=== PATIENT | male | born 1935 | race Caucasian/White ===

== ENCOUNTER 2024-08-16 07:19 | Outpatient (RCR) | payer MEDICARE, OTHER, SELFPAY ==
[2024-08-16 10:40] VITALS: BP 157/87; PULSE 79; TEMP 36; O2SAT 98
[2024-08-16] MEDS: MITOMYCIN 40 MG in WATER FOR INJECTION,STERILE 20 ML 20 MG INTRAVESIC (11:15)
--- NOTE | 2024-08-16 11:57 | PC.NURSE ---
1040: Pt. to [facility] amb. accompanied by . Consent form reviewed and obtained. Denies questions. Given privacy to change. 1050: Using sterile technique, 16 fr. garcia cath. inserted with delayed return of 150Ml clear, yellow urine. Pt. tolerated with minimal c/o. 1120: Mitomycin 40mg instilled into bladder at this time. Instructed pt. to turn side to side and front to back every 15min. x's 1hr. Pt. relays apprehension due to easily dislocating hip joint. This RN to assist pt. with gentle turning. Pt. relays understanding. 1135: Pt. turned to left side with assist. Pillow placed for comfort. 1150: Assisted pt. with turning to right side. Pt. denies c/o. at bedside.
--- NOTE | 2024-08-16 13:08 | PC.NURSE ---
1220: Mitomycin bladder instillation completed. Simon re-connected to drainage bag. 500cc clear yellow urine drained from bladder. Simon cath d/c'd. Given privacy to dress. 1230: Reminded pt. of precautions to take at home, pt. voices understanding. Pt. d/c'd amb. to home with .
== END 2024-08-16 12:51 | disposition home or self-care (01) ==
LOC: INF 07:19
PROVIDERS: Visit Provider Urology
DX: Z85.51 Personal history of malignant neoplasm of bladder (principal)
CPT/HCPCS: 51700; J9281

== ENCOUNTER 2024-09-13 07:40 | Outpatient (RCR) | payer MEDICARE, OTHER, SELFPAY ==
[2024-09-13] MEDS: MITOMYCIN 40 MG in WATER FOR INJECTION,STERILE 20 ML 20 MG INTRAVESIC (11:14)
--- NOTE | 2024-09-14 09:38 | PC.NURSE ---
Late entry: 09/13/24 Pt arrived for Mitomycin bladder instillation. Denies any complaints. Tx consent signed. #16 F garcia inserted into bladder per sterile technique. 200ml urine drained into garcia bag. Mitomycin instilled w/o incident. 1 hr dwell time complete. 500ml urine drained into garcia bag post procedure. Pt d/c'd stable.
== END 2024-09-13 14:20 | disposition home or self-care (01) ==
LOC: INF 07:40
PROVIDERS: Visit Provider Urology
DX: Z85.51 Personal history of malignant neoplasm of bladder (principal)
CPT/HCPCS: 51700; J9281

== ENCOUNTER 2024-12-20 07:31 | Outpatient (RCR) | payer MEDICARE, OTHER, SELFPAY ==
[2024-12-20 11:06] VITALS: BP 183/89; PULSE 59; TEMP 36.8; O2SAT 98
[2024-12-20] MEDS: MITOMYCIN 40 MG in WATER FOR INJECTION,STERILE 20 ML 20 MG INTRAVESIC (11:38)
--- NOTE | 2024-12-20 11:46 | PC.NURSE ---
1138: Mitomycin 40mg instilled into bladder. Simon cath plugged. Instructed pt. to turn side to side and front to back every 15min x's 1 hr. Pt. relays hip displaces easily, so pt. unable to completely roll on right side or prone position. Will assist pt. when needed.
--- NOTE | 2024-12-20 12:10 | PC.NURSE ---
Tolerating treatment without c/o burning or irritation in xavier area. Assisted pt. to gently turn on to right side. Denies needs. at bedside.
[2024-12-20 12:50] VITALS: BP 155/79; PULSE 60; TEMP 36.6; O2SAT 99
== END 2024-12-20 14:15 | disposition home or self-care (01) ==
LOC: INF 07:31
PROVIDERS: Visit Provider Urology
DX: C67.9 Malignant neoplasm of bladder, unspecified (principal)
CPT/HCPCS: 51700; J9281

== ENCOUNTER 2025-01-17 07:42 | Outpatient (RCR) | payer MEDICARE, OTHER, SELFPAY ==
[2025-01-17 10:42] VITALS: BP 167/69; PULSE 63; TEMP 36.6; O2SAT 99
[2025-01-17] MEDS: MITOMYCIN 40 MG in WATER FOR INJECTION,STERILE 20 ML 20 MG INTRAVESIC (11:07)
--- NOTE | 2025-01-17 11:22 | PC.NURSE ---
1107: Mitomycin instilled into bladder at this time via garcia catheter. End of garcia plugged. Instructed pt. to turn side to side and front to back every 15min. x's 1hr. Pt. relays understanding. at bedside.
--- NOTE | 2025-01-17 11:30 | PC.NURSE ---
Pt. tolerating treatment without c/o. Turning as instructed. Denies c/o or needs.
== END 2025-01-18 09:12 | disposition home or self-care (01) ==
LOC: INF 07:42
PROVIDERS: Visit Provider Urology
DX: Z85.51 Personal history of malignant neoplasm of bladder (principal)
CPT/HCPCS: 51700; J9281

== ENCOUNTER 2025-08-20 08:03 | Outpatient (OUT) | payer MEDICARE, OTHER, SELFPAY ==
--- OUTSIDE RECORDS SUMMARY | 2025-08-17 15:30 | XMS_ITS | Continuity of Care Document ---
Author Organization [facility] Address Unknown Care Team Providers Care Raschel Knitting Machine Operator Name Role Phone Rik Lund Primary Care Physician Encounter [facility] [id number] Date(s): 08/17/25 - 08/17/[address] [address] Encounter Diagnosis Redness and swelling of lower leg(Discharge Diagnosis) - 08/17/25 Other skin changes(Discharge Diagnosis) - 08/17/25 Discharge Disposition: Home Attending Physician: Valeria Jerome Admitting Physician: Valeria Jerome Encounter Type: OP Allergies, Adverse Reactions, Alerts SubstanceCriticalitySeverityReactionReaction SeverityStatusciprofloxacinActive sulfamethoxazole-trimethoprimActive Treatment Plan Extracted from:Title:Urgent Care NoteAuthor:Valeria Jeromeate:08/17/25 1. Redness and swelling of lower leg (M79.89) Future Appointments Immunizations Given and Recorded VaccineDateStatusRefusal XppvyuLQCA-NiL-2 (COVID-19) Moderna (cvx 312)07/26/23 SqdhvwnlTIMI-LyI-2 (COVID-19) mRNA-1273 vaccine6/08ThgzyjzgLWFK-JdH-7 (COVID- 19) mRNA-1273 sqpuspu86//04VhnqgbvkDYOL-BoA-8 (COVID-19) mRNA-1273 vaccine 11/17/2030AnhcdBSCD-KnD-2 (COVID-19) mRNA-1273 vaccine/Giveninfluenza, bnvoikaiqhh69/Given Medications atorvastatin 40 mg oral tablet 1 tab(s), Oral, Daily, # 90 tab(s), 3 Refill(s), Pharmacy: [facility], TAKE 1 TABLET DAILY, 180, cm, 09/28/24 8:31:00 EST, Height, 78.3, kg, 09/28/24 8:36:00 EST, Weight Dosing Start Date: 10/08/24 Status: Ordered Medication Dispense Status: Completed Quantity: 90.0 Unit: tab(s) Total Allowed Fills: 1 Fills Dispensed: 0 clopidogrel 75 mg oral tablet 1 tab(s), Oral, Daily, # 90 tab(s), 3 Refill(s), Pharmacy: [facility], TAKE 1 TABLET DAILY, 180, cm, 09/28/24 8:31:00 EST, Height, 78.3, kg, 09/28/24 8:36:00 EST, Weight Dosing Start Date: 10/17/24 Status: Ordered Medication Dispense Status: Completed Quantity: 90.0 Unit: tab(s) Total Allowed Fills: 1 Fills Dispensed: 0 Flomax 0.4 mg oral capsule 1 cap(s) ( 0.4 mg ), PO, Daily, # 30 cap(s), 0 Refill(s) Start Date: 03/06/16 Status: Ordered Medication Dispense Status: Completed Quantity: 30.0 Unit: cap(s) Total Allowed Fills: 1 Fills Dispensed: 0 fluticasone 50 mcg/inh nasal spray 1 spray(s), Nasal, Daily, 0 Refill(s) Start Date: 10/10/17 Status: Ordered Medication Dispense Status: Completed Total Allowed Fills: 1 Fills Dispensed: 0 folic acid 0.4 mg oral tablet 1 tab(s) ( 0.4 mg ), PO, Daily, # 100 tab(s), 0 Refill(s) Start Date: 03/06/16 Status: Ordered Medication Dispense Status: Completed Quantity: 100.0 Unit: tab(s) Total Allowed Fills: 1 Fills Dispensed: 0 lisinopril 20 mg oral tablet 1 tab(s) ( 20 mg ), Oral, Daily, # 90 tab(s), 3 Refill(s), Pharmacy: [facility],1 tab(s) Oral Daily, 180, cm, 03/20/25 9:58:00 EDT, Height, 78.2, kg, 03/20/25 10:05:00 EDT, WeightDosing Start Date: 03/20/25 Status: Ordered Medication Dispense Status: Completed Quantity: 90.0 Unit: tab(s) Total Allowed Fills: 4 Fills Dispensed: 0 Ocuvite PO, Daily, 0 Refill(s) Start Date: 05/18/18 Status: Ordered Medication Dispense Status: Completed Total Allowed Fills: 1 Fills Dispensed: 0 Percocet 5 mg-325 mg oral tablet 1 tab(s), Oral, q4hr, PRN: as needed for pain, # 12 tab(s), 0 Refill(s), Pharmacy: [facility], 1 tab(s) Oral q4hr,PRN:as needed for pain, 180, cm, 08/14/25 17:24:00 EST, Height, 77.7, kg, 08/14/25 13:03:00 EST, Weight Dosing Start Date: 08/15/25 Status: Ordered Medication Dispense Status: Completed Quantity: 12.0 Unit: tab(s) Total Allowed Fills: 1 Fills Dispensed: 0 Tums 500 mg oral tablet, chewable 1 tab(s) ( 500 mg ), Chewed, BID, PRN: as needed for dyspepsia Start Date: 05/03/23 Status: Ordered Medication Dispense Status: Completed Total Allowed Fills: 1 Fills Dispensed: 0 Tylenol (acetaminophen) ( 500 mg ), PO, PRN: pain, 0 Refill(s) Start Date: 06/01/17 Status: Ordered Medication Dispense Status: Completed Total Allowed Fills: 1 Fills Dispensed: 0 Problem List ConditionConfirmationCourseEffective DatesStatusHealth StatusInformant Malfunction of anal sphincterConfirmedActiveBladder pfetmvSghibejkk1204Lssovf Breast mass in maleConfirmedActiveCervical radiculopathyConfirmedActiveChest painConfirmedActiveCOPD (chronic obstructive pulmonary disease)ConfirmedActive CAD (coronary artery disease)ConfirmedActiveDepressionConfirmedActiveDizziness ConfirmedActiveDyspneaConfirmedActiveShortness of breathConfirmedActive Exertional dyspneaConfirmedActiveFatigueConfirmedActiveFoot painConfirmedActive Foot drop, rightConfirmedActiveGERD (gastroesophageal reflux disease)Confirmed ActiveHeart diseaseConfirmedActiveHip painConfirmedActiveHyperlipidemiaConfirmed ActiveHTN (hypertension)ConfirmedActiveIdiopathic osteoporosisConfirmedActive Erectile dysfunctionConfirmedActiveLumbar radiculopathyConfirmedActivePulmonary noduleConfirmedActivePreauricular massConfirmedActiveThyroid massConfirmedActive Near syncopeConfirmedActiveNeck painConfirmedActiveNight sweatsConfirmedActive Orthostatic hypotensionConfirmedActiveOsteoarthritisConfirmedActiveOM (otitis media)ConfirmedActivePVD (peripheral vascular disease) with claudication ConfirmedActiveRUQ abdominal painConfirmedActiveSciaticaConfirmedActiveSerous otitis mediaConfirmedActiveSpinal stenosis, lumbarConfirmedActiveThyroid nodule ConfirmedActiveTIA (transient ischemic attack)ConfirmedActiveUnintentional weight lossConfirmedActiveWeight lossConfirmedActive Procedures ProcedureDateRelated DiagnosisBody SiteStatusEpidural block1Completed Bxkarctwjyn2657YnqwhbabyOssqbne xgwhmoieuijzwfd9962AdnwnkswuMqk replacement CompletedShoulder dqbwzjwvpio5LzosoerztLpaaipkjfw repair of inguinal hernia2 Completed 1Rt 2Rt Social History Social History TypeResponseTobaccoFormer tobacco user Tobacco Use:. SexMale Sex RepresentationMale (finding) Implantable Device List ProcedureProviderProcedure DateDevice TypeSiteCystoscopy Stent InsertionAlexandre Ovalle MD08/15/25[facility] BiologicalUreter RDevice IdentifierSerial NumberLot or Batch NumberManufacturing DateExpiration DateDistinct Identification CodeMRI SafetyImplantable StatusAssigning [id number] UnknownUnknownActiveUnknown Urgent care center Note * Valeria Jerome BREAKER OPERATOR: PERFORM Event Display: Urgent Care Note Authored Date: [id number] ROSCOE ROQUE :1935 Age:89 years Sex:MALE Registration Date:08/17/2025 Primary Care Physician: Rik Lund DO History of Present Illness Roscoe is an 89-year-old male that presents to the urgent care department for redness to the lateralaspect of his right lower leg.?? states that??2 days ago he had ureteral stent??placed. ??He noticed today that he has redness along the lateral edge of his right lower leg. ??He does arrive??wearing??compression stockings and brace to right lower leg.?? He is currently on Plavix, he does state that he has had blood clots in the past. ??Discussed that he may benefit from??evaluation at higher level of care, he is agreeable to this. ??Escorted to??emergency department??via wheelchair.?? Report given to RN. Assessment/Plan 1.??Redness and swelling of lower leg (M79.89) Problem List/Past Medical History Ongoing Bladder cancer Breast mass in male CAD (coronary artery disease) Cervical radiculopathy Chest pain COPD (chronic obstructive pulmonary disease) Depression Dizziness Dyspnea Erectile dysfunction Exertional dyspnea Fatigue Foot drop, right Foot pain GERD (gastroesophageal reflux disease) Heart disease Hip pain HTN (hypertension) Hyperlipidemia Idiopathic osteoporosis Lumbar radiculopathy Malfunction of anal sphincter Near syncope Neck pain Night sweats OM (otitis media) Orthostatic hypotension Osteoarthritis Preauricular mass Pulmonary nodule PVD (peripheral vascular disease) with claudication RUQ abdominal pain Sciatica Serous otitis media Shortness of breath Spinal stenosis, lumbar Thyroid mass Thyroid nodule TIA (transient ischemic attack) Unintentional weight loss Weight loss Historical Acute pain of right knee Acute pancreatitis bladder CA Bronchitis Chronic cough Chronic serous otitis media Cough COVID-19 Dysplasia of anal sphincter PE - Pulmonary embolism Polymyalgia rheumatica Tear of retina tia Procedure/Surgical History ???Epidural block Service Date: 03/2021???Colonoscopy Service Date: 2008???Cardiac catheterisation Service Date: 2007???Shoulder replacement???Unilateral repair of inguinal hernia???Hip replacement Medications Home acetaminophen(Tylenol (acetaminophen)), 500 mg, Oral, PRN acetaminophen-oxycodone(Percocet 5 mg-325 mg oral tablet), 1 tab(s), Oral, q4hr, PRN atorvastatin(atorvastatin 40 mg oral tablet), 1 tab(s), Oral, Daily calcium carbonate(Tums 500 mg oral tablet, chewable), 500 mg= 1 tab(s), Chewed, BID, PRN clopidogrel(clopidogrel 75 mg oral tablet), 1 tab(s), Oral, Daily fluticasone nasal(fluticasone 50 mcg/inh nasal spray), 1 spray(s), !-Nasal, Daily folic acid(folic acid 0.4 mg oral tablet), 0.4 mg= 1 tab(s), Oral, Daily lisinopril(lisinopril 20 mg oral tablet), 20 mg= 1 tab(s), Oral, Daily, 3 refills multivitamin with minerals(Ocuvite), Oral, Daily tamsulosin(Flomax 0.4 mg oral capsule), 0.4 mg= 1 cap(s), Oral, Daily Allergies ciprofloxacin sulfamethoxazole-trimethoprim Social History Alcohol Alcohol Use:Never Electronic Cigarette/Vaping Electronic Cigarette Use:Never Employment/School Status:Retired Exercise Duration (average number of minutes):0 Home/Environment Lives with:Spouse Nutrition/Health Caffeine intake amount:2 cups daily Substance Use Substance use:Never Tobacco Smoking tobacco use:Former tobacco user [Electronically Signed on: 08/17/2025 15:28 EST] Valeria Jerome [Verified on: 08/17/2025 15:28 EST] Valeria Jerome BREAKER OPERATOR Patient Care team information Care Team Personnel Name: Rik Lund DO Position: [facility] Physician Acute/ED/Clinic/Care Member Role: Primary Care Physician Address: [address] [place] [address] Telecom: Care Team Related Persons Name: GEENA NEVILLE Name: CHRISTY ROQUE Insurance Providers Guarantor name: ROSCOE ROQUE Health Plan Information #: 1 Payer: MEDICARE Payer Identifier: LATRELL Member Number: [id number] Group Number: NA Subscriber Identifier: [id number] Relationship to Subscriber: self Coverage Type: MEDICARE Coverage Verification Date: 25 Telecom: [phone] Address: [facility] [address] Health Plan Information #: 2 Payer: FOR LIFE MEDICARE SECONDARY Payer Identifier: NA Member Number: [id number] Group Number: [id number] Subscriber Identifier: [id number] Relationship to Subscriber: self Coverage Type: OTHER GOVERNMENT (Federal/State/Local) (excluding Department of Corrections) Coverage Verification Date: 25 Telecom: [phone] Address: [address] [address] Health Plan Information #: 3 Payer: MEDICARE Payer Identifier: NA Member Number: [id number] Group Number: LATRELL Subscriber Identifier: [id number] Relationship to Subscriber: self Coverage Type: MEDICARE Coverage Verification Date: 25 Telecom: [phone] Address: [address] [place] [address] Health Plan Information #: 4 Payer: FOR LIFE MEDICARE SECONDARY Payer Identifier: NA Member Number: [id number] Group Number: [id number] Subscriber Identifier: [id number] Relationship to Subscriber: self Coverage Type: OTHER GOVERNMENT (Federal/State/Local) (excluding Department of Corrections) Coverage Verification Date: 25 Telecom: [phone] Address: [address] [place] [id number]
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
--- NOTE | 2025-08-20 08:11 | XR_ITS ---
The [address] [address] Patient Name: ROSCOE ROQUE MRN: [id number] date: 1935 Sex: M Assigned Patient Location: [facility] Current Patient Location: [facility] Accession/Order Number: [id number] Exam Date: 08/20/2025 09:00 Report Date: 08/20/2025 09:13 At the request of: JUVENCIO GILL MD Procedure: XR chest 2V PA AND LATERAL CHEST: CLINICAL HISTORY: Preoperative clearance. History of tobacco use. COMPARISON: None There is minimal basilar atelectasis or scarring. There is no focal parenchymal consolidation, effusion or pneumothorax. The cardiac, hilar and mediastinal silhouettes are within normal limits. There is no vascular congestion. The visualized bony thorax is intact. There is subtle dextroscoliotic curvature and endplate spurring. Patient has a shoulder prosthesis. XR/XR chest 2V IMPRESSION: NO ACUTE CARDIOPULMONARY ABNORMALITY. Impression dictated by: Hortensia Aly M.D. 08/20/2025 9:13 AM Dictation Location: [place] [address] Electronically authenticated by: [id number] Y Date: 08/20/2025 09:13
--- OUTSIDE RECORDS SUMMARY | 2025-08-20 08:11 | XMS_ITS | Clinical Summary ---
Author Organization [facility] Address [address], [address] [place] [address] Care Team Providers Care Internet Technology Manager Name Role Phone Rik Lund DO Primary Care Provider + [phone] Allergies Active AllergyReactionsCriticalityNoted DateComments Sulfamethoxazole-Uadyustowkgq73/21/2018Sulfa Ikzmetbygow00/21/2018 Medications MedicationSigDispense QuantityRefillsLast FilledStart DateEnd DateStatus folic acid (FOLVITE) 400 MCG tablet Take 400 mcg by mouth dailyActive clopidogrel (PLAVIX) 75 MG tablet Take 75 mg by mouth dailyActive tamsulosin (FLOMAX) 0.4 MG capsule Take 0.4 mg by mouth dailyActive atorvastatin (LIPITOR) 40 MG tablet Take 40 mg by mouth dailyActive aspirin 81 MG tablet Take 81 mg by mouth dailyActive lisinopril (PRINIVIL;ZESTRIL) 10 MG tablet Take 10 mg by mouth dailyActive Active Problems No known active problems Family History Medical HistoryRelationNameCommentsCancerFatherHeart DiseaseMotherRelationName StatusCommentsFatherMother Social History Tobacco UseTypesPacks/DayYears UsedDateSmoking Tobacco: NeverSmokeless Tobacco: NeverAlcohol UseStandard Drinks/WeekCommentsNot Currently0 (1 standard drink = 0.6 oz pure alcohol)Sex and Gender InformationValueDate RecordedSex Assigned at BirthNot on fileLegal PtpCizn69/20/2018 10:26 AM ESTGender IdentityNot on file Sexual OrientationNot on file Last Filed Vital Signs Vital SignReadingTime TakenCommentsBlood Pressure--Pulse--Gaahtrjpuzf64.6 ??C (97.8 ??F)10/10/2020 11:39 AM ESTRespiratory Rate--Oxygen Saturation--Inhaled Oxygen Concentration--Diakbn55.5 kg (195 lb)10/10/2020 11:39 AM SXXQfppad582.3 cm (5' 11 )10/10/2020 11:39 AM ESTBody Mass Index27. 11:39 AM EST Plan of Treatment Not on file Insurance Care Teams Team MemberRelationshipSpecialtyStart DateEnd Date Rik Lund DO PCP - GeneralOrthopedic Ujvakqw15/21/18
--- OUTSIDE RECORDS SUMMARY | 2025-08-20 08:12 | XMS_ITS | Clinical Summary ---
Author Organization [facility] Address [address] [place] [address] Phone Care Team Providers Care Fire Alarm Inspector Name Role Phone KevonRik Jace HANDLEY Primary Care Provider + Allergies Active AllergyReactionsCriticalityNoted DateCommentsCiprofloxacinGI intolerance, Other06/20/2007 Other Reaction(s): rapid heartbeat Sulfa (Sulfonamide Antibiotics)Hives,WsrqBhg8209/13/2011 Sulfamethoxazole-YjnvuykdkwopDjotFcc03/21/2018 Medications MedicationSigDispense QuantityRefillsLast FilledStart DateEnd DateStatus tamsulosin (Flomax) 0.4 mg 24 hr capsule Take 1 capsule (0.4 mg) by mouth once daily.02/22/2023ctive folic acid (Folvite) 400 mcg tablet 1 (one) time each day at the same time.Active atorvastatin (Lipitor) 40 mg tablet Take 1 tablet (40 mg) by mouth once daily.01/16/2023ctive clopidogrel (Plavix) 75 mg tablet Take 1 tablet (75 mg) by mouth.12/13/2006ctive acetaminophen (Tylenol) 325 mg tablet Take 1 tablet (325 mg) by mouth every 4 hours.Active di-rr-lv1-hxe-hca-fyev-lut-melissa (Ocuvite Adult 50 Plus) 250 mg (90 mg-160 mg) capsule Take by mouth.Active lisinopril 20 mg tablet Take 1 tablet (20 mg) by mouth once daily.Active Active Problems ProblemNoted DateDiagnosed DateNonrheumatic aortic (valve) nejljitj30/28/2025 Former usxqxe8507/23/2025hest pain, foykgtymbba48/26/2025Edema of right lower aaiqxlgrm89/26/2025Easy elcfkrghxkir07/26/2025Personal history of TIA (transient ischemic attack)12/09/2023ladder tumor12/09/20234100Mfyjrjlrqeamco68/15/2024 Abnormal EKG012/09/20238511CLWJ97/15/2024MI 24.0-24.9, adult12/09/2023OPD (chronic obstructive pulmonary disease)02/28/2023HTN (hypertension)02/28/2023 Resolved Problems ProblemNoted DateDiagnosed DateResolved DatePre-operative cardiovascular foxsptafxeo24/15/202406/7401Zkhmyrerd95Heart disease Near Encounters DateTypeDepartmentCare ZzesBgzuwfqllpx35/21/2025Telephone [address] [place] [phone] Eva Coburn LPN 07/23/2025 12:50 PM EDTOffice Visit [address] [place] [phone] Bolivar Christensen MD Chest pain, unspecified type (Primary Dx); Primary hypertension; RBBB; Mixed hyperlipidemia; Abnormal EKG; Easy bruisability; BMI 23.0-23.9, adult; Edema of right lower extremity; Nonrheumatic aortic (valve) stenosis; Former aoxlis8107/23/2025Travelfrom Last 3 Months Immunizations ImmunizationAdministration DatesNext LpbWPR30/20/2024COVID-19 mRNA, bivalent, original/Omicron BA.1, Non-US Vaccine (Spikevax Bivalent), Lpztkmo55/07/2022Flu vaccine (IIV4), preservative free *Check age/dose*06/27/2018,06/20/2017Flu vaccine, quadrivalent, high-dose, preservative free, age 65y+ (FLUZONE) 07/18/2023,07/07/2022,06/25/2021,06/12/2020Flu vaccine, trivalent, preservative free, HIGH-DOSE, age 65y+ (Fluzone)07/12/2025,06/08/2024,06/12/2019Influenza, live, intranasal, jekytrbkwekm11/26/2018Pneumococcal polysaccharide vaccine, 23- valent, age 2 years and older (PNEUMOVAX 23)03/01/2016,09/12/2015RESPIRATORY SYNCYTIAL VIRUS (RSV), ELIGIBLE PTS, 0.5 ML (ABRYSVO)09/02/2023 Family History Medical HistoryRelationNameCommentsCancerFatherHeart attackMotherRelationName StatusCommentsFatherDeceasedMotherDeceased Social History Tobacco UseTypesPacks/DayYears UsedDateSmoking Tobacco: FormerPipeSmokeless Tobacco: Never Tobacco Cessation:Counseling Given: Not Answered Alcohol UseStandard Drinks/WeekCommentsNever0 (1 standard drink = 0.6 oz pure alcohol)Sex and Gender InformationValueDate RecordedSex Assigned at BirthNot on fileLegal ZyaSide30/26/2022 4:39 PM ESTGender IdentityNot on fileSexual OrientationNot on file Last Filed Vital Signs Vital SignReadingTime TakenCommentsBlood Rgvxogok241/7607/23/2025 12:50 PM EDT Mkkdk277807/23/2025 12:50 PM EDTTemperature--Respiratory Rate--Oxygen Saturation-- Inhaled Oxygen Concentration--Jjawms28 kg (172 lb)07/23/2025 12:50 PM EDTHeight 180.3 cm (5' 11 )07/23/2025 12:50 PM EDTBody Mass Index23.9907/23/2025 12:50 PM EDT Plan of Treatment DateTypeDepartmentCare Team (Latest Contact Info)Hxytsdusirm03/30/2026 3:30 PM EDTOffice Visit [facility] [address] [address] Bolivar Christensen MD 703 [facility] [address] [place] [address] Health MaintenanceDue DateLast DoneCommentsLipid Panel1936Medicare Annual Wellness Visit (AWV)1936Diabetes Xuvgyadlt49/27/1954OVID-19 Vaccine ( season)61, 06/08/2024, 07/26/2023, Additional history existsDTaP/Tdap/Td Vaccines (2 - Td or Tdap)Zoster Vaccines Ohevebtxb56/01/2019, 12/08/2018RSV High Risk: (Elderly (60+) or Population)Iymzpshcn38/08/2023Influenza UjhpjleTyhlmuaqo38/17/2025, 06/08/2024, 07/18/2023, Additional history existsPneumococcal ChznrovCjvjnwpdp70/17/2025, 01/20/2022, 11/27/2020, Additional history existsHIB VaccinesAged OutNo longer eligible based on patient's age to complete this topicHPV VaccinesAged OutNo longer eligible based on patient's age to complete this topicHepatitis A VaccinesAged OutNo longer eligible based on patient's age to complete this topic Hepatitis B VaccinesAged OutNo longer eligible based on patient's age to complete this topicIPV VaccinesAged OutNo longer eligible based on patient's age to complete this topicMeningococcal VaccineAged OutNo longer eligible based on patient's age to complete this topicRotavirus VaccinesAged OutNo longer eligible based on patient's age to complete this topic Insurance * Guarantor: Hector HernandezAccount TypeRelation to PatientDate of BirthPhone Billing AddressPersonal/LgdwgiZypx1935 [address] [place] [address] Care Teams Team MemberRelationshipSpecialtyStart DateEnd Date Rik Lund DO [address] [place] [address] PCP - GeneralFamily Medicine12/09/23
--- OUTSIDE RECORDS SUMMARY | 2025-08-20 08:12 | XMS_ITS | Clinical Summary ---
Author Organization [facility] Address [address] [place] [address] Care Team Providers Care Director Of Officiating Name Role Phone Unavailable Primary Care Provider Unavailabl e Allergies Active AllergyReactionsCriticalityNoted DateCommentsSulfamethoxazoleHives 09/13/20111330EkpqwubrxpwaxRivvxcjudfz62/25/2007 Medications MedicationSigDispense QuantityRefillsLast FilledStart DateEnd DateStatus PLAVIX 75 MG TAB Take one(1) tablet daily.ctive ASPIRIN 81 MG TAB Take one(1) tablet daily.ctive FOLIC ACID 1 MG TAB Take one(1) tablet daily.ctive atorvastatin (LIPITOR) 40 mg tablet Take 40 mg by mouth once daily.Active ACETAMINOPHEN (TYLENOL 8 HOUR ORAL) Take by mouth.Active ANTIOX #11/OM3/DHA/EPA/LUT/JULIA (OCUVITE ADULT 50+ ORAL) Take by mouth two times a day.Active lisinopril (ZESTRIL, PRINIVIL) 10 mg tablet Take 10 mg by mouth once daily.Active tamsulosin ER (FLOMAX) 0.4 mg cp24 Take 0.4 mg by mouth.Active Active Problems ProblemNoted DateDiagnosed DateLeg length dmpjibxvqmu20/24/2014Foot drop, right 03/19/2014Injury, other and unspecified, hip and thigh12/25/2013Unspecified disorder of joint of pelvic region and thigh04/01/2014RT HIP, COMPLIC FURNACE LINER JOINT DEVICE [996.77]08/01/2008S/P RIGHT HIP JOINT ORMNUPCWGKP76/06/2008ctinic ojxtmsxxj87/20/2007Contact dermatitis and other eczema, due to unspecified cause 12/13/2006 Encounters DateTypeDepartmentCare SvdtNjmdcnoorki53/25/2025 10:40 AM EDTOffice Visit Orthopaedics [address] [place] [address] Lakesha Negrete PA-C 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) 06/20/2025 10:05 AM EDT - 06/20/2025 11:59 PM EDTHospital Encounter Radiology [address] [place] [address] History of revision of total replacement of right hip joint [Z96.641] Discharge Disposition: Home06/11/2025Orders Only Orthopaedics [address] [address] Laeksha Negrete PA-C 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 Last address used for bfaaaqdayrh[address]06/21/2024Sex and Gender InformationValueDate RecordedSex Assigned at EclriJxen25/23/2024 7:38 PM EDT Legal AtiLejh06/02/2012 8:42 AM ESTGender VrahgbfmFuwh71/23/2024 7:38 PM EDT Sexual GmdowhjevxuTuerfqki82/23/2024 7:38 PM EDT Last Filed Vital Signs Vital SignReadingTime TakenCommentsBlood Goeqhkss147/7202 10:04 AM EST Osqma3886/28/2017 10:04 AM WHGCeuahwsfawu68.6 ??C (97.8 ??F)11/23/2016 10:04 AM ESTRespiratory Fgos701611/23/2016 10:04 AM ESTOxygen Trsyrhtmjc79%11/23/2016 10:04 AM ESTInhaled Oxygen Concentration--Dltrxt82 kg (194 lb)11/23/2016 10:04 AM EST Lqyxsc890.3 cm (5' 11 )11/23/2016 10:04 AM ESTBody Mass Index27.0611/23/2016 10:04 AM EST Plan of Treatment DateTypeDepartmentCare Team (Latest Contact Info)Izujpioazho70/25/2026 10:40 AM EDTOffice Visit Orthopaedics [address] [facility] [place], [place] [address] Lakesha Negrete PA-C [address] [place] [address] right hipHealth MaintenanceDue DateLast DoneCommentsAnxiety Lpbwibvkz43/27/1954 Depression Ojyaopjij05/27/1954iabetes Getzcyrpd44/27/1981Medicare Annual Wellness Visit05/27/2001Advance Directive Dralulcsif90/01/2025Covid-19 Vaccine ( season), 07/26/2023, 09/01/2022, Additional history existsInfluenza Vaccine (#1)/, 07/18/2023, 07/07/2022, Additional history existsDTaP,Tdap,Td Vaccine (2 - Td or Tdap) 9012/08/2018Shingrix YfmniicZrcajbaop61/01/2019, 12/08/2018Pneumococcal Vaccine: 50+Whzfhvjfo17/27/2022, 11/27/2020, 03/01/2016, Additional history existsRSV EmgkwqzDqdukijef83/08/2023 Procedures Procedure NamePriorityDate/TimeAssociated DiagnosisCommentsXR HIP GENERAL 3V PELV/AP/LAT QSPKTPcfphhf44/25/2025 10:21 AM EDT History of revision of total replacement of right hip joint from Last 3 Months Results * XR HIP GENERAL 3V PELV/AP/LAT RIGHT (06/20/2025 10:21 AM EDT)Anatomical Region LateralityModalityHipOtherSpecimen (Source)Anatomical Location / Laterality Collection Method / VolumeCollection TimeReceived Time06/20/2025 10:21 AM EDT Impressions 06/20/2025 8:47 PM EDT IMPRESSION: Postoperative changes similar to prior examination. Director Oncology: PSCB ?? Transcribe Date/Time: Jun 20 2025 ??8:43P Dictated by : VALENTIN LINDA MD This examination was interpreted and the report reviewed and electronically signed by: VALENTIN LINDA MD on Jun 20 2025 ??8:45PM ??EST Narrative 06/20/2025 8:47 PM EDT * * *Final Report* * * DATE OF EXAM: Jun 20 2025 10:21AM ?? AFR ?? [id number] ??- ??XR HIP 3V PELV+ AP/LAT RT ??/ PROCEDURE REASON: History of revision of total replacement of right hip joint ? * * * * Physician Interpretation * * * * HISTORY: ??History of revision of total replacement of right hip joint ?? . ??1 YEAR F/U RT HIP TECHNIQUE: XR HIP 3V PELV+ AP/LAT RT COMPARISON: 06/21/2024 RESULT: No significant interval change. ??Again seen are postoperative changes of right total hip arthroplasty with acetabular augmentation and long stem femoral component secured by 2 metallic cables. ??Hardware in unchanged position with vertically oriented acetabular component. ??A broken screw is again noted. ??No evidence of loosening. No acute fracture. ??Diffuse osteopenia. No other significant abnormality. Procedure Note Provider, [facility] - 06/20/2025 * * *Final Report* * * DATE OF EXAM: Jun 20 2025 10:21AM AFR [id number] - XR HIP 3V PELV+ AP/LAT RT / PROCEDURE REASON: History of revision of total replacement of right hip joint * * * * Physician Interpretation * * * * HISTORY: History of revision of total replacement of right hip joint . 1 YEAR F/U RT HIP TECHNIQUE: XR HIP 3V PELV+ AP/LAT RT COMPARISON: 06/21/2024 RESULT: No significant interval change. Again seen are postoperative changes of right total hip arthroplasty with acetabular augmentation and long stem femoral component secured by 2 metallic cables. Hardware in unchanged position with vertically oriented acetabular component. A broken screw is again noted. No evidence of loosening. No acute fracture. Diffuse osteopenia. No other significant abnormality. IMPRESSION IMPRESSION: Postoperative changes similar to prior examination. Director Oncology: JENY Transcribe Date/Time: Jun 20 2025 8:43P Dictated by : VALENTIN LINDA MD This examination was interpreted and the report reviewed and electronically signed by: VALENTIN LINDA MD on Jun 20 2025 8:45PM EST Authorizing ProviderResult TypeResult StatusLakesha VALENZUELA-CRAD-PAMAFinal Result from Last [address] [facility] [place] [address] * Guarantor: ROSCOE HERNANDEZ TypeRelation to PatientDate of BirthPhone Billing AddressPersonal/AgpccnAqfuskhmp[address] [facility] [place] [address] * Guarantor: [id number] ROSCOE HERNANDEZ TypeRelation to PatientDate of BirthPhoneBilling AddressWorkers XfkbBwff1936 [facility] [place] [address]
--- OUTSIDE RECORDS SUMMARY | 2025-08-20 08:12 | XMS_ITS | Encounter Summary ---
Author Organization [facility] Address [address] [place] [address] Phone Care Team Providers Care Raw Hide Trimmer Name Role Phone Kevon Rik Mccormick DO Primary Care Provider + Encounter Details DateTypeDepartmentCare Team (Latest Contact Info)Eqtkdtqpefl34/21/2025Telephone [facility] [address] [address] Eva Coburn LPN Social History Tobacco UseTypesPacks/DayYears UsedDateSmoking Tobacco: FormerPipeSmokeless Tobacco: NeverAlcohol UseStandard Drinks/WeekCommentsNever0 (1 standard drink = 0.6 oz pure alcohol)Sex and Gender InformationValueDate RecordedSex Assigned at BirthNot on fileLegal TcmFgki06/26/2022 4:39 PM ESTGender IdentityNot on file Sexual OrientationNot on filedocumented as of this encounter Miscellaneous Notes * Telephone Encounter - Osiris Hoffman LPN - 08/16/2025 4:16 PM EST Surgeon's office notified. Will fax note * Telephone Encounter - Eva Coburn LPN - 08/16/2025 11:56 AM EST Call from [place] with Dr. Rowe' office requesting POC and 1 week med hold prior to right holmium laser stone surgery scheduled for 08.29.25. Patient is on Plavix and ASA. Patient will be undergoing general anesthesia. (D) [phone] (P) [phone] documented in this encounter Plan of Treatment DateTypeDepartmentCare Team (Latest Contact Info)Shkslviviyw68/30/2026 3:30 PM EDTOffice Visit [facility] [address] [place] [address] [address] [place] [phone] Bolivar Christensen MD [address] [place] [address] [address] [place] [address] documented as of this encounter Visit Diagnoses Not on filedocumented in this encounter Additional Health Concerns AssessmentNoted TimeA fall risk assessment has been completed for the patient 07/23/2025 12:49 PM EDTdocumented as of this encounter Care Teams Team MemberRelationshipSpecialtyStart DateEnd Date Rik Lund DO [address] [place] [address] PCP - GeneralFamily Medicine12/09/23documented as of this encounter
--- OUTSIDE RECORDS SUMMARY | 2025-08-20 08:12 | XMS_ITS | Clinical Summary ---
Author Organization [facility] Address [address] [place] [address] Care Team Providers Care Mult Au Matic Operator Name Role Phone Rik Lund MD Primary Care Provider [phone] Allergies Active AllergyReactionsCriticalityNoted DateCommentsCiprofloxacinGI intolerance 06/20/2007 Other Reaction(s): rapid heartbeat Sulfa AntibioticsRash,AfcqzNwr73/19/2011Sulfamethoxazole-TrimethoprimRashLow 08/16/2018 Medications MedicationSigDispense QuantityRefillsLast FilledStart DateEnd DateStatus acetaminophen (Tylenol) 325 MG tablet every 4 (four) hoursActive ASPIRIN 81 MG chewable tablet 1 (one) time each day at the same timeActive atorvastatin (Lipitor) 40 MG tablet 01/16/2023ctive clopidogrel (Plavix) 75 MG tablet 01/26/2023ctive folic acid (Folvite) 400 MCG tablet 1 (one) time each day at the same timeActive lisinopril 10 MG tablet 02/20/2023ctive Multiple Vitamins-Minerals (Ocuvite Adult 50+) capsule Active tamsulosin (Flomax) 0.4 MG 24 hr capsule Take 0.4 mg by mouth Daily02/22/2023ctive doxycycline (Vibramycin) 100 MG capsule 06/23/2023ctive Active Problems ProblemNoted DateDiagnosed BcixRkggovs78/22/2023hronic ulcer of right foot with fat layer hikhkyi5302/28/2023Onychomycosis due to cinqvcpnmatg84/05/2023rthritis of right knee02/28/2023Internal derangement of right knee02/28/2023 Osteoarthritis of right knee02/28/2023Unilateral primary osteoarthritis, left knee02/28/2023ain in limb02/28/2023ain in right knee02/28/2023eripheral iwithejmcg20/05/2023rimary xzhftapbxkpwxn76/05/2023Right knee pain, unspecified uiuplxkski29/05/0690Fsjpzdyx53/05/2023Shortness of gprjbr6402/28/2023ervical rmlrjjyenlpmj14/05/2023Lumbar budatynjfdamf15/05/2023Spinal stenosis, lumbar 02/28/2023Thyroid mass02/28/2023TIA (transient ischemic attack)02/28/2023Weight loss02/28/2023Neck pain02/28/2023Idiopathic eeknplqbglvi72/05/2023Osteoarthritis 02/28/2023RUQ abdominal pain02/28/2023eripheral arterial occlusive disease 02/28/2023Orthostatic qflaanhkglu00/05/2023Night mmauyv0002/28/2023Near syncope 02/28/2023HTN (hypertension)02/28/2023Heart mxlaoml9902/28/2023Malfunction of anal gkatmbogl20/05/2023Lung mass02/28/2023reast mass in male02/28/2023 Recqwifvxzldlg76/05/2023Hip pain02/28/2023ERD (gastroesophageal reflux disease) 02/28/20238867Fxnouddxn61/05/6342Qjvxfxfrgr52/05/2023OVID-19002/28/2023OPD (chronic obstructive pulmonary disease)02/28/2023hronic serous otitis media02/28/2023 Chronic cough02/28/2023AD (coronary artery disease)02/28/2023ladder cancer 02/28/2023cute pancreatitis ([facility])02/28/2023Unilateral inguinal hernia without obstruction or vqyfczng50/05/2023Foot drop, right03/19/2014Leg length tcdaisqukhc93/24/2014Disorder of joint of pelvic region and thigh12/25/2013 [facility] lkxonymby43/20/2007 Encounters DateTypeDepartmentCare BnmdCveplbzafru45/08/2025 11:30 AM EDTOffice Visit [facility] [address] [place] [address] Dago Staton DPVickie Other polyneuropathy (Primary Dx); Pain due to onychomycosis of toenails of both feet; Right foot drop5Bamboo flowsheet [facility] [address] [place] [phone] Dago Staton DPVickie from Last 3 Months Immunizations ImmunizationAdministration DatesNext DueInfluenza, High Dose Seasonal, Preservative Free06/12/2019Influenza, High-dose Seasonal, Quadrivalent, Preservative Free07/07/2022,06/25/2021,06/12/2020Influenza, injectable, quadrivalent, preservative free06/27/2018,06/20/2017Influenza, live, intranasal, ozpwbbzenurx07/26/2018Moderna Bivalent Booster Azypawmsezo74/07/2022Moderna SARS-CoV-2 Booster Ryxmetkpfpj60/07/2022neumococcal Polysaccharide PPSV23 03/01/2016,09/12/2015 Family History Medical HistoryRelationNameCommentsCancerFatherHeart diseaseMotherRelationName StatusCommentsFatherDeceasedMotherDeceased Social History Tobacco UseTypesPacks/DayYears UsedDateSmoking Tobacco: FormerCigarettes Smokeless Tobacco: Never Tobacco Cessation:Counseling Given: Yes Alcohol UseStandard Drinks/WeekCommentsNever0 (1 standard drink = 0.6 oz pure alcohol)caffeine intake: 1-2 cups per daySex and Gender InformationValueDate RecordedSex Assigned at BirthNot on fileLegal LeqOdqr5612/08/2022 8:13 PM EDT Gender IdentityNot on fileSexual OrientationNot on file Last Filed Vital Signs Vital SignReadingTime TakenCommentsBlood Uurpnxpz695/7802 11:59 AM EST Ueoqm5839/10/2025 11:59 AM ESTTemperature--Respiratory Gudx288206/03/2025 11:47 AM EDTOxygen Saturation--Inhaled Oxygen Concentration--Yubdcs88.3 kg (177 lb) 06/03/2025 11:47 AM ENZJujdtb652.3 cm (5' 11 )06/03/2025 11:47 AM EDTBody Mass Index24.69006/03/2025 11:47 AM EDT Plan of Treatment DateTypeDepartmentCare Team (Latest Contact Info)Adodegbeuvp29/01/2025 11:40 AM ESTOffice Visit [facility] [address] [place] [phone] Dago Staton DPM [address] [address] Health MaintenanceDue DateLast DoneCommentsCOVID-19 Vaccine ( season) , 09/01/2022, 03/08/2022, Additional history exists Pneumococcal Vaccine: 65+ MzhlaOqdchnqto21/27/2022, 11/27/2020, 03/01/2016, Additional history existsInfluenza TzqnamiUxrytsbun52/17/2025, 06/08/2024, 07/18/2023, Additional history exists Insurance Care Teams Team MemberRelationshipSpecialtyStart DateEnd Date Rik Lund MD [address] [place] [address] PCP - GeneralFamily Medicine02/28/23
--- OUTSIDE RECORDS SUMMARY | 2025-08-20 08:14 | XMS_ITS | CCD ---
Author Organization [facility] Care Team Providers Care Internetworking Technician Name Role Phone ROCIO, RICARDO H Unavailable Unavailable ROCIO, RICARDO H Unavailable Unavailable ROSCOE BARONE V Unavailable Unavailable ROCIO, RICARDO H Unavailable Unavailable Jordin Carson Unavailable DO Eh Lund Primary Care Provider MD Simon English Emergency Provider MD Juan Gill Attending Provider DO Eh Lund Primary Care Provider MD Juan Gill Attending Provider MD Dominik Fenton Attending Provider [phone] DO Eh Lund Primary Care Provider DO John Haq Emergency Provider [phone] Kevon Eh HANDLEY [place] Primary Care Provider DO Eh Lund Primary Care Provider [phone] DO John Haq Emergency Provider MD Jordin Carson Attending Provider DO Eh Lund Attending Provider MD Juan Gill Attending Provider [phone] DO Eh Lund Primary Care Provider [phone] DO Eh Lund Primary Care Provider EVA RASCON Attending Unavailable EVA RASCON Attending Unavailable EVA RASCON Admitting Unavailable Juan GILL Attending Unavailable Juan GILL Admitting Unavailable Juan GILL Attending Unavailable Unavailable Primary Care Provider Unavailabl e Juan GILL Attending Unavailable GILL, Juan R Admitting Unavailable GILL, Juan R Attending Unavailable KevonDO [facility] Provider MD Jordin Carson Attending Provider [phone] DO Kevon [facility] Provider MD Jordin Carson Attending Provider Kevon HANDLEY [facility] Provider Jordin Carson MD Attending Provider Eh Lund MD Primary Care Provider GILL, Juan R Attending Unavailable GILL, Juan R Attending Unavailable GILL, Juan R Admitting Unavailable GILL, Juan R Attending Unavailable GILL, Juan R Attending Unavailable GILL, Juan R Attending Unavailable GILL, Juan R Attending Unavailable GILL, Juan R Admitting Unavailable Kevon , [facility] Provider Jordin Carson MD Attending Provider GILL, Juan R Attending Unavailable GILL, Juan R Attending Unavailable GILL, Juan R Attending Unavailable GILL, Juan R Admitting Unavailable Yamileth, Jordin Attending Unavailable [facility] Unavailable Yamileth, Jordin Admitting Unavailable Yamileth, Jordin Attending Unavailable [facility] Unavailable Jordin Carson Admitting Unavailable Olexa, Jordin Admitting Unavailable Olexa, Jordin Attending Unavailable [facility] Unavailable Yamileth, Jordin Attending Unavailable [facility] Unavailable Yamileth, Jordin Admitting Unavailable Tolleson DO [facility] Provider Jordin Carson MD Other Provider JD MOREIRA Referring Unavailable [facility] Unavailabl e JD MOREIRA Referring Unavailable [facility] Unavailabl e DAGO BRITO Attending Unavailable DAGO BRITO Referring Unavailable DAGO BRITO Attending Unavailable DAGO BRITO Attending Unavailable DUYEN TROTTER Attending Unavailable DAGO BRITO A Attending Unavailable DAGO BRITO Attending Unavailable DAGO BRITO Attending Unavailable GILL, Juan R Attending Unavailable GILL, Juan R Attending Unavailable GILL, Juan R Admitting Unavailable LAKESHA NEGRETE Referring Unavailable GAURANG SHANE Referring Unavailable LAKESHA NEGRETE Attending Unavailable JD MOREIRA Attending Unavailable JD MOREIRA Referring Unavailable EH LUND Primary Care Unavailabl e JD MOREIRA Attending Unavailable EH LUND Primary Care Unavailabl e Kevon, Eh Fernandez Attending Unavailable Kevon, Eh Fernandez Primary Care Unavailable Kevon, Eh P Primary Care Unavailable Kevon, Eh P Primary Care Unavailable Kevon, Eh Fernandez Attending Unavailable Marija Russell Attending Unavailable Kevon, Eh Fernandez Primary Care Unavailable Marija Russell Admitting Unavailable Gonnajma, Marija Attending Unavailable Kevon, Eh P Primary Care Unavailable Kevon, Eh P Primary Care Unavailable Kevon, Eh P Admitting Unavailable Kevon, Eh Fernandez Attending Unavailable Kevon, Eh Fernandez Primary Care Unavailable Kevon, Eh P Admitting Unavailable Kevon, Eh Fernandez Attending Unavailable Kevon, Eh P Primary Care Unavailable StaElias lindquist Admitting Unavailable Elias Douglas Attending Unavailable Juan Reed I Attending Unavailable KevonEh Primary Care Unavailable Kevon, Eh Fernandez Attending Unavailable Kevon, Eh P Primary Care Unavailable Allergies Allergy ClassificationReported Allergen(s)Allergy TypeDate of OnsetReaction(s) FacilityQuinolones (antibiotic) (1 source)Ciprofloxacin; Translations: [ciprofloxacin][facility]rug [facility] RepositorySulfamethoxazole / Trimethoprim (1 source)Sulfamethoxazole / Trimethoprim; Translations: [Bactrim]Drug Allergy [facility] RepositorySulfonamides (antibiotic) (1 source)Sulfamethoxazole; Translations: [sulfamethoxazole]Drug [facility] (20 sources)Ciprofloxacin; Translations: [ciprofloxacin]Drug Fwhbnws52-26-8137IW intolerance, Other, IntoleranceMer[facility] Health [facility]field [facility] (20 sources)Sulfamethoxazole / TrimethoprimDrug Inmynjp36-24-0493avveQrgqlTheOfficialBoard Other (10 sources)Sulfonamides (Antibiotic)Propensity to adverse reactionspresbyterian santa fe medical centerTIMPIK Other (20 sources)Sulfamethoxazole; Translations: [sulfamethoxazole]Drug Allergy 91-30-1632DisnfQjzbdkbgsOhio State Health System (20 sources)Sulfonamides (Antibiotic); Translations: [Sulfa (Sulfonamide Antibiotics)]Allergy to ajowmifzi03-97-5890Wpgja, [facility] (20 sources)Trimethoprim; Translations: [trimethoprim]Drug Omwiflg70-34-6721IgeqWvumedicine [facility] (6 sources)Sulfamethoxazole / Trimethoprim; Translations: [Bactrim]Drug Allergy [facility] (20 sources)Sulfonamides (Antibiotic)Drug Mlbkhpcvdhq70-83-9561LiohBarn[facility]-Jewish Hospital (1 source)CiprofloxacinDrug Rnreojy24-03-6892KsykfmccnMercy Health Fairfield Hospital Repository (3 sources)Sulfamethoxazole / Trimethoprim; Translations: [SULFAMETHOXAZOLE-TRIMETHOPRIM]Drug Gutjbqk27-96-7167[facility] Medications Current Medications MedicationDrug Class(es)DatesSig (Normalized)Sig (Original)acetaminophen 500 mg oral tablet (20 sources)Start: 89-57-1509mfwr 1 tablet by mouth every six hours as needed for painStart: 07-13-2018 End: 66-54-0127qsta 1 tablet by mouth every four to six hours as needed for pain Acetaminophen (Tylenol Extra Strength) 500 mg Tablet Discontinued 500 MG PO EVERY 4-6 HOURS as needed for Pain July 13, 2018 12:00am September 05, 2022 3:08pmtake 1 tablet by mouth every four hoursacetaminophen (Tylenol) 325 mg tablet Take 1 tablet (325 mg) by mouth every 4 hours. ActiveACETAMINOPHEN (TYLENOL 8 HOUR ORAL) Take by mouth. ActiveACETAMINOPHEN (TYLENOL 8 HOUR ORAL) Take by mouth. 0 Activeacetaminophen 325 mg / oxyCODONE hydrochloride 5 mg oral tablet (9 sources)Opioid AgonistStart: 12-65-7832xvnz 1 tablet by mouth twice daily as neededoxyCODONE-Acetaminophen 5-325 MG 1 tablet as needed Orally UP TO TWICE DAILY NEEDED for 7 days Jul, ActiveANTIOX #11/OM3/DHA/EPA/LUT/JULIA (OCUVITE ADULT 50+ ORAL) (5 sources)ANTIOX #11/OM3/DHA/EPA/LUT/JULIA (OCUVITE ADULT 50+ ORAL) Take by mouth two times a day. ActiveANTIOX #11/OM3/DHA/EPA/LUT/JULIA (OCUVITE ADULT 50+ ORAL) Take by mouth. 0 ActiveAscorbic Acid / Beta Carotene / cuprous oxide / Lutein / sodium selenate / Vitamin E / Zinc Oxide (10 sources)Vitamin COcuvite Adult 50+ - Orally Activeascorbic acid 60 mg / cuprous oxide 2 mg / dl-alpha tocopheryl acetate 30 mg / lutein 6 mg / zinc ox sherrill 15 mg oral capsule (12 sources)Vitamin CMultiple Vitamins-Minerals (Ocuvite Adult 50+) capsule Activeaspirin 81 mg delayed release oral tablet (20 sources)Platelet Aggregation Inhibitor, Nonsteroidal Anti-inflammatory Drug Start: 22-37-1619Znrmn: 48-58-2744KSCBSAG 81 MG TAB Take one(1) tablet daily. 0 12/13/2006 Active End: 70-50-3296HGTHAKT 81 MG chewable tablet 1 (one) time each day at the same time Activeatorvastatin 40 mg oral tablet (20 sources)HMG-CoA Reductase InhibitorStart: 73-63-9648paaz 1 tablet by mouth once dailyatorvastatin (Lipitor) 40 mg tablet Take 1 tablet (40 mg) by mouth once daily. 01/16/2023 Activecefuroxime 250 mg oral tablet (12 sources)Cephalosporin AntibacterialStart: 29-36-2567xaan 1 tablet by mouth in the morningcefuroxime (Ceftin) 250 MG tablet Take 250 mg by mouth in the morning and 250 mg before bedtime. 06/15/2023 Activecephalexin 500 mg oral capsule (20 sources)Cephalosporin AntibacterialStart: 01-28-2025 End: 14-73-5357sbst 1 capsule by mouth in the morningcephalexin (Keflex) 500 MG capsule Indications: Skin and Skin Structure Infection Take 1 capsule (500 mg) by mouth in the morning and 1 capsule (500 mg) before bedtime. Do all this for 10 days. 20 capsule 01/28/2025 02/07/2025 ActiveStart: 12-14-2022 End: 35-83-4892kfcp 1 capsule by mouth twice dailyCephalexin 500 mg capsule Discontinued 500 MG PO Twice daily 14 December 14, 2022 12:00am January 13, 2023 2:48pmclopidogrel 75 mg oral tablet (20 sources)P2Y12 Platelet InhibitorStart: 86-16-5236uxtjhhlyzue (Plavix) 75 mg tablet Take 1 tablet (75 mg) by mouth. 12/13/2006 Activecyclobenzaprine hydrochloride 10 mg oral tablet (3 sources)Muscle RelaxantStart: 60-04-9970gjrm 1 tablet by mouth twice daily as neededCyclobenzaprine HCl 10 MG 1 tablet as needed Orally up to twice daily as needed for 7 days Jul, Activedoxycycline hyclate 100 mg oral capsule (20 sources)Tetracycline-class DrugStart: 70-69-9638mettrltfgqz (Vibramycin) 100 MG capsule 06/23/2023 Activefolic acid 0.4 mg oral tablet (20 sources)Start: 21-57-0467fgay 1 tablet by mouth once daily in the morning Start: 85-49-2946OUERM ACID 1 MG TAB Take one(1) tablet daily. 0 10/16/2009 Active End: 75-00-1839AWCEZ ACID ORAL Take by mouth. 06/21/2024 Discontinued (Duplicate Entry)FOLIC ACID ORAL Take by mouth. 0 Activetake 1 tablet by mouth every twenty-four hoursFolic Acid 400 MCG 1 tablet Orally Once a day Activetake 1 tablet by mouth once dailyFolic Acid 400 MCG 1 tablet Orally Once a day Active Lisinopril (20 sources)Angiotensin Converting Enzyme InhibitorStart: 01-74-2225phhs 1 tablet by mouth once dailylisinopril Active 1 TAB PO Daily July 16, 2024 11:00pmStart: 08-09-9477vhul 1 tablet by mouth once dailylisinopril Active 1 TAB PO Daily July 17, 2024 12:00amStart: 07-13-2018 End: 96-93-0019htrohtmfzz 10 MG tablet 02/20/2023 Activetake 1 tablet by mouth once dailylisinopril 20 mg tablet Take 1 tablet (20 mg) by mouth once daily. Activemeclizine hydrochloride 12.5 mg oral tablet (10 sources)Antiemetictake 2 tablets by mouth once daily as neededAntivert 12.5 MG 2 tablets as needed Orally Once a day *please review for potential _update for e-prescription and drug interaction check* prn ActivemethylPREDNISolone 4 mg oral tablet (3 sources)CorticosteroidStart: 81-70-4683Nbxssz 4 MG as directed Orally Jul, ActiveMultiple Vitamins-Minerals (Ocuvite Adult 50+) capsule (9 sources)Multiple Vitamins-Minerals (Ocuvite Adult 50+) capsule Orally Active wx-sm-jt8-ujm-mot-vnwc-lut-julia (Ocuvite Adult 50 Plus) 250 mg (90 mg-160 mg) capsule (8 sources)zi-ws-bu5-pyh-bmk-vjix-lut-julia (Ocuvite Adult 50 Plus) 250 mg (90 mg- 160 mg) capsule Take by mouth.Esyjemse-dj-et2-urc-oln-hvly-lut-julia (Ocuvite Adult 50 Plus) 250 mg (90 mg-160 mg) capsule Take by mouth.0 Activetamsulosin hydrochloride 0.4 mg oral capsule (20 sources)alpha-Adrenergic BlockerStart: 68-78-1950rmhi 1 capsule by mouth every twenty-four hours in the morningtamsulosin (Flomax) 0.4 MG 24 hr capsule Take 0.4 mg by mouth in the morning. 02/22/2023 ActiveStart: 07-13-2018 End: 13-99-3611kbby 1 capsule by mouth once dailytamsulosin (Flomax) 0.4 mg 24 hr capsule Take 1 capsule (0.4 mg) by mouth once daily. 02/22/2023 ActiveVit C- Vit R-Mxxfsr-Nks-Om-3 (Ocuvite) 680-20-9-150 dv-pmbo-su-mg Capsule (20 sources)Start: 03-71-7982wnej 1 capsule by mouth twice dailyStart: 09-22-0783mbcv 1 capsule by mouth twice dailyVit C-Vit N-Zsaxpx-Nth-Om-3 (Ocuvite) 113-36-0-150 lv-gbep-vn-mg Capsule Active 1 CAP PO Twice daily July 12, 2018 11:00pmStart: 95-27-4036lyts 1 capsule by mouth twice dailyVit C-Vit U-Nmkpqa-Kcy-Om-3 (Ocuvite) 982-36-6-150 kv-jecy-tv-mg Capsule Active 1 CAP PO Twice daily July 13, 2018 12:00amStart: 81-54-7441wlks 1 capsule by mouth once dailyVit C-Vit V-Vlhcnw-Civ-Om-3 (Ocuvite) 732-21-4-150 lz-pgsr-oo-mg Capsule Active 1 CAP PO Daily July 13, 2018 12:00amStart: 01-17-2619hwug 1 capsule by mouth once dailyVit C-Vit L-Qdonzd-Foe-Om-3 (Ocuvite) 912-75-1-150 wj-btcc-md-mg Capsule Active 1 CAP PO Daily July 12, 2018 11:00pm Completed/Discontinued Medications MedicationDrug Class(es)DatesSig (Normalized)Sig (Original)acetaminophen 325 mg / HYDROcodone bitartrate 5 mg oral tablet (20 sources)Opioid AgonistStart: 01-27-2023 End: 69-53-9033dtxe 1 tablet by mouth every six hours as needed for pain Hydrocodone-Acetaminophen 5-325 mg tablet Discontinued 1 TAB PO Q6H as needed for pain 28 January 27, 2023 December 06, 2023 3:54pmStart: 35-66-8021ndyx 1 tablet by mouth twice daily as neededHYDROcodone-Acetaminophen 5-325 MG 1 tablet as needed Orally up to two times daily as needed for 7 days Sep, Active Start: 11-21-2020 End: 44-41-0185inus 1 tablet by mouth every six hours as needed for pain Hydrocodone-Acetaminophen 5-325 mg tablet Discontinued 1 TAB PO Q6H as needed for pain 20 5 November 21, 2020 September 05, 2022 3:35yjaly954806 200 actuat albuterol 0.09 mg/actuat metered dose inhaler (17 sources)beta2-Adrenergic AgonistStart: 09-18-2023 End: 72-33-7014Aivehovyj Sulfate (Ventolin Hfa) 90 mcg/actuation HFA aerosol inhaler Discontinued 1 INH INHALATIONEVERY 4-6 HOURS as needed for shortness of breath or wheezing 6.7 September 18, 2023 1:00am July 17, 2024 9:05am clindamycin 300 mg oral capsule (17 sources)Lincosamide AntibacterialStart: 09-18-2023 End: 45-04-7360zowe 1 capsule by mouth once dailyClindamycin Hcl 300 mg capsule Discontinued 300 MG PO Daily September 18, 2023 1:00am December 06, 2023 3:54pm fluticasone propionate 0.05 mg/actuat metered dose nasal spray (20 sources)CorticosteroidStart: 07-13-2018 End: 64-92-5390Bycftqatcwn Propionate 50 mcg/actuation [place],Suspension Discontinued 50 MCG INTRANASAL Every morning as needed for Allergic Symptoms July 13, 2018 12:00am September 05, 2022 3:08pmpredniSONE 50 mg oral tablet (20 sources)Start: 09-18-2023 End: 38-52-5640nhji 1 tablet by mouth once dailyPrednisone 50 mg tablet Discontinued 50 MG PO Daily 5 5 September 18, 2023 1:00am December 06, 2023 3:54pmStart: 07-13-2018 End: 39-54-3272Rvbdxkrafj 1 mg Tablet Discontinued 2 TAB PO As Directed July 13, 2018 12:00am July 25, 2018 8:21amStart: 07-13-2018 End: 31-73-4134Mjpinazljt Discontinued 2 TAB PO As Directed July 12, 2018 11:00pm July 25, 2018 7:21amregadenoson (Lexiscan) injection 0.4 mg (1 source)Start: 04-11-2025 End: .4 mg, intravenous, Once, On Shelli 04/11/25 at 1300, For 1 doseTc- 99m tetrofosmin (Myoview) injection 10 millicurie (1 source)Start: 04-11-2025 End: 40-18-224993 millicurie, intravenous, Once in imaging, Starting on Shelli 04/11/25 at 1237, For 1 dose, Administer 45 to 90 minutes prior to imaging unless otherwise indicated.Tc-99m tetrofosmin (Myoview) injection 30 millicurie (1 source)Start: 04-11-2025 End: millicurie, intravenous, Once in imaging, Starting on Shelli 04/11/25 at 1357, For 1 dose, Administer 45 to 90 minutes prior to imaging unless otherwise indicated.tiZANidine 2 mg oral capsule (16 sources)Central alpha-2 Adrenergic AgonistStart: 12-12-2023 End: 22-05-5265tfea 1 capsule by mouth twice daily as neededTizanidine 2 mg capsule Discontinued 2 MG PO Twice daily as needed for muscle spasticity December 12, 2023 12:00am July 17, 2024 9:05am Problems Active Problems Problem ClassificationProblemDateDocumented DateEpisodic/ChronicCancer of bladder (20 sources)Malignant tumor of urinary bladder; Translations: [Malignant neoplasm of bladder, unspecified]Onset: 731050-67-6429RjvbzgoTbqanjq obstructive pulmonary disease and bronchiectasis (20 sources)Chronic obstructive lung disease; Translations: [Chronic obstructive pulmonary disease, unspecified]Onset: 161201-18-9987ZjveyrzKydnaak ulcer of skin (20 sources)Non-pressure chronic ulcer of other part of right foot with fat layer exposed; Translations: [Ulcerof other part of foot]Onset: 02-28-2023 38-88-9920QabdfqgNgxuotbmboh and hemorrhagic disorders (11 sources)Easy bruising; Translations: [Spontaneous ecchymoses]Onset: 056661-11-8989TjaycedtUdolxlzdxp disorders (13 sources)Right bundle branch block; Translations: [Unspecified right bundle- branch block]Onset: 179684-61-4879AgppinfYnuobkny atherosclerosis and other heart disease (20 sources)Coronary arteriosclerosis; Translations: [Atherosclerotic heart disease of [place] coronary artery without angina pectoris]Onset: 02-28-2023 81-53-3057XjmfxyvIkbcmejjz of lipid metabolism (20 sources)Mixed hyperlipidemia; Translations: [Mixed hyperlipidemia]Onset: 139540-47-2110MosoqzpNxcseoibnc disorders (20 sources)Gastroesophageal reflux disease; Translations: [Gastro-esophageal reflux disease without esophagitis]Onset: 551267-75-3394NcydetzWdpnhbpvo hypertension (20 sources)Essential hypertension; Translations: [Essential (primary) hypertension]Onset: 142329-78-5148PmygxajOjnve valve disorders (5 sources)Aortic stenosis, non-rheumatic ; Translations: [Nonrheumatic aortic (valve) stenosis]Onset: 009465-69-0162HvllhrwEsqup disorders and dislocations; trauma-related (20 sources)Derangement of right knee; Translations: [Unspecified internal derangement of right knee]Onset: 526946-42-9255LqrdtmdHhga disorders (20 sources)Depressive disorder; Translations: [Depression]Onset: 02-28-2023 99-57-1479BvjerbhZuzwtko (20 sources)Onychomycosis due to dermatophyte ; Translations: [Tinea unguium] Onset: 647869-40-4406RsxptakeBsistyqfjwf chest pain (16 sources)Chest pain; Translations: [Chest pain, unspecified]Onset: 03-21-2025 86-58-9410WltzxflqUlvyowoykfrdql (20 sources)Osteoarthritis of knee; Translations: [Unilateral primary osteoarthritis, left knee]Onset: 687481-17-5633ZhaayafKthqnefcuydo (20 sources)Idiopathic osteoporosis; Translations: [Other osteoporosis without current pathological fracture]Onset: 135290-16-4148ZwfzjypLskfq circulatory disease (20 sources)Peripheral arterial occlusive disease; Translations: [Disorder of arteries and arterioles, unspecified]Onset: 701151-20-2424TsrdppkEhlfs connective tissue disease (5 sources)History of repair of hip joint; Translations: [Presence of unspecified artificial hip joint]Onset: 780276-08-2123NpkfpprMyqiy connective tissue disease (2 sources)History of revision of right total hip arthroplasty; Translations: [Presence of right artificial hip joint]65-85-3454MxztsioGiqul connective tissue disease (8 sources)History of reverse prosthetic total arthroplasty of right shoulder; Translations: [Presence of right artificial shoulder joint]04-57-0470Onlpkgg Other connective tissue disease (1 source)Presence of right artificial shoulder joint; Translations: [Presence of right artificial shoulder joint]Onset: 26-90-1580UmyhtoxRfnwi connective tissue disease (1 source)Presence of right artificial hip joint; Translations: [History of revision of total replacement of right hip joint]Onset: 66-81-7368OgiwijnHklok connective tissue disease (2 sources)Pain of toe of right foot; Translations: [Pain in right toe(s)] 83-99-5541ButbdnqaZogfd connective tissue disease (2 sources)Pain of toe of left foot; Translations: [Pain in left toe(s)] 30-55-2741LsroorsaVtgtp connective tissue disease (2 sources)Pain of toes of bilateral feet; Translations: [Pain in right toe(s)] 54-61-2908UmxmobcrXbnvi injuries and conditions due to external causes (10 sources)At risk for falls ; Translations: [History of falling]EpisodicOther lower respiratory disease (17 sources)Cough; Translations: [Cough]89-82-6813RiuezbawOhchi lower respiratory disease (15 sources)Rib pain; Translations: [Pleurodynia]03-01-7128SiizrlvrXuiwn lower respiratory disease (20 sources)Pleurodynia; Translations: [Chest pain, unspecified]08-01-2024 EpisodicOther nervous system disorders (20 sources)Chronic pain; Translations: [Other chronic pain]16-54-0624Thqlfbk Other nervous system disorders (20 sources)Peripheral nerve disease ; Translations: [Polyneuropathy, unspecified]Onset: 679816-21-7025SjkvifdAjpvk nervous system disorders (20 sources)Other chronic pain; Translations: [Other chronic pain]Onset: 07-23-2021 Resolved: 55-81-8702GxwckfdXokeg nervous system disorders (14 sources)Polyneuropathy; Translations: [Other specified polyneuropathies] 86-23-6581JmwhthoHzijc nervous system disorders (20 sources)Acute postoperative pain; Translations: [Other acute postprocedural pain]00-63-7074HpgnrrvvGcebv non-traumatic joint disorders (10 sources)Knee pain; Translations: [Pain in right knee]EpisodicOther nutritional; endocrine; and metabolic disorders (10 sources)Body mass index 25-29 - overweight; Translations: [Body mass index (BMI) 28.0-28.9, adult]EpisodicOther nutritional; endocrine; and metabolic disorders (1 source)Overweight in adulthood with body mass index of 25 or more but less than 30; Translations: [Body mass index (BMI) 25.0-25.9, adult]Onset: 12-09-2023 81-49-5648BkgostdyXcyww screening for suspected conditions (not mental disorders or infectious disease) (13 sources)Electrocardiogram abnormal; Translations: [Abnormal electrocardiogram [ECG] [EKG]]Onset: 231327-01-1389OhacipfoCxjrqx media and related conditions (20 sources)Chronic serous otitis media; Translations: [Chronic serous otitis media, unspecified ear]Onset: 080254-85-4454SdisurdVqadvqcn codes; unclassified (2 sources)Pain; Translations: [Pain, unspecified]36-16-3444IsnrlcqvDqhhjqxi codes; unclassified (9 sources)Body mass index 20-24 - normal; Translations: [Body mass index (BMI) 24.0-24.9, adult]Onset: 083491-65-6022BxbdagcrWwjtlift codes; unclassified (9 sources)Edema of right lower limb; Translations: [Localized edema]Onset: 560487-47-5217DjovnbztOdlcgwrd codes; unclassified (2 sources)Body mass index (BMI) 23.0-23.9, adult; Translations: [Body mass index (BMI) 23.0-23.9, adult]Onset: 87-72-9254YyyajigfUhkqqhyw codes; unclassified (2 sources)Localized edema; Translations: [Localized edema]Onset: 03-21-2025 EpisodicScreening and history of mental health and substance abuse codes (4 sources)Ex-smoker; Translations: [Personal history of nicotine dependence] Onset: 682501-65-4161UukvfownWqdh and subcutaneous tissue infections (2 sources)Cellulitis of left toe; Translations: [Cellulitis and abscess of toe, unspecified]63-58-8345TbfseyrvCdjrkzxprur; intervertebral disc disorders; other back problems (20 sources)Other spondylosis with radiculopathy, cervical region; Translations: [Other spondylosis with myelopathy, cervical region]Onset: 08-31-2018 Resolved: 25-82-8496KnuwvcrXpmbapz and strains (8 sources)Shoulder strain; Translations: [Strain of unspecified muscle, fascia and tendon at shoulder and upper arm level, right arm, initial encounter] 36-39-3290MhcjlqdjLifsycbmt cerebral ischemia (20 sources)Transient cerebral ischemia; Translations: [Transient cerebral ischemic attack, unspecified]Onset: 269910-50-4684QwdmqwqTtrivlwahufx (1 source)Call Dr. Villalobos office to schedule a follow up appointment if you do not already have one scheduledUnclassified (1 source)History of revision of right total hip eltorzjncnlq65-86-1790 Past or Other Problems Problem ClassificationProblemDateDocumented DateEpisodic/ChronicAbdominal hernia (20 sources)Inguinal hernia; Translations: [Unilateral inguinal hernia, without obstruction or gangrene, not specified as recurrent]Onset: EpisodicAbdominal pain (20 sources)Right upper quadrant pain; Translations: [Right upper quadrant pain] Onset: 508471-82-2530TtusvvwgWzbtdbuz foot deformities (20 sources)Right foot drop; Translations: [Foot drop, right foot]Onset: 166792-16-2132EbvyubvuKonbuebx reactions (5 sources)Contact dermatitis; Translations: [Unspecified contact dermatitis, unspecified cause]Onset: 823339-51-7016KnqopkijAqwkrtl obstructive pulmonary disease and bronchiectasis (1 source)Bronchitis, not specified as acute or chronic; Translations: [Bronchitis, not specified as acute orchronic]Onset: 84-22-5824Gixegogu Complication of device; implant or graft (5 sources)Disorder of prosthetic joint; Translations: [Other specified complication of internal orthopedic prosthetic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 normal. There was no evidence of attenuation artifact. MMODALChris Villa MD - 04/11/2025 Interpreted By: Chris Villa and Giannuzzi Michael STUDY: MYOCARDIAL PERFUSION STRESS TEST WITH LEXISCAN Performing facility: [facility], [address], [address], [place] [address] [facility] Provider: Jd Moreira MD PCP: Dr. Ismael Lund Supervising provider: Jd Moreira MD INDICATION: Signs/Symptoms: ,R07.9 Chest pain, unspecified HISTORY: Gender: M; Age: 89 y/o ; Height: HT 180.3 cm cm; Weight: WT 78.472 kg kg. Abnormal EKG; High Cholesterol; HTN; Arrhythmias; Chest Pain; COPD; Denies smoking. COMPARISON: No comparison. ACCESSION NUMBER(S): [id number] ORDERING CLINICIAN: JD MOREIRA TECHNIQUE: ONE DAY protocol. Stress injection: Date:04-11-25, 33.8 mCi of Myoview IV 20 seconds after rapid injection of Lexiscan. Rest injection: Date: 04-11-25, 10.5 mCi of Myoview IV at rest. The patient had a rapid injection of 0.4 mg of Lexiscan IV over 10 seconds. Imaging was performed by gated tomographic technique. Reason for Lexiscan: uses walker/cane STRESS TEST DATA: Resting heart rate was 62 BPM. Resting blood pressure was 128/78 mmHg. Peak blood pressure was 122/76 mmHg. Peak heart rate was 82 BPM. TEST TERMINATED DUE TO: Protocol completed FINDINGS: STRESS TEST RESULTS: Resting electrocardiogram revealed normal sinus rhythm with isolated PVCs, right bundle branch block. There were no significant ischemic ECG changes, frequent PVCs were noted during the stress test. The patient did not have chest pains/symptoms during procedure. There was a normal recovery phase. IMAGING RESULTS: Image quality was good. Rest and stress tomographic images were reviewed and revealed normal perfusion without evidence of ischemia, myocardial infarction, or left ventricular dilatation with stress. Overall left ventricular systolic function appeared to be normal without regional wall motion abnormalities. Ejection fraction was 58%. TID is 1.11 and is normal. There was no evidence of attenuation artifact. IMPRESSION: Normal Lexiscan Myoview cardiac perfusion stress test. No evidence of ischemia or myocardial infarction by perfusion imaging. Normal left ventricular systolic function, ejection fraction 58%. No previous studies are available for comparison. Signed by: Chris Villa 04/11/2025 4:08 PM Dictation workstation: [id number] [facility] Work Phone: Radiology Study observation (narrative)[facility] Work Phone: NM Heart Perfusion W stress and W radionuclide IV Ordered By: Chris Villa on [id number] Health [facility] Work Phone: NUCLEAR STRESS TESTon [id number] STRESS TEST Interpreted By: Chris Villa and Giannuzzi Michael STUDY: MYOCARDIAL PERFUSION STRESS TEST WITH LEXISCAN Performing facility: [facility], [address] [place] [address], [address], [address] Provider: Jd Moreira MD PCP: Dr. Ismael Lund Supervising provider: Jd Moreira MD INDICATION: Signs/Symptoms: ,R07.9 Chest pain, unspecified HISTORY: Gender: M; Age: 89 y/o ; Height: HT 180.3 cm cm; Weight: WT 78.472 kg kg. Abnormal EKG; High Cholesterol; HTN; Arrhythmias; Chest Pain; COPD; Denies smoking. COMPARISON: No comparison. ACCESSION NUMBER(S): [id number] ORDERING CLINICIAN: JD MOREIRA TECHNIQUE: ONE DAY protocol. Stress injection: Date:04-11-25, 33.8 mCi of Myoview IV 20 seconds after rapid injection of Lexiscan. Rest injection: Date: 04-11-25, 10.5 mCi of Myoview IV at rest. The patient had a rapid injection of 0.4 mg of Lexiscan IV over 10 seconds. Imaging was performed by gated tomographic technique. Reason for Lexiscan: uses walker/cane STRESS TEST DATA: Resting heart rate was 62 BPM. Resting blood pressure was 128/78 mmHg. Peak blood pressure was 122/76 mmHg. Peak heart rate was 82 BPM. TEST TERMINATED DUE TO: Protocol completed FINDINGS: STRESS TEST RESULTS: Resting electrocardiogram revealed normal sinus rhythm with isolated PVCs, right bundle branch block. There were no significant ischemic ECG changes, frequent PVCs were noted during the stress test. The patient did not have chest pains/symptoms during procedure. There was a normal recovery phase. IMAGING RESULTS: Image quality was good. Rest and stress tomographic images were reviewed and revealed normal perfusion without evidence of ischemia, myocardial infarction, or left ventricular dilatation with stress. Overall left ventricular systolic function appeared to be normal without regional wall motion abnormalities. Ejection fraction was 58%. TID is 1.11 and is normal. There was no evidence of attenuation artifact. IMPRESSION: Normal Lexiscan Myoview cardiac perfusion stress test. No evidence of ischemia or myocardial infarction by perfusion imaging. Normal left ventricular systolic function, ejection fraction 58%. No previous studies are available for comparison. Signed by: Chris Villa 04/11/2025 4:08 PM Dictation workstation: [id number] Reminderson [id number] From: Amrita Benjamin To: EU - Recalls Gill; Sent: 04/04/2025 12:43:49 EDT Show up: 08/26/2025 12:43:00 EST Subject: cysto/fish/cytol Due Date/Time: 09/23/2025 12:43:00 EST Reminder/Recall Patient is due in november 2025 for 6 month cysto/fish/cytol, bt ckNoSCCI Hospital LimaRemindersReminders From: Amrita Benjamin To: EU - Recalls Gill; Sent: 10/18/2024 12:49:49 EST Show up: 11/24/2024 12:49:00 EST Subject: cysto/fish/cytol Due Date/Time: 12/17/2024 12:49:00 EDT Reminder/Recall Patient needs 3 month cysto/fish/cytol (bt ck) in February 2025 Patient is due for 6 month cysto/fish/cytol in May 2025 Patient sched for 06/11/25 in [place] office.[facility] Outside Recordson [id number] Records [id number]#1.00[facility] Coding Summaryon 85-48-6209Phmjmg SummaryHTMLBase 64 OxsdgyipHVv7sCw+PGhlYWQ+QA8UJRWaR93fjTGyzW9eK5FUCAhLVxswQPZKWNmUYjXvibTbEC8taUBl ZXJu [file] ZXI (more content not included)...[facility] HospitalConsent Formson [id number] [id number]#1.00[facility] CenterOutside Recordson 62-71-7977Pgxsruj Records [id number]#1.00[facility] Coding Summaryon 31-89-8139Gcrjlx SummaryHTMLBase 64 TlobjrlyBFh1qXi+PGhlYWQ+WM8MVPBuC20lvAQbcT3vT8QXFUyMRlcsAIYPEZsOSaChjyGsZR2xdIDy ZXJu [file] c2U (more content not included)...[facility] Messageson 36-73-6497Uwjbzggm Messages From: Eh Lund DO To: [facility] ([facility]); Sent: 03/18/2025 06:04:45 EDT Show up: 03/18/2025 06:05:00 EDT Subject: Results Follow Up Due Date/Time: 03/19/2025 06:04:00 EDT no change in nodules, please tickle to repeat US in one year. Results: Date Result Type Result Name 03/18/2025 5:57 Radiology US Thyroid Patient's hayden notified and voiced understanding. reminder placed.Normal [facility] Thyroidon [id number] ThyroidEXAMINATION: US Thyroid HISTORY: Nontoxic single thyroid nodule COMPARISON: No relevant comparison available. FINDINGS: RIGHT LOBE: Heterogeneous echotexture. Stable 10 mm TR 4 nodule within inferior pole. Stable 5 mm and 6 mm TR 3 nodules within inferior pole. Lobe size: 4.5 x 1.9 x 1.8 cm LEFT LOBE: Heterogeneous echotexture. Stable 11 mm TR 3 nodule within mid body. Lobe size: 3.5 x 1.8 x 1.8 cm ISTHMUS: Heterogeneous, but normal thickness. Thickness: 3 mm IMPRESSION: 1. Stable heterogeneous thyroid gland containing a 10 mm TR 4 nodule on the right and several small TR 3 nodules bilaterally. Follow-up ultrasound evaluation could be performed in one year if clinically indicated. TR4 (moderately suspicious): If > 1.0 cm, follow-up ultrasound in 1, 2, 3, and 5 years. If > 1.5 cm, fine needle aspiration (FNA). TR3 (mildly suspicious): > 1.5 cm, follow-up ultrasound in 1, 3, and 5 years. > 2.5 cm, fine needle aspiration. Final Dictated by: Eh Medina MD Dictated DT/TM: 03/18/25 5:50 Signed (Electronic Signature): Eh Medina MD 03/18/25 5:54 am Technologist: [facility] CenterCoding Queryon [id number] Query Please complete ED Note for this encounter. thanks, Nicki Rn Child [Electronically Signed on: 03/23/2025 06:08 EDT] Juan Reed MD [Verified on: 03/23/2025 06:08 EDT] Juan Reed MD [Transcribed on: 03/13/2025 09:49 EDT] [facility] HospitalNutrition Noteon [id number] NoteChart reviewed. 89 yr old male admitted for chest pain, weakness, fatigue. PMH of GERD, HTN, HLD, CVA, COPD, unintentional wt loss. Pt weighs 79 kg w/ BMI of 24.4 (normal). Wt has been relatively stable the past year. Currently on a regular diet; pt ate 76-100% dinner yesterday indicating a good appetite. No chewing/swallowing problems identified on admit. Systolic BP was up in 200s, now down to 146. Trace edema present in lower extremities. ECG showed RBBB. Labs reviewed - Cr 0.69. Meds reviewed. Pt appears at a mild nutrition risk at this time. If plans for discharge change, will continue to monitor and assist PRN. Would also recommend a regular diet w/ GILBERT given high BP and trace edema if plans change. RD has read above note - patient also with history of cancer; agree with above plan of care. [facility] HospitalReminder Messageson [id number] Messages From: Gauri Rees MA ([facility] ([facility])) To: Eh Lund DO; Sent: 03/13/2025 10:40:59 EDT Show up: 03/13/2025 10:40:00 EDT Subject: RE: thyroid US patient notified, okay to send order to [facility]. From: Ghazala Carter RN ([facility] ([facility])) To: [facility] ([facility]); Sent: 03/13/2024 10:28:24 EDT Show up: 03/13/2025 10:28:00 EDT Subject: thyroid US Reminder: Please call patient to: Please schedule patient for: 1 year thyroid US Please ask patient to: Results Follow up Required for: From: Eh Lund DO To: [facility] ([facility]); Sent: 03/13/2025 10:43:58 EDT Show up: 03/13/2025 10:43:00 EDT Subject: RE: thyroid US doneGlenbeigh HospitalTelemetry Stripson 13-89-9738Scpqltkdm Strips [id number]#1.00OTGTIFFNormalUniversity Hospitals Beachwood Medical CenterBM Standardon 50-05-3413pXFU Non AA>60Invalid Interpretation [facility] Hospital Comment on above:Performed By: #### [id number], [id number] ####[facility] (DEFAULT)[address] [place] [address] 27368wLDZ AA>60Invalid Interpretation CodeAkron Children'S Hospital HospitalComment on above:Performed By: #### [id number], [id number] ####[facility] (DEFAULT)[address] [place] [address] 65155Cytna gap [Moles/Vol]12.5 mmol/LNormal5.0-19.0[facility] HospitalComment on above:Performed By: #### [id number], [id number] ####[facility] (DEFAULT)[address] [place] [address] 84715Yeewuoy [Mass/Vol]8.6 mg/dLLow8.9-10.3Mgreene memorial hospital HospitalComment on above:Performed By: #### [id number], [id number] ####[facility] (DEFAULT)[address] [place] [address] 48700Unvrnder [Moles/Vol]105 mmol/ZGafvhg762-196Vpetjufh HospitalComment on above:Performed By: #### [id number], [id number] ####[facility] (DEFAULT)[address] [place] [address] 99218NV6 [Moles/Vol]24 mmol/KLqvrnw71-39Ftaixvfm HospitalComment on above:Performed By: #### [id number], [id number] ####[facility] (DEFAULT)[address] [place] [address] 31826Ljrxmigxjt [Mass/Vol]0.69 mg/dL Low0.90-1.30[facility] HospitalComment on above:Performed By: #### [id number], [id number] ####[facility] (DEFAULT)[address] [place] [address] 78697Bsglalj [Mass/Vol]101.0 mg/qLLeqzkr02.0-118.0[facility] Medical CenterComment on above:Performed By: #### [id number], [id number] ####[facility] (DEFAULT)[address] [place] [address] 22968Xoljcwdyfo611 mOsm/LInvalid Interpretation [facility] HospitalComment on above:Performed By: #### [id number], [id number] ####[facility] (DEFAULT)[address] [place] [address] 42426Hvedmetfz [Moles/Vol]3.5 mmol/LLow3.6-5.1MMercy Health [facility] Comment on above:Performed By: #### [id number], [id number] ####[facility] (DEFAULT)[address] [place] [address] 56891Pdztxc [Moles/Vol]138.0 mmol/L Tbmitr065.0-144.0[facility] Medical CenterComment on above:Performed By: #### [id number], [id number] ####[facility] (DEFAULT)[address] [place] [address] 55446Evll nitrogen [Mass/Vol]16 mg/dLNormal8-26[facility] Comment on above:Performed By: #### [id number], [id number] ####[facility] (DEFAULT)[address] [place] [address] 02258Zbqb nitrogen/Creatinine [Mass ratio]23.1 mg/mgHigh4.6-16.2MMercy Health Urbana HospitalComment on above:Performed By: #### [id number], [id number] ####[facility] (DEFAULT)[address] [place] [address] 43937Vjmlj [place] 62-01-2549Hguk CollectedYesInvalid Interpretation [facility] HospitalComment on above:Performed By: #### [id number] #### [facility] (DEFAULT) [address] [place] [address] 22763Mbvmxppzd Patient Summaryon [id number] Patient SummaryMa[address] [address] Patient Discharge Instructions Name: ROSCOE HERNANDEZ : 1935 Patient Address[address] [address] [facility] [address] Primary Care Provider: Name: Eh Lund DO After you are discharged if you find you have any questions, please, call [phone] ext [phone] to speak to a nurse. The Pharmacy at [facility] is open Tuesday through Tuesday from 9A to 6P and Tuesday and Tuesday from 9A to 5P Discharge Diagnosis: 1:Chest pain; 2:Weakness; 3:Fatigue Prescription Information: If you have been given a prescription for narcotics, seek immediate medical attention if you have any difficulty breathing or any sudden status changes such as confusion andsleepiness. If you or anyone you know is experiencing suicidal thoughts, mental health, alcohol and/or drug addiction problems; contact the [facility] 18/04 Crisis Hotline -text 4hope to 741741. If you received any narcotics, sedation, or any other medication that causes drowsiness for the next 24 hours, unless otherwise directed: ? Do not drive a car. ? Do not operate machinery such as power tools, lawn mowers, drills, sewing machines, or stoves ? Avoid alcoholic beverages and drugs for allergies, nerves, or sleep ? Do not make important personal or business decisions or sign any legal documents [facility] would like to thank you for allowing us to assist you with your healthcare needs.The following includes patient education materials and information regarding your injury/illness. JUDE ROSCOE MARY has been given the following list of follow-up instructions, prescriptions, and patient education materials: Follow-up Instructions With: Address: When: [place] [address] [place] [address] 03/20/2025 10:00 AM Medications During the course of your visit, your medication list was updated with the most current information. The details of those changes are reflected below: New Medications [facility] at [address] [place], [place] [id number], [phone] NIFEdipine (NIFEdipine 60 mg oral tablet, extended release) 1 tab(s) Oral (given by mouth) every day. Refills: 0. Medications to Continue That Have Not Changed Other Medications acetaminophen (Tylenol (acetaminophen)) 500 Milligram Oral (given by mouth) as needed pain. aspirin (aspirin 81 mg oral tablet) 1 tab(s) Oral (given by mouth) every day. atorvastatin (atorvastatin 40 mg oral tablet) 1 tab(s) Oral (given by mouth) every day. Refills: 3. calcium carbonate (Tums 500 mg oral tablet, chewable) 1 tab(s) Chewed 2 times per day as needed as needed for dyspepsia. clopidogrel (clopidogrel 75 mg oral tablet) 1 tab(s) Oral (given by mouth) every day. Refills: 3. fluticasone nasal (fluticasone 50 mcg/inh nasal spray) 1 spray(s) Nasal every day. folic acid (folic acid 0.4 mg oral tablet) 1 tab(s) Oral (given by mouth) every day. lisinopril (lisinopril 10 mg oral tablet) 1 tab(s) Oral (given by mouth) every day. Refills: 3. multivitamin with minerals (Ocuvite) Oral (given by mouth) every day. tamsulosin (Flomax 0.4 mg oral capsule) 1 cap(s) Oral (given by mouth) every day. It is important to always keep an active list of medications available so that you can share with other providers and manage your medications appropriately. As an additional courtesy, we are also providing you with your final active medications list that you can keep with you. acetaminophen (Tylenol (acetaminophen)) 500 Milligram Oral (given by mouth) as needed pain. aspirin (aspirin 81 mg oral tablet) 1 tab(s) Oral (given by mouth) every day. atorvastatin (atorvastatin 40 mg oral tablet) 1 tab(s) Oral (given by mouth) every day. Refills: 3. calcium carbonate (Tums 500 mg oral tablet, chewable) 1 tab(s) Chewed 2 times per day as needed as needed for dyspepsia. clopidogrel (clopidogrel 75 mg oral tablet) 1 tab(s) Oral (given by mouth) every day. Refills: 3. fluticasone nasal (fluticasone 50 mcg/inh nasal spray) 1 spray(s) Nasal every day. folic acid (folic acid 0.4 mg oral tablet) 1 tab(s) Oral (given by mouth) every day. lisinopril (lisinopril 10 mg oral tablet) 1 tab(s) Oral (given by mouth) every day. Refills: 3. multivitamin with minerals (Ocuvite) Oral (given by mouth) every day. NIFEdipine (NIFEdipine 60 mg oral tablet, extended release) 1 tab(s) Oral (given by mouth) every day. Refills: 0. tamsulosin (Flomax 0.4 mg oral capsule) 1 cap(s) Oral (given by mouth) every day. Take only the medications listed above. Contact your doctor prior to taking any medications not on this list. Medication leaflets, if any, will display below Diet & Activity Patient Activity Level: As Tolerated Patient Diet: Regular Patient Activity Restrictions: P (more content not included)...[facility] HospitalPharmacy Noteon [id number] NoteI have personally reviewed the patient's medication list upon discharge including, prescription medications, OTC products, vitamins and supplements. Below are the following medications the patient isdischarged on. New Medications [facility] at [address] [id number], [phone] NIFEdipine (NIFEdipine 60 mg oral tablet, extended release) 1 tab(s) Oral (given by mouth) every day. Refills: 0. Medications to Continue That Have Not Changed Other Medications acetaminophen (Tylenol (acetaminophen)) 500 Milligram Oral (given by mouth) as needed pain. aspirin (aspirin 81 mg oral tablet) 1 tab(s) Oral (given by mouth) every day. atorvastatin (atorvastatin 40 mg oral tablet) 1 tab(s) Oral (given by mouth) every day. Refills: 3. calcium carbonate (Tums 500 mg oral tablet, chewable) 1 tab(s) Chewed 2 times per day as needed as needed for dyspepsia. clopidogrel (clopidogrel 75 mg oral tablet) 1 tab(s) Oral (given by mouth) every day. Refills: 3. fluticasone nasal (fluticasone 50 mcg/inh nasal spray) 1 spray(s) Nasal every day. folic acid (folic acid 0.4 mg oral tablet) 1 tab(s) Oral (given by mouth) every day. lisinopril (lisinopril 10 mg oral tablet) 1 tab(s) Oral (given by mouth) every day. Refills: 3. multivitamin with minerals (Ocuvite) Oral (given by mouth) every day. tamsulosin (Flomax 0.4 mg oral capsule) 1 cap(s) Oral (given by mouth) every day. Discharge Med Rec Notes: Counseled patient on new medications of Procardia XL. 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 Reviewed regimen upon discharge which is appropriate and correct. [Electronically Signed on: 03/12/2025 11:47 EDT] Keyon Ramesh PharmD [Verified on: 03/12/2025 11:47 EDT] Keyon Ramesh PharmDNBlanchard Valley Health System [facility] HospitalTelemetry Stripson 85-02-7551Rtupqcwkm [id number]#1.00OTGTIFF Glenbeigh HospitalTnI HSon 20-90-9011Abqvauqf I High Dbectcnvchn12.0 pg/mL Normal<=20.0[facility] Medical CenterComment on above:Performed By: #### [id number], [id number] ####[facility] (DEFAULT)[address] [place], [place] [address]UB Echocardiogram Completeon [id number] Echocardiogram Complete APPROVED REPORT EXAM: Comprehensive 2D, Doppler, and color-flow Echocardiogram BSA: 1.99 m2BP: 146/68 mmHg Indications: chest pain, murmur Past Med. Hx: HTN, HLD, CVA, COPD, CAD, Bladder CA, PVD, PE, Thyroid mass, Former Smoker, Pulmonary nodule Other Information Study Quality: Technically Difficult. Technically limited study due to lung interference (COPD). Conclusion Mild concentric left ventricular hypertrophy. LVEF is 60-65%. Mild diastolic dysfunction is present (impaired relaxation pattern). The left ventricle is normal size. The right ventricular systolic function is normal. Calculated aortic valve area is 1.4 cm2 with maximum pressure gradient of 27.6 mmHg and mean pressure gradient of 17.4 mmHg. Mild to moderate aortic stenosis. Trace mitral regurgitation. Trace tricuspid regurgitation. Right ventricular systolic pressure is normal. Aortic root is borderline dilated, measuring 3.8 cm. There is no pericardial effusion. Left Ventricle The left ventricle is normal size. Mild concentric left ventricular hypertrophy. Left ventricular systolic function is normal. LVEF is 60-65%. There is normal LV segmental wall motion. Mild diastolic dysfunction is present (impaired relaxation pattern). Right Ventricle The right ventricle is normal size. The right ventricular systolic function is normal. Atria The left atrium size is normal. Right atrium is mildly dilated. Aortic Valve The aortic valve is not well visualized due to heavy calcification. Decreased excursion of aortic valve leaflets. Calculated aortic valve area is 1.4 cm2 with maximum pressure gradient of 27.6 mmHg and mean pressure gradient of 17.4 mmHg. Mild to moderate aortic stenosis. Trace aortic regurgitation. Mitral Valve Mitral valve leaflets are mildly thickened. Trace mitral regurgitation. Tricuspid Valve The tricuspid valve is normal in structure. Trace tricuspid regurgitation. Right ventricular systolic pressure is normal. Pulmonic Valve Pulmonic valve is not well visualized. Great Vessels Aortic root is borderline dilated, measuring 3.8 cm. Ascending aorta is not well visualized. IVC is normal in size. Due to poor image quality, the IVC collapse could not be assessed. Estimated RAP 8 mmHg. Pericardium There is no pericardial effusion. 2D Dimensions RV Minor (Base)3.36 cmLV EDV (Teich) 65.70 mL IVSd 1.07 cm M: 0.6 - 1.0LV ESV (Teich) 26.12 mL LVDd 3.89 cm M: 4.2 - 5.9Left Atrium 3.22 cm M: 3.0 - 4.0 PWd 1.03 cm M: 0.6 - 1.2Aortic Root 3.80 cm M: < 4.0 LVDs 2.66 (2.1 - 4.0 cm) LV Iquy526.63 g LVOT Diameter 2.05 cm IVC1.87 (<= 2.1cm) M-Mode Dimensions TAPSE 2.7 (>1.7) LV Volume - Method of Disks (Damon's) Single Plane 2D LV VolumesBiplane 2D LV Volumes LV EDV P0I031.8 mLLV EDV BP136.12 mL M: 62 - 150 LV ESV A4C51.9 mLLV ESV BP50.6 mL LVEF(%) A4C62.6 %LVEF(%) BP62.83 % M: 52 - 72 LV EDV A6R742.6 mLLV EDV BP Index68.40 mL/m2 M: 34 - 74 LV ESV A2C45.4 mLSV (BP)85.52 mL LVEF(%) A2C64.7 %SV (BP) Index43.07 mL/m2 CO BP4.9 L/min Left Atrium Volume Systole (Method of Disks) Single Plane 4 CH 41.02 mLBiplane LA Grstkg71.73 mL Single Plane 2 CH68.89 mLLA ESV Index28.01 mL/m2 Right Atrium Area Systole RA Systolic Area A4C20.27 cm2RA Systolic Vol A4C58.10 mL Aortic Valve AoV Peak Velocity2.62 m/sLVOT Peak Velocity0.95 m/s AO Mean Velocity2.00 m/sLVOT Mean Velocity0.57 m/s AO Peak PG27.56 mmHgLVOT Peak PG3.60 mmHg AO Mean PG17.38 mmHgLVOT Mean PG1.62 mmHg AO V2 VTI57.44 cmLVOT V1 VTI23.74 cm CHAYA (Vmax)1.19 ey9RNAE Area 3.30 cm2 CHAYA (VTI)1.36 cm2SV (LVOT) 78.25 mL Indexed CHAYA (VTI)0.69 cm2/m2 Mitral Valve MV E Max Velocity0.40 m/sMV DJW730.52 ms MV A Max Velocity0.89 m/sMVA (PHT)2.07 cm2 E/A Ratio0.4 MV Decel. Chhs718.30 ms TDI Med e' Velocity7.99 cm/sMV E / Medial e' 5.05 Lat e' Velocity6.84 cm/sMV E / Lateral e' 5.89 TV S'12.52 cm/s Tricuspid Valve TR Peak Velocity2.27 m/sRAP Estimate8.00 mmHg TR Peak PG20.67 aqUlMSDG40.67 mmHg Final Signed (Electronic Signature): Higinio Abernathy DO 03/12/25 11:55 a Technologist: [place].Auto Diff 105-54-0999Jsin Jay %11 % Normal1-12[facility] HospitalComment on above:Performed By: #### [id number], [id number], 221584052, 42012310, 0250568892, 0150952, 9889869674 ####[facility] (DEFAULT)[address] [place] [address] 10849Eaty Abs#0.0 t71Aadlbk 0.0-0.2[facility] HospitalComment on above:Performed By: #### 7706738, 3704491389, 297712784, 60056434, 2646174169, 4563841, 7048193970 ####[facility] (DEFAULT)[address] [place] [address] 05264Fpoizaqpr/100 WBC (Bld)0.5 % Normal0.2-2.0[facility] HospitalComment on above:Performed By: #### 6397412, 8245215659, 947980117, 15159035, 0774676549, 1871096, 8684389321 ####[facility] (DEFAULT)[address] [place] [address] 41844Ixr Abs#0.1 s73Ogaknf 0.0-0.4[facility] HospitalComment on above:Performed By: #### 2381741, 8420449924, 065089336, 40626387, 7974255119, 1039023, 8757106041 ####[facility] (DEFAULT)[address] [place] [address] 60109Tjnqzusvrly/100 WBC (Bld)1.9 % Normal0.9-4.0[facility] HospitalComment on above:Performed By: #### 0999000, 0618974575, 737500292, 81450838, 0568052772, 6648798, 3230041121 ####[facility] (DEFAULT)[address] [place] [address] 54716Dobgn Abs#0.9 x10Low 1.3-2.9[facility] HospitalComment on above:Performed By: #### 9174036, 8322765737, 350709529, 34641700, 7768440507, 9872589, 4351562493 ####[facility] (DEFAULT)[address] [place] [address] 22387Ylhleritpwq/100 WBC (Bld)16 % Dudcxj94-63Eqfqglqv HospitalComment on above:Performed By: #### 9495417, 8732121950, 090912738, 89893548, 1705542604, 9174638, 3837019562 ####[facility] (DEFAULT)[address] [place] [address] 89913Uzyq Abs#0.6 y36Tppxtq 0.0-0.8[facility] HospitalComment on above:Performed By: #### 8682127, 5538137175, 960689122, 85124342, 7978859915, 0365851, 8163752577 ####[facility] (DEFAULT)[address] [place] [address] 51192Drxq Abs#4.0 f25Xrnxxq4.5-9.2 [facility] HospitalComment on above:Performed By: #### 1259347, 6042943866, 968460134, 08174688, 3796708409, 2655240, 3030789178 ####[facility] (DEFAULT)[address] [place] [address] 20645Slsdakvuqin/100 WBC (Bld)70 % Ndrjdu14-25Cqxvhxid HospitalComment on above:Performed By: #### 9580232, 7843883768, 526669141, 50784031, 9608586942, 6054198, 0100800130 ####[facility] (DEFAULT)[address] [place] [address] 39956BUI w/ Auto Diffon 39-12-4234Dnzwyzxvapy distribution width (RBC) [Ratio]14.4 %Etwkme62.5-15.0 [facility] CenterComment on above:Performed By: #### 9001310, 3277795826, 791130449, 00794405, 4469940799, 9654216, 6685027761 #### [facility] (DEFAULT) [address] [place], [place] [address]Hematocrit (Bld) [Volume fraction]43.5 %Utglew63.8-51.9 [facility] CenterComment on above:Performed By: #### 0277571, 2348717811, 277269038, 51848012, 6231298491, 4204276, 4152170491 #### [facility] (DEFAULT) [address] [place], [place] [address]Hemoglobin (Bld) [Mass/Vol]14.7 g/hMKyilco65.8-17.7 [facility] CenterComment on above:Performed By: #### 7899882, 3927047520, 691017098, 66508164, 8606222202, 3270813, 6617466123 #### [facility] (DEFAULT) [address] [place], [place] [address]Man Diff?AutoInvalid Interpretation CodeUniversity Hospitals [facility] Center Comment on above:Performed By: #### 9709511, 6608947958, 130970539, 81610804, 7403913078, 4794607, 1747535479 #### [facility] (DEFAULT) [address] [place] [address] 51436EUA (RBC) [Entitic mass]32 xfGmxhac67-84Zpzoxfnk Hospital Comment on above:Performed By: #### 8480776, 7048033161, 316553459, 27688769, 0780660607, 5670623, 6987763961 #### [facility] (DEFAULT) [address] [place] [address] 09511OEWZ (RBC) [Mass/Vol]34 g/sYWoavib74-68[facility] Comment on above:Performed By: #### 7893729, 4902807555, 133683504, 64854138, 1264828489, 2178904, 6894199210 #### [facility] (DEFAULT) [address] [place] [address] 24504YCF (RBC) [Entitic vol]94 mUYouere23-506[facility]nnryes [facility] Comment on above:Performed By: #### 5952704, 8349638495, 990074953, 60036567, 6458426146, 2127501, 8539227552 #### [facility] (DEFAULT) [address] [place] [address] 84425Mhuuvlzi259 c69Pbjuhi180-303Xlslsfzk HospitalComment on above:Performed By: #### 7287858, 6629869249, 164011716, 52842665, 0208310774, 9375042, 1968823527 #### [facility] (DEFAULT) [address] [place] [address] 72507Cuqtyvqe mean volume (Bld) [Entitic vol]9.3 fLNormal 6.3-10.2[facility] HospitalComment on above:Performed By: #### 6340160, 5970441181, 037356547, 80302183, 4073925131, 7166894, 2783379104 #### [facility] (DEFAULT) [address] [place] [address] 42075RMH0.64 t90Dwivgy1.70-5.30[facility] HospitalComment on above:Performed By: #### 2207608, 2713251808, 548326693, 98295123, 7710214671, 7303902, 4828421663 #### [facility] (DEFAULT) [address] [place] [address] 64944NZJ4.7 y35Oeqcbc6.5-10.5[facility] HospitalComment on above: Performed By: #### 4203419, 2094991804, 447881913, 74860899, 8438786722, 6240969, 0513389437 #### [facility] (DEFAULT) [address] [place] [address] 59870ADN Standardon 81-59-4254vZUQ Non AA>60Invalid Interpretation CodeAkron Children'S Hospital HospitalComment on above:Performed By: #### 4474173, 6022209038, 108571253, 17992754, 5999494932, 5887128, 9466481296 ####[facility] (DEFAULT)[address] [place] [address] 86858pPLL AA>60Invalid Interpretation CodeAkron Children'S Hospital HospitalComment on above:Performed By: #### 3915457, 4867857954, 424404831, 88528204, 9673513461, 2161099, 6700320659 ####[facility] (DEFAULT)[address] [place] [address] 84177Rhzmmtm [Mass/Vol]3.9 g/dLNormal3.5-5.0[facility] HospitalComment on above:Performed By: #### 5912657, 2947550216, 245424834, 87780313, 3501985342, 3672435, 4331798382 ####[facility] (DEFAULT)[address] [place] [address] 79462Fpbtkiz/Globulin [Mass ratio]1.2 {ratio}Low1.4-2.6[facility] HospitalComment on above:Performed By: #### 3908773, 4467497234, 450047370, 70848693, 1951776262, 6120577, 8596742364 ####[facility] (DEFAULT)[address] [place] [address] 62935Qtu Phos95 IU/NAjee44-03Zytoocch HospitalComment on above:Performed By: #### 3294024, 9887962416, 533829743, 18099834, 7747595569, 6950574, 7622332078 ####[facility] (DEFAULT)[address] [place] [address] 22715IUB [Catalytic activity/Vol]21.0 U/AMfmyuc44.0-63.0[facility] HospitalComment on above:Performed By: #### 4159833, 3926190404, 509628570, 83879601, 8746943669, 3496777, 3220820217 ####[facility] (DEFAULT)[address] [place] [address] 89991Rhzzt gap [Moles/Vol]11.8 mmol/LNormal5.0-19.0[facility] CenterComment on above:Performed By: #### 1755461, 9739357482, 023722843, 34192402, 9797616060, 8884872, 5212822857 ####[facility] (DEFAULT)[address] [place] [address] 92622IGV [Catalytic activity/Vol]21 U/LOdehga65-00Tpmarzwl Hospital Comment on above:Performed By: #### 8467263, 8288073525, 825049173, 07819736, 0889859716, 7697568, 7705762442 ####[facility] (DEFAULT)[address] [place] [address] 72536Hmar Total1.0 mg/dLNormal0.3-1.2[facility] Comment on above:Performed By: #### 4332442, 9286791452, 469812704, 49200982, 3751263544, 3700797, 3469186060 ####[facility] (DEFAULT)[address] [place] [address] 39275Zbwkpfo [Mass/Vol]9.0 mg/dLNormal8.9-10.3MMercy Health [facility]rbana HospitalComment on above:Performed By: #### 4838614, 4728710163, 849614043, 33831224, 8824300161, 9196582, 1272988925 ####[facility] (DEFAULT)[address] [place] [address] 71183Hkuedxko [Moles/Vol]102 mmol/YGbfctb087-346 [facility] CenterComment on above:Performed By: #### 9116972, 0795744767, 222834234, 40483533, 5266202786, 4266036, 9551667539 ####[facility] (DEFAULT)[address] [place] [address] 13363RT7 [Moles/Vol]25 mmol/LNormal 21-32[facility] HospitalComment on above:Performed By: #### 4658435, 1321027240, 691832431, 29095007, 5173462205, 0233177, 7051628626 ####[facility] (DEFAULT)[address] [place] [address] 62487Tannggssjn [Mass/Vol]0.77 mg/dL Low0.90-1.30[facility] HospitalComment on above:Performed By: #### 5701574, 3122194636, 419093718, 20984120, 7757773763, 0570003, 6982231372 ####[facility] (DEFAULT)[address] [place] [address] 66918Crizzlxn (S) [Mass/Vol] 3.1 g/dLNormal1.5-4.3[facility] HospitalComment on above:Performed By: #### 5815737, 4621371420, 523100592, 76217342, 3840794086, 0736465, 6180677771 ####[facility] (DEFAULT)[address] [place] [address] 02032Xegqhsv [Mass/Vol]108.0 mg/jGTaxjpm56.0-118.0[facility] HospitalComment on above:Performed By: #### 7891496, 0317588917, 503020686, 99739621, 1290848385, 7779680, 3566803888 ####[facility] (DEFAULT)[address] [place] [address] 40084Mlctksequb872 mOsm/LInvalid Interpretation CodeAkron Children'S Hospital HospitalComment on above:Performed By: #### 1689783, 9322877525, 998325998, 48746690, 5889899392, 8476340, 6382528255 ####[facility] (DEFAULT)[address] [place] [address] 51458Ptdfdfoiw [Moles/Vol]3.8 mmol/LNormal3.6-5.1[facility] Hospital Comment on above:Performed By: #### 7544773, 8532068796, 136481457, 47829572, 6602285513, 6595889, 8398587813 ####[facility] (DEFAULT)[address] [place] [address] 17935Uexubha [Mass/Vol]7.0 g/dLNormal6.5-8.1[facility] HospitalComment on above:Performed By: #### 9374084, 7471627423, 061549566, 55097589, 2662088861, 7770542, 9655507951 ####[facility] (DEFAULT)[address] [place] [address] 62485Cudslo [Moles/Vol]135.0 mmol/HNab749.0-144.0 [facility] HospitalComment on above:Performed By: #### 9176080, 3249265922, 562350899, 32213865, 4439665810, 3514509, 5312506074 ####[facility] (DEFAULT)[address] [place] [address] 83578Ulic nitrogen [Mass/Vol]20 mg/dL Normal8-26[facility] CenterComment on above:Performed By: #### 2882669, 9066656025, 270456021, 22399138, 6144346587, 0903506, 6171983618 ####[facility] (DEFAULT)[address] [place] [address] 58683Pgrv nitrogen/Creatinine [Mass ratio]25.9 mg/mgHigh4.6-16.2[facility] HospitalComment on above:Performed By: #### 9176748, 3982456632, 195629605, 24090037, 1802408308, 7982763, 0319127306 ####[facility] (DEFAULT)[address] [place] [address] 44233JO Note-Nursingon 44-70-8760ET Note-NursingPt. C/o driving to his mail box and experiencing chest pain approx. 45 mins ago. Pt. states that hefelt weak and had some dizziness. Pt. rates pain 1/10 and in the epigastric location. Pt. states that he has not been feeling well for the last week. pt. denies any SOB, nausea or vomiting. Pt. is A&O x4. Pt. has a slow gait. [facility] HospitalExtra Blueon 27-72-8714Tvum CollectedYesInvalid Interpretation Code [facility] CenterComment on above:Performed By: #### 1771527, 6325726417, 479307304, 10152600, 0705750252, 5144860, 7221733015 #### [facility] (DEFAULT) [address] [place] [address] 70235Borseint 91-21-2331Yvqlkw Level28.0 IU/NNqcqag55.0-51.0 [facility] CenterComment on above:Performed By: #### 2678008, 3963701521, 489861751, 16186698, 3136878712, 3264083, 7348111204 ####[facility] (DEFAULT)[address] [place] [address] 94950QQTO Formon 83-11-5358NVNX Form [id number]#1.00[facility]eg[facility] Progress Note - Nurseon 32-95-3566Zilwiymh Note - NursePt reports yesterday they had a clam bake for Father's day and he was drinking the clam broth whichhe says was very high in sodium, also reports that he has been urinating alot more than usual. [Electronically Signed on: 03/12/2025 01:38 EDT] Lali De Los Santos RN [Verified on: 03/12/2025 01:38 EDT] Lali De Los Santos RNGlenbeigh HospitalProgress Note - NurseBP 197/85, pt reports his BP always runs around 180's systolic. I asked him if his PCP is aware of this and he states yes, I take a pill . Explained that sometimes you need a combination of HTN medsto get BP down to a good level. 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 PRN hydralazine held at this time and will recheck at 2100. [Electronically Signed on: 03/11/2025 20:40 EDT] Lali De Los Santos RN [Verified on: 03/11/2025 20:40 EDT] Lali De Los Santos [facility] w/ Reflex to FT4on 84-74-2154RFG Qn 1.11 m[IU]/LNormal0.45-5.33[facility] CenterComment on above:Performed By: #### 8991149, 7993532882, 620848285, 25508081, 4599972276, 3305319, 5599012550 ####[facility] (DEFAULT)[address] [place] [address] 49880XpF HSon 23-48-7034Jtvzfyhz I High Sensitivity8.5 pg/mLNormal<=20.0[facility] Comment on above:Performed By: #### 6526348, 0660573177, 428373103, 97400550, 0644032791, 6114040, 8199770633 ####[facility] (DEFAULT)[address] [place] [address] 51934IK Standardon 70-54-9089Rfeazpeqyz UANormal [facility] CenterComment on above:Performed By: #### [id number] #### [facility] (DEFAULT) [address] [place] [address] 99977Eyiuw (U)StrawNormalMagruder HospitalComment on above: Performed By: #### [id number] #### [facility] (DEFAULT) [address] [place] [address] 61779Jahmbsx (U) [Mass/Vol]NegativeNormalMagruder Hospital Comment on above:Performed By: #### [id number] #### [facility] (DEFAULT) [address] [place] [address] 89076Ewjbwbd Ql (U)NegativeNormalMagruder HospitalComment on above:Performed By: #### [id number] #### [facility] (DEFAULT) [address] [place] [address] 62474ZC BilirubinNegativeNormalMagruder HospitalComment on above:Performed By: #### [id number] #### [facility] (DEFAULT) [address] [place] [address] 58180IL BloodNegativeNormalNEGATIVEMagruder HospitalComment on above:Performed By: #### [id number] #### [facility] (DEFAULT) [address] [place] [address] 93453QJ ClarityCLEARNormalCLEARMagruder HospitalComment on above:Performed By: #### [id number] #### [facility] (DEFAULT) [address] [place] [address] 39991IQ Leuk EstTRACEAbnormalNEGATIVEMagruder HospitalComment on above:Performed By: #### [id number] #### [facility] (DEFAULT) [address] [place] [address] 54465PT NitriteNegativeNormalNEGATIVEMagruder HospitalComment on above:Performed By: #### [id number] #### [facility] (DEFAULT) [address] [place] [address] 05681YI pH6.9Ddkqoo1-2Oigqccbf HospitalComment on above: Performed By: #### [id number] #### [facility] (DEFAULT) [address] [place] [address] 05642VM ProteinNegativeNormalNEGATIVEMagruder HospitalComment on above:Performed By: #### [id number] #### [facility] (DEFAULT) [address] [place], [place] [address]IJ Spec Grav<=1.736Nxpgjm3.001-1.035[facility] Comment on above:Performed By: #### [id number] #### [facility] (DEFAULT) [address] [place] [address] 00280SU Urobilinogen0.2 mg/dLNormal0.2-1.0[facility] Comment on above:Performed By: #### [id number] #### [facility] (DEFAULT) [address] [place] [address] 40720Xfrrn SourceClean [facility] CenterComment on above:Performed By: #### [id number] #### [facility] (DEFAULT) [address] [place] [address] 68841FH Chest 1 View Frontalon 21-12-2382JI Chest 1 View FrontalEXAM: XR Chest 1 View Frontal HISTORY: Chest pain COMPARISON: Two-view chest from 09/24/2024. TECHNIQUE: Portable chest done at 4:09 PM. FINDINGS: Trachea, mediastinum and heart size are unremarkable. No infiltrate or nodule or effusion or pneumothorax is noted. Diaphragm and bony elements are intact. Postsurgical changes noted of the right shoulder and proximal right humerus. IMPRESSION: Nonacute portable chest. Final Dictated by: Brett Caldwell DO Dictated DT/TM: 03/11/25 5:08 Signed (Electronic Signature): Brett Caldwell DO 03/11/25 5:09 pm Technologist: [facility] Hospitaljuan joséUniversity Hospitals Beachwood Medical CenterOutside Recordson 18-97-0900Xzxeguy [id number]#1.00OTGTRegency Hospital [facility] EastOutside Recordson 78-85-0308Dwibzlu Records [id number]#1.00[facility]GT[facility] Outside Recordson 61-48-8183Idpxvfg Records [id number]#1.00[facility] Outside Recordson 43-65-1883Waamdnz Records [id number]#1.00[facility] HospitalC Urineon 99-12-8647Owswzhvq identified Cx Nom (U)Microbiology PROCEDURE: Urine Culture [R1] SOURCE: U Random BODY SITE: COLLECTED DATE/TIME: 12/13/2024 12:47 EDT RECEIVED DATE/TIME: 12/13/2024 17:42 EDT START DATE/TIME: 12/13/2024 17:42 EDT FREE TEXT SOURCE: JAIRO CALVO, Juan GILL MD, Juan Rodriguez FINAL REPORTS Final Report [] Verified Date/Time: 12/15/2024 07:15 EDT No growth at 2 days. Performing Locations R1: This test was performed at: [facility], [address] [place] [address], [facility] , , PekcniTntkrdMercy Health Springfield Regional Medical CenterComment on above:Performed By: #### [id number] #### [facility] [address] [place] [address] 12636Lrkqtyp Recordson 56-03-9570Cjpmxmw Records [id number]#1.00[facility] HospitalLab - Other Lab Resultson 77-73-4710Bva - Other Lab Results [id number]#1.00[facility] UroVysion Fish and Urine Cyto ([facility] Labs)on 99-99-5683YCKJCF & UCDiagnosis Info Invalid Interpretation [facility] CenterComment on above:Result Comment: A:Urine,Bladder Wash:Bladder Wash Diagnosis Summary - A few clusters of urothelial cells with mild atypia; low grade papillary urothelial neoplasm can not be excluded. Clinical correlation is indicated. Adequate cellularity for evaluation. Diagnosis Summary - The UroVysion FISH study detected normal copy numbers for chromosomes 3, 7, 17,and 9p21. 177 cells were analyzed in this evaluation. No evidence of aneuploidy for chromosomes 3, 7, or 17 or deletion of the 9p21 locus was found in cells present in this specimen. This test does not rule out the possibility of a low grade non-invasive papillary urothelial carcinoma. These findings should be correlated with cytology and cystoscopy results. * CPT: 94495, 82983. Microscopic Notes - Microscopic Notes - Abnormal cells 9p21 deletions: Abnormal cells aneploid events: Total cells analyzed: 177 Hematuria: Gross Description Site ID:A color Yellow fixative Alcohol Received 100 mls of clear yellow fluid with the patient's name and, Bladder Wash on the vial. Electronically signed by : on: 12/06/2024 14:37:28Performed By: #### [id number] #### [facility] [address] [place], [place] [address]Dltcfzpuoa Visit Summaryon 58-50-8749Muqfsgjuib Visit Summary Ambulatory Visit Summary ROSCOE HERNANDEZ :1935 Visit Date:11/27/2024 Ambulatory Visit Instructions Your Diagnosis Personal history of bladder cancer Lesion of bladder BPH without urinary obstruction Your Care Team Attending Physician - Juan GILL MD Primary Care Physician - EH LUND DO This Is Your Medications List cephalexin (Keflex 500 mg Cap) finasteride (finasteride 5 mg Tab) tamsulosin (tamsulosin 0.4 mg Cap) Contact prescribing physician if questions or concerns acetaminophen (Tylenol 500 mg Tab) aspirin (Aspirin 81 mg Tab-EC) atorvastatin (atorvastatin 40 mg Tab) clopidogrel (Plavix 75 mg Tab) folic acid (folic acid 0.4 mg Tab) multivitamin with minerals (Ocuvite) Procedures Performed Cystoscopy (11/27/2024), Flexible cystoscopy (08/07/2024), Flexible cystoscopy (05/01/2024), TURBT - Transurethral resection of bladder tumor (12/20/2023), Cystoscopy (05/24/2023), TURBT - Transurethral resection of bladder tumor (12/22/2022), Cystoscopy (11/02/2022), Cystoscope (05/04/2022), Cystoscopy (11/18/2020), Cystoscope (05/20/2020), Cystoscopy (02/12/2020), Cystoscope (11/20/2019), Cystoscopy (08/07/2019), Cystoscopy (05/15/2019), Cystoscopy (01/30/2019), Instillation of BCG into the bladder (09/20/2018), Cystoscopy and transurethral resection of bladder tumour (07/25/2018), application of epidermal skin graft from left thigh. (12/29/2016), right sub first metatarsal of foot wound graft preparation for epidermal skin graft with [id number] (12/29/2016), Cystoscopy to remove object (11/29/2012), Laser bladder lesion therapy (06/10/2009), TURP - Transurethral resection of prostate (02/20/2009), Laser ablation of prostate (08/22/2007), Urodynamics (06/01/2007), richelle. cataract extraction with iol, excision of back cyst, Hydrocelectomy, reverse total shoulder arthroplast, right, right hip surgery- 1 total 6 revisions, right inguinal hernia repair x2, turbt for bladder cancer x4. Discharge Vitals Heart Rate (Peripheral) 72 Respiratory Rate 18 Blood Pressure 156/90 Height 180 cm Height 71 in Weight 80.6 kg Weight 177.692 lb BMI 24.88 What to do next You Need to Schedule the Following Appointments Follow Up with JAIRO CALVO, LINDA Rodas When: Where: [facility] [address] , [place] [address]- Medications What How Much When Instructions Unchanged cephalexin (Keflex 500 mg Cap) 1 Capsules By Mouth Every day Take 1 capsule the day before the procedure and 1 capsule after the procedure, every 3 months Unchanged finasteride (finasteride 5 mg Tab) 1 Tablets By Mouth Every day Unchanged tamsulosin (tamsulosin 0.4 mg Cap) 1 Capsules By Mouth Every day Duration: 90 Days Unchanged acetaminophen (Tylenol 500 mg Tab) 1 Tablets By Mouth Every 6 hours as needed for as needed for pain Contact prescribing physician if questions or concerns Unchanged aspirin (Aspirin 81 mg Tab-EC) 1 Tablets By Mouth Every day Contact prescribing physicianif questions or concerns Unchanged atorvastatin (atorvastatin 40 mg Tab) 1 Tablets By Mouth Every day Contact prescribing physician if questions or concerns Unchanged clopidogrel (Plavix 75 mg Tab) 1 Tablets By Mouth Every day Contact prescribing physicianif questions or concerns Unchanged folic acid (folic acid 0.4 mg Tab) 1 Tablets By Mouth Every day Contact prescribing physician if questions or concerns Unchanged multivitamin with minerals (Ocuvite) 1 Tablets By Mouth Every day Contact prescribing physician if questions or concerns Medications and Immunizations Administered Given lidocaine Top 2% Gel w/Appl 6 mL, 6 mL, Topical. For: Personal history of bladder cancer, Lesion ofbladder, BPH without urinary obstruction Allergies Bactrim (Racing heart beat) sulfamethoxazole (Rash) ciprofloxacin (Rapid heart rate) Problems Ongoing - Any problem that you are currently receiving treatment for. 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 Please share your experience with us by completing your survey. We appreciate your feedback and thank you for choosing us for your care. Education Materials Cancer Screening for Males A cancer screening is a test or exam that checks for cancer. Work with your health care provider tocreate a cancer screening schedule that protects your health. Who should have screening? All people who are male should be considered for screening of certain cancers, including colorectalcancer, prostate cancer, lung cancer, and skin cancer. Your health care provider may recommend (more content not included)...NormalMarietta Osteopathic ClinicUroVysion Fish and Urine Cyto ([facility])on [id number] Method of ExtractionBladder WashCleveland Clinic Hillcrest HospitalComment on above:Performed By: #### [id number] #### [facility] [address], [place] [address]CMHK Number of Kokr6Hjguznv Interpretation [facility] CenterComment on above:Performed By: #### [id number] #### [facility] [address], [place] [address]IVDQ SpecimenBladder [facility] Comment on above:Performed By: #### [id number] #### [facility] [address], [place] [address]HAGG Type [facility] HospitalComment on above:Performed By: #### [id number] #### [facility] [address] [place], [place] [address]Aupfocg Office/Clinic Noteon 04-05-8201Mlnduox Office/Clinic NoteUrology Office/Clinic Note Chief Complaint 3 month follow up HPI Staff 3 mos cysto/FISH/cytol. Abx taken prior. Received 2 Mitomycin tx 07/2024. History of Present Illness Tests reviewed: I have reviewed the previous health record information and history for this patient from Dr. Gill. I have reviewed and verified the staff HPI to be accurate for this encounter. Review of Systems PHQ Score Initial Depression Screen Score: 0 SCORE ROS - Provider Constitutional: denies weight loss, denies hot flashes. Eyes: denies eye problems. Gastrointestinal: denies nausea, denies vomiting. Cardiovascular: denies chest pain or angina. Integumentary: no dryness Musculoskeletal: denies musculoskeletal symptoms. ENMT: denies otolaryngeal symptoms. Respiratory: no shortness of breath. Heme/Lymph: denies easy bleeding tendency, denies easy bruising tendency. Psychiatric: no confusion, no anxiety. Genitourinary: See HPI. Physical Exam Vitals & Measurements HR: 72(Peripheral) RR: 18 BP: 156/90 HT: 71 in HT: 180 cm WT: 80.6 kg WT: 177.692 lb BMI: 24.88 General Appearance: alert, no distress, well nourished, well developed male. Procedure Operative Information Anesthesia Type: Local Procedure: Local Cystoscopy Complications: None Surgical risks, benefits, details of the procedure have been explained to the patient. Full informed consent has been obtained. Intraoperative Information Prepped: Patient is brought back to the endoscopy suite. Patient is placed in supine position. Patient prepped in the usual fashion with Betadine solution. 2% Xylocaine Jelly is placed per Urethra. After waiting several minutes, the Cystoscope is introduced. The Urethra is: Normal The Prostatic Urethra is: Unobstructed The Bladder: _No tumors or stones. Prior lesions resolved. Trabeculated: Severe (3), open tics. The Ureteral orifices: Show efflux of clear urine Specimens Removed: Bladder wash sent for FISH and Cytology test Removal: Cystoscope is removed. The patient tolerated it well. Postoperative Information Patient is discharged home with antibiotic coverage. Follow up arranged. Assessment/Plan 1. Personal history of bladder cancer (Z85.51: Personal history of malignant neoplasm of bladder) Original dx, cysto, bladder bx x 2, tumor fulguration 06/10/09 - Noninvasive low grade papillary urothelial carcinoma, grade 2/3. No evidence of angiolymphatic or stromal invasion. Detrusor muscle not present. BCG #3/3 08/2018. TURBT 12/14/22 - Polyploid/papillary cystitis. TURBT 12/20/23 - Noninvasive low grade papillary urothelial carcinoma. BCG #1/3. BCG tx was discontinued after one round due to pt getting recurrent UTIs requiring IV gent (see #2). Last scope 08/07/24. Mitomycin #1 & 2 08/16/24 and 09/10/24. Pt had 4 mo IO cysto to check for bladder tumor recurrence without complications today. Pt took prophylactic abx prior to procedure. Will send bladder wash specimen for FISH/cytol and call pt if positive. Follow up 6 mos surveillance cysto/bt ck/FISH/cytol or sooner if needed. Pt understands and agrees with plan. -Mitomycin x 2 then 6 mo scope. 2. Lesion of bladder (N32.9: Bladder disorder, unspecified) Cysto 08/07/24 - There are the same but fewer tiny, fleshy, minimally raised areas, on the L wall near the floor distally. Similar to prior scope, these are not worrisome. Resolved. 3. BPH without urinary obstruction (N40.0: Benign prostatic hyperplasia without lower urinary tractsymptoms) Taking Finasteride 5 mg qd and Flomax 0.4 mg qd. Follow-up With When Contact Information JAIRO CALVO, Juan Rodriguez, [facility] [address], [place] [address]- Additional Instructions: Mitomycin x 2 then 6 mo scope Patient Education Cancer Screening for Males I, Francia Dos Santos, personally scribed for Dr. Gill on 11/27/2024 13:17:57. . Documentation recorded by the scribe, Francia Dos Santos, accurately reflects the services(s) I performed and decisions made by me. Authenticated by Dr. Gill on 11/27/2024 13:22:23. 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 Dislocated hip Hesitancy Hx of prostatitis Hypertension Incomplete emptying of bladder Lesion of bladder Personal history of bladder cancer Recurrent UTI Urethral stricture UTI (urinary tract infection) Historical No qualifying data Procedure/Surgical History Cystoscopy (11/27/2024), Flexible cystoscopy (08/07/2024), Flexible cystoscopy (05/01/2024), TURBT - Transurethral resection of bladder tumor (12/20/2023), Cystoscopy (05/24/2023), TURBT - Transurethral resection of bladder tumor (12/22/2022), Cystoscopy (11/02/2022), Cystoscope (05/04/2022), Cystoscopy (11/18/2020), Cystoscope (05/20/2020), Cystoscopy (02/12/2020), Cystoscope (11/20/2019), Cys (more content not included)...[facility] HospitalComment on above:Result Comment: Electronically Signed By: Juan GILL MD\.br\Date and Time Signed: 11/27/24 13:22 EST\.br\Electronically Co- Signed By: Francia Dos Santos\.br\Date and Time Co-Signed: 11/27/24 13:18 EST Coding Summaryon 89-80-0521Luyyej SummaryHTMLBase 64 VhcpzgegHEg5zCp+PGhlYWQ+BS1ZJLQuM30lrEZevX0xK2VBXIrWXaakNNZWHAcYPoEkosNgJW0zdOUw ZXJu [file] LWN (more content not included)...[facility].Auto Diff 181-31-2427Nkce Jay %12 %13 Hudson StreetComment on above:Performed By: #### 8143106, [id number], 5777953623, 6277945, 1757783, 4708765143, 54321191, 5422357219 ####[facility] (DEFAULT)[address] [place] [address] 66015Umgo Abs#0.0 q13Nbbioc5.0-0.2[facility] HospitalComment on above: Performed By: #### 3055794, 3336837590, 6208307682, 4350825, 9004971, 3515218146, 41536705, 7342365820 ####[facility] (DEFAULT)[address] [place] [address] 86183Qvqrxfyru/100 WBC (Bld)0.5 %Normal0.2-2.0[facility] HospitalComment on above:Performed By: #### 2761830, 7070864989, 1953042792, 0277325, 8106190, 1029552408, 31846253, 4487499590 ####[facility] (DEFAULT)[address] [place] [address] 24507Spk Abs#0.1 y78Fzcuiu9.0-0.4 [facility] HospitalComment on above:Performed By: #### 6948474, 0405589299, 9569674398, 7667118, 3048257, 6099607968, 50000485, 1627709355 ####[facility] (DEFAULT)[address] [place] [address] 08864Vrvzwacjylk/100 WBC (Bld)2.5 %Normal0.9-4.0[facility] HospitalComment on above:Performed By: #### 6356372, 2344258739, 1886663156, 2142482, 7665745, 6992828413, 27180056, 4359854877 ####[facility] (DEFAULT)[address] [place] [address] 83020Xyyry Abs#0.6 x97Gtd6.3-2.9[facility] HospitalComment on above:Performed By: #### 4787894, 2634847023, 4852304083, 3489522, 2111084, 6501345537, 72677409, 3219749740 ####[facility] (DEFAULT)[address] [place] [address] 90665Idvbkjxsyvu/100 WBC (Bld)11 %Ggw44-91Wmkkkqtx HospitalComment on above: Performed By: #### 0798894, 0770456074, 7451292611, 2241307, 3983045, 4254255508, 84470704, 0488439460 ####[facility] (DEFAULT)[address] [place] [address] 80253Zjda Abs#0.7 i07Ocoeoa0.0-0.8[facility] Comment on above:Performed By: #### 5371118, 6047661931, 0390796493, 2562946, 0022770, 8541101429, 69648007, 7338238960 ####[facility] (DEFAULT)[address] [place] [address] 35775Jiwb Abs#4.3 d92Olaoji4.5-9.2[facility] HospitalComment on above:Performed By: #### 9070268, 8674629253, 6754292993, 9879442, 5055184, 0980092579, 97216887, 2820793286 ####[facility] (DEFAULT)[address] [place] [address] 72984Mbwrrkegsmv/100 WBC (Bld)74 % Dxydvh64-41Xxutzkfa HospitalComment on above:Performed By: #### 3983602, 8717742510, 8580471977, 5926456, 3032678, 4320687800, 52494025, 2353930049 ####[facility] (DEFAULT)[address] [place] [address] 27047.QC SARS-CoV-2 (COVID-19)/Flu/RSV (GeneXpert)on 47-31-2066Nggfzlnn ControlPassNormal [facility] CenterComment on above:Order Comment: Ordered by Discern.[GL_[id number]_QC]Performed By: #### [id number], [id number] ####[facility] (DEFAULT)[address] [place] [address] 549[address]MVZ.on 03-01-3617Xtbcdjjhkmx peptide B (Bld) [Mass/Vol]49.0 pg/mLNormal0.0-100.0 [facility] CenterComment on above:Result Comment: BNP results greater than 100 pg/mL are considered abnormal and suggestive of patients with CHF. Higher BNP concentrations measured in the first 72 hours after an acute coronary syndorme are associated with an increased risk of , myocardial infarction, and CHF. Performed By: #### 8572085, 5521335815, 3555440628, 8510087, 8063159, 1323569261, 32512121, 4261443304 ####[facility] (DEFAULT)[address] [place] [address] 528[address]HON w/ Auto Diffon 97-40-3128Yavqfppmumt distribution width (RBC) [Ratio]14.5 %Jleqet20.5-15.0[facility] CenterComment on above:Performed By: #### 1591280, 9703140523, 1054614531, 4040981, 6254251, 3685890523, 12826365, 5260878132 ####[facility] (DEFAULT)[address] [place] [address] 75923Ocbwijegjr (Bld) [Volume fraction]41.1 %Normal 34.8-51.9[facility] CenterComment on above:Performed By: #### 1731193, 9986228825, 5807607302, 1689727, 9663927, 5906981502, 96913030, 3475357857 ####[facility] (DEFAULT)[address] [place] [address] 19314Ktqgsierrw (Bld) [Mass/Vol]13.8 g/rBGuxgkp86.8-17.7[facility] HospitalComment on above: Performed By: #### 3811751, 9187275892, 2022904079, 2762776, 2800236, 7009892164, 56641542, 4446018829 ####[facility] (DEFAULT)[address] [place] [address] 43115Dan Diff?AutoInvalid Interpretation CodeAkron Children'S Hospital HospitalComment on above:Performed By: #### 7819159, 1998283983, 7201406261, 8227781, 9626071, 6970214087, 83908593, 2967613474 ####[facility] (DEFAULT)[address] [place], [place] [address]H (RBC) [Entitic mass]32 pg Htimdz89-91Pnyydwbg HospitalComment on above:Performed By: #### 6847790, 5294977094, 7766588124, 2890787, 9095474, 9625496735, 46868512, 5240865857 ####[facility] (DEFAULT)[address] [place], [place] [address]HC (RBC) [Mass/Vol]34 g/rUBawcye35-23Nuozrbod HospitalComment on above:Performed By: #### 8322759, 3086260611, 9947438650, 4535037, 0458430, 0174478654, 27347264, 7084164185 ####[facility] (DEFAULT)[address] [place] [address] 78940EII (RBC) [Entitic vol]96 rEEbyyue33-731Lmlgykmq HospitalComment on above: Performed By: #### 0812998, 7386182856, 7013276758, 3146727, 1779391, 5067614989, 56234952, 6126642870 ####[facility] (DEFAULT)[address] [place] [address] 56228Pkzwtbzu931 l04Crkrpg006-325Wuuwgbpc HospitalComment on above:Performed By: #### 5019827, 3910448737, 8253599064, 5901233, 5175554, 0975209685, 58175952, 9293327565 ####[facility] (DEFAULT)[address] [place] [address] 77753Jnoqikrc mean volume (Bld) [Entitic vol]8.5 fLNormal 6.3-10.2[facility] HospitalComment on above:Performed By: #### 7910039, 0538818981, 1938459509, 0879576, 5069869, 9279366085, 17773984, 2421054057 ####[facility] (DEFAULT)[address] [place] [address] 12113ABY6.29 c92Rhczzp1.70-5.30[facility] CenterComment on above:Performed By: #### 2069788, 7762629979, 7245721298, 8779348, 7585757, 3013590662, 36113501, 1299842716 ####[facility] (DEFAULT)[address] [place] [address] 68035IJR2.7 x10 Normal3.5-10.5[facility] HospitalComment on above:Performed By: #### 9369737, 4950965967, 9794025092, 6680408, 3211453, 2015721406, 25042555, 9037269972 ####[facility] (DEFAULT)[address] [place] [address] 10429ZGJ Standardon 45-53-6821sBSU Non AA>60Invalid Interpretation [facility] Comment on above:Performed By: #### 1894663, 7261663799, 8150197453, 8079974, 4711307, 9125623309, 61109828, 3208455894 ####[facility] (DEFAULT)[address] [place] [address] 56921wSIU AA>60Invalid Interpretation [facility] HospitalComment on above:Performed By: #### 1895598, 2275678802, 0475806899, 7086019, 2267571, 0349830391, 82664059, 1318056137 ####[facility] (DEFAULT)[address] [place] [address] 92321Zizjsyu [Mass/Vol]3.4 g/dLLow 3.5-5.0[facility] CenterComment on above:Performed By: #### 2278800, 5653767997, 5067161323, 7716883, 1418337, 7127906417, 01638773, 8019569080 ####[facility] (DEFAULT)[address] [place] [address] 02387Kdz Phos81 IU/LNormal 32-91[facility] HospitalComment on above:Performed By: #### 4598544, 6277952161, 1925908678, 6022580, 5491992, 0454599688, 74118460, 7216313256 ####[facility] (DEFAULT)[address] [place] [address] 23319HEY [Catalytic activity/Vol]25.0 U/USbwnea81.0-63.0[facility] HospitalComment on above:Performed By: #### 6730508, 3560514234, 2298131416, 6711822, 9324289, 3107443636, 33225708, 4929230329 ####[facility] (DEFAULT)[address] [place] [address] 67258MVE [Catalytic activity/Vol]25 U/ONisipu78-21Kjuecekb Hospital Comment on above:Performed By: #### 1468917, 8983792128, 8173603507, 5772866, 7826608, 4333705419, 01108313, 6431769325 ####[facility] (DEFAULT)[address] [place] [address] 62641Fnym Total1.1 mg/dLNormal0.3-1.2[facility] HospitalComment on above:Performed By: #### 4874708, 2876634224, 3195653586, 7423300, 7813370, 7293240373, 76917814, 3883673837 ####[facility] (DEFAULT)[address] [place] [address] 87780Gamubqz [Mass/Vol]8.4 mg/dLLow 8.9-10.3[facility] HospitalComment on above:Performed By: #### 9305231, 5382537479, 5248722579, 8023497, 7670962, 2172522396, 37127069, 1507141132 ####[facility] (DEFAULT)[address] [place] [address] 24804Mnoauwqf [Moles/Vol]101 mmol/IVzaskg640-630Upoxgefa HospitalComment on above:Performed By: #### 6728870, 0047242132, 7065800467, 4896912, 6597409, 0116931544, 59658961, 6802625415 ####[facility] (DEFAULT)[address] [place] [address] 83810PP9 [Moles/Vol]28 mmol/KXecgnu37-68Aayitbcq HospitalComment on above:Performed By: #### 6398204, 3265332385, 9964043302, 2101212, 2627049, 4017686603, 44430878, 9209803866 ####[facility] (DEFAULT)[address] [place] [address] 84771Muvvvcvooi [Mass/Vol]1.03 mg/dLNormal0.90-1.30 [facility] HospitalComment on above:Performed By: #### 7269348, 3015768927, 3882627702, 6097528, 2235865, 6759093433, 65034078, 1754022824 ####[facility] (DEFAULT)[address] [place] [address] 78172Ddjlaky [Mass/Vol]116.0 mg/jFPugdzd05.0-118.0[facility] HospitalComment on above:Performed By: #### 4908429, 9656508318, 4424264590, 2820275, 9087724, 9969658295, 34674176, 3402571401 ####[facility] (DEFAULT)[address] [place] [address] 42568Sdbvumyzf [Moles/Vol]3.7 mmol/LNormal3.6-5.1[facility] HospitalComment on above:Performed By: #### 8701658, 0042152358, 9831951860, 5393678, 1159974, 1738551557, 13987412, 5366903899 ####[facility] (DEFAULT)[address] [place] [address] 03175Sftmxyp [Mass/Vol]6.5 g/dLNormal6.5-8.1[facility] HospitalComment on above:Performed By: #### 1027725, 2913656748, 6828837259, 9767050, 3789719, 0570717317, 89695940, 0316278248 ####[facility] (DEFAULT)[address] [place] [address] 92859Axgmpa [Moles/Vol]137.0 mmol/L Ogmuxy192.0-144.0[facility] HospitalComment on above:Performed By: #### 2986868, 8921112394, 4991079120, 1076305, 8512747, 0158958383, 02697675, 4788473450 ####[facility] (DEFAULT)[address] [place] [address] 74675Nxbt nitrogen [Mass/Vol]24 mg/dLNormal8-26[facility] HospitalComment on above:Performed By: #### 0413046, 5831529720, 1572320258, 4403411, 9269782, 3307817803, 44871193, 8947446642 ####[facility] (DEFAULT)[address] [place] [address] 40470Xhnraed/Globulin [Mass ratio]1.0 {ratio}Low1.4-2.6[facility] HospitalComment on above:Performed By: #### 8507075, 5325124458, 4502058699, 6641051, 6103867, 0425907246, 46709102, 2903571998 ####[facility] (DEFAULT)[address] [place] [address] 31332Rsjxw gap [Moles/Vol]11.7 mmol/L Normal5.0-19.0[facility] HospitalComment on above:Performed By: #### 5250765, 0438057801, 0543786934, 5886039, 6764516, 1177482947, 20995368, 3200158999 ####[facility] (DEFAULT)[address] [place] [address] 59559Sxehmbpp (S) [Mass/Vol]3.1 g/dLNormal1.5-4.3[facility] HospitalComment on above:Performed By: #### 4753884, 9883462142, 5356861811, 6300699, 0747486, 0573982200, 57373894, 1733518527 ####[facility] (DEFAULT)[address] [place] [address] 54092Jnxnyqfpqy070 mOsm/LInvalid Interpretation CodeAkron Children'S Hospital HospitalComment on above:Performed By: #### 5504782, 0086784622, 8838685420, 6886943, 3242424, 1034177157, 03944663, 7615270275 ####[facility] (DEFAULT)[address] [place] [address] 16869Intg nitrogen/Creatinine [Mass ratio]23.3 mg/mgHigh4.6-16.2Magrgrand [facility] HospitalComment on above:Performed By: #### 4288144, 5252460376, 6682361958, 7945297, 2494603, 2471179358, 61033104, 1346773273 ####[facility] (DEFAULT)[address] [place] [address] 69399Sfzsqhysiz ChemMetroHealth [facility] Center HospitalComment on above:Performed By: #### 9575050, 9034483949, 8840080468, 4944111, 2257985, 5683482935, 29065202, 5301661805 ####[facility] (DEFAULT)[address] [place] [address] 00936DCPOG/Flu/RSV (GeneXpert)on 67-77-7580Xja A (GXpert COVFLURSV)Negative NormalNegTrinity Health System HospitalComment on above:Performed By: #### 7749543666, 7476267062 ####[facility] (DEFAULT)[address] [place] [address] 31435Sav B (GXpert COVFLURSV)NegativeNormalNegativeAkron Children'S Hospital HospitalComment on above:Performed By: #### 8156073861, 5668963502 ####[facility] (DEFAULT)[address] [place] [address] 26157WZY (GXpert COVFLURSV)Negative NormalNegTrinity Health System HospitalComment on above:Performed By: #### 1219167663, 1167020786 ####[facility] (DEFAULT)[address], [place] [address]AFKX-TiC-8 (COVID-19) RNA BATOOL+probe Ql (Unsp spec)NegativeNormalNegative [facility] CenterComment on above:Result Comment: Performed by PCR methodology. Performed By: #### [id number], [id number] ####[facility] (DEFAULT)[address], [place] [address]UT Clinical Summaryon 93-89-0616KX Clinical SummaryUniversity [facility]als [facility] - Emergency Department [address] [place] [address] ED Clinical Summary PERSON INFORMATION Name: ROSCOE HERNANDEZ Age: 89 Years Sex: MALE : 1935 MRN: Acct#: Visit Reason: Cough; COUGH Arrival: 09/24/2024 06:32:39 Discharge: 09/24/2024 09:26:00 LOS: 000 02:54 Check In: 09/24/2024 06:32:39 Checkout:09/24/2024 09:26:00 Address: [address] [place] [address] PCP: Eh Lund DO PROVIDER INFORMATION Provider Role Assigned Unassigned Elias Douglas MD ED Provider 09/24/2024 06:33:17 Brooke Woo RN ED Nurse 09/24/2024 06:39:47 Dai Rueda RN ED Nurse 09/24/2024 07:10:09 Wade Feldman MD ED Provider 09/24/2024 08:15:19 VITALS INFORMATION Vital Sign Triage Latest Temperature Tympanic Temperature Temporal Artery Pulse Rate 80 bpm 88 bpm O2 Sat 100 % 99 % Respiratory Rate 18 br/min 18 br/min Blood Pressure /85 mmHg /85 mmHg MEDICAL INFORMATION Medications Given: Medication Dose Route levalbuterol (levalbuterol 1.25 mg/3 mL inhalation solution) 1.25 mg Nebulized Inhalation Allergy Information: sulfamethoxazole-trimethoprim; ciprofloxacin PHYSICIAN DOCUMENTATION DISCHARGE INFORMATION: Discharge Disposition: Home Discharge Location: Home PATIENT EDUCATION INFORMATION Instructions: Cough, Adult, Nimy-mz-Unkz Follow-Up: With: Address: When: Eh Lund [facility] [place] [address] [facility] (1) Within 7 to 10 days Comments: You were seen in the emergency department for evaluation of cough symptoms. Your diagnostic workup and examination did not reveal an obvious problem. This may be due to a viral respiratory infection or throat irritation causing natural cough reflex. Use throat lozenges or cough drops to help with throat irritation and cough. Check your temperature and heart rate twice daily. Follow-up with your doctor sooner if you have heart rate greater than 100 temperature greater than 100 Continue with the current treatment as outlined by the ER physician, Dr Feldman. Called the emergency department if you have any questions concern. Return to the emergency department if you have significant symptoms that concerns you. DIAGNOSIS: 1:Cough; 2:Shortness of breath; Throat irritation Patient Understands: Yes - Patient/family/caregiver verbalizes understanding of instructions given Comment:[facility] HospitalED Note - Physicianon [id number] Note - PhysicianPatient: ROSCOE HERNANDEZ Age: 89 years Sex: MALE : 1935 Associated Diagnoses: Shortness of breath; Throat irritation; Cough Author: Wade Feldman MD Basic Information Time seen: Date & time 09/24/2024 08:15:00. Additional information: Chief Complaint from Nursing Triage Note : Chief Complaint 09/24/2024 6:39 EST Chief Complaint Pt arrives with c/o cough and chest congestion for 5 days . History of Present Illness I have assumed care of the patient from Dr. Douglas, who has discussed the clinical presentation, work-up, and ED course thus far. I have reviewed the patient?s medical record and ED course and agreewith all aspects of care thus far. 89-year-old male presented to ER for evaluation of cough and chest congestion. 5 to 7-day duration.Patient initially seen by Dr. Douglas. Workup has been performed. Disposition to me, pending results. Chest x-ray 2 views negative for acute process per my interpretation. COVID- negative. Influenza negative. Influenza negative. CBC normal. Chemistry profile normal. Troponin normal. BNP normal. Mycoplasma normal. On reexamination, patient tells me that he had onset of symptoms about 5 to 7 days ago. There was an episode he recall, door around that event, that he had aspirated some water or food. Since then hehad some discomfort in the back of the right throat area. There is persistent cough, dry but nonproductive. There is no fever. He reported no significant dyspnea on exertion as per my interpretation. Patient appears well otherwise. Heart sounds normal and lungs sounds clear The patient does have comorbid condition, including his age. I have discussed this with the patient and his at bedside. There is some possibility of aspiration pneumonia although there is no evidence at this time. Patient is certainly at high risk for that. Given that is close to the holiday. I do recommend that he continue to check his temperature twice daily. Watch for temperature greater than 100. Also check his pulse. Watch for temperature consistently elevated, above 100. If temperature or pulse is above 100, may consider starting antibiotic therapy, Augmentin prescribed for possible aspiration. Prescription cough medication prescribed as well he reported having previous hydrocodone but it hadexpiration date. I gave him a new 1. Patient to follow-up with PCP for recheck if not improved as expected. Return to ER criteria discussed. Health Status Allergies: Allergic Reactions (Selected) Severity Not Documented Ciprofloxacin- No reactions were documented. Sulfamethoxazole-trimethoprim- No reactions were documented.. Medications: (Selected) Prescriptions Prescribed albuterol 90 mcg/inh inhalation aerosol: 2 puff(s), INH, q4hr, PRN: for wheezing, 6.7 gm, 0 Refill(s) atorvastatin 40 mg oral tablet: 1 tab(s), Oral, Daily, 90 tab(s), 0 Refill(s) clopidogrel 75 mg oral tablet: 1 tab(s), PO, Daily, 90 tab(s), 3 Refill(s) lisinopril 10 mg oral tablet: 1 tab(s), Oral, Daily, 90 tab(s), 3 Refill(s) Documented Medications Documented Flomax 0.4 mg oral capsule: 0.4 mg, 1 cap(s), PO, Daily, 30 cap(s), 0 Refill(s) Ocuvite: PO, Daily, 0 Refill(s) Tums 500 mg oral tablet, chewable: 500 mg = 1 tab(s), Chewed, BID, PRN: as needed for dyspepsia Tylenol (acetaminophen): 500 mg, PO, PRN: pain, 0 Refill(s) aspirin 81 mg oral tablet: 81 mg, 1 tab(s), PO, Daily, 30 tab(s), 0 Refill(s) finasteride 5 mg oral tablet: 5 mg = 1 tab(s), PO, Daily, 0 Refill(s) fluticasone 50 mcg/inh nasal spray: 1 spray(s), Nasal, Daily, 0 Refill(s) folic acid 0.4 mg oral tablet: 0.4 mg, 1 tab(s), PO, Daily, 100 tab(s), 0 Refill(s). 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 Resolved. Comments: - states he had it for 1 1/2 years 6 months ago resolved bladder CA (7560905104): Resolved. tia (775006315): Resolved. Tear of retina (897280030): Resolved. Comments: - per patient bleeding in the left eye retina, from a recent fall. Due to see a specailist 10/18/14 PE - Pulmonary embolism (1763546190): Resolved. 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 COVID-19 (1229153394): Resolved.. Surgical history: Epidural block (2372145752) in the month of 03/2021 at 85 Years. Colonoscopy (726968413) in 2008 at 74 Years. Cardiac catheterisation (350475340) in 2007 at 73 Years. Unilateral repair of inguinal hernia (4184315651). Comments: 01/14/2017 11:15 Riddhi Bain Rt Shoulder replacement (129385422). Comments: 01/14/2017 11:21 Riddhi Bain Rt Hip replacement (4932273210).. Family history: Detached retina Brother Bone tumor Father Heart attack Mother . Social history: Social & Psychosocial Habits Alcohol 09/24/2024 Alcohol Use: Never Employment/School 09/24/2024 Status: Retired Exercise 09/24/2024 Duration (average number of minutes (more content not included)... [facility] Patient Summaryon [id number] Patient [facility] - Emergency Department [address] [place] [address] PATIENT DISCHARGE INSTRUCTIONS Patient Information Name: ROSCOE HERNANDEZ Age: 89 Years Date of : 1935 Reason For Visit: Cough; COUGH Arrival Time: 09/24/2024 06:32:39 Primary Care Physician: Eh Lund DO Attending Physician: Elias Douglas MD Comment: Visit Diagnosis: Diagnoses This Visit Cough ([id number]) Cough (R05.9) Shortness of breath (R06.02) Throat irritation (J39.2) The Pharmacy at [facility] is open Tuesday through Tuesday from 9A to 6P and Tuesday and Tuesday from 9A to 5P Prescription Information: If you have been given a prescription for narcotics, seek immediate medical attention if you have any difficulty breathing or any sudden status changes such as confusion andsleepiness. If you or anyone you know is experiencing suicidal thoughts, mental health, alcohol and/or drug addiction problems; contact the [facility] 18/04 Crisis Hotline -Text 0PRDR oo 601022. If you received any narcotics, sedation, or any other medication that causes drowsiness for the next 24 hours, unless otherwise directed: ? Do not drive a car. ? Do not operate machinery such as power tools, lawn mowers, drills, sewing machines, or stoves ? Avoid alcoholic beverages and drugs for allergies, nerves, or sleep ? Do not make important personal or business decisions or sign any legal documents With: Address: When: Eh Lund [address] [place] [address] Business (1) Within 7 to 10 days Comments: You were seen in the emergency department for evaluation of cough symptoms. Your diagnostic workup and examination did not reveal an obvious problem. This may be due to a viral respiratory infection or throat irritation causing natural cough reflex. Use throat lozenges or cough drops to help with throat irritation and cough. Check your temperature and heart rate twice daily. Follow-up with your doctor sooner if you have heart rate greater than 100 temperature greater than 100 Continue with the current treatment as outlined by the ER physician, Dr Feldman. Called the emergency department if you have any questions concern. Return to the emergency department if you have significant symptoms that concerns you. Medication Information: The exam and treatment you received today in the [facility] Emergency Department were for an urgent problem and are not intended as complete care. It is important for you to follow up with a doctor, nurse practitioner, or physician?s school bus driver/teacher assistant for ongoing care. If your symptoms become worse or you donot improve as expected and you are unable to reach your usual health care provider, you should return to the Emergency Department, we are available 24 hours a day. For those patients who have received Radiology results, the interpretation of your X-ray as given to you by our Emergency Department physician is only a preliminary report. The Radiologist will review your films and if there is a change in the diagnosis you will be notified by phone. Please make sure you have provided a working phone number so we can reach you if necessary. In the event that you had a lab culture while you were a patient in the Emergency Department, you will be notified by phone if there is a need to change your antibiotic. Please make sure you have provided a working phone number so we can reach you if necessary. [facility] Emergency Department has provided you with a complete list of medications post discharge. Please inform your glass selector/provider of your visit and for further instruction on these medications. Any specific questions regarding your chronic medications and dosages should be discussed with your primary care physician(s) and/or pharmacist. New Medications The Pharmacy at [address] [phone], [phone] amoxicillin-clavulanate (amoxicillin-clavulanate 875 mg-125 mg oral tablet) 1 tab(s) Oral (given bymouth) Every 12 hours scheduled time for 7 Days. Refills: 0. homatropine-HYDROcodone (homatropine-hydrocodone 1.5 mg-5 mg/5 mL oral syrup) 5 Milliliter Oral (given by mouth) 3 times per day as needed for cough for 5 Days. Refills: 0. Additional medications on your home medication list not specifically addressed. Please contact the ordering physician if you have questions about these medications. acetaminophen (Tylenol (acetaminophen)) 500 Milligram Oral (given by mouth) as needed pain. albuterol (albuterol 90 mcg/inh inhalation aerosol) 2 puff(s) Inhale (breathe in) every 4 hours. asneeded for wheezing. Refills: 0. aspirin (aspirin 81 mg oral tablet) 1 tab(s) Oral (given by mouth) every day. atorvastatin (atorvastatin 40 mg oral tablet) 1 tab(s) Oral (given by mouth) every day. (more content not included)...NormalUniversity Hospitals Beachwood Medical CenterMagnesiumon 32-53-4272Wajwtazqy [Mass/Vol]1.90 mg/dLNormal1.80-2.50[facility] Medical CenterComment on above:Performed By: #### [id number], [id number], [id number], 5827460, 5539597, [id number], 77122935, [id number] ####[facility] (DEFAULT)[address] [place], [place] [id number] pneumoniae IgMon 79-55-7113Umduauqv ControlPassNormBrecksville VA / Crille HospitalComment on above:Performed By: #### [id number], [id number], [id number], 9673572, 4217847, [id number], [id number], [id number] ####[facility] (DEFAULT)[address] [place], [place] [address]Mycoplasma IgMNegativeNormalNegativeUniversity Hospitals Beachwood Medical CenterComment on above:Performed By: #### [id number], [id number], [id number], 4002380, 7169204, [id number], 79684017, [id number] ####[facility] (DEFAULT)[address] [place] [address]YEno 42-80-7629OUY Coag (PPP) [Relative time]1.01 {INR}Normal0.91-1.11 [facility] Beachwood Medical CenterComment on above:Performed By: #### [id number], [id number], [id number], 9244793, 4969469, [id number], 38468883, [id number] ####[facility] (DEFAULT)[address] [place], [place] [address]KT87.5 second(s)Normal 9.7-11.8[facility] Beachwood Medical CenterComment on above:Performed By: #### [id number], [id number], [id number], 2892438, 1951883, 2175197650, 62743979, [id number] ####[facility] (DEFAULT)[address] [place] [address]VgR HSon 56-76-5185Kxksfznz I High Sensitivity6.8 pg/mLNormal<=20.0[facility] Comment on above:Performed By: #### [id number], [id number], [id number], 8259216, 1842909, 5330537153, 66757687, [id number] ####[facility] (DEFAULT)[address] [place] [address]16[address]BF Chest 2 Viewson [id number] Chest 2 Views EXAM: XR Chest 2 Views HISTORY: Chest Pain COMPARISON: Chest radiograph dated 02/06/2022. TECHNIQUE: PA and lateral views of the chest performed. FINDINGS: The trachea is midline. The heart size is normal. Stable mild atheromatous calcification at the aortic arch. Stable hilar shadows which are unremarkable. Stable slight elevation of the right hemidiaphragm. There is no consolidation, pleural effusion or pulmonary vascular congestion. There is no pneumothorax. There is no acute osseous abnormality. The bony structures are osteopenic. There are endplate spurs/paravertebral ossifications at a few levels along the spine. There is a partially imaged right shoulder replacement. IMPRESSION: There is no acute cardiopulmonary process. Final Dictated by: Jace Eldridge MD Dictated DT/TM: 09/24/24 10:03 Signed (Electronic Signature): Jace Eldridge MD 09/24/24 10:04 a Technologist: LIA CLARKEBlanchard Valley Health System Blanchard Valley HospitalCoding Summaryon [id number] SummaryHTMLBase 64 PqvkirviLZf0vNl+PGhlYWQ+WT1NCLRkR22zjIWzoB9mM9TNFPgEJwbcTXSUBBbCKpYvzgGcNO8zeFCc ZXJu [file] c2U (more content not included)...[facility] HospitalReminder Messageson [phone] Messages From: Eh Lund DO To: [facility] ([facility]); Sent: 09/12/2024 15:09:45 EST Show up: 09/12/2024 15:10:00 EST Subject: Results Follow Up Due Date/Time: 09/13/2024 15:09:00 EST no new lung nodules new right rib fractures. trauma?? Results: Date Result Type Result Name 09/12/2024 14:[address] Chest W/O Contrast From: Ghazala Carter RN ([facility] ([facility])) To: Eh Lund DO; Sent: 09/13/2024 11:24:23 EST Show up: 09/13/2024 11:24:00 EST Subject: RE: Results Follow Up Fell 07/28 - rib xrays were done 08/22 and read as negative From: Eh Lund DO To: [facility] ([facility]); Sent: 09/13/2024 11:58:53 EST Show up: 09/13/2024 11:58:00 EST Subject: RE: Results Follow Up xrays were wrong patient notified and voiced understanding.[facility] Chest W/O Contraston [id number] Chest W/O ContrastEXAMINATION: CT Chest W/O Contrast, 09/11/2024 11:15 AM EST HISTORY: Solitary pulmonary nodule. COMPARISON: CT chest without contrast, 02/01/2024. TECHNIQUE: CT scan of the chest was performed without IV contrast. CT dose reduction technique was used, including Automated Exposure Control. FINDINGS: Trachea unremarkable. Esophagus normal. Heart size is normal. No pericardial effusion. Mild coronary artery calcifications. There is calcification of the aortic valve. Ascending thoracic aorta measures 4.4 cm in diameter. This is stable. No mediastinal lymphadenopathy. No axillary lymphadenopathy. No pleural effusion. No pneumothorax. A nodule along the right major fissure measuring 7 mm is unchanged. Subpleural nodule laterally in the right lower lobe measuring 5 mm also stable. No new suspicious pulmonary nodules or masses. No evidence of acute pneumonia. Cholecystectomy. No acute findings in the upper abdomen. No upper abdominal lymphadenopathy. No ascites. No free air. No paraspinal soft tissue swelling. No paraspinal mass. Since the prior exam, there are multiple new subacute rib fractures along the posterior aspects of the right eighth through eleventh ribs. No acute thoracic spine compression fracture. CORONARY ARTERIES: Coronary calcifications are present. IMPRESSION: 1. There are a few lung nodules in the right lower lobe that are unchanged and most likely benign postinflammatory nodules. No new lung nodules or masses. 2. 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 Coronary artery calcifications again noted and appear stable. 3. No mediastinal or hilar lymphadenopathy. 4. There are multiple subacute rib fractures that are new on the right side located posteriorly along the right eighth through eleventh ribs. Final Dictated by: Jaime Rangel MD Dictated DT/TM: 09/12/24 2:12 Signed (Electronic Signature): Jaime Rangel MD 09/12/24 2:56 pm Technologist: DARLENEOhioHealth Grove City Methodist HospitalPatient Letter FTon 09-11-2024 Patient [facility] [place] [facility] [place] September 11, 2024 ROSCOE HERNANDEZ [address] [place] [address] : 1935 [place] [facility] [employer] [facility], Roscoe Hernandez : 1935, [place] file [place] [id number], is a current urological patient of mine being followed for bladder cancer. Please consider continuing this patients disability claim concerning bladder cancer and direct correlation with agent orange exposure from service. Bladder cancer has a 60%- 70% recurrence rate and can recur at anytime. This patient is not in remission. He will need continued surveillance cystoscopies and management for the rest of his life. 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 He was unable to tolerateBCG treatments, and is currently doing Mitomycin bladder instillation treatments for the bladder can cer. His next Mitomycin treatment is scheduled for 09/13/24. He will then get a surveillance Cystoscopy to recheck his bladder on November 27, 2024. Please review the current results, and records which were [facility] to the [facility]. Thank you for your consideration in this matter. Sincerely, Juan Gill M.D., F.A.C.S. [facility] [address] [place], [place] [address] , Option #3NoSCCI Hospital LimaPatient Letter [facility] [place] Patient [place] [facility] [place] September 11, 2024 ROSCOE HERNANDEZ [address] [place] [address] : 1935 Dear [employer], Roscoe Hernandez : 1935, [place] file number [id number], is a current urological patient of mine being followed for bladder cancer. Please consider continuing this patients disability claim concerning bladder cancer and direct correlation with agent orange exposure from service. Bladder cancer has a 60%- 70% recurrence rate and can recur at anytime. This patient is not in remission. He will need continued surveillance cystoscopies and management for the rest of his life. 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 He was unable to tolerateBCG treatments, and is currently doing Mitomycin bladder instillation treatments for the bladder can cer. His next Mitomycin treatment is scheduled for 09/13/24. He will then get a surveillance Cystoscopy to recheck his bladder on November 27, 2024. Please review the current results, and records which were [facility] to the [facility]. Thank you for your consideration in this matter. Sincerely, Juan Gill M.D., F.A.C.S. [facility] [address] [place], [place] [address] , Option #3NormalMarietta Osteopathic ClinicOutside Recordson 14-07-8383Dpvayob [id number]#1.00OTGTIFF [facility]igh HospitalReminder Messageson [phone] MessagesEntered by Ghazala Carter RN on September 03, 2024 09:16:30 EST ordered - tv From: Ghazala Carter RN ([facility] ([facility])) To: [facility] ([facility]); Sent: 02/06/2024 15:13:57 EDT Show up: 08/08/2024 14:13:00 EST Subject: CT chest Reminder: Please call patient to: Please schedule patient for: [address] chest Please ask patient to: Results Follow up Required for:G[facility]igh HospitalXR shoulder RT min 2V*on [id number] shoulder RT min 2V*[facility] [address] [place] [address] XRay Report Signed Patient: Roscoe Hernandez MR#: [id number] 74 : 1935 Acct:[id number] Age/Sex: 89 / M ADM Date: 08/30/24 Loc: [facility] [place] Room: Type: [facility] Attending Dr: Jordin Saez MD Copies to: Jordin Saez MD Ordering Provider: Jordin Saez MD Date of Service: 08/30/24 XR/XR shoulder RT min 2V*: 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 Right shoulder arthroplasty COMPARISON: 04/02/2015 ACUTE FINDINGS: None DEGENERATIVE CHANGE: Unremarkable SOFT TISSUE FINDINGS: Unremarkable JOINT EFFUSION: None POSTOP CHANGES: Stable hardware. BONY MINERALIZATION: Adequate XR/XR shoulder RT min 2V* IMPRESSION: Stable uncomplicated right reverse shoulder arthroplasty Impression dictated by: Srikanth Vogt M.D.08/30/2024 12:35 PM Dictation Location: [place] [address] Transcribed By: [facility] 08/30/24 1235 Dictated By: Srikanth Vogt DO 08/30/24 1235 Signed By: 08/30/[address] [place] [address] Physician GroupOutside Recordson 08-29-2024 Outside [id number]#1.00OTGTWashington County Tuberculosis Hospital HospitalCoding Summaryon 66-29-1069Feuhwl SummaryMLBase 64 CliotxuyJAq1fHv+PGhlYWQ+[id number]qGbDR6htUXg ZXJu [file] c2U (more content not included)...[facility]igh HospitalPatient Handouton [id number] HandoutOrthopedics Chest Wall Pain Chest wall pain is pain in or around the bones and muscles of your chest. Chest wall pain may be caused by: ? An injury. ? Coughing a lot. ? Using your chest and arm muscles too much. Sometimes, the cause may not be known. This pain may take a few weeks or longer to get better. Follow these instructions at home: Managing pain, stiffness, and swelling If told, put ice on the painful area: ? Put ice in a plastic bag. ? Place a towel between your skin and the bag. ? Leave the ice on for 20 minutes, 2?3 times a day. Activity ? Rest as told by your doctor. ? Avoid doing things that cause pain. This includes lifting heavy items. ? Ask your doctor what activities are safe for you. General instructions ? Take rbcl-let-sbjurnb and prescription medicines only as told by your doctor. ? Do not use any products that contain nicotine or tobacco, such as cigarettes, e-cigarettes, and chewing tobacco. If you need help quitting, ask your doctor. ? Keep all follow-up visits as told by your doctor. This is important. Contact a doctor if: ? You have a fever. ? Your chest pain gets worse. ? You have new symptoms. Get help right away if: ? You feel sick to your stomach (nauseous) or you throw up (vomit). ? You feel sweaty or light-headed. ? You have a cough with mucus from your lungs (sputum) or you cough up blood. ? You are short of breath. These symptoms may be an emergency. Do not wait to see if the symptoms will go away. Get medical help right away. Call your local emergency services (911 in the [place] Do not drive yourself to the hospital. Summary ? Chest wall pain is pain in or around the bones and muscles of your chest. ? It may be treated with ice, rest, and medicines. Your condition may also get better if you avoid doing things that cause pain. ? Contact a doctor if you have a fever, chest pain that gets worse, or new symptoms. ? Get help right away if you feel light-headed or you get short of breath. These symptoms may be anemergency. This information is not intended to replace advice given to you by your health care provider. Make sure you discuss any questions you have with your health care provider. Document Revised: 09/05/2023 Document Reviewed: 09/05/2023 [employer] Patient Education ? 2023 [facility] Messageson [phone] Messages From: Marija Russell APRN, CNP To: [facility]itout ([facility]); Sent: 08/22/2024 13:02:04 EST ! Show up: 08/22/2024 13:02:04 EST Subject: Results Follow Up Actions: Call the patient with result(s) Due Date/Time: 08/23/2024 13:01:00 EST Reminder Comments: no hardware issues on Xray Results: Date Result Type Result Name 08/22/2024 12:06 Radiology XR Shoulder Complete Right patient notified, voiced understanding.[facility] Messages From: Marija Russell APRN, CNP To: Drew Shoutitout ([facility]); Sent: 08/22/2024 13:02:54 EST ! Show up: 08/22/2024 13:02:54 EST Subject: Results Follow Up Actions: Call the patient with result(s) Due Date/Time: 08/23/2024 13:02:00 EST Reminder Comments: no hardware changes in hip Results: Date Result Type Result Name 08/22/2024 12:05 Radiology XR Hip Complete Right patient notified, voiced understanding.[facility] Messages From: Marija Russell APRN, CNP To: [facility] [place] ([place]); Sent: 08/22/2024 13:03:15 EST ! 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 Show up: 08/22/2024 13:03:40 EST Subject: Results Follow Up Actions: Call the patient with result(s) Due Date/Time: 08/23/2024 13:03:00 EST Reminder Comments: no rib fracture, normal xray Results: Date Result Type Result Name 08/22/2024 12:00 Radiology XR Ribs 2 Views Right patient notified, voiced understanding.[facility] 2 Views Righton [id number] Ribs 2 Views RightEXAMINATION: XR Ribs 2 Views Right HISTORY: Pleurodynia ; pain after falling in shower COMPARISON: No relevant comparison available. FINDINGS: LUNGS: No significant pulmonary parenchymal abnormalities. PLEURA: No pneumothorax, effusion, or pleural thickening. MEDIASTINUM: No visible mass or adenopathy. CARDIAC: No cardiomegaly or cardiac silhouette abnormality. RIBS: Normal. No significant arthropathy or acute abnormality. OTHER: Right shoulder replacement. IMPRESSION: 1. No appreciable rib fracture. 2. No appreciable acute cardiopulmonary process. Final Dictated by: Eh Medina MD Dictated DT/TM: 08/22/24 11:54 Signed (Electronic Signature): Eh Medina MD 08/22/24 11:58 a Technologist: [facility] - Other Lab Resultson [id number] - Other Lab [id number]#1.00OTGTIFFNoAvita Health System Ontario HospitalUroVysion Fish and Urine Cyto (P4 Labs)on [id number] & UC Diagnosis InfoInvalid Interpretation CodeAtrium Health Kings Mountainer [facility] Orthopaedic InstituteComment on above:Result Comment: A:Urine,Bladder Wash:Bladder Wash Diagnosis Summary - A few clusters of urothelial cells with mild atypia; low grade papillary urothelial neoplasm can not be excluded. Clinical correlation is indicated. Adequate cellularity for evaluation. Diagnosis Summary - The UroVysion FISH study detected normal copy numbers for chromosomes 3, 7, 17,and 9p21. 200 cells were analyzed in this evaluation. No evidence of aneuploidy for chromosomes 3, 7, or 17 or deletion of the 9p21 locus was found in cells present in this specimen. This test does not rule out the possibility of a low grade non-invasive papillary urothelial carcinoma. These findings should be correlated with cytology and cystoscopy results. * CPT: 28864, 29547. Microscopic Notes - Microscopic Notes - Abnormal cells 9p21 deletions: Abnormal cells aneploid events: Total cells analyzed: 200 Hematuria: Gross Description Site ID:A color dark Yellow fixative Alcohol Received 110 mls of clear dark yellow fluid with the patient's name and, Bladder Wash on the vial. Electronically signed by : on: 08/13/2024 16:52:56Performed By: #### [id number] #### [facility] [address], [place] [address]Owrwdtxfjyz [id number] From: Amrita Benjamin To: EU - Recalls Gill; Sent: 2024 14:45:58 EDT Show up: 09/26/2024 14:45:00 EST Subject: cysto/fish/cytol Due Date/Time: 10/22/2024 14:45:00 EST Reminder/Recall Patient is due in Oct 2024 for 3 month cysto/fish/cytol (bt ck) Patient sched for 11/27/24 Cysto per Lela [facility] Ambulatory Visit Summaryon [id number] Visit SummaryAmbulatory Visit Summary ROSCOE HERNANDEZ :1935 Visit Date:08/07/2024 Ambulatory Visit Instructions Your Diagnosis Personal history of bladder cancer Lesion of bladder Recurrent UTI Incomplete emptying of bladder 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 Your Care Team Attending Physician - Juan GILL MD Primary Care Physician - EH LUDN DO This Is Your Medications List cephalexin (Keflex 500 mg Cap) finasteride (finasteride 5 mg Tab) tamsulosin (tamsulosin 0.4 mg Cap) Contact prescribing physician if questions or concerns acetaminophen (Tylenol 500 mg Tab) aspirin (Aspirin 81 mg Tab-EC) atorvastatin (atorvastatin 40 mg Tab) clopidogrel (Plavix 75 mg Tab) folic acid (folic acid 0.4 mg Tab) multivitamin with minerals (Ocuvite) Procedures Performed Flexible cystoscopy (08/07/2024), Flexible cystoscopy (05/01/2024), TURBT - Transurethral resectionof bladder tumor (12/20/2023), Cystoscopy (05/24/2023), TURBT - Transurethral resection of bladder tumor (12/22/2022), Cystoscopy (11/02/2022), Cystoscope (05/04/2022), Cystoscopy (11/18/2020), Cystoscope (05/20/2020), Cystoscopy (02/12/2020), Cystoscope (11/20/2019), Cystoscopy (08/07/2019), Cystoscopy (05/15/2019), Cystoscopy (01/30/2019), Instillation of BCG into the bladder (09/20/2018), Cystoscopy and transurethral resection of bladder tumour (07/25/2018), application of epidermal skin graft from left thigh. (12/29/2016), right sub first metatarsal of foot wound graft preparation for epidermal skin graft with 6zjo5olv8.0cm (12/29/2016), Cystoscopy to remove object (11/29/2012), Laser bladder lesion therapy (06/10/2009), TURP - Transurethral resection of prostate (02/20/2009), Laser ablation of prostate (08/22/2007), Urodynamics (06/01/2007), richelle. cataract extraction with iol, excision of back cyst, Hydrocelectomy, reverse total shoulder arthroplast, right, right hip surgery- 1 total 6 revisions, right inguinal hernia repair x2, turbt for bladder cancer x4. Discharge Vitals Heart Rate (Peripheral) 80 Respiratory Rate 16 Blood Pressure 120/84 Height 180 cm Height 71 in Weight 80.6 kg Weight 177.692 lb BMI 24.88 What to do next You Need to Schedule the Following Appointments Follow Up with JAIRO CALVO, LINDA Rodas When: Where: [facility] [address] , [place] [address]- Medications What How Much When Instructions Unchanged cephalexin (Keflex 500 mg Cap) 1 Capsules By Mouth Every day Take 1 capsule the day before the procedure and 1 capsule after the procedure, every 3 months Unchanged finasteride (finasteride 5 mg Tab) 1 Tablets By Mouth Every day Unchanged tamsulosin (tamsulosin 0.4 mg Cap) 1 Capsules By Mouth Every day Duration: 90 Days Unchanged acetaminophen (Tylenol 500 mg Tab) 1 Tablets By Mouth Every 6 hours as needed for as needed for pain Contact prescribing physician if questions or concerns Unchanged aspirin (Aspirin 81 mg Tab-EC) 1 Tablets By Mouth Every day Contact prescribing physicianif questions or concerns Unchanged atorvastatin (atorvastatin 40 mg Tab) 1 Tablets By Mouth Every day Contact prescribing physician if questions or concerns Unchanged clopidogrel (Plavix 75 mg Tab) 1 Tablets By Mouth Every day Contact prescribing physicianif questions or concerns Unchanged folic acid (folic acid 0.4 mg Tab) 1 Tablets By Mouth Every day Contact prescribing physician if questions or concerns Unchanged multivitamin with minerals (Ocuvite) 1 Tablets By Mouth Every day Contact prescribing physician if questions or concerns Medications and Immunizations Administered Given lidocaine Top 2% Gel w/Appl 11 mL, 11 mL, Topical. For: Personal history of bladder cancer, Lesion of bladder, Recurrent UTI, Incomplete emptying of bladder, BPH without urinary obstruction Allergies Bactrim (Racing heart beat) sulfamethoxazole (Rash) ciprofloxacin (Rapid heart rate) Problems Ongoing - Any problem that you are currently receiving treatment for. 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 Please share your experience with us by completing your survey. We appreciate your feedback and thank you for choosing us for your care. Education Materials Cancer Screening for Males A cancer screening is a test or exam that checks for cancer. Work with your health care provider tocreate a cancer screening schedule that protects your health. Who should have screening? All people who are male should be considered for screening of certain cancers, including colorectalc (more content not included)...[facility] HospitalUroVysion Fish and Urine Cyto (P4 Labs)on [id number] Method of ExtractionBladder WashCleveland Clinic Hillcrest HospitalComment on above: Performed By: #### [id number] #### [facility] [address], [place] [address]BBHS Number of Lvnv4Lpxdcoq Interpretation [facility] CenterComment on above:Performed By: #### [id number] #### [facility] [address], [place] [address]ZTGS SpecimenBladder [facility] Comment on above:Performed By: #### [id number] #### [facility] [address], [place] [address]COQA Type of ServiceTechnical OnlyCleveland Clinic Hillcrest HospitalComment on above:Performed By: #### [id number] #### [facility] [address], [place] [address]Wwhkqhq Office/Clinic Noteon [id number] Office/Clinic NoteUrology Office/Clinic Note Chief Complaint Cysto HPI Staff Cysto ABX TAKEN, need fish/cytol History of Present Illness Tests reviewed: I have reviewed the previous health record information and history for this patient from Dr. Gill. I have reviewed and verified the staff HPI to be accurate for this encounter. Review of Systems PHQ Score Initial Depression Screen Score: 2 SCORE ROS - Provider Constitutional: denies weight loss, denies hot flashes. Eyes: denies eye problems. Gastrointestinal: denies nausea, denies vomiting. Cardiovascular: denies chest pain or angina. Integumentary: no dryness Musculoskeletal: denies musculoskeletal symptoms. ENMT: denies otolaryngeal symptoms. Respiratory: no shortness of breath. Heme/Lymph: denies easy bleeding tendency, denies easy bruising tendency. Psychiatric: no confusion, no anxiety. Genitourinary: See HPI. Physical Exam Vitals & Measurements HR: 80(Peripheral) RR: 16 BP: 120/84 HT: 71 in HT: 180 cm WT: 80.6 kg WT: 177.692 lb BMI: 24.88 General Appearance: alert, no distress, well nourished, well developed male. Genitourinary: normal scrotum, normal testes, normal urethra, normal epididymis, normal vas deferens/spermatic cord. Flank Pain: none. Bladder: nonpalpable. Procedure Operative Information Anesthesia Type: Local Procedure: Local Cystoscopy Complications: None Surgical risks, benefits, details of the procedure have been explained to the patient. Full informed consent has been obtained. Intraoperative Information Prepped: Patient is brought back to the endoscopy suite. Patient is placed in supine position. Patient prepped in the usual fashion with Betadine solution. 2% Xylocaine Jelly is placed per Urethra. After waiting several minutes, the Cystoscope is introduced. The Urethra is: _Stricture near the bulb, able to accommodate scope. The Prostatic Urethra is: Unobstructed The Bladder: _There are the same but fewer tiny, fleshy, minimally raised areas, on the L wall nearthe floor distally. Similar to prior scope, these are not worrisome. Trabeculated: Severe (3), opentics. The Ureteral orifices: Show efflux of clear urine Specimens Removed: Bladder wash sent for FISH and Cytology test Removal: Cystoscope is removed. The patient tolerated it well. Postoperative Information Patient is discharged home with antibiotic coverage. Follow up arranged. Assessment/Plan 1. Personal history of bladder cancer (Z85.51: Personal history of malignant neoplasm of bladder) Original dx, cysto, bladder bx x 2, tumor fulguration 06/10/09 - Noninvasive low grade papillary urothelial carcinoma, grade 2/3. No evidence of angiolymphatic or stromal invasion. Detrusor muscle not present. BCG #3/3 08/2018. TURBT 12/14/22 - Polyploid/papillary cystitis. TURBT 12/20/23 - Noninvasive low grade papillary urothelial carcinoma. BCG #1/3. BCG tx was discontinued after one round due to pt getting recurrent UTIs requiring IV gent (see #2). Pt had IO cysto to check for bladder tumor recurrence without complications today. Pt took prophylactic abx prior to procedure. Will send bladder wash specimen for FISH/cytol and call pt if positive. Follow up 4 mos surveillance cysto/bt ck/FISH/cytol or sooner if needed. Pt understands and agrees with plan. -Schedule mitomycin x 2 then 4 mos scope. 2. Lesion of bladder (N32.9: Bladder disorder, unspecified) Cysto 05/01/24 - There are the same tiny, fleshy, minimally raised areas, on the L wall near the floor distally, recurrence? [1] See procedure section, similar today but not worrisome. 3. Recurrent UTI (N39.0: Urinary tract infection, site not specified) 01/04 - 100k Citrobacter and 100k Klebsiella - tx w Keflex x 7d 01/17 - 100k Pseudomonas - tx w Cefdinir x 10 d 01/29 - 30k Pseudomonas - IV Gent x 7d 02/09 - cx neg 02/26 - 100k P. aeruginosa 03/12 - neg 4. Incomplete emptying of bladder (R33.9: Retention of urine, unspecified) PVR (cc): 01/05/24 - 273 02/27/24 - 149 5. BPH without urinary obstruction (N40.0: Benign prostatic hyperplasia without lower urinary tractsymptoms) Taking Finasteride 5 mg qd and Flomax 0.4 mg qd. 6. Urethral stricture (N35.919: Unspecified urethral stricture, male, unspecified site) Cysto 05/01/24 - Stricture near the bulb, able to accommodate scope. [2] Follow-up With When Contact Information JAIRO CALVO, Juan Rodriguez, URL [facility] [address], [place] [address]- Additional Instructions: Schedule mitomycin x 2 then 4 mos scope. Patient Education Cancer Screening for Males I, Francia Dos Santos, personally scribed for Dr. Gill on 08/07/2024 11:16:39. . Documentation recorded by the scribe, Francia Dos Santos, accurately reflects the services(s) I performed and decisions made by me. Authenticated by Dr. Gill on 08/07/2024 11:18:11. Problem List/Past Medical History Ongoing Anticoagula (more content not included)...[facility] Comment on above:Result Comment: Electronically Signed By: JAIRO CALVO, Juan Rodriguez\.br\Date and Time Signed: 08/07/24 11:18 EST\.br\Electronically Co-Signed By: Francia Dos Santos\.br\Date and Time Co-Signed: 08/07/24 11:16 ESTOutside Records on [id number] Records [id number]#1.00[facility] HospitalXR femur RT 2V*on [id number] femur RT 2V*[facility] [address] [place] [address] XRay Report Signed Patient: Roscoe Hernandez MR#: [id number] 74 : 1935 Acct:[id number] Age/Sex: 89 / M ADM Date: 08/01/24 Loc: [facility] [place] Room: Type: [facility] Attending Dr: Jordin Carson MD Copies to: Jordin Carson MD Ordering Provider: Jordin Carson MD Date of Service: 08/01/24 XR/XR femur RT 2V*: G89.29 - Other chronic pain ([id number]) XR/XR pelvis 1-2V: M54.59 - Other low back pain ([id number]) XR/XR ribs RT min 3V w CXR1V*: G89.29 - Other chronic pain Single view of the pelvis plain film HISTORY: Fell on right side. Right anterior rib pain. Right leg pain COMPARISON: 11/04/2021 ACUTE FINDINGS: None BONY ALIGNMENT: Stable SOFT TISSUES: Unremarkable DEGENERATIVE CHANGE:Similar degeneration. Diffuse osteopenia INTRAPELVIC STRUCTURES: Unremarkable POSTSURGICAL CHANGES:Adequate hardware without complication. XR/XR pelvis 1-2V IMPRESSION:No hardware complication. Diffuse osteopenia. No acute bony findings. Degenerative change. 2 views right femur No stable hardware. No complication. Adequate alignment. No acute fracture. Diffuse osteopenia. Mild right knee degeneration. Unremarkable soft tissues. IMPRESSION: No hardware complication. Mild degeneration. No acute bony findings. Right rib series with single view chest No acute chest findings. Unremarkable right shoulder arthroplasty. No acute displaced rib fracture. No acute lung findings. No pleural effusion or pneumothorax. Thoracic spondylosis. IMPRESSION: No acute displaced rib fracture. No acute chest findings. Impression dictated by: Srikanth Vogt M.D.08/01/2024 2:39 PM Dictation Location: [place] [address] Transcribed By: [facility] 08/01/24 1439 Dictated By: Srikanth Vogt DO 08/01/24 1435 Signed By: 08/01/[address] [place] [address] Physician GroupCoding Summaryon 07-30-2024 Coding SummaryHTMLBase 64 [id number] ZXJu [file] eWx (more content not included)...[facility] HospitalXR Pelvis and Hip - right AP and Lateral frogon [id number]: Postoperative findings as described with no acute osseous abnormality. Blow Molding Machine Operator: JENY Transcribe Date/Time: Jun 21 2024 2:50P Dictated by : DEVI PATTON MD This examination was interpreted and the report reviewed and electronically signed by: DEVI PATTON MD on Jun 21 2024 2:55PM [facility] DIVISION OF RADIOLOGY* * *Final Report* * * DATE OF EXAM: Jun 21 2024 1:11PM AFR 5352 - XR HIP 3V PELV+ AP/LAT RT / PROCEDURE REASON: Pain * * * * Physician Interpretation * * * * HISTORY: Pain . HISTORY OF SURGERIES TECHNIQUE: XR HIP 3V PELV+ AP/LAT RT COMPARISON: 08/06/2013 RESULT: No significant interval change. Postoperative changes of right total hip arthroplasty with acetabular augmentation. Hardware in unchanged position with vertically oriented acetabular component. A broken screw is again noted. No evidence of loosening. No fractures. Diffuse osteopenia. No other significant abnormality. DIVISION OF RADIOLOGYProvider, [facility] [place] - 06/21/2024 * * *Final Report* * * DATE OF EXAM: Jun 21 2024 1:11PM AFR 5352 - XR HIP 3V PELV+ AP/LAT RT / PROCEDURE REASON: Pain * * * * Physician Interpretation * * * * HISTORY: Pain . HISTORY OF SURGERIES TECHNIQUE: XR HIP 3V PELV+ AP/LAT RT COMPARISON: 08/06/2013 RESULT: No significant interval change. Postoperative changes of right total hip arthroplasty with acetabular augmentation. Hardware in unchanged position with vertically oriented acetabular component. A broken screw is again noted. No evidence of loosening. No fractures. Diffuse osteopenia. No other significant abnormality. IMPRESSION IMPRESSION: Postoperative findings as described with no acute osseous abnormality. Blow Molding Machine Operator: [facility] Transcribe Date/Time: Jun 21 2024 2:50P Dictated by : DEVI PATTON MD This examination was interpreted and the report reviewed and electronically signed by: DEVI PATTON MD on Jun 21 2024 2:55PM EST [facility] InstituteRadiology Study observation (narrative)[facility] InstituteXR Pelvis and Hip - right AP and Lateral frogOrdered By: [facility] Provider on 06-21-2024 [facility] InstituteUroVysion Fish and Urine Cyto (P4 Labs)on [id number] & UC Diagnosis InfoInvalid Interpretation [facility] CenterComment on above:Result Comment: A:Urine,Bladder Wash:Bladder Wash Diagnosis Summary - Negative for dysplastic cells or malignancy. Reactive urothelial cells present.Adequate cellularity for evaluation. Diagnosis Summary - The UroVysion FISH study detected normal copy numbers for chromosomes 3, 7, 17,and 9p21. No evidence of aneuploidy for chromosomes 3, 7, or 17 or deletion of the 9p21 locus was found in cells present in this specimen. These findings should be correlated with cytology and cystoscopy results.* Microscopic Notes - Microscopic Notes - Abnormal cells 9p21 deletions: Abnormal cells aneploid events: Total cells analyzed: Hematuria: Gross Description Site ID:A color Yellow fixative Alcohol Received 110 mls of clear yellow fluid with the patient's name and, Bladder Wash on the vial. Electronically signed by : on: 05/08/2024 17:51:41Performed By: #### [id number] #### [facility] [address] [place] [address]ScbGrsazj Fish and Urine Cyto ( Labs)on [id number] Method of ExtractionBladder OhioHealthComment on above: Performed By: #### [id number] #### [facility] [address], [place] [address]CUYP Number of Mlmm3Dzhbulg Interpretation [facility] CenterComment on above:Performed By: #### [id number] #### [facility] [address] [place] [id number] SpecimenBladder [facility] Comment on above:Performed By: #### [id number] #### [facility] [address], [place] [address]KJVI Type of ServiceTechnical OnlyCleveland Clinic Hillcrest HospitalComment on above:Performed By: #### [id number] #### [facility] [address] [place] [address]Ndjpxso Office/Clinic Noteon [id number] Office/Clinic NoteUrology Office/Clinic Note Chief Complaint cysto HPI Staff Pt here for cysto, FISH, cytology. Abx taken. History of Present Illness Tests reviewed: reviewed I have reviewed the previous health record information and history for this patient from NICOLAS Arroyo. I have reviewed and verified the staff HPI to be accurate for this encounter. Review of Systems PHQ Score Initial Depression Screen Score: 2 SCORE ROS - Provider Constitutional: denies weight loss, denies hot flashes. Eyes: denies eye problems. Gastrointestinal: denies nausea, denies vomiting. Cardiovascular: denies chest pain or angina. Integumentary: no dryness Musculoskeletal: denies musculoskeletal symptoms. ENMT: denies otolaryngeal symptoms. Respiratory: no shortness of breath. Heme/Lymph: denies easy bleeding tendency, denies easy bruising tendency. Psychiatric: no confusion, no anxiety. Genitourinary: See HPI. Physical Exam Vitals & Measurements HR: 98(Peripheral) BP: 132/90 HT: 71 in HT: 180 cm WT: 80.6 kg WT: 177.32 lb BMI: 24.88 General Appearance: alert, no distress, well nourished, well developed male. Genitourinary: normal scrotum, normal testes, normal urethra, normal epididymis, normal vas deferens/spermatic cord. Flank Pain: none. Bladder: nonpalpable. Procedure Operative Information Anesthesia Type: Local Procedure: Local Cystoscopy Complications: None Surgical risks, benefits, details of the procedure have been explained to the patient. Full informed consent has been obtained. Intraoperative Information Prepped: Patient is brought back to the endoscopy suite. Patient is placed in supine position. Patient prepped in the usual fashion with Betadine solution. 2% Xylocaine Jelly is placed per Urethra. After waiting several minutes, the Cystoscope is introduced. The Urethra is: _ Stricture near the bulb, able to accommodate scope. The Prostatic Urethra is: Unobstructed The Bladder: _ There are the same tiny, fleshy, minimally raised areas, on the L wall near the floor distally, recurrence? Trabeculated: Severe (3), open tics. The Ureteral orifices: Show efflux of clear urine Specimens Removed: Bladder wash sent for FISH and Cytology test Removal: Cystoscope is removed. The patient tolerated it well. Postoperative Information Patient is discharged home with antibiotic coverage. Follow up arranged. Assessment/Plan 1. Personal history of bladder cancer (Z85.51: Personal history of malignant neoplasm of bladder) Original dx, cysto, bladder bx x 2, tumor fulguration 09/15/09 - Noninvasive low grade papillary urothelial carcinoma, grade 2/3. No evidence of angiolymphatic or stromal invasion. Detrusor muscle not present. BCG #3/3 08/2018. TURBT 12/14/22 - Polyploid/papillary cystitis. S/p TURBT 12/20/23 - Noninvasive low grade papillary urothelial carcinoma. BCG #1/3. BCG tx was discontinued after one round due to pt getting recurrent UTIs requiring IV gent (see #2). Pt had 5 mos IO cysto to check for bladder tumor recurrence without complications today. Pt took prophylactic abx prior to procedure. Will send bladder wash specimen for FISH/cytol and call pt if positive. Follow up 3 mos surveillance cysto/bt ck/FISH/cytol or sooner if needed. Pt understands and agrees with plan. 2. Lesion of bladder (N32.9: Bladder disorder, unspecified) See procedure section. 3. Recurrent UTI (N39.0: Urinary tract infection, site not specified) 01/04 - 100k Citrobacter and 100k Klebsiella - tx w Keflex x 7d 01/17 - 100k Pseudomonas - tx w Cefdinir x 10 d 01/29 - 30k Pseudomonas - IV Gent x 7d 02/09 - cx neg 02/26 - 100k P. aeruginosa 03/12 - neg 4. Incomplete emptying of bladder (R33.9: Retention of urine, unspecified) PVR (cc): 01/05/24 - 273 02/27/24 - 149 5. BPH without urinary obstruction (N40.0: Benign prostatic hyperplasia without lower urinary tractsymptoms) Taking Finasteride 5 mg qd and Flomax 0.4 mg qd. Follow-up With When Contact Information JAIRO CALVO, Juan Rodriguez, [facility] [address], [place] [address]- Additional Instructions: 3 mos surveillance cysto/bt ck/FISH/cytol Patient Education Cancer Screening for Men I, Francia Dos Santos, personally scribed for Dr. Gill on 05/01/2024 14:56:11. . Documentation recorded by the scribe, Francia Dos Santos, accurately reflects the services(s) I performed and decisions made by me. Authenticated by Dr. Gill on 05/01/2024 14:57:17. 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 Dislocated hip Hesitancy Hx of prostatitis Hypertension Incomplete emptying of bladder Lesion of bladder Personal history of bladder cancer Recurrent UTI UTI (urinary tract infection) Historical No qualifying data Procedure/Surgical History Flexible cystoscopy (0 (more content not included)...[facility] HospitalComment on above:Result Comment: Electronically Signed By: JAIRO CALVO, Juan Rodriguez\.br\Date and Time Signed: 05/01/24 14:57 EDT\.br\Electronically Co- Signed By: Francia Dos Santos\.br\Date and Time Co-Signed: 05/01/24 14:56 EDT Coding Summary.on 07-20-3700Btghvb Summary. [id number]+[id number]cYnGT7lpD NjZXJu [file] [id number] (more content not included)...[facility] HospitalC Urineon 08-79-7869Psazhshb identified Cx Nom (U)Microbiology PROCEDURE: Urine Culture [R1] SOURCE: U CleanCatch BODY SITE: COLLECTED DATE/TIME: 03/12/2024 11:48 EDT RECEIVED DATE/TIME: 03/12/2024 17:54 EDT START DATE/TIME: 03/12/2024 17:54 EDT FREE TEXT SOURCE: JAIRO CALVO, Juan GILL MD, Juan Rodriguez FINAL REPORTS Final Report [] Verified Date/Time: 03/14/2024 09:57 EDT No growth at 2 days. Performing Locations R1: This [facility] performed at: [facility], [address] [place] [address], [id number] , , KzbyinUaadurCleveland Clinic Hillcrest HospitalComment on above:Performed By: #### [id number] #### [facility] [address] [place] [address]P Urineon [id number] identified Cx Nom (U)Microbiology PROCEDURE: Urine Culture [R1] SOURCE: U CleanCatch BODY SITE: COLLECTED DATE/TIME: 02/27/2024 15:31 EDT RECEIVED DATE/TIME: 02/28/2024 12:23 EDT START DATE/TIME: 02/28/2024 12:23 EDT FREE TEXT SOURCE: TARAH DIAMOND, EVA RASCON PA-C, EVA Goldsmith FINAL REPORTS Final Report [] Verified Date/Time: 03/01/2024 11:18 EDT >100,000 cfu/ml Pseudomonas aeruginosa SUSCEPTIBILITY RESULTS LEGEND: S=Susceptible, N/R=Not Reported, Blank=Data not available, or drug not advisable or tested, I=Intermediate, ESBL=Extended spectrum beta-lactamase, R=Resistant, TFG=Thymidine-dependent strain, ROMAN=Beta-lactamase positive, ELAN=mcg/m;(mg/L), S*=Predicted susceptible interp, R*=Predicted resistant interp PA Antibiotic ELAN Dilutn ELAN Interp Amikacin <=16 S Aztreonam 8 S Cefepime <=2 S Ceftazidime 4 S Ceftazidime/ <=8 S Avibactam Ciprofloxacin <=1 S Gentamicin <=4 S Levofloxacin <=2 S Meropenem <=1 S Piperacillin/ <=16 S Tazobactam Tobramycin <=4 S Performing Locations R1: This test was performed at: [facility], [address] [place] [address], [id number] [place] [address], [address] [place], [place] [address]Comment on above:Performed By: #### [id number] #### [facility] [address] [place] [address] Urineon 24-42-2116Ivnqpbpk identified Cx Nom (U)Microbiology PROCEDURE: Urine Culture [R1] SOURCE: U Random BODY SITE: COLLECTED DATE/TIME: 02/10/2024 11:18 EDT RECEIVED DATE/TIME: 02/10/2024 17:19 EDT START DATE/TIME: 02/10/2024 17:19 EDT FREE TEXT SOURCE: JAIRO CALVO, Juan GILL MD, Juan Rodriguez FINAL REPORTS Final Report [] Verified Date/Time: 02/12/2024 09:25 EDT No growth at 2 days. Performing Locations R1: This test was performed at: [facility], [address] [place] [address], [id number] [place] [address], BduzziXyduml[address] Nicholson StreetComment on above:Performed By: #### [id number] #### [facility] [address] [place] [address]Zrijxvem identified Cx Nom (U)Microbiology PROCEDURE: Urine Culture [R1] SOURCE: U Random BODY SITE: COLLECTED DATE/TIME: 02/10/2024 11:18 EDT RECEIVED DATE/TIME: 02/10/2024 17:19 EDT START DATE/TIME: 02/10/2024 17:19 EDT FREE TEXT SOURCE: JAIRO CALVO, Juan GILL MD, Juan Rodriguez FINAL REPORTS Final Report [] Verified Date/Time: 02/12/2024 09:25 EDT No growth at 2 days. Performing Locations R1: This test was performed at: [facility], [address] [place] [address], [id number] , [place], XziaceDqcgbkSCCI Hospital LimaComment on above:Performed By: #### [id number] #### [facility] [address] [place] [address]Pfwkjeddj partial thromboplastin time (aPTT) in platelet poor plasma by coagulation aOrdered By: Juan Gill on 62-89-1610kIST Coag (PPP) [Time]34.2 s25.1-36.5FRegency Hospital Cleveland EastComment on above:A hematocrit value greater than 55% may lead to inaccurate results in coagulation testing. Patientshaving hematocrit values >55% require a special collection tube for coagulation studies. Please contact the laboratory at [phone] for redraw instructions.INR in Platelet poor plasma by Coagulation assayOrdered By: Juan Gill on 85-81-6557VTY Coag (PPP) [Relative time]1.0 {INR}[facility] HospitalComment on above:INR Therapeutic Range A) Pre- and Peroperative OAT started two weeks before surgery. NOT HIP SURGERY: 1.5 - 2.5 HIP SURGERY: 2 - 3B) Primary and secondary prevention of venous THROMBOSIS: 2 - 3C) Active venous thrombosis, pulmonary embolismand prevention of recurrent venous thrombosis: 2 - 3D) Prevention of arterial thromboembolismincluding patients with mechanical heart valves: 3 - 4.5Prothrombin time (PT)Ordered By: Juan Gill on 07-89-2937RN Coag (PPP) [Time]11.2 s9.0-12.9[facility] HospitalComment on above:A hematocrit value greater than 55% may lead to inaccurate results in coagulation testing. Patientshaving hematocrit values >55% require a special collection tube for coagulation studies. Please contact the laboratory at [phone] for redraw instructions.ECG 12 [place] 12-09-2023 Normal sinus rhythm with right bundle branch blockCPACSAdena Regional Medical Center Work Phone: basophils Auto (Bld) [#/Vol]Ordered By: Juan Gill on 38-05-1442Wqwmgkzie (Bld) [#/Vol]0.0 10*3/uL0.0-0.2FRegency Hospital Cleveland EastBasophils/100 WBC Auto (Bld)Ordered By: Juan Gill on 97-39-4497Bhpidyekl/100 WBC (Bld)0.7 %.[facility] HospitalCalcium [Mass/volume] in Serum or PlasmaOrdered By: Juan Gill on 09-88-0865Zdddenx [Mass/Vol]8.4 mg/dL8.6-10.3FRegency Hospital Cleveland EastCarbon dioxide, total [Moles/volume] in Serum or PlasmaOrdered By: Juan Gill on 12-06-2023 CO2 [Moles/Vol]30.5 mmol/L21.0-31.0[facility] HospitalChloride [Moles/volume] in Serum or PlasmaOrdered By: Juan Gill on 12-06-2023 Chloride [Moles/Vol]108 mmol/U91-669CjexehycmMercy Health Fairfield HospitalCreatinine [Mass/volume] in Serum or PlasmaOrdered By: Juan Gill on 12-06-2023 Creatinine [Mass/Vol]0.90 mg/dL0.70-1.30[facility] Eosinophils Auto (Bld) [#/Vol]Ordered By: Juan Gill on 12-06-2023 Eosinophils (Bld) [#/Vol]0.2 10*3/uL0.0-0.45[facility] Eosinophils/100 WBC Auto (Bld)Ordered By: Juan Gill on 12-06-2023 Eosinophils/100 WBC (Bld)4.6 %.[facility] HospitalErythrocyte distribution width Auto (RBC) [Ratio]Ordered By: Juan Gill on 12-06-2023 Erythrocyte distribution width (RBC) [Ratio]14.0 %12.0-14.8[facility] HospitalGlucose [Mass/volume] in Serum or PlasmaOrdered By: Juan Gill on 68-31-7387Jmpljva [Mass/Vol]102 mg/pC28-972SdaqorcgkMercy Health Fairfield Hospital Comment on above:ADA recommended reference rangeRandom Glucose Reference Range is dependent on time and content of last meal. Glucose of more than 200 mg/dL in a nonstressed, ambulatory subject supports the diagnosisof Diabetes Mellitus. Hematocrit Auto (Bld) [Volume fraction]Ordered By: Juan Gill on 12-06-2023 Hematocrit (Bld) [Volume fraction]41.0 %38.8-50.0[facility] HospitalHemoglobin [Mass/volume] in BloodOrdered By: Juan Gill on 12-06-2023 Hemoglobin (Bld) [Mass/Vol]13.8 g/dL13.0-17.0[facility] Leukocytes [#/volume] corrected for nucleated erythrocytes in Blood by Automated counOrdered By: Juan Gill on 63-31-0492OUZ corrected for nucl RBC Auto (Bld) [#/Vol]4.5 10*3/uL4.1-10.5FRegency Hospital Cleveland EastLymphocytes Auto (Bld) [#/Vol]Ordered By: Juan Gill on 19-54-4980Ctzhamhgbxt (Bld) [#/Vol]0.9 10*3/uL1.00-4.8[facility] HospitalLymphocytes/100 WBC Auto (Bld)Ordered By: Juan Gill on 82-74-3152Syjrgmvjfwx/100 WBC (Bld)20.9 %.[facility] CenterH Auto (RBC) [Entitic mass]Ordered By: Juan Gill on 98-78-7989AKG (RBC) [Entitic mass]31.4 pg27.5-35.2FRegency Hospital Cleveland EastMCHC Auto (RBC) [Mass/Vol]Ordered By: Juan Gill on 46-67-6854MDNQ (RBC) [Mass/Vol]33.6 g/dL32.5-35.6FRegency Hospital Cleveland EastMCV Auto (RBC) [Entitic vol]Ordered By: Juan Gill on 25-16-4515HZH (RBC) [Entitic vol]93.4 fL83.5-101[facility] HospitalMonocytes Auto (Bld) [#/Vol]Ordered By: Juan Gill on 88-57-8730Gctikhdje (Bld) [#/Vol]0.5 10*3/uL0.0-0.8[facility] HospitalMonocytes/100 WBC Auto (Bld)Ordered By: Juan Gill on 80-41-6342Oowmxdmkr/100 WBC (Bld)11.9 %. [facility] HospitalNeutrophils Auto (Bld) [#/Vol]Ordered By: Juan Gill on 62-45-5245Yzflzwepnkk (Bld) [#/Vol]2.8 10*3/uL1.8-7.7FRegency Hospital Cleveland EastNeutrophils/100 WBC Auto (Bld)Ordered By: Juan Gill on 83-20-2542Ajjlbsydaoi/100 WBC (Bld)61.9 %.[facility] No Panel InformationOrdered By: Juan Gill on 37-44-4697Irhlmbrcf GFR (CKD-EPI)> 60.0 mL/MinMercy Health Fairfield HospitalPharmacy Creatinine Clearance (ChemN/AFRegency Hospital Cleveland EastNucleated erythrocytes [Presence] in Blood by Automated countOrdered By: Juan Gill on 12-06-2023 Nucleated RBC Auto Ql (Bld)0.1 /100{WBC}0-0.5FRegency Hospital Cleveland East Platelet mean volume Auto (Bld) [Entitic vol]Ordered By: Juan Gill on 14-04-7411Sjzpolfh mean volume (Bld) [Entitic vol]8.8 fL6.6-10.1FRegency Hospital Cleveland EastPlatelets Auto (Bld) [#/Vol]Ordered By: Juan Gill on 67-21-3930Cwaoropgd (Bld) [#/Vol]156 10*3/tA886-084PqrblcstxMercy Health Fairfield HospitalPotassium [Moles/volume] in Serum or PlasmaOrdered By: Juan Gill on 19-34-9243Nfkldfsrc [Moles/Vol]4.5 mmol/L3.5-5.1FRegency Hospital Cleveland EastRBC Auto (Bld) [#/Vol]Ordered By: Juan Gill on 69-40-2366KOI (Bld) [#/Vol]4.38 10*6/uL3.90-5.60[facility] Hospitalerum or plasma anion gap determinationOrdered By: Juan Gill on 54-57-0644Ioayj gap [Moles/Vol]10.0 mmol/L6.0-15.0[facility] Hospitalodium [Moles/volume] in Serum or PlasmaOrdered By: Juan Jairo on 94-36-9849Csoptk [Moles/Vol]144 mmol/R915-615IagoriiyjMercy Health Fairfield HospitalUrea nitrogen [Mass/volume] in Serum or PlasmaOrdered By: Juan Jairo on 14-29-8077Ubbj nitrogen [Mass/Vol]20 mg/dL7-25[facility] HospitalWBC Auto (Bld) [#/Vol]Ordered By: Juan Gill on 30-21-7205NVK (Bld) [#/Vol]4.5 10*3/uL 4.1-10.5FRegency Hospital Cleveland EastActivated partial thromboplastin time (aPTT) in platelet poor plasma by coagulation aOrdered By: John Haq on 52-38-2143qOCD Coag (PPP) [Time]38.2 s25.1-36.5FRegency Hospital Cleveland East Comment on above:A hematocrit value greater than 55% may lead to inaccurate results in coagulation testing. Patientshaving hematocrit values >55% require a special collection tube for coagulation studies. Please contact the laboratory at [phone] for redraw instructions.Alanine aminotransferase [Enzymatic activity/volume] in Serum or PlasmaOrdered By: John Haq on 11-73-0553XVH [Catalytic activity/Vol]22 U/L7-52[facility] HospitalAlbumin [Mass/volume] in Serum or Plasma by Bromocresol green (BCG) dye binding metho Ordered By: John Haq on 87-00-0078Ggmnohx BCG dye [Mass/Vol]3.9 g/dL3.5-5.7 [facility] HospitalAlkaline phosphatase [Enzymatic activity/volume] in Serum or PlasmaOrdered By: John Haq on 09-53-3169HHM [Catalytic activity/Vol]93 U/O94-306FybpluxnqMercy Health Fairfield HospitalAspartate aminotransferase [Enzymatic activity/volume] in Serum or PlasmaOrdered By: John Haq on 60-37-9644OUH [Catalytic activity/Vol]23 U/F57-65OlcjzocoaMercy Health Fairfield HospitalBasophils Auto (Bld) [#/Vol]Ordered By: John Haq on 09-18-2023 Basophils (Bld) [#/Vol]0.0 10*3/uL0.0-0.2FRegency Hospital Cleveland East Basophils/100 WBC Auto (Bld)Ordered By: John Haq on 43-41-1182Logpglrtz/100 WBC (Bld)0.6 %.[facility] HospitalBilirubin.direct [Mass/volume] in Serum or PlasmaOrdered By: John Haq on 83-27-3043Nkvaiswwk.direct [Mass/Vol]0.10 mg/dL0.03-0.18FRegency Hospital Cleveland EastBilirubin.total [Mass/volume] in Serum or PlasmaOrdered By: John Haq on 02-92-9941Jizgpeokt [Mass/Vol]0.7 mg/dL0.3-1.0[facility] HospitalCOVID CepheidOrdered By: John Haq on 72-46-8765WAPV-CoV-2 (COVID-19) Ab IA QlNegativeNegative [facility] HospitalComment on above:This is a duplicate [employer] X[employer] Xpress CoV-2/Flu/RSV Plus RNA by RT-PCR result to be used for statistical tracking purpose only.SARS-CoV-2 (COVID-19) RNA BATOOL+probe Ql (Unsp spec) [facility] HospitalARS-CoV-2 (COVID-19) RNA BATOOL+probe Ql (Unsp spec)[facility] HospitalCalcium [Mass/volume] in Serum or Plasma Ordered By: John Haq on 77-27-5959Pefkepu [Mass/Vol]9.0 mg/dL8.6-10.3 [facility] HospitalCarbon dioxide, total [Moles/volume] in Serum or PlasmaOrdered By: John Haq on 49-65-0658XR5 [Moles/Vol]28.9 mmol/L 21.0-31.0[facility] HospitalChloride [Moles/volume] in Serum or PlasmaOrdered By: John Haq on 54-51-9300Soerokwh [Moles/Vol]105 mmol/L98-107 [facility] HospitalCreatine kinase [Enzymatic activity/volume] in Serum or PlasmaOrdered By: John Haq on 02-41-3157DH [Catalytic activity/Vol] 84 U/M35-257OplfjpylvMercy Health Fairfield HospitalCreatinine [Mass/volume] in Serum or PlasmaOrdered By: John Haq on 19-62-4140Devybgqaec [Mass/Vol]0.85 mg/dL 0.70-1.30[facility] HospitalEosinophils Auto (Bld) [#/Vol]Ordered By: John Haq on 02-57-3460Cepvzwxuijq (Bld) [#/Vol]0.2 10*3/uL0.0-0.45 [facility] HospitalEosinophils/100 WBC Auto (Bld)Ordered By: John Haq on 97-73-2886Yucqgrplykg/100 WBC (Bld)5.0 %.[facility] HospitalErythrocyte distribution width Auto (RBC) [Ratio]Ordered By: John Haq on 29-83-1980Mjvkaugdrqv distribution width (RBC) [Ratio]14.4 %12.0-14.8 [facility] HospitalGlobulin Calc (S) [Mass/Vol]Ordered By: John Haq on 50-84-1088Ohvagxrn (S) [Mass/Vol]2.7 g/dLMercy Health Fairfield HospitalGlucose [Mass/volume] in Serum or PlasmaOrdered By: John Haq on 75-36-2590Hkwsxvx [Mass/Vol]105 mg/rD94-083UvpvdvdpoMercy Health Fairfield Hospital Comment on above:ADA recommended reference rangeRandom Glucose Reference Range is dependent on time and content of last meal. Glucose of more than 200 mg/dL in a nonstressed, ambulatory subject supports the diagnosisof Diabetes Mellitus. Hematocrit Auto (Bld) [Volume fraction]Ordered By: John Haq on 09-18-2023 Hematocrit (Bld) [Volume fraction]42.2 %38.8-50.0[facility] HospitalHemoglobin [Mass/volume] in BloodOrdered By: John Haq on 09-18-2023 Hemoglobin (Bld) [Mass/Vol]14.2 g/dL13.0-17.0[facility] INR in Platelet poor plasma by Coagulation assayOrdered By: John Haq on 09-16-1188MLJ Coag (PPP) [Relative time]1.0 {INR}[facility] HospitalComment on above:INR Therapeutic Range A) Pre- and Peroperative OAT started two weeks before surgery. NOT HIP SURGERY: 1.5 - 2.5 HIP SURGERY: 2 - 3B) Primary and secondary prevention of venous THROMBOSIS: 2 - 3C) Active venous thrombosis, pulmonary embolismand prevention of recurrent venous thrombosis: 2 - 3D) Prevention of arterial thromboembolismincluding patients with mechanical heart valves: 3 - 4.5Leukocytes [#/volume] corrected for nucleated erythrocytes in Blood by Automated counOrdered By: John Haq on 26-89-0745QAI corrected for nucl RBC Auto (Bld) [#/Vol]4.5 10*3/uL4.1-10.5FRegency Hospital Cleveland East Lymphocytes Auto (Bld) [#/Vol]Ordered By: John Haq on 47-52-5936Texrkophned (Bld) [#/Vol]0.8 10*3/uL1.00-4.8[facility] HospitalLymphocytes/100 WBC Auto (Bld)Ordered By: John Haq on 43-44-8222Qgixpimzcsa/100 WBC (Bld) 16.7 %.[facility] CenterH Auto (RBC) [Entitic mass]Ordered By: John Haq on 14-02-9933UDV (RBC) [Entitic mass]31.3 pg27.5-35.2FRegency Hospital Cleveland EastMCHC Auto (RBC) [Mass/Vol]Ordered By: John Haq on 48-70-8745TTOF (RBC) [Mass/Vol]33.7 g/dL32.5-35.6FRegency Hospital Cleveland EastMCV Auto (RBC) [Entitic vol]Ordered By: John Haq on 02-09-2205FYB (RBC) [Entitic vol]93.1 fL83.5-101[facility] HospitalMonocyte distribution width [Entitic volume] in Blood by AutomatedOrdered By: John Haq on 34-50-1745Eujpuhno distribution width Auto (Bld) [Entitic vol]17.67 % 0.00-20.00[facility] HospitalMonocytes Auto (Bld) [#/Vol]Ordered By: John Haq on 63-35-3659Vnojwxoag (Bld) [#/Vol]0.5 10*3/uL0.0-0.8[facility] HospitalMonocytes/100 WBC Auto (Bld)Ordered By: John Haq on 76-92-1535Tkqcykdia/100 WBC (Bld)12.0 %.[facility] Natriuretic peptide B [Mass/Vol]Ordered By: John Haq on 63-07-1702Desumzytjun peptide B (Bld) [Mass/Vol]64.0 pg/mL5-100[facility] Neutrophils Auto (Bld) [#/Vol]Ordered By: John Haq on 76-35-5566Gikcqmvzyvg (Bld) [#/Vol]3.0 10*3/uL1.8-7.7FRegency Hospital Cleveland EastNeutrophils/100 WBC Auto (Bld)Ordered By: John Haq on 09-84-8809Lngvbcwsjlb/100 WBC (Bld)65.7 %.[facility] HospitalNo Panel InformationOrdered By: John Haq on 00-25-0228Kklrrikuv GFR (CKD-EPI)> 60.0 mL/MinMercy Health Fairfield HospitalPharmacy Creatinine Clearance (Chem65.21[facility] Nucleated erythrocytes [Presence] in Blood by Automated countOrdered By: John Haq on 85-67-0743Iernzlzhz RBC Auto Ql (Bld)0.0 /100{WBC}0-0.5FRegency Hospital Cleveland EastPlatelet mean volume Auto (Bld) [Entitic vol]Ordered By: John Haq on 00-86-7132Ididxhog mean volume (Bld) [Entitic vol]9.1 fL6.6-10.1 [facility] HospitalPlatelets Auto (Bld) [#/Vol]Ordered By: John Haq on 12-82-6594Wurjvuybd (Bld) [#/Vol]160 10*3/mU908-054PqimqzsxmMercy Health Fairfield HospitalPotassium [Moles/volume] in Serum or PlasmaOrdered By: John Haq on 00-85-2263Wbgtnzzpz [Moles/Vol]3.7 mmol/L3.5-5.1FRegency Hospital Cleveland EastProtein [Mass/volume] in Serum or PlasmaOrdered By: John Haq on 39-11-4515Onlbtbq [Mass/Vol]6.6 g/dL6.4-8.9[facility] Prothrombin time (PT)Ordered By: John Haq on 36-06-9491GS Coag (PPP) [Time] 11.2 s9.0-12.9[facility] HospitalComment on above:A hematocrit value greater than 55% may lead to inaccurate results in coagulation testing. Patientshaving hematocrit values >55% require a special collection tube for coagulation studies. Please contact the laboratory at [phone] for redraw instructions.RBC Auto (Bld) [#/Vol]Ordered By: John Haq on 82-17-2528VOR (Bld) [#/Vol]4.53 10*6/uL3.90-5.60[facility] Hospitalerum or plasma albumin/globulin mass ratioOrdered By: John Haq on 09-18-2023 Albumin/Globulin [Mass ratio]1.4 {ratio}[facility] Hospitalerum or plasma anion gap determinationOrdered By: John Haq on 24-87-6318Cimjc gap [Moles/Vol]8.8 mmol/L6.0-15.0[facility] Hospitalerum or plasma non-glucuronidated bilirubin measurement (mass/volume)Ordered By: John Haq on 86-76-4080Qenxwqxqg.indirect [Mass/Vol]0.6 mg/dLOhioHealth Shelby Hospitalodium [Moles/volume] in Serum or PlasmaOrdered By: John Haq on 19-74-8939Qnlrbw [Moles/Vol]139 mmol/D174-074TfaykkltlMercy Health Fairfield Hospital Troponin I.cardiac [Mass/volume] in Serum or Plasma by Detection limit <= 0.01 ng/Ordered By: John Haq on 15-74-1587Omcqpltk I.cardiac DL <= 0.01 ng/mL [Mass/Vol]8.0 pg/mL0.0-20.0[facility] HospitalUrea nitrogen [Mass/volume] in Serum or PlasmaOrdered By: John Haq on 02-77-6791Pjmg nitrogen [Mass/Vol]17 mg/dL7-25[facility] HospitalWBC Auto (Bld) [#/Vol]Ordered By: John Haq on 94-28-8544FKG (Bld) [#/Vol]4.5 10*3/uL4.1-10.5 [facility] HospitalActivated partial thromboplastin time (aPTT) in platelet poor plasma by coagulation aOrdered By: Juan Gill on 11-30-2022 aPTT Coag (PPP) [Time]34.9 s25.1-36.5FRegency Hospital Cleveland EastBasophils Auto (Bld) [#/Vol]Ordered By: Juan Gill on 62-21-8113Ymsueetaj (Bld) [#/Vol]0.0 10*3/uL0.0-0.2FRegency Hospital Cleveland EastBasophils/100 WBC Auto (Bld)Ordered By: Juan Gill on 65-98-6218Vmeroyfsx/100 WBC (Bld)0.5 %. [facility] HospitalCalcium [Mass/volume] in Serum or PlasmaOrdered By: Juan Gill on 63-40-7102Aggemup [Mass/Vol]9.0 mg/dL8.6-10.3FRegency Hospital Cleveland EastCarbon dioxide, total [Moles/volume] in Serum or Plasma Ordered By: Juan Gill on 02-20-0998WR5 [Moles/Vol]30.1 mmol/L21.0-31.0 [facility] HospitalChloride [Moles/volume] in Serum or Plasma Ordered By: Juan Gill on 34-98-0041Mqzxehed [Moles/Vol]106 mmol/L98-107 [facility] HospitalCreatinine [Mass/volume] in Serum or Plasma Ordered By: Juan Gill on 32-53-1851Znpgxusogo [Mass/Vol]0.93 mg/dL0.70-1.30 [facility] HospitalEosinophils Auto (Bld) [#/Vol]Ordered By: Juan Gill on 02-41-7385Pokgbldfurj (Bld) [#/Vol]0.2 10*3/uL0.0-0.45 [facility] HospitalEosinophils/100 WBC Auto (Bld)Ordered By: Juan Gill on 41-29-6770Wvtygyxzsxn/100 WBC (Bld)2.8 %.[facility] HospitalErythrocyte distribution width Auto (RBC) [Ratio]Ordered By: Juan Gill on 24-65-6840Bplmbtzscoq distribution width (RBC) [Ratio]14.1 % 12.0-14.8[facility] HospitalGlucose [Mass/volume] in Serum or PlasmaOrdered By: Juan Glil on 80-01-8932Zbpmfss [Mass/Vol]81 mg/pM91-944 [facility] HospitalComment on above:ADA recommended reference rangeRandom Glucose Reference Range is dependent on time and content of last meal. Glucose of more than 200 mg/dL in a nonstressed, ambulatory subject supports the diagnosisof Diabetes Mellitus.Hematocrit Auto (Bld) [Volume fraction]Ordered By: Juan Gill on 00-86-6090Ayhlzyklgj (Bld) [Volume fraction]42.4 %38.8-50.0[facility] HospitalHemoglobin [Mass/volume] in BloodOrdered By: Juan Gill on 60-85-4870Yhtcnanfvi (Bld) [Mass/Vol]14.0 g/dL13.0-17.0[facility] HospitalLaboratory - Chemistry and Chemistry - challengeOrdered By: Juan Gill on 11-30-2022 GFR/1.73 sq M.predicted MDRD (S/P/Bld) [Vol rate/Area]mL/min/{1.73_m2}[facility] HospitalLaboratory - CoagulationOrdered By: Juan Gill on 85-10-7499XJ Coag (PPP) [Time]12.2 s9.0-12.9[facility] Leukocytes [#/volume] corrected for nucleated erythrocytes in Blood by Automated counOrdered By: Juan Gill on 45-46-7653UNR corrected for nucl RBC Auto (Bld) [#/Vol]5.8 10*3/uL4.1-10.5FRegency Hospital Cleveland EastLymphocytes Auto (Bld) [#/Vol]Ordered By: Juan Gill on 11-37-6073Rgpzhiiqibj (Bld) [#/Vol]1.0 10*3/uL1.00-4.8[facility] HospitalLymphocytes/100 WBC Auto (Bld)Ordered By: Juan Gill on 02-71-9934Mdbkmjcdjfz/100 WBC (Bld)17.1 %.[facility] CenterH Auto (RBC) [Entitic mass]Ordered By: Juan Gill on 24-58-6846QLB (RBC) [Entitic mass]30.6 pg27.5-35.2FRegency Hospital Cleveland EastMCHC Auto (RBC) [Mass/Vol]Ordered By: Juan Gill on 88-74-7711TFFQ (RBC) [Mass/Vol]33.0 g/dL32.5-35.6FRegency Hospital Cleveland EastMCV Auto (RBC) [Entitic vol]Ordered By: Juan Gill on 48-64-3338PPP (RBC) [Entitic vol]92.8 fL83.5-101[facility] HospitalMonocytes Auto (Bld) [#/Vol]Ordered By: Juan Gill on 96-18-9511Slodwlvxn (Bld) [#/Vol]0.7 10*3/uL0.0-0.8[facility] HospitalMonocytes/100 WBC Auto (Bld)Ordered By: Juan Gill on 33-07-0788Qrzzfmolx/100 WBC (Bld)12.4 %. [facility] HospitalNeutrophils Auto (Bld) [#/Vol]Ordered By: Juan Gill on 32-35-5964Xdopautorpo (Bld) [#/Vol]3.9 10*3/uL1.8-7.7FRegency Hospital Cleveland EastNeutrophils/100 WBC Auto (Bld)Ordered By: Juan Gill on 23-73-0205Itakdpjgizt/100 WBC (Bld)67.2 %.[facility] No Panel InformationOrdered By: Juan Gill on 63-88-6725Xrpdqjym Creatinine Clearance (ChemN/[facility] HospitalNucleated erythrocytes [Presence] in Blood by Automated countOrdered By: Juan Gill on 11-30-2022 Nucleated RBC Auto Ql (Bld)0.0 /100{WBC}0-0.5FRegency Hospital Cleveland East Platelet mean volume Auto (Bld) [Entitic vol]Ordered By: Juan Gill on 47-19-8090Kutgtybc mean volume (Bld) [Entitic vol]8.8 fL6.6-10.1FRegency Hospital Cleveland EastPlatelet poor plasma international normalized ratio (INR) by coagulation assay (relatOrdered By: Juan Gill on 81-18-6939ZRW Coag (PPP) [Relative time]1.1 {INR}[facility] HospitalComment on above: INR Therapeutic Range A) Pre- and Peroperative OAT started two weeks before surgery. NOT HIP SURGERY: 1.5 - 2.5 HIP SURGERY: 2 - 3B) Primary and secondary prevention of venous THROMBOSIS: 2 - 3C) Active venous thrombosis, pulmonary embolismand prevention of recurrent venous thrombosis: 2 - 3D) Prevention of arterial thromboembolismincluding patients with mechanical heart valves: 3 - 4.5 Platelets Auto (Bld) [#/Vol]Ordered By: Juan Gill on 87-42-6843Ngjcdfgai (Bld) [#/Vol]162 10*3/aB883-747FwhqznoffMercy Health Fairfield HospitalPotassium [Moles/volume] in Serum or PlasmaOrdered By: Juan Gill on 11-30-2022 Potassium [Moles/Vol]4.1 mmol/L3.5-5.1FRegency Hospital Cleveland EastRBC Auto (Bld) [#/Vol]Ordered By: Juan Gill on 93-49-1386VYD (Bld) [#/Vol]4.57 10*6/uL3.90-5.60[facility] Hospitalerum or plasma anion gap determinationOrdered By: Juan Gill on 05-51-2738Xduxq gap [Moles/Vol]10.0 mmol/L6.0-15.0[facility] Hospitalodium [Moles/volume] in Serum or PlasmaOrdered By: Juan Gill on 49-05-9712Cgxfim [Moles/Vol]142 mmol/L 136-145[facility] HospitalUrea nitrogen [Mass/volume] in Serum or PlasmaOrdered By: Juan Gill on 51-90-8252Rotk nitrogen [Mass/Vol]21 mg/dL 7-25[facility] HospitalWBC Auto (Bld) [#/Vol]Ordered By: Juan Gill on 84-41-4576ZXL (Bld) [#/Vol]5.8 10*3/uL4.1-10.5FRegency Hospital Cleveland EastActivated partial thromboplastin time (aPTT) in platelet poor plasma by coagulation aOrdered By: Simon English on 12-76-3877dKNS Coag (PPP) [Time]37.5 s25.1-36.5FRegency Hospital Cleveland EastAlbumin [Mass/volume] in Body fluidOrdered By: Simon English on 98-15-1633Mqljuzr (Body fld) [Mass/Vol]3.8 g/dL3.2-5.5FRegency Hospital Cleveland EastAlkaline phosphatase [Enzymatic activity/volume] in Serum or PlasmaOrdered By: Simon English on 79-25-3107MYZ [Catalytic activity/Vol]73 U/N59-12EkmuioatrMercy Health Fairfield HospitalAspartate aminotransferase [Enzymatic activity/volume] in Serum or PlasmaOrdered By: Simon English on 84-92-0504CBA [Catalytic activity/Vol]26 U/A11-23HpdkldxumMercy Health Fairfield HospitalAutomated erythrocytes count in urine sediment (number/area) Ordered By: Simon English on 55-93-6595BOP Auto (Urine sed) [#/Area]0-1 [HPF]0-4 [facility] HospitalAutomated leukocytes count in urine sediment (number/area)Ordered By: Simon English on 76-23-1937ALX Auto (Urine sed) [#/Area]0- 1 [HPF]0-4FRegency Hospital Cleveland EastBasophils Auto (Bld) [#/Vol]Ordered By: Simon English on 10-16-1047Zgxsaetqx (Bld) [#/Vol]0.0 10*3/uL0.0-0.2FRegency Hospital Cleveland EastBasophils/100 WBC Auto (Bld)Ordered By: Simon English on 96-75-6551Idpjqqvku/100 WBC (Bld)0.7 %.[facility] Bilirubin Test strip Ql (U)Ordered By: Simon English on 98-64-2551Wvfqvkgmq Ql (U) NegativeNegativeMercy Health Fairfield HospitalBilirubin.total [Mass/volume] in Serum or PlasmaOrdered By: Simon English on 66-28-0318Zpovtmhwd [Mass/Vol]0.6 mg/dL0.3-1.2FRegency Hospital Cleveland EastCalcium [Mass/volume] in Serum or PlasmaOrdered By: Simon English on 39-92-6928Qhqpyog [Mass/Vol]8.8 mg/dL8.2-10.2 [facility] HospitalCarbon dioxide, total [Moles/volume] in Serum or PlasmaOrdered By: Simon English on 58-11-5427WB9 [Moles/Vol]26.8 mmol/L22.0-30.0 [facility] HospitalChloride [Moles/volume] in Serum or Plasma Ordered By: Simon English on 69-55-7780Nqgdwlim [Moles/Vol]103 mmol/L95-114 [facility] HospitalColor Auto (U)Ordered By: Simon English on 68-88-1431Bqbnb (U)YellowYellowMercy Health Fairfield HospitalCreatine kinase [Enzymatic activity/volume] in Serum or PlasmaOrdered By: Simon English on 05-19-1660JL [Catalytic activity/Vol]109 U/T88-199LieqiyrsrMercy Health Fairfield HospitalCreatine kinase.MB [Mass/volume] in Serum or PlasmaOrdered By: Simon English on 71-63-6488RY.MB [Mass/Vol]3.0 ng/mL0.6-6.3FRegency Hospital Cleveland East Creatinine and Glomerular filtration rate.predicted panel (S/P/Bld)Ordered By: Simon English on 62-89-2647Bgpnvxlwla [Mass/Vol]0.94 mg/dL0.64-1.27[facility] HospitalEosinophils Auto (Bld) [#/Vol]Ordered By: Simon English on 01-94-7862Dxtcsuxkcvz (Bld) [#/Vol]0.3 10*3/uL0.0-0.45[facility] HospitalEosinophils/100 WBC Auto (Bld)Ordered By: Simon English on 09-05-2022 Eosinophils/100 WBC (Bld)5.6 %.[facility] HospitalErythrocyte distribution width Auto (RBC) [Ratio]Ordered By: Simon English on 09-05-2022 Erythrocyte distribution width (RBC) [Ratio]14.5 %12.0-14.8[facility] HospitalEstimated glomerular filtration rate (GFR) non- Ordered By: Simon English on 80-72-9535DXA/1.73 sq M.predicted among non-blacks MDRD (S/P/Bld) [Vol rate/Area]> 60 mL/MinMercy Health Fairfield Hospital Globulin Calc (S) [Mass/Vol]Ordered By: Simon English on 36-92-5453Iawtfsbj (S) [Mass/Vol]2.7 g/dLMercy Health Fairfield HospitalGlucose [Mass/volume] in Serum or PlasmaOrdered By: Simon English on 16-00-8409Mskqxrv [Mass/Vol]120 mg/dL 70-100[facility] HospitalComment on above:ADA recommended reference rangeRandom Glucose Reference Range is dependent on time and content of last meal. Glucose of more than 200 mg/dL in a nonstressed, ambulatory subject supports the diagnosisof Diabetes Mellitus.Hematocrit Auto (Bld) [Volume fraction]Ordered By: Simon English on 61-20-7010Zbhfnfozxu (Bld) [Volume fraction] 43.2 %38.8-50.0[facility] HospitalHemoglobin [Mass/volume] in BloodOrdered By: Simon English on 60-43-1556Efcyzqyjtu (Bld) [Mass/Vol]14.3 g/dL 13.0-17.0[facility] HospitalKetones Auto test strip (U) [Mass/Vol] Ordered By: Simon English on 54-62-9001Vgimnpa (U) [Mass/Vol]NegativeNegative [facility] HospitalLaboratory - CoagulationOrdered By: Simon English on 12-15-9038LB Coag (PPP) [Time]11.3 s9.0-12.9[facility] Laboratory - UrinalysisOrdered By: Simon English on 92-69-6783Wypfbmi casts LM Ql (Urine sed)None seen [LPF]0-8[facility] HospitalLeukocytes [#/volume] corrected for nucleated erythrocytes in Blood by Automated coun Ordered By: Simon English on 10-47-5113RGG corrected for nucl RBC Auto (Bld) [#/Vol]4.9 10*3/uL4.1-10.5FRegency Hospital Cleveland EastLymphocytes Auto (Bld) [#/Vol]Ordered By: Simon English on 51-90-2975Fltdwncuonu (Bld) [#/Vol]0.8 10*3/uL1.00-4.8[facility] HospitalLymphocytes/100 WBC Auto (Bld) Ordered By: Simon English on 29-36-4349Oenurcmjeos/100 WBC (Bld)17.0 %.[facility] Auto (RBC) [Entitic mass]Ordered By: Simon English on 83-16-4126SBP (RBC) [Entitic mass]31.2 pg27.5-35.2FLakeHealth Beachwood Medical CenterHC Auto (RBC) [Mass/Vol]Ordered By: Simon English on 35-55-8086KTNM (RBC) [Mass/Vol]33.2 g/dL32.5-35.6FRegency Hospital Cleveland EastMCV Auto (RBC) [Entitic vol]Ordered By: Simon English on 57-55-4080ZDI (RBC) [Entitic vol]94.1 fL 83.5-101[facility] HospitalMonocyte distribution width [Entitic volume] in Blood by AutomatedOrdered By: Simon English on 68-77-6488Afdmoffv distribution width Auto (Bld) [Entitic vol]18.01 %0.00-20.00[facility] HospitalMonocytes Auto (Bld) [#/Vol]Ordered By: Simon English on 09-05-2022 Monocytes (Bld) [#/Vol]0.6 10*3/uL0.0-0.8[facility] Monocytes/100 WBC Auto (Bld)Ordered By: Simon English on 94-19-5920Pilmjwuau/100 WBC (Bld)12.4 %.[facility] HospitalNeutrophils Auto (Bld) [#/Vol] Ordered By: Simon English on 82-59-5928Vtzrjxrernb (Bld) [#/Vol]3.2 10*3/uL1.8-7.7 [facility] HospitalNeutrophils/100 WBC Auto (Bld)Ordered By: Simon English on 18-46-9036Enqrojlsfhp/100 WBC (Bld)64.3 %.[facility] HospitalNitrite Test strip Ql (U)Ordered By: Simon English on 16-55-4360Rzhceye Ql (U)NegativeNegativeMercy Health Fairfield HospitalNo Panel InformationOrdered By: Simon English on 14-52-5161Nhufucueg GFR ()> 60 mL/MinMercy Health Fairfield HospitalComment on above:GFR estimated reference range: According to KDOQI guidelines, <60 ml/min/1.73m2 is sufficient todiagnose a patient with chronic kidney disease.Pharmacy Creatinine Clearance (Chem60.08 [facility] HospitalNucleated erythrocytes [Presence] in Blood by Automated countOrdered By: Simon English on 34-82-0822Fveswgkgg RBC Auto Ql (Bld) 0.1 /100{WBC}0-0.5FRegency Hospital Cleveland EastPlatelet mean volume Auto (Bld) [Entitic vol]Ordered By: Simon English on 11-72-1837Dafgnymi mean volume (Bld) [Entitic vol]9.0 fL6.6-10.1FRegency Hospital Cleveland EastPlatelet poor plasma international normalized ratio (INR) by coagulation assay (relatOrdered By: Simon English on 01-66-9862YDG Coag (PPP) [Relative time]1.0 {INR}[facility] HospitalComment on above:INR Therapeutic Range A) Pre- and Peroperative OAT started two weeks before surgery. NOT HIP SURGERY: 1.5 - 2.5 HIP SURGERY: 2 - 3B) Primary and secondary prevention of venous THROMBOSIS: 2 - 3C) Active venous thrombosis, pulmonary embolismand prevention of recurrent venous thrombosis: 2 - 3D) Prevention of arterial thromboembolismincluding patients with mechanical heart valves: 3 - 4.5Platelets Auto (Bld) [#/Vol] Ordered By: Simon English on 29-64-9493Fkiaifarv (Bld) [#/Vol]173 10*3/aL722-815 [facility] HospitalPotassium [Moles/volume] in Serum or Plasma Ordered By: Simon English on 55-58-5886Blzybpxkx [Moles/Vol]4.0 mmol/L3.5-5.1 [facility] HospitalProtein Auto test strip (U) [Mass/Vol]Ordered By: Simon English on 11-05-1558Qfaugih (U) [Mass/Vol]NegativeNegativeMercy Health Fairfield HospitalProtein [Mass/volume] in Serum or PlasmaOrdered By: Simon English on 82-33-1588Hgmtunj [Mass/Vol]6.5 g/dL6.1-7.9[facility] HospitalRBC Auto (Bld) [#/Vol]Ordered By: Simon English on 14-09-0655CVD (Bld) [#/Vol]4.59 10*6/uL3.90-5.60[facility] Hospitalerum or plasma alanine aminotransferase measurement without P-5'-P (enzymatic activiOrdered By: Simon English on 87-79-2444ZRL No additional P-5'-P [Catalytic activity/Vol]23 U/L 10-60[facility] Hospitalerum or plasma albumin/globulin mass ratioOrdered By: Simon English on 73-55-7186Dxbllzp/Globulin [Mass ratio]1.4 {ratio}[facility] Hospitalerum or plasma anion gap determination Ordered By: Simon English on 86-94-7897Zpcov gap [Moles/Vol]15.2 mmol/L6.0-15.0 [facility] Hospitalerum or plasma creatine kinase MB (CKMB)/total creatine kinase (CK) ratio by calculaOrdered By: Simon English on 82-23-5797BL.MB Calc [Catalytic fraction]2.7 %0.00-2.50[facility] Hospitalodium [Moles/volume] in Serum or PlasmaOrdered By: Simon English on 18-14-4293Xrkpyi [Moles/Vol]141 mmol/E513-911RdxdbhioiOhioHealth Shelby Hospitalpecific gravity Auto test strip (U) [Rel density]Ordered By: Simon Engilsh on 64-91-4240Jmzwfoyj gravity (U) [Rel density]1.0091.001-1.030[facility] Squamous epithelial cells detection in urine sediment by light microscopyOrdered By: Simon English on 48-74-3822Ptpgmpbfwr cells.squamous LM Ql (Urine sed)None seen [HPF]0-2FRegency Hospital Cleveland EastTroponin I.cardiac [Mass/volume] in Serum or Plasma by High sensitivity methodOrdered By: Simon English on 09-05-2022 Troponin I.cardiac High sensitivity method [Mass/Vol]8 pg/mL0-20[facility] HospitalUrea nitrogen [Mass/volume] in Serum or PlasmaOrdered By: Simon English on 52-99-1264Puba nitrogen [Mass/Vol]17 mg/dL9-23[facility] HospitalUrine bacteria detection by automated methodOrdered By: Simon English on 55-74-3397Vgamxkqt Auto Ql (U)None seenNone SeenMercy Health Fairfield HospitalUrine clarity by refractometry automatedOrdered By: Simon English on 16-28-1014Csibtev Refractometry automated (U)ClearClearFRegency Hospital Cleveland EastUrine glucose measurement by automated test strip (mass/volume) Ordered By: Simon English on 86-81-9741Tjltqyo Auto test strip (U) [Mass/Vol]Normal mg/dLNoLancaster Municipal HospitalUrine hemoglobin detection by automated test stripOrdered By: Simon English on 98-62-5664Aowvrkptjy Auto test strip Ql (U)NegativeNegativeMercy Health Fairfield HospitalUrine leukocyte esterase detection by automated test stripOrdered By: Simon English on 09-05-2022 Leukocyte esterase Auto test strip Ql (U)1+NegativeMercy Health Fairfield HospitalUrobilinogen Auto test strip (U) [Mass/Vol]Ordered By: Simon English on 55-38-7536Pbkwpmhatwdg (U) [Mass/Vol]Normal mg/dLNoLancaster Municipal HospitalWBC Auto (Bld) [#/Vol]Ordered By: Simon English on 86-55-9198UZW (Bld) [#/Vol]4.9 10*3/uL4.1-10.5FRegency Hospital Cleveland EastpH Auto test strip (U)Ordered By: Simon English on 38-51-2276eR (U)7.0 [pH]5.0-9.0[facility] HospitalFLUORO <1HRon 55-80-5698DSKCJD <1HRSTUDY: FLUORO <1HR; 03/26/2021 1:20 pm INDICATION: RT HIP INJURY. COMPARISON: None. ACCESSION NUMBER(S): [id number] ORDERING CLINICIAN: Arsalan Sun FINDINGS: Intraoperative fluoroscopy for surgical guidance. IMPRESSION: As aboveNormalSt. John George Psychiatric PavilionOPERATIVE REPORTon 03-26-2021 OPERATIVE REPORTNAME: ROSCOE HERNANDEZ MR#: [id number] SURGEON: Arsalan Sun MD DATE OF SURGERY: 03/26/2021 OPERATIVE REPORT PREOPERATIVE DIAGNOSIS: Feelings of instability, status post multiple hip surgeries, right hip, for bone loss and instability. PROCEDURE PERFORMED: Evaluation under fluoroscopy, right hip. This was done by Dr. Sun. FINDINGS: The patient is an 85-year-old male and undergone multiple hip procedures over the past 30 years including an impaction grafting technique of the right hip done more than 25 years ago. He has more recently had instability in this hip and has undergone procedures that have included use of a constrained acetabular liner. He recently presented with an episode of what appeared to be a dislocated hip in this patient. He felt this hip was dislocated and that he manipulated to reduce it. When he was seen in the office, he was found to have a reduced hip with no interval change from his prior radiographs. He was advised to consider evaluation under fluoroscopy. There is no intent to consider surgical intervention, but the question of whether his instability was related to the bearing surface or whether the polyethylene used previously had been displaced from its shell, was considered. In addition, there was a possibility of femoral stem, an Galt style impaction grafting stem was loose. Evaluation under fluoroscopy was recommended. At the time of procedure, the patient was not experiencing any feelings of subluxation. He indicated this feeling occurred with adduction. Image confirmed that the hip was well located. The hip was brought through multiple positions including adduction over 20 degrees and adduction with flexion and internal rotation as well as external rotation with extension. This patient has a constrained liner from the [employer] family. This has complete constrained of the head and also tabs with at the 7 and 1 o'clock position around the shell, though cemented into the shell was not loose. The stem itself did not move. There was evidence of slight impingement of the femoral neck on the front of the acetabular rim, but there was no evidence of rose dislocation. Once this was confirmed, the patient was advised of his findings. Continued conservative treatment will proceed. ARSALAN SUN MD [facility] PT NAME: ROSCOE HERNANDEZ MR#: [id number] [address] [place], [place] [address] ACCT: [id number] : [birth year] OPERATIVE REPORT BNS/MODL/[id number] E/S: Arsalan Sun MD 04/03/21 0803 Electronically Signed [facility] PT NAME: ROSCOE HERNANDEZ MR#: [id number] [address] [place], [place] [address] ACCT: [id number] : [birth year] OPERATIVE REPORTNormalSt. John George Psychiatric PavilionHIP 2-3 VIEWS W PELVIS RTon [id number] 2-3 VIEWS W PELVIS RTSTUDY: HIP 2-3 VIEWS W PELVIS RT; 10/29/2020 12:55 pm INDICATION: PAIN. 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 No new pelvic fracture identified. Plate and screws engaging the right acetabular appear unchanged. 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 Cerclage wires engaging the proximal right femoral diaphysis unchanged. IMPRESSION: Unchanged postoperative appearance of the right hip.NormalSt. John George Psychiatric PavilionOutside Radiology Readon 95-34-9550Ugzweys Radiology ReadThis is a preliminary report only. This report will be final only after practitioner review and authentication has occurred. NAME: ROSCOE HERNANDEZ MR#: [id number] DATE OF STUDY: 05/06/2020 RADIOLOGY REASON FOR X-RAY: Followup status post revision right total hip replacement. X-RAYS OBTAINED: AP pelvis and AP lateral x-rays of the right femur. FINDINGS: The patient has AP pelvis and AP lateral x-rays of the right femur. This patient has undergone revision arthroplasty with a cemented femoral stem, lateral allograft support, and an oblong acetabular component with acetabular constraint. An impaction grafting approach to the femur has been used. Stable positioning is noted with no major change in cement bone interfaces of the femur or bone prosthesis interfaces of the acetabulum. No major interval change seen since x-rays of 07/05/2016. IMPRESSION: Stable radiographic appearance, status post complex revision arthroplasty, right hip. ARSALAN SUN MD Mary/[facility] – IDABELFox/[id number] --- [facility] PT NAME: ROSCOE HERNANDEZ MR#: [id number] [address] [place] [address] ACCT: [id number] : [birth year] DOWNTIME RADIOLGY REPORT ADM DATE:[facility]XR [facility] MIN 4 VIEWSon [id number] C-SPINE MIN 4 DRUDS[address] [place] [address] Patient: ROSCOE HERNANDEZ. Exam Date: 08/31/2018DOB: 1935 Gender:M : DR RICARDO CHAN M.D. Admission #: [id number] : DR EH LUND M.D. Order #: [id number] HERE TO VIEW EXAM RADIOLOGY REPORT PROCEDURE: RADIOGRAPH C-SPINE MIN 4 VIEWS COMPARISON: None. INDICATIONS: Cervical radiculopathy, acute cervical spine pain FINDINGS: BONES: Moderate widespread spondylosis and facet osteoarthritis. No visibleacute bony abnormality. Loss of normal cervical lordosisDISC SPACES: Mild widespread disc height narrowing. PARASPINOUS: Negative. No paraspinous abnormality is seen. OTHER: Negative. CONCLUSION: 1. Moderate degenerative spondylosis with loss of cervical lordosis Dictated by: Roscoe Barone M.D. on 02/2018 at 08:38 Approved by: Roscoe Barone M.D. on 08/31/2018 at 08:40[facility] Vital Signs Date TimeVital SignValuePerforming JdbrlyikjEzdavnou86-84-4216 12:50-0400Body aapzhf157.3 cmJd Moreira MD Work Phone: [phone] [place], [place] 138[address]10-28-2025 12:50-0400 Body mass index (BMI) [Ratio]23.99 kg/e0YbxbevnJd Moreira MD Work Phone: [phone]10-28-2025 12:50-0400 Body .02 kgJd Moreira MD Work Phone: 1([phone])306-[address] [place], [place] [address]10-28-2025 12:50-0400 Diastolic blood uzupnwkb81 mm[Hg]Jd Moreira MD Work Phone: [phone] [place], [place] [address]10-28-2025 12:50-0400 Heart rate68 /minJd Mroeira MD Work Phone: [phone])903-[address] [place], [place] [address]10-28-2025 12:50-0400 Systolic blood ntifjvcu179 mm[Hg]Jd Moreira MD Work Phone: [address] [place], [place] [address]309-08-2025 11:47-0400 Body nzpikp140.3 cmDago Brito DPM Work Phone: [facility] CenterXepfjlhxem67-51-3702 11:47-0400Body mass index (BMI) [Ratio]24.69 kg/i4SqbpqrwvDago Brito DPM Work Phone: [facility] CenterJwrbwfpwct00-44-2039 11:47-0400Body qmapar06.29 kgNikkivonda Brown DPM Work Phone: [facility] CenterKqnrqnsphe05-03-1617 11:47-0400Respiratory rate16 /minNicholvonda Brown DPM Work Phone: [facility] CenterKluqafdnox19-33-4776 11:21-0400Body biowvx491.3 cmNicholvonda Brown DPM Work Phone: [facility] CenterNievbcstwi90-54-8016 11:21-0400Body mass index (BMI) [Ratio]24.69 kg/v5Qfrtkson Brown DPM Work Phone: [facility] CenterCvtsxwyfib89-80-4420 11:21-0400Body .29 kgNicholvonda Brown DPM Work Phone: [facility] CenterNtlujdvxun08-65-5406 11:21-0400Respiratory rate16 /minNiclana Brown DPM Work Phone: [facility] CenterKdovwnddpe93-87-1538 09:20-0400Body wbaomh484.3 cmJd Moreira MD Work Phone: [phone]06-26-2025 09:20-0400 Body mass index (BMI) [Ratio]24.13 kg/a4AzpiswkJd Moreira MD Work Phone: [phone]06-26-2025 09:20-0400 Body qxgioy20.47 kgJd Moreira MD Work Phone: [phone]06-26-2025 09:20-0400 Diastolic blood jwckdoua57 mm[Hg]Jd Moreira MD Work Phone: [phone] [address]06-26-2025 09:20-0400 Heart rate60 /minJd Moreira MD Work Phone: [phone]06-26-2025 09:20-0400 Systolic blood wuoweadk147 mm[Hg]Jd Moreira MD Work Phone: [phone])277-[address] [place] [address]-05-2025 12:13-0400 Body .3 cmKareem Dolce DPM FACFAS Work Phone: [facility] CenterNzipsteidn89-05-7088 12:13-0400Body mass index (BMI) [Ratio]24.69 kg/t9Vfqcgv Dolce DPM FACFAS Work Phone: [facility] CenterSypoqhglgq83-10-0201 12:13-0400Body bdozna12.29 kgKareem Dolce DPM FACFAS Work Phone: [facility] CenterTofhhgirow37-71-3580 11:46-0400Body wotyqa846.3 cmNicholvonda Brito DPM Work Phone: [facility] CenterOkorrphrfb45-93-7650 11:46-0400Body mass index (BMI) [Ratio]24.69 kg/q8Pblhlasv Brown DPM Work Phone: [facility] CenterDopyzqpgim73-25-8506 11:46-0400Body mtvhve80.29 kgNicholas Brown DPM Work Phone: [facility] CenterNkisflputl71-38-9965 11:46-0400Respiratory rate18 /minDago Brito DPM Work Phone: [facility] CenterEdjvdjmodb69-34-5146 10:43-0400Diastolic blood zexvcsax56 mm[Hg]Eh Lund DO Work Phone: [facility]04-08-2025 10:43-0400 Heart rate76 /minSteven Kevon DO Work Phone: [facility]04-08-2025 10:43-0400 Respiratory rate16 /minSteven Kevon DO Work Phone: [facility]04-08-2025 10:43-0400 SaO2% (BldA) [Mass fraction]100 %Eh Lund DO Work Phone: [facility]04-08-2025 10:43-0400 Systolic blood hcpbmetd771 mm[Hg]Eh Lund DO Work Phone: [facility]04-08-2025 09:33-0400 Body pulfis484.34 cmSteven Kevon DO Work Phone: [facility]04-08-2025 09:33-0400 Body .01 kgSteven Kevon DO Work Phone: [facility] [facility]02-10-2025 11:59-0500 Body mkryhv441.3 cmDago Brito DPM Work Phone: [facility] CenterBexgznkrjx15-04-9128 11:59-0500Body mass index (BMI) [Ratio]24.69 kg/i7BkcfiquvDago Brito DPM Work Phone: [facility] CenterFkakvyubry25-06-6619 11:59-0500Body ghposx85.29 kgDago Brito DPM Work Phone: [facility] CenterLbzwywzjno56-14-0865 11:59-0500Diastolic blood diiwrvra52 mm[Hg]Dago Brito DPM Work Phone: [facility] CenterAzqnsbiaee11-11-2230 11:59-0500Heart rate80 /min Dago Brito DPM Work Phone: [facility] CenterWeydelpwfx60-40-8906 11:59-0500Systolic blood gbouuzvk033 mm[Hg]Dago Brito DPM Work Phone: [facility] CenterZjboayfvzm58-64-5583 11:54-0500Body ozgbud415.3 cmDago Brito DPM Work Phone: [facility] CenterThesccyraz23-19-2815 11:54-0500Body mass index (BMI) [Ratio]24.69 kg/r2GozlzukbDago Brito DPM Work Phone: [facility] CenterChhqplmyuc33-61-1004 11:54-0500Body ajfmsb48.29 kgDago Brito DPM Work Phone: [facility] CenterLwjaerjomv84-83-8375 11:54-0500Respiratory rate18 /minDago Brito DPM Work Phone: [facility] CenterNnxfgedzov36-48-4052 10:31-0400Diastolic blood mm[Hg]DO Eh Lund Work Phone: 1(974)825-[address] [place], [place] 9977610-22-2024 10:31-0400 Heart rate61 /Jules Lund Work Phone: 9(214)972-[address] [place], [place] 9977610-22-2024 10:31-0400 Respiratory rate16 /Jules Lund Work Phone: 1(259)000-[address] [place], [place] 9977610-22-2024 10:31-0400 SaO2% (BldA) [Mass fraction]100 %DO Eh Lund Work Phone: 1(080)[address]10-22-2024 10:31-0400 Systolic blood msradqpy910 mm[Hg]DO Eh Lund Work Phone: 1(649)[address]10-22-2024 09:00-0400 Body vvspoh014.34 cmDO Eh Lund Work Phone: 1(781)[address]10-22-2024 09:00-0400 Body hrehwi36.11 kgDO Eh Lund Work Phone: 7(753)[address]09-23-2024 11:15-0400 Body puiwxa621.3 cmDago Brito DPM Work Phone: [facility] CenterWurqhzogsy54-36-1780 11:15-0400Body mass index (BMI) [Ratio]24.69 kg/x1HyhsjujvDago Brito DPM Work Phone: [facility] CenterDucwtuhznx46-80-7539 11:15-0400Body qguqaf11.29 kgDago Brito DPM Work Phone: [facility] CenterFvsrsilsnn54-64-4520 11:15-0400Diastolic blood mm[Hg]Dago Brito DPM Work Phone: [facility] CenterPnntrcgwug54-68-0281 11:15-0400Heart rate74 /min Dago Brito DPM Work Phone: [facility] CenterQjqeipupmg98-33-4975 11:15-0400Respiratory rate18 /Oseimarysevonda Brito DPM Work Phone: [facility] CenterPtsmefcbib72-48-3232 11:15-0400Systolic blood vwlwounn207 mm[Hg]Dago Brito DPM Work Phone: [facility] CenterTnvwdwrbjb10-74-3748 12:15-0400Diastolic blood psuhqwhy07 mm[Hg]DO Eh Lund Work Phone: [facility]03-26-2024 12:15-0400 Heart rate74 /Jules Montgomeryen Kevon Work Phone: 4[facility]755)551-[facility]26-2024 12:15-0400 Respiratory rate16 /Jules Lund Work Phone: [facility]03-26-2024 12:15-0400 SaO2% (BldA) [Mass fraction]98 %DO Eh Lund Work Phone: 1(507)285-[facility]03-26-2024 12:15-0400 Systolic blood mm[Hg]DO Eh Lund Work Phone: [facility]03-26-2024 11:27-0400 Body lgjbkcfhcxi20 [degF]DO Eh Lund Work Phone: [facility]03-26-2024 11:02-0400 Inhaled oxygen flow rate8 L/SabrinaWhitney Eh Lund Work Phone: 2(112)007-[address] [place], [place] 9977603-26-2024 08:55-0400 Body rddubc215.34 cmDO Eh Lund Work Phone: [facility]03-26-2024 08:55-0400 Body mass index (BMI) [Ratio]25.4 kg/m2DO Eh Lund Work Phone: [facility]03-26-2024 08:55-0400 Body epuomw06 kgDO Eh Lund Work Phone: [facility]03-15-2024 11:10-0400 Diastolic blood wslvybqk45 mm[Hg]Jd Moreira MD Work Phone: 1(912)334-[address] [place], [place] 1384903-15-2024 11:10-0400 Systolic blood zetverfg053 mm[Hg]Jd Moreira MD Work Phone: 1(195)897-[address] [place], [place] 1384903-15-2024 11:09-0400 Body ymykju349.3 cmJd Moreira MD Work Phone: 1(370)[address] [place], [place] 1384903-15-2024 11:09-0400 Body mass index (BMI) [Ratio]25.38 kg/a6RxoswyrJd Moreira MD Work Phone: 1(100)[address]03-15-2024 11:09-0400 Body .56 kgJd Moreira MD Work Phone: 1(236)744-[address] [place], [place] 1384903-15-2024 11:09-0400 Heart rate78 /minJd Moreira MD Work Phone: 2(963)852-[address] [place], [place] 1384912-24-2023 09:15-0500 Heart rate69 /Jules Lund Work Phone: 1(701)069-[facility]12-24-2023 09:00-0500 Diastolic blood mm[Hg]DO Eh Lund Work Phone: 1(586)126-[facility]12-24-2023 09:00-0500 Respiratory rate16 /Jules Lund Work Phone: 1(245)731-[facility]12-24-2023 09:00-0500 SaO2% (BldA) [Mass fraction]99 %DO Eh Lund Work Phone: 1(919)681-[facility]12-24-2023 09:00-0500 Systolic blood zbheflqu520 mm[Hg]DO Eh Lund Work Phone: 1(668)098-[facility]12-24-2023 08:08-0500 Body hzbozt772.34 cmDO Eh Lund Work Phone: 1(922)807-[address] [place], [place] 9977612-24-2023 08:08-0500 Body ahzmxifllpn51.4 [degF]DO Eh Lund Work Phone: 1(556)[address]12-24-2023 08:08-0500 Body rqkpev67.9 kgDO Eh uLnd Work Phone: 1(881)[address]05-04-2023 14:55-0400 Diastolic blood trjuescn90 mm[Hg]DO Eh Lund Work Phone: 1(783)[address]05-04-2023 14:55-0400 Heart rate65 /Jules Lund Work Phone: 1(896)[address]05-04-2023 14:55-0400 Respiratory rate16 /Jules Lund Work Phone: 1(674)[address]05-04-2023 14:55-0400 SaO2% (BldA) [Mass fraction]97 %DO Eh Lund Work Phone: 1(759)144[address]05-04-2023 14:55-0400 Systolic blood kljsqcor159 mm[Hg]DO Eh Lund Work Phone: 1(959)12729 [address]05-04-2023 13:35-0400 Body pjviyaoccbw11.6 [degF]DO Eh Lund Work Phone: 1(255)901-[address] [place], [place] 9977605-04-2023 13:35-0400 Inhaled oxygen flow rate6 L/Jules Lund Work Phone: 1(443)02329 [address]05-04-2023 10:21-0400 Body mass index (BMI) [Ratio]24.5 kg/m2DO Eh Lund Work Phone: 1(845)[address]05-04-2023 10:07-0400 Body gjalrj104.34 cmDO Eh Lund Work Phone: 1(308)[address]05-04-2023 10:07-0400 Body vnkmyl90 kgDO Eh Lund Work Phone: 1(696)50929 [address]03-21-2023 13:47-0400 Diastolic blood zuifewic24 mm[Hg]DO Eh Lund Work Phone: 1(473)03529 [address]03-21-2023 13:47-0400 Heart rate52 /Jules Lund Work Phone: 1(749)[address]03-21-2023 13:47-0400 Respiratory rate16 /Jules Lund Work Phone: 1(942)[address]03-21-2023 13:47-0400 SaO2% (BldA) [Mass fraction]99 %DO Eh Lund Work Phone: 1(734)[address]03-21-2023 13:47-0400 Systolic blood fhleynnz284 mm[Hg]DO Eh Lund Work Phone: 1(188)[address]03-21-2023 13:09-0400 Body [degF]DO Eh Lund Work Phone: 1(614)[address]03-21-2023 12:44-0400 Inhaled oxygen flow rate8 L/Jules uLnd Work Phone: 1(507)[address]03-21-2023 12:16-0400 Body phjcae849.34 cmDO Eh Lund Work Phone: 1(967)[address]03-21-2023 12:16-0400 Body mass index (BMI) [Ratio]25.4 kg/m2DO Eh Lund Work Phone: 1(800)6-[address] [place], [place] 9977603-21-2023 12:16-0400 Body ivxevh49 kgDO Eh Lund Work Phone: 1(206)35529 [address]12-11-2022 14:51-0500 Diastolic blood mm[Hg]DO Eh Lund Work Phone: 1(838)46029 [address]12-11-2022 14:51-0500 Heart rate58 /Jules Lund Work Phone: [facility]12-11-2022 14:51-0500 Respiratory rate18 /Jules Lund Work Phone: 1(623)248-[facility]12-11-2022 14:51-0500 SaO2% (BldA) [Mass fraction]99 %DO Eh Lund Work Phone: [facility]12-11-2022 14:51-0500 Systolic blood nsiahqpy226 mm[Hg]DO Eh Lund Work Phone: 1(967)927-[address] [place], [place] 9977612-11-2022 12:33-0500 Body hzxjof508.34 cmDO Eh Lund Work Phone: 1(071)011-[address] [place], [place] 9977612-11-2022 12:33-0500 Body aupqvkymeyf63 [degF]DO Eh Lund Work Phone: 1(364)033-[facility]12-11-2022 12:33-0500 Body yrcfeg83 kgDO Eh Lund Work Phone: 1(567)722-[address] [place] [address] Encounters Encounter DateEncounter TypeCare ProviderFacilityStart: 07-23-2025 End: 07-22-8571Rcobuj outpatient visit 15 minutesJd Moreira MD Work Phone: [facility] Fireevergreenhealth monroeComment on above:Chest pain, unspecified type (Primary Dx); Primary hypertension; RBBB; Mixed hyperlipidemia; Abnormal EKG; Easy bruisability; BMI 23.0-23.9, adult; Edema of right lower extremity; Nonrheumatic aortic (valve) stenosis; Former smokerStart: 07-23-2025 End: 29-18-3205axfomnvocyTVZWBDN [facility] AmbulatoryStart: 06-20-2025 End: 83-37-5039zhgxsupzwaUCVUHP E KREBSFacility:UC Medical Centertart: 06-11-2025 End: 27-64-9622XpireaRoel Negrete PA-C Work Phone: OrthopaedicsComment on above: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)Start: 06-03-2025 End: 46-87-9747Gcmfle Susanne Brito DPM Work Phone: [facility] [place] PodiatryStart: 06-03-2025 End: 33-97-6738Napzpi Susanne Brito DPM Work Phone: [facility] [place] PodiatryStart: 06-03-2025 End: 46-03-1640bgxlrfwwgzNJVRKABV A BROWNNot AvailableStart: 06-03-2025 End: 15-11-5153Ffgqauj encounter procedureNiclana Brito DPM Work Phone: [facility] [place] PodiatryComment on above:Other polyneuropathy (Primary Dx); Pain due to onychomycosis of toenails of both feet; Right foot dropStart: 04-11-2025 End: 16-40-4858Rbsujmqtkb hospital visit by Karyn Alba [address] [place], [place] [address]Comment on above:Chest pain, unspecified typeStart: 04-11-2025 End: 57-33-6051wmuptsnzrzJXUAPXMDelaware County Hospitaltart: 19-78-2406aeqjqzemqwVhcpsl P JacksonFacility:[facility] CTRStart: 03-25-2025 End: 55-59-2841Kpdljxmarshall Brito DPM Work Phone: [facility] [place] PODStart: 03-25-2025 End: 44-95-6720Ivhmoe flowsMei Brito DPM Work Phone: [facility] [place] PODStart: 03-25-2025 End: 20-66-0483Xepfkgf encounter procedureDago Brito DPM Work Phone: [facility] [place] PODComment on above:Other polyneuropathy (Primary Dx); Pain due to onychomycosis of toenails of both feet; Right foot dropStart: 03-25-2025 End: 64-29-0841ltovfuxoolZLTDFKGH A BROWNNot AvailableStart: 03-25-2025 End: 36-24-7172yjpvpdhhxsGreygb Jackson DO Work Phone: [facility] Work Phone: Start: 03-25-2025 End: 01-03-2210Ymwcmkp encounter procedureJordin Fernandez MD-[facility] Work Phone: Start: 03-21-2025 End: 77-74-5678Dxeoyh outpatient visit 40 minutesMojp Moreira MD Work Phone: [facility] on above:Chest pain, unspecified type (Primary Dx); RBBB; Mixed hyperlipidemia; Primary hypertension; Abnormal EKG; Personal history of TIA (transient ischemic attack); Chronic obstructive pulmonary disease, unspecified COPD type (Multi); BMI 24.0-24.9, adult; Edema of right lower extremity; Easy bruisabilityStart: 03-21-2025 End: 08-30-2084ocymalbmizWIJDCGIE.[facility] AmbulatoryStart: 91-83-1953mhecuinbbmUtnyqk P JacksonFacility: [facility] MED CTRStart: 03-15-2025 End: 66-68-4357kzkaffyhvuBqvvqg Rebecca LundFacility:[facility] HospitalStart: 03-13-2025 End: 73-69-2541wbzlzveixiXfzvvx Rebecca LundFacility: [facility] CTRStart: 19-03-6505Tdnjaxvap department patient visitHussein I KaserikakFacility:[facility] HospitalStart: 75-16-4312Ycl-patient / Non-visitJordin Fernandez MD-[facility] Work Phone: Start: 03-04-2025 End: 78-67-2911yszkmelpqxKpqjdp Jackson DO Work Phone: [facility] Work Phone: Start: 03-04-2025 End: 05-97-7832Jaarjkd encounter procedureStekristian Lund DO Work Phone: [facility] Work Phone: Start: 02-21-2025 End: 35-96-1685dabeeooigiAckqsw Kevon DO Work Phone: [facility] Work Phone: Start: 02-21-2025 End: 05-30-9016Fijhhef encounter procedureStekristian Lund DO Work Phone: [facility] Work Phone: Start: 64-00-5331Fhx-patient / Non-visitStekristian Lund DO Work Phone: [facility] Work Phone: Start: 02-13-2025 End: 41-35-1201zfqdmlagkkBozdef Kevon DO Work Phone: [facility] Work Phone: Start: 02-13-2025 End: 83-07-5148Xbrxslh encounter procedureStekristian Lund DO Work Phone: [facility] Work Phone: Start: 01-31-2025 End: 46-88-1009bhqpctstguVqayml Kevon DO Work Phone: [facility] Work Phone: Start: 01-31-2025 End: 65-35-0955Rbklhow encounter procedureSteven Kevon DO Work Phone: [facility] Work Phone: Start: 01-28-2025 End: 55-94-7500Ejzmon flowsheetDieudonnem Michael Trotter DPM FACFAS Work Phone: [facility] PCF PODStart: 01-28-2025 End: 91-88-8258Zecvnv flowsheetKareem R Dolce DPM FACFAS Work Phone: [facility] PCF PODStart: 01-28-2025 End: 24-54-8905Gjjroa outpatient visit 25 minutesKareem R Dolce DPM FACFAS Work Phone: [facility] PCF PODComment on above:Cellulitis of second toe of left foot (Primary Dx); Other polyneuropathyStart: 01-28-2025 End: 53-47-3784jtwgumdwxvHCVOEH R DOLCENot AvailableStart: 54-26-1461Bdc-patient / Non-visitSteHealthPark Medical Center Work Phone: [facility] Work Phone: Start: 01-23-2025 End: 56-79-2854vrzbgsbqkwZvfahe Kevon HANDLEY Work Phone: [facility] Work Phone: Start: 01-23-2025 End: 07-34-5605Ooqvhmd encounter procedureSteElba General Hospital Work Phone: [facility] Work Phone: Start: 01-14-2025 End: 19-23-9860Yzeiar flowsheetNiclana Cha Brown DPM Work Phone: [facility] MS PODStart: 01-14-2025 End: 19-35-7281Vfpkbd flowsheetNicholas A Brown DPM Work Phone: noMS [place] PODStart: 01-14-2025 End: 71-23-9959crlhzzqwkqCPMFQSQL A BROWNNot AvailableStart: 01-14-2025 End: 68-07-7682Uqeqpjg encounter procedureNicholvonda A Brown DPM Work Phone: [facility] MS PODComment on above:Other polyneuropathy (Primary Dx); Pain due to onychomycosis of toenails of both feet; Right foot dropStart: 01-10-2025 End: 79-24-9217nojwwdfltnXugekag R WATERSFacility:EU [place]kyStart: 01-10-2025 End: 43-97-2132Liehigv encounter procedureSkristian Lund DO Work Phone: [facility] Work Phone: Start: 40-40-1046Nfo-patient / Non-visitStekristian Lund DO Work Phone: [facility] Work Phone: Start: 01-01-2025 End: 76-51-2626Kovvmufdd to same day surgery [facility] DO Work Phone: [facility] Work Phone: Start: 01-01-2025 End: 78-76-3360xrtjezqcerTtnach Kevon DO Work Phone: [facility] Work Phone: Start: 12-13-2024 End: 82-08-8744iwwlzewtloZiniixj R WATERSFacility:FTMCStart: 12-13-2024 End: 60-01-3495ngspwnlxhuFxbnoga R WATERSFacility:[facility] [place]kyStart: 12-12-2024 End: 65-51-6296mitbjtvxgdOskuincraSumma Health [facility] Work Phone: Start: 12-12-2024 End: 89-00-0220Pvmtkbq encounter procedureAdventist Medical Center Work Phone: Start: 11-27-2024 End: 88-42-4900qxsekocwqaFrxnykt R WATERSFacility:FTMCStart: 11-27-2024 End: 35-18-3971eeastmtdlpYyypcwt R WATERSFacility:[facility] [place]kyStart: 11-05-2024 End: 60-30-6712Lhobet flowsheetDago Brito DPM Work Phone: [facility] MS PODStart: 11-05-2024 End: 26-29-1412Ebwtgp flowsheetDago Brito DPM Work Phone: [facility] MS PODStart: 11-05-2024 End: 25-37-8156gwaqwipihcZIGZYCAL A BROWNNot AvailableStart: 11-05-2024 End: 76-77-3945Pnlgbfq encounter procedureDago Brito DPM Work Phone: [facility] MS PODComment on above:Other polyneuropathy (Primary Dx); Pain due to onychomycosis of toenails of both feet; Right foot dropStart: 09-28-2024 End: 17-28-1857ewsqqkwmvlAcfupl P JacksonFacility:[facility] CTRStart: 01-20-3459Ggahtmryr department patient visitSteven P JacksonFacility:[facility] HospitalStart: 09-11-2024 End: 05-34-6250ofhxkavbssWmxzvb P JacksonFacility:[facility] HospitalStart: 09-06-2024 End: 76-90-1828whinlcwkspCcrqtah R WATERSFacility:[facility] [place]kyStart: 08-30-2024 End: 37-49-0349iosvnrrwltXxitzy OlexaFacility:[facility] Start: 08-27-2024 End: 42-61-9782Cgcopf Susanne Brito DPM Work Phone: [facility] MS PODStart: 08-27-2024 End: 72-36-8839Jfjqpj Susanne Brito DPM Work Phone: [facility] MS PODStart: 08-27-2024 End: 19-45-2347hmxuovwfzfTRPSLHND A BROWNNot AvailableStart: 08-27-2024 End: 39-95-9231Gchrbvj encounter procedureDago Brito DPM Work Phone: noMS MS PODComment on above:Other polyneuropathy (Primary Dx); Onychomycosis; Toe pain, right; Toe pain, left; Right foot dropStart: 08-22-2024 End: 61-61-7402meudeegokzRrullqjue GonyaFacility:Uliss[facility] Hospitaltart: 08-15-2024 End: 68-52-4809emxgkcjivpGagkqv Kevon DO Work Phone: [facility] Work Phone: Start: 08-15-2024 End: 08-29-0245Tcssdkt encounter procedureStekristian Lund DO Work Phone: [facility] Work Phone: Start: 08-09-2024 End: 22-79-6429nmvxpmuvxuPndrebo R WATERSFacility:[facility] [place]kyStart: 08-07-2024 End: 82-79-9046nlmkokzhhuUxosttz R WATERSFacility:FTMCStart: 08-07-2024 End: 47-07-5686oihjgxcqfnInioymj R WATERSFacility:[facility] [place]kyStart: 08-01-2024 End: 04-82-2066vfvgqdlzbyWC Eh Lund Work Phone: [facility] Work Phone: Start: 08-01-2024 End: 88-00-8908Csamynj encounter procedureDO Eh Lund Work Phone: [facility] Work Phone: Start: 26-40-9983Rmw-patient / Non-visitDO Eh Lund Work Phone: [facility] Work Phone: Start: 07-17-2024 End: 13-07-6095Utnrlegup to same day surgery centerDO Eh Lund Work Phone: [facility] Work Phone: Start: 07-17-2024 End: 99-77-1699nmwyojijxhZP Eh Lund Work Phone: [facility] Work Phone: Start: 07-04-2024 End: 85-95-4664iksadlmbngGrafutnedDoctors Hospital Work Phone: Start: 07-04-2024 End: 73-32-3378Rcvirmy encounter procedureAt[facility] Health [facility] [place] Work Phone: Start: 06-21-2024 End: 77-50-0953Htbmwkr encounter procedureGaurang Shane MD Work Phone: OrthopaedicsComment on above: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); Right foot dropStart: 06-21-2024 End: 34-10-8288Jeziladkqx hospital visit by physicianYessenia Ortho [facility] Yesenia Work Phone: RadiologyComment on above:Pain [R52]Start: 06-18-2024 End: 91-17-6118Vrxita flowsheetNicholas A Brown DPM Work Phone: [facility] MS PODStart: 06-18-2024 End: 69-37-7596Rbnfgx flowsheetNicholas A Brown DPM Work Phone: [facility] MS PODStart: 06-18-2024 End: 64-86-1949Zuewbiu encounter procedureNicholas A Brown DPM Work Phone: [facility] [place] PODComment on above:Other polyneuropathy (Primary Dx); Onychomycosis; Toe pain, bilateral; Right foot dropStart: 06-18-2024 End: 96-24-6709lsgqfdbyfjETJFTIWA A BROWNNot AvailableStart: 05-01-2024 End: 73-16-1941ierxqrolhlBamnnjw R WATERSFacility:FTMCStart: 05-01-2024 End: 07-30-8833zyuiblipejEsexuds R WATERSFacility:[facility] [place]kyStart: 04-18-2024 Orders OnlyGaurang Shane MD Work Phone: OrthopaedicsComment on above:Pain (Primary Dx)Start: 86-88-1519Bbinuzalz encounterIvan Valencia MD Work Phone: [facility] InstituteComment on above:Referral Request ([facility])Start: 03-12-2024 End: 53-08-0670kmpunopaiaYzpvhxi R WATERSFacility:FTMCStart: 02-27-2024 End: 16-72-3288aoycillwftGGJSIUKJ E PERRYFacility:FTMCStart: 01-10-2024 End: 76-19-6922igtwirndzlVS Steven Jackson Work Phone: [facility] Work Phone: Start: 01-10-2024 End: 87-40-1932Cuhqpkr encounter procedureDO Eh Lund Work Phone: [facility] [place] Work Phone: Start: 12-20-2023 End: 03-49-2704Nqbeooftq to same day surgery centerDO Eh Lund Work Phone: [facility] HospitalStart: 12-20-2023 End: 71-52-9446hejtveknunKS Steven Jackson Work Phone: [facility] Work Phone: Start: 12-12-2023 End: 91-34-3531egqrxdpyiuDJMichael Lund Work Phone: [facility] Work Phone: Start: 12-12-2023 End: 88-36-8165Gfyhzdj encounter procedureDO Eh Lund Work Phone: [facility] Work Phone: Start: 12-09-2023 End: 99-90-9271Ylsnxi consultation new/estab patient 61 Aylin Moreira MD Work Phone: [facility] ClairComment on above:Abnormal EKG (Primary Dx); Pre-operative cardiovascular examination; RBBB; Primary hypertension; Mixed hyperlipidemia; Personal history of TIA (transient ischemic attack)Start: 12-09-2023 End: 28-20-8544Yetunej encounter statusJd Moreira MD Work Phone: [facility] CenterStart: 12-06-2023 End: 00-16-2894Hjndaxc encounter procedureDO Eh Lund Work Phone: [facility]-Pre-Surgical Testing Work Phone: Start: 11-29-2023 End: 44-50-2962Bhmvyav encounter procedureDO Eh Lund Work Phone: [facility]-MRI [address] [place] Work Phone: Start: 10-13-2023 End: 15-56-5066rbxutskldeIfswds Felter Other [employer] Other Start: 69-88-8739Isbtfl outpatient visit 25 minutes Jordin Cedillo [facility] [place]: 09-21-2023 End: 66-43-2228Pgpfapo encounter procedureDO Eh Lund Work Phone: [facility]-MRI [address] Work Phone: Start: 09-18-2023 End: 17-84-1041Cylpdtsge department patient visitDO Eh Lund Work Phone: [facility]-Emergency Room Work Phone: Start: 08-25-2023 End: 66-82-0854tqqxxmyhyyUyvbrn Felter Other [employer] Other Start: 00-79-9293Advfxu outpatient visit 25 minutes Jordin Cedillo [facility] [place]Start: 79-39-0491Strcxmvvp encounter Jordin BoerFPG Pain Management [place]Start: 01-27-2023 End: 31-52-2896Gdubwqpuc to same day surgery centerDO Eh Lund Work Phone: [facility] HospitalStart: 01-27-2023 End: 93-90-1606qheauqdfiwBQMichael Lund Work Phone: [facility] Work Phone: Start: 01-13-2023 End: 54-11-3188jrxvhwnwmoVC Steven Jackson Work Phone: [facility] Work Phone: Start: 01-13-2023 End: 58-06-7149Afylfvw encounter procedureDO Eh Lund Work Phone: [facility]-Pre-Surgical Testing Work Phone: Start: 12-14-2022 End: 13-91-8059Rteajfcth to same day surgery centerDO Eh Lund Work Phone: [facility] HospitalStart: 12-14-2022 End: 09-10-4755pqskndrzjrIL Steven Jackson Work Phone: [facility] Work Phone: Start: 12-13-2022(Procedure) ShortThomas FelterErie Leonard [facility] Hospital Surgery CenterStart: 12-13-2022 End: 42-84-1120lvhzydzyqsRbqsqd Felter Other [employer] Other Start: 12-07-2022 End: 96-14-6764bihqbbtkygJubqpr Felter Other [employer] Other Start: 05-01-7334Gfjark outpatient visit 25 minutes [facility] [place]: 03-62-9491Xmtvwznad encounter Jordin CarsonFPG [facility] CreekStart: 11-30-2022 End: 34-10-9748yfgmyrabizKH Steven Jackson Work Phone: [facility] Work Phone: Start: 11-30-2022 End: 45-98-8154Qgwaknf encounter procedureDO Eh Lund Work Phone: [facility] Work Phone: Start: 09-05-2022 End: 60-82-4759Bjegjcxrq department patient visitDO Eh Lund Work Phone: [facility] Work Phone: Start: 02-25-2022 End: 28-51-0432lqdrccjkytYvsjgm Felter Other [employer] Other Start: 41-40-3638Hvprma outpatient visit 15 minutes [facility] [place]: 11-18-2021(Procedure) Short [facility]ordin FelterErie [facility] CenterStart: 11-18-2021 End: 01-20-9273wwqwpdqfngAhksys Felter Other [employer] Other Start: 10-13-2021(Procedure) ShortThomas FelterErie Shores Surgery CenterStart: 10-13-2021 End: 24-20-0635swmstlqbrlGorizr Felter Other [employer] Other Start: 57-11-4669Lwnxzr outpatient visit 15 minutes [facility] CreekStart: 08-31-2018 End: 93-71-2515Vgkwlmq encounter procedureBO H YOOFacility:X6Jrtvu: 04-25-2018 Patient encounterFacility:9159 Procedures DateProcedureProcedure DetailPerforming ClinicianStart: 14-39-9965Hu strs tst xers&/or rx cont ecg trcg onlyJd Moreira MD Work Phone: Start: 67-56-5566Inaukhbv injection of lumbar spine using fluoroscopic guidanceEh Lund DO Work Phone: Start: 69-16-0414Uqflj X-ray of right femurDO Eh Lund Work Phone: Start: 57-77-2228Gqowp chest X-rayDO Eh Lund Work Phone: Start: 81-01-4329Eutqn radiography of pelvisDO Eh Lund Work Phone: Start: 00-70-1603Ieiyzysy injection of lumbar spine using fluoroscopic guidanceDO Eh Lund Work Phone: Start: 77-93-4191Smrpt hip unilateral with pelvis 2-3 viewsGaurang Shane MD Work Phone: Start: 94-91-3053Tpzgnlydva and transurethral resection of bladder tumorDO Eh Kevon Work Phone: Start: 29-61-7932Mxi routine ecg w/least 12 lds w/i&r Jd Moreira MD Work Phone: Start: 12-97-4868VHU of cervical spine without contrastDO Eh Kevon Work Phone: Start: 23-53-0010LR pre/post mri xrayDO Eh Lund Work Phone: Start: 77-54-1371HG scan of thyroidDO Eh Lund Work Phone: Start: 97-80-1656SM lumbar spine wo conDO Eh Kevon Work Phone: Start: 18-00-9690AG pre/post mri xrayDO Eh Lund Work Phone: Start: 41-78-6676SAZY-CoV-2, Influenza & RSV (PCR)DO Eh Lund Work Phone: Start: 20-09-9388Rzybs chest X-rayDO Eh Lund Work Phone: Start: 80-60-5940Oclxky of left inguinal hernia using surgical meshDO Eh Lund Work Phone: Start: 35-12-1657Sevppgrdyr and transurethral resection of bladder tumorDO Eh Lund Work Phone: Start: 01-00-3045Orghz chest X-rayDO Eh Lund Work Phone: Start: 55-56-7610TM of head without contrastDO Eh Lund Work Phone: Start: 06-25-0445Vjcqf chest X-rayDO Eh Lund Work Phone: Plan of Treatment DateCare ActivityDetailAuthorStart: 25-34-7388ADrF/Tdap/Td Vaccines (2 - Td or Tdap)DTaP/Tdap/Td Vaccines (2 - Td or Tdap)[facility] Start: 42-67-4185Jwciy microalbumin profileDTaP,Tdap,Td Vaccine (2 - Td or Tdap) [facility]: 03-25-2026 End: 19-79-9004Qllmtzx encounter yvmmystvu78/30/2026 3:30 PM EDT Office Visit [address] [phone] Jd Moreira MD 703 [facility] 2, [address] [facility]airStart: 22-04-2357OEJPD-19 Vaccine ( season)COVID-19 Vaccine ( season)[facility] Start: 07-23-2025 End: 33-66-9736Votbpzg encounter yzewiwcui22/28/2025 12:50 PM EDT Office Visit [address] [place] [address] Jd Moreira MD 703 [facility] 2, [place] [address] [place] [address] [facility]airStart: 06-20-2025 End: 00-07-2778Kstlefo encounter procedureOrthopaedicsComment on above:right hip hipStart: 10-72-3463Xanwfruju vaccinationInfluenza Vaccine (#1)[facility] CenterStart: 04-15-2025 End: 21-26-0749Ecsaaej encounter izrymmclq15/21/2025 2:15 PM EDT Appointment [place] [address] [facility] [address] [place] [address] [facility]Start: 04-15-2025 End: 13-57-5512Fopgqpd encounter procedureUH [facility]: 03-25-2025 End: 22-64-3254Fxczddm encounter procedureNOMS SC PODComment on above:Other polyneuropathy (Primary Dx); Pain due to onychomycosis of toenails of both feet; Right foot dropStart: 03-21-2025 End: 26-36-2896GQ Heart Perfusion W stress and W radionuclide IVNuclear Stress Test Cardiac Nuclear Medicine Routine Chest pain, unspecified type Expected: 03/21/2025 (Approximate), Expires: 03/21/2027[facility] Service Area Work Phone: Comment on above:Expected: 03/21/2025 (Approximate), Expires: 03/21/2027Start: 01-28-2025 End: 88-23-6220Gqpschp encounter myblkfbkz49/05/2025 12:00 PM EDT Office Visit [facility] [address] [facility] [place] [address] Duyen Trotter, DPM FACFAS [address] [place] [address] ArrivedNOMS PCF PODComment on above:ArrivedStart: 01-14-2025 End: 99-58-4380Eqmqnzj encounter fushzvwpg50/21/2025 11:40 AM EDT Office Visit [facility] [address] [place] [phone] Dago Brito, DPM [address] [facility] [address] [place] [address] [facility] PODStart: 23-43-4830YvkfuljsoMer[facility] Health [facility] Start: 56-71-4677EIALR-19 Vaccine ( season)COVID-19 Vaccine ( season)[facility] CenterStart: 11-05-2024 End: 37-24-4733Tzazcsz encounter udavgnjxa05/10/2025 11:50 AM EST Office Visit [facility] [address] [place] [address] Dago Brito DPM [address] [address] [facility] MS PODStart: 92-85-5085Feyrhgr Directive Discussion Advance Directive DiscussionMount Carmel Health Systemtart: 08-27-2024 End: 01-15-6458Wdbfazj encounter ixwnrmdrp28/02/2024 11:40 AM EST Office Visit [facility] [address] [place] [address] Dago Brito DPM [address] [address] [facility] MS PODStart: 36-99-5831Zpoex X-ray of right femurXR femur RT 2V*[facility]: 44-09-9471VW Femur - right 2 [facility]: 64-88-3416Xauyu chest X-rayXR ribs RT min 3V w CXR1V*[facility] Hospitaltart: 46-73-9352Gbmtn radiography of pelvisXR pelvis 1-2VOhioHealth Shelby Hospitaltart: 98-23-4773SI Pelvis 1 or 2 [facility]: 48-01-6758HX Ribs - right ViewsOhioHealth Shelby Hospitaltart: 03-59-5410JdlzozwfyOhioHealth Shelby Hospitaltart: 06-21-2024 End: 17-60-3184Tijoyrt encounter procedureRadiologyComment on above:right hip right hip pain- bwcStart: 06-18-2024 End: 11-16-1461Nvamkgd encounter yfyhutjqq54/23/2024 11:30 AM EDT Office Visit [facility] [address] [place] [phone] Dago Brito, DPM [address] [address] Other polyneuropathy (Primary Dx); Onychomycosis; Toe pain, bilateral; Right foot dropNOMS SC PODComment on above:Other polyneuropathy (Primary Dx); Onychomycosis; Toe pain, bilateral; Right foot dropStart: 85-18-8282Qjzizzryl vaccinationInfluenza Vaccine (#1) [facility]: 93-04-7284lkolxmpgugGepsdtcqafCviqyuim:EU [facility] HealthyStart: 12-20-2023 End: 00-95-5452OliyfgmgnOhioHealth Shelby Hospitaltart: 36-08-4243Powyk-19 Vaccine ( season)Covid-19 Vaccine ( season)[facility]: 40-57-3455Thzflqh Directive DiscussionAdvance Directive Discussion [facility]: 11-00-0526Oytfwnvcay Health ScreeningBehavioral Health ScreeningMount Carmel Health Systemtart: 01-27-2023 End: 83-21-7044HalmaorhxOhioHealth Shelby Hospitaltart: 12-14-2022 End: 76-02-1318WjxfyjruyOhioHealth Shelby Hospitaltart: 07-55-1636Udvwrpsubtiu Vaccine: 65+ (2 of 2 - PCV)Pneumococcal Vaccine: 65+ (2 of 2 - PCV)[facility]: 67-58-4335Uhxglfrovvpb Vaccine: 65+ Years (2 - PCV)Pneumococcal Vaccine: 65+ Years (2 - PCV)[facility] CenterStart: 05-27-2001 Medicare Annual Wellness VisitMedicare Annual Wellness VisitRiverview Health Institute Start: 36-99-6274Whdrvkfy Vaccine (1 of 2)Shingrix Vaccine (1 of 2)[facility]: 60-15-6573Pglafl Vaccines (1 of 2)Zoster Vaccines (1 of 2) [facility]: 01-81-8482Qycwyaah ScreeningDiabetes ScreeningMount Carmel Health Systemtart: 80-94-1173ZUpA/Tdap/Td Vaccines (1 - Tdap) DTaP/Tdap/Td Vaccines (1 - Tdap)[facility]: 30-94-7761Tippl microalbumin profileDTaP,Tdap,Td Vaccine (1 - Tdap)[facility]: 62-35-3340Sormcbw ScreeningAnxiety ScreeningMount Carmel Health Systemtart: 05-07-9582Ajcelnhzbf ScreeningDepression ScreeningMount Carmel Health Systemtart: 13-60-4901Mvedeaku mellitus screeningDiabetes ScreeningUnSumma Health: 48-58-4752Qtdpl panelLipid PanelGlenbeigh Hospital: 1936Medicare Annual Wellness VisitMedicare Annual Wellness Visit (AWV)[facility]: 33-12-5335Hdspswtrj for osteoporosisBone Density ScanGlenbeigh Hospital: 1936 Skin Cancer ScreeningSkin Cancer ScreeningAdena [facility] Medical Center [facility] Work Phone: [facility] referralCent[facility]tr Work Phone: End: 31-83-0018BR Pelvis and Hip - right AP and Lateral frogXR HIP GENERAL 3V PELV/AP/LAT RIGHT Radiology Routine Pain 1 Occur[facility] [address] 04/18/[address] [facility] Work Phone: comment on above:1 Occurrences starting 04/18/2024 until 05/18/2025 End: 84-52-4133ZL Pelvis and Hip - right AP and Lateral frogXR HIP GENERAL 3V PELV/AP/LAT RIGHT Radiology Routine History of revision of total replacement of right hip joint 1 Occurrences starting 06/11/[address] [facility] Work Phone: comment on above:1 Occurrences starting 06/11/2025 until 07/11/2026 Immunizations Immunization DateImmunizationNotesCare IytjocrnYocofrxr75-46-8683sebqatqqx, high dose seasonal, preservative-freeJd Moreira MD Work Phone: [facility] Work Phone: [phone], high dose seasonal, preservative-freeJd Moreira MD Work Phone: [facility]09-13-2024influenza virus vaccine, unspecified formulationDago Brito DPM Work Phone: [facility] CenterZkhnknheha35-36-5776hwvmhykd calmette-tj vaccineJd Moreira MD Work Phone: [facility] Work Phone: [phone] SYNCYTIAL VIRUS (RSV), ELIGIBLE PTS, 0.5 ML (ABRYSVO)Jd Moreira MD Work Phone: [facility] Work Phone: [phone] vaccine, quadrivalent, high-dose, preservative free, age 65y+ (FLUZONE)Jd Moreira MD Work Phone: [facility] Work Phone: [phone] virus vaccine, unspecified formulationGaurang Shane MD Work Phone: cPremier Health [facility] Valley Medical CenterTgtmej36-94-7974GBRCV-20 mRNA Bivalent Booster (Moderna)DO Eh Lund Work Phone: [facility]12-07-2022COVID-19 mRNA, bivalent, original/Omicron BA.1, Non-US Vaccine (Spikevax Bivalent), Joselito Moreira MD Work Phone: [facility] Work Phone: [phone] SARS-CoV-2 Booster Vaccination Dago Brito DPM Work Phone: [facility] CenterPzofiprsim64-76-7671Vtt vaccine, quadrivalent, high-dose, preservative free, age 65y+ (FLUZONE)Jd Moreira MD Work Phone: [facility] Work Phone: [phone]-81 mRNA-1273 (Moderna)DO Eh Lund Work Phone: [facility]11-03-2021COVID-19 mRNA-1273 (Moderna)DO Eh Lund Work Phone: [facility]09-30-2021Flu vaccine, quadrivalent, high-dose, preservative free, age 65y+ (FLUZONE)Jd Moreira MD Work Phone: [facility] Work Phone: [phone]-68 mRNA-1273 (Moderna)DO Eh Lund Work Phone: [facility]01-25-2021COVID-19 mRNA-1273 (Moderna)DO Eh Lund Work Phone: [facility]09-17-2020Flu vaccine, quadrivalent, high-dose, preservative free, age 65y+ (FLUZONE)Jd Moreira MD Work Phone: [facility] Work Phone: [phone] virus vaccine, unspecified formulationDO Eh Lund Work Phone: [facility]09-17-2019influenza, high dose seasonal, preservative-freeThomas Felter Other [place] [employer] Other 10181610-21-5367jjbroloob, live, intranasal, quadrivalent Jd Moreira MD Work Phone: [facility] Work Phone: [phone], injectable, quadrivalent, preservative Kailey Moreira MD Work Phone: [facility] Work Phone: [phone], injectable, quadrivalent, preservative Kailey Moreira MD Work Phone: [facility] Work Phone: [phone] polysaccharide vaccine, 23 valentThomas Felter Other [place] [employer] [place] Other 12-059297-60-1622bmnkwebldpvc polysaccharide vaccine, 23 valentMourprince Moreira MD Work Phone: [facility] Work Phone: Payers DatePayer CategoryPayerPolicy [id number] of Defense ( and others)[id number]-sjp [id number] For Life (TFL) FOR LIFE [id number] [id number] 87-83-8854Aieoyqdvvw of Defense ( and others) [id number] (not Medicare or Medicaid) FOR LIFE Member Subscriber Plan / Payer (Effective 2001- Present) Name: Roscoe Hernandez Relation to Subscriber: Self Name: Roscoe Hernandez Payer ID: Not on file Group ID: Not on file Type: Indemnity Address: [address] [place], [place] [id number] () [id number]8227.60595-94-8054EzuvwriBSXAPYAJ FOR LIFE [id number] 2001-Present [phone] [place] [address] Indemnity1.2.840.157793.1.13.159.2.7.3.664148.53775-92-4003Koqhprs [id number] 2001Medicare1.2.840.080718.1.13.647.2.7.3.239273. Department of Defense ( and others)[id number] [id number] [id number] 2.840.1.056119.3.579.2.96492-16-7327Tplzqyf32889099 2.16.840.1.260082.3.579.2.19098-68-1564Umekabp15628052 2.16.840.1.545363.3.579.2.04926-87-2609Vfonmzr59359380 2.16840.1.452288.3.579.2.60054-64-8849Lwqdxko54290224 2.16840.1.934838.3.579.2.33858-25-6810Hqdgsak13338867 2.16840.1.285926.3.579.2.81959-63-6570Eszilso33948081 2.16840.1.207360.3.579.2.83120-50-1522Fpobewy12415648 2.840.1.306194.3.579.2.14791-49-9127Npjtzvl64590502 2.16840.1.192840.3.579.2.14614-65-5385Uwemezl95230647 2.840.1.514561.3.579.2.69207-53-6583Rcbwcor00359961 2.840.1.633993.3.579.2.95747-90-8036Ilvitkh46157793 2.16840.1.746900.3.579.2.93930-39-0829Simyvxg72485737 2.16840.1.579097.3.579.2.58920-74-4525Cwcxfxg28981460 2.16840.1.505735.3.579.2.60913-00-5919Sablhqv01448775 2.16840.1.654854.3.579.2.24635-67-3083Tjyadwo00643704 2.16.840.1.665106.3.579.2.09187-15-1574Lkmptvs11018092 2.16840.1.906735.3.579.2.025524-32-5834Ehppbhw62079936 2.16840.1.922902.3.579.2.613676-85-0016Fbbyosj48025017 2.16840.1.886564.3.579.2.700266-20-9674Cpmeogl43562810 2.16840.1.203286.3.579.2.368379-95-5803Rlfokrk88631826 2.840.1.241711.3.579.2.890177-14-9318Mcyqbml14428763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 Discussed proper foot care with patient today. Debride nails in length and thickness digits 1 through 10 Dago Brito DPM documented in this encounterBoone Hospital [id number] History of Present illness Narrative* Jd Moreira MD - 03/21/2025 9:20 AM EDT Chief Complaint Patient presents with Follow-up Re-establishing after 1 year for Chest pain Subjective Roscoe Hernandez is a 89 y.o. male HPI Patient is here for evaluation for recent episode of chest pain requested by Dr. Lund. He is an 89-year-old white male that I have seen a few years back for a preoperative risk assessment. He was cleared for surgery. He recently was in the hospital for evaluation for episode of chest pain. This occurred at rest described as pressure associated with some mild shortness of breath and fatigue. Patient was taken to [facility]. His blood pressure was elevated. He was monitored over 1 night. Cardiac enzymes according to him were negative. He did have an echocardiogram because of cardiac murmur the result is not available to me. The patient was discharged after adjustment of his blood pressure medication. It appears initially he was given prescription for metoprolol but he did not tolerate that. He ended up increasing his lisinopril to 20 and his blood pressure has been well-controlled. Assessment 1. Recent hospitalization for brief episode of chest pain associated with elevated blood pressure. According to him his cardiac workup was benign. An echocardiogram was done result of which was pending. I have no record of that except bits and pieces reviewed in Care Everywhere 2. Hypertension controlled after his lisinopril was increased 3. Remote history of TIA on Plavix and aspirin but has significant superficial bruises 4. Multiple hip surgeries with chronic right lower extremity edema 5. Chronic right lower extremity edema due to multiple hip surgeries. 6. Borderline abnormal EKG showing right bundle branch block chronic of no clinical significance. Stress test and echocardiogram 7. Hyperlipidemia on atorvastatin 8. Easy bruisability Plan 1. I will try to retrieve the result of his recent hospitalization record and echocardiogram 2. I advised the patient to use the Plavix but discontinue aspirin because of easy bruisability 3. I advised the patient to proceed with Lexiscan myocardial fusion study in view of his complaint of chest pain, risk factors and inability to exercise Review of Systems Cardiovascular: Positive for chest pain. Right lower extremity edema All other systems reviewed and are negative. Vitals: 03/21/25 0920 BP: 128/68 BP Location: Right arm Patient Position: Sitting Pulse: 60 Weight: 78.5 kg (173 lb) Height: 1.803 m (5' 11 ) Objective Physical Exam Constitutional: Appearance: Normal appearance. HENT: Nose: Nose normal. Neck: Vascular: No carotid bruit. Cardiovascular: Rate and Rhythm: Normal rate. Pulses: Normal pulses. Heart sounds: Murmur heard. Systolic murmur is present with a grade of 1/6. Pulmonary: Effort: Pulmonary effort is normal. Abdominal: General: Bowel sounds are normal. Palpations: Abdomen is soft. Musculoskeletal: General: Normal range of motion. Cervical back: Normal range of motion. Right lower le+ Edema present. Left lower leg: No edema. Feet: Comments: Right leg brace in place Skin: General: Skin is warm and dry. Neurological: General: No focal deficit present. Mental Status: He is alert. Psychiatric: Mood and Affect: Mood normal. Behavior: Behavior normal. Thought Content: Thought content normal. Judgment: Judgment normal. Allergies Ciprofloxacin, Sulfa (sulfonamide antibiotics), and Sulfamethoxazole-trimethoprim Current Medications Current Outpatient Medications Medication Instructions acetaminophen (TYLENOL) 325 mg, Every 4 hours RT atorvastatin (LIPITOR) 40 mg, Daily clopidogrel (PLAVIX) 75 mg folic acid (Folvite) 400 mcg tablet 1 (one) time each day at the same time. lisinopril 20 mg, Daily [id number]-gqw-bygv-lut-julia (Ocuvite Adult 50 Plus) 250 mg (90 mg-160 mg) capsule Take by mouth. tamsulosin (FLOMAX) 0.4 mg, Daily RT Assessment/Plan 1. Chest pain, unspecified type Nuclear Stress Test 2. RBBB 3. Mixed hyperlipidemia 4. Primary hypertension Follow Up In Cardiology 5. Abnormal EKG 6. Personal history of TIA (transient ischemic attack) 7. Chronic obstructive pulmonary disease, unspecified COPD type (Multi) 8. BMI 24.0-24.9, adult 9. Edema of right lower extremity 10. Easy bruisability Scribe Attestation By signing my name below, Osiris Scruggs LPN, Scribe attest that this documentation has been prepared under the direction and in the presence of MD Jeff. Provider Attestation - Scribe documentation All medical record entries made by the Scribe were at my direction and personally dictated by me. Ihave reviewed the chart and agree that the record accurately reflects my personal performance of the history, physical exam, discussion and plan. documented in this [facility] Work Phone: [phone] Instructions* Patient Instructions* Osiris Hoffman LPN - 03/21/2025 9:20 AM EDT Please bring all medicines, vitamins, and herbal supplements with you when you come to the office. Prescriptions will not be filled unless you are compliant with your follow up appointments or have a follow up appointment scheduled as per instruction of your physician. Refills should be requested at the time of your visit. Fall Prevention Education Given Stop aspirin Retrieve echo from ulisses Graham Follow up documented in this [facility] Work Phone: [phone] NoteEducation Materials Gastroenterology Chest Pain (Angina): What to Know Angina is pain or discomfort in the chest. It can also be felt in the neck, arm, jaw, or back. Angina is caused by not having enough blood flow to the heart wall. Angina may be a warning that you're at risk for having a heart attack. What are the causes? Angina is most often caused by build-up of plaque in your arteries that makes it hard for blood to flow. Plaque narrows and blocks the arteries of the heart. Plaque is made of fats and cholesterol. Angina is also caused by: ? Sudden spasms of the muscles in the arteries of the heart. ? Small artery disease. ? Heart valve problems. ? A tear in an artery of your heart. ? Weakness of the heart muscle. What increases the risk? Main risks ? Having high cholesterol. ? High blood pressure. ? Having diabetes. ? Family history of heart disease. ? Not exercising or moving enough. ? Having had radiation treatment to the left side of your chest. Other risks ? Using tobacco products. ? Being very overweight. ? Eating foods that have a lot of unhealthy fats. ? Feeling stressed or having depression. ? Using drugs, such as cocaine. What are the signs or symptoms? Symptoms in all people ? Chest pain, which may: ? Feel like a crushing or squeezing in the chest. ? Feel like a tightness, pressure, or heaviness in the chest. ? Last for more than a few minutes at a time. ? Stop and come back. ? Pain in the neck, arm, jaw, or back. ? Heartburn or upset stomach for no reason. ? Being short of breath. ? Feeling like you may throw up. ? Sudden cold sweats. Other symptoms in females ? Tiredness or weakness. ? Worry and anxiety. ? Dizziness or fainting. How is this diagnosed? ? Your symptoms and medical history. ? Blood tests. ? Electrocardiogram (ECG) to measure the electrical activity of your heart. ? Stress test to look for signs of a blocked artery. ? CT angiogram to examine your heart and the blood flow to it. ? Coronary angiogram to check for a blocked artery. How is this treated? ? Medicines to: ? Prevent blood clots. ? Relax blood vessels and improve blood flow to the heart. ? Lower blood pressure. ? Reduce cholesterol. ? You may have a procedure called angioplasty to widen a narrowed or blocked artery. A small mesh tube called a stent may be put in the artery to keep it open. ? Surgery may be needed to allow blood to go around a blocked artery. Follow these instructions at home: Medicines ? Take your medicines only as told. ? Do not take these medicines unless your provider says that you can: ? NSAIDs, such as ibuprofen and naproxen. ? Supplements that contain vitamin A, vitamin E, or both. ? Hormone therapy that contains estrogen with or without progestin. Eating and drinking ? Eat a healthy diet that includes: ? Lots of fresh fruits and vegetables. ? Whole grains. ? Low-fat protein. ? Low-fat dairy products. ? Follow instructions about what you may eat and drink. Activity ? Exercise as told. ? Talk with your provider about doing a program called cardiac rehab to help make your heart strong. ? When you feel tired, take a break. Plan breaks if you know you're going to feel tired. Lifestyle ? Do not smoke, vape, or use nicotine or tobacco. ? If your provider says you can drink alcohol: ? Limit how much you have to: ? 0?1 drink a day if you're female and not . ? 0?2 drinks a day if you're male. ? Know how much alcohol is in your drink. In the [place] one drink is one 12 oz bottle of beer (355 mL), one 5 oz glass of wine (148 mL), or one 1? oz glass of hard liquor (44 mL). General instructions ? Stay at a healthy weight. If told to lose weight, work with your provider to lose weight safely. ? Keep your vaccines up to date. Get a flu shot every year. ? Learn to manage stress. If you need help, ask your provider. ? Talk with your provider if you feel depressed. ? Work with your provider to manage any other health problems that you have. These may include diabetes or high blood pressure. ? Keep all follow-up visits. Your provider will want to check on your condition. Get help right away if: ? You have pain in your chest, neck, arm, jaw, or back, and the pain: ? Happens more often. ? Lasts more than a few minutes. ? Goes away and comes back. ? Does not get better after you take medicine under your tongue. ? You're dizzy or light-headed all of a sudden. ? You faint. ? You have any combination of these problems: ? Cold sweats. ? Heartburn or upset stomach. ? Trouble breathing. ? Feeling like you may throw up, or you throw up. ? Feeling very tired or weak. ? Feeling worried or nervous. These symptoms may be an emergency. Call 911 right away. ? Do not wait to see if the symptoms will go away. ? Do not drive yourself to the hos (more content not included)...[facility] [id number] [facility] Clinical Discharge Summary PERSON INFORMATION Name ROSCOE HERNANDEZ Age 89 Years 1935 Sex MALE Language Lebanese PCP Eh Lund DO Marital Status Med Service Observation Acct# Arrival 03/11/2025 14:53:53 Visit Reason Weakness or fatigue; Chest pain; CHEST PAIN R07.9, WEAKNESS R53.1, FATIGUE R53.83 Acuity LOS 000 16:59 Address: [address] [place] [address] [place] [address] Comment: PROVIDER INFORMATION VITALS INFORMATION Vital Sign Triage Latest Temp Oral 37 DegC 36.4 DegC Temp Temporal Temp Intravascular Temp Axillary Temp Rectal 02 Sat 100 % 96 % Respiratory Rate 12 br/min 16 br/min Peripheral Pulse Rate 63 bpm 59 bpm Apical Heart Rate Blood Pressure 201 mmHg / 88 mmHg 146 mmHg / 68 mmHg Comment: MEDICAL INFORMATION Allergy Info: sulfamethoxazole-trimethoprim; ciprofloxacin Medication List: New Medications [facility], [facility], [place] [id number], [phone] NIFEdipine (NIFEdipine 60 mg oral tablet, extended release) 1 tab(s) Oral (given by mouth) every day. Refills: 0. Medications to Continue That Have Not Changed Other Medications acetaminophen (Tylenol (acetaminophen)) 500 Milligram Oral (given by mouth) as needed pain. aspirin (aspirin 81 mg oral tablet) 1 tab(s) Oral (given by mouth) every day. atorvastatin (atorvastatin 40 mg oral tablet) 1 tab(s) Oral (given by mouth) every day. Refills: 3. calcium carbonate (Tums 500 mg oral tablet, chewable) 1 tab(s) Chewed 2 times per day as needed as needed for dyspepsia. clopidogrel (clopidogrel 75 mg oral tablet) 1 tab(s) Oral (given by mouth) every day. Refills: 3. fluticasone nasal (fluticasone 50 mcg/inh nasal spray) 1 spray(s) Nasal every day. folic acid (folic acid 0.4 mg oral tablet) 1 tab(s) Oral (given by mouth) every day. lisinopril (lisinopril 10 mg oral tablet) 1 tab(s) Oral (given by mouth) every day. Refills: 3. multivitamin with minerals (Ocuvite) Oral (given by mouth) every day. tamsulosin (Flomax 0.4 mg oral capsule) 1 cap(s) Oral (given by mouth) every day. Comment: Lab and Radiology Results Laboratory or Other Results This Visit (last charted value for your 03/11/2025 visit) Hematology 03/11/2025 3:06 PM Hct: 43.5 % -- Normal range between ( 34.8 and 51.9 ) Hgb: 14.7 gm/dL -- Normal range between ( 11.8 and 17.7 ) MCH: 32 pg -- Normal range between ( 24 and 34 ) MCHC: 34 gm/dL -- Normal range between ( 26 and 37 ) MCV: 94 fL -- Normal range between ( 81 and 100 ) MPV: 9.3 fL -- Normal range between ( 6.3 and 10.2 ) Platelet: 170 x103/mcL -- Normal range between ( 138 and 427 ) RBC: 4.64 x106/mcL -- Normal range between ( 3.70 and 5.30 ) RDW: 14.4 % -- Normal range between ( 11.5 and 15.0 ) WBC: 5.7 x103/mcL -- Normal range between ( 3.5 and 10.5 ) Auto Eos %: 1.9 % -- Normal range between ( 0.9 and 4.0 ) Auto Lymph %: 16 % -- Normal range between ( 14 and 48 ) Auto Neut %: 70 % -- Normal range between ( 44 and 88 ) Eos Abs#: 0.1 x103/mcL -- Normal range between ( 0.0 and 0.4 ) Lymph Abs#: 0.9 x103/mcL -- Normal range between ( 1.3 and 2.9 ) Jay Abs#: 0.6 x103/mcL -- Normal range between ( 0.0 and 0.8 ) Auto Baso %: 0.5 % -- Normal range between ( 0.2 and 2.0 ) Auto Jay %: 11 % -- Normal range between ( 1 and 12 ) Baso Abs#: 0.0 x103/mcL -- Normal range between ( 0.0 and 0.2 ) Neut Abs#: 4.0 x103/mcL -- Normal range between ( 1.5 and 9.2 ) Urinalysis 03/11/2025 3:30 PM UA Blood: NEGATIVE UA Color: Straw UA Glucose: NEGATIVE UA Ketones: NEGATIVE UA Leuk Est: TRACE UA Nitrite: NEGATIVE UA Protein: NEGATIVE UA Urobilinogen: 0.2 mg/dL -- Normal range between ( 0.2 and 1.0 ) UA pH: 6.0 -- Normal range between ( 5 and 8 ) UA Spec Grav: <=1.005 -- Normal range between ( 1.001 and 1.035 ) UA Clarity: CLEAR UA Bilirubin: NEGATIVE Urine Source: Clean Catch Chemistry 03/12/2025 6:33 AM Creatinine Level: 0.69 mg/dL -- Normal range between ( 0.90 and 1.30 ) BUN: 16 mg/dL -- Normal range between ( 8 and 26 ) Chloride Level: 105 mmol/L -- Normal range between ( 101 and 111 ) CO2: 24 mmol/L -- Normal range between ( 21 and 32 ) Glucose Level: 101.0 mg/dL -- Normal range between ( 74.0 and 118.0 ) Osmolality: 277 mOsm/L Potassium Level: 3.5 mmol/L -- Normal range between ( 3.6 and 5.1 ) Sodium Level: 138.0 mmol/L -- Normal range between ( 136.0 and 144.0 ) Anion Gap: 12.5 mmol/L -- Normal range between ( 5.0 and 19.0 ) Calcium Level: 8.6 mg/dL -- Normal range between ( 8.9 and 10.3 ) BUN/Creat Ratio: 23.1 -- Normal range between ( 4.6 and 16.2 ) eGFR AA: >60 mL/min/1.73m2 eGFR Non AA: >60 mL/min/1.73m2 Troponin I High Sensitivity: 10.0 pg/mL 03/11/2025 7:07 PM est. Creat Cl: 70.34 mL/min 03/11/2025 3:06 PM TSH: 1.11 mcIU/mL -- Normal range between ( 0.45 and 5.33 ) Albumin Level: 3.9 gm/dL -- Normal range between ( 3 (more content not included)...[facility] [id number] History of Present illness Narrative* Duyen Trotter DPM FACFAS - 01/28/2025 12:00 PM EDT Patient: Roscoe Hernandez : 1935 PCP: Eh Lund MD SUBJECTIVE This is a 89 y.o. male that presents today concerned about cellulitis in his 2nd toe. Patient states he wore a bad pair of shoes that were ill fitted and now his feet are sore just with the tips of the 2nd and 3rd he is also concerned that he has a infection he has had a history of septicemia in the past and he is really concerned about an infection. He denies nausea vomiting fever chills. Allergies: Allergies Allergen Reactions Ciprofloxacin GI intolerance Other Reaction(s): rapid heartbeat Sulfa Antibiotics Rash and Hives Sulfamethoxazole-Trimethoprim Rash Past Medical History: Past Medical History: Diagnosis Date Abdominal pain Arthritis At risk for falls Bladder cancer ([facility]/HCC) Bleeding disorder (CMS/HCC) BMI 28.0-28.9,adult Cancer (CMS/HCC) Chicken pox CVA (cerebral vascular accident) (CMS/HCC) Drop foot gait, right Family history of cancer Family history of prostate problems Hyperlipidemia (CMS/HCC) Hypertension (CMS/HCC) Macular degeneration Measles Mumps OM (onychomycosis) Peripheral neuropathy Stroke ([facility]) TIA (transient ischemic attack) Toe pain, bilateral Tonsillitis Medications: Current Outpatient Medications: acetaminophen (Tylenol) 325 MG tablet, every 4 (four) hours, Disp: , Rfl: ASPIRIN 81 MG chewable tablet, 1 (one) time each day at the same time, Disp: , Rfl: atorvastatin (Lipitor) 40 MG tablet, , Disp: , Rfl: clopidogrel (Plavix) 75 MG tablet, , Disp: , Rfl: doxycycline (Vibramycin) 100 MG capsule, , Disp: , Rfl: folic acid (Folvite) 400 MCG tablet, 1 (one) time each day at the same time, Disp: , Rfl: lisinopril 10 MG tablet, , Disp: , Rfl: Multiple Vitamins-Minerals (Ocuvite Adult 50+) capsule, , Disp: , Rfl: tamsulosin (Flomax) 0.4 MG 24 hr capsule, Take 0.4 mg by mouth Daily, Disp: , Rfl: cephalexin (Keflex) 500 MG capsule, Take 1 capsule (500 mg) by mouth in the morning and 1 capsule (500 mg) before bedtime. Do all this for 10 days., Disp: 20 capsule, Rfl: 0 ROS: General: denies fever, chills, fatigue, malaise unremarkable OBJECTIVE LE EXAM: DERM: Very mild cellulitis noted webspace 2nd left foot pain with direct palpation of the distal peggy of the 2nd and 3rd toe no openings in the skin VASC: Palpable pedal pulsed b/l with warm to cool tibia to toes b/l NEURO: Gross sensation intact digits 1-10 and b/l feet ORTHO: +5/5 DF/PF/IN/EV right, +5/5 DF/PF/IN/EV left. 20 degrees inversion and 10 degrees eversion STJ b/l. Ankle ROM less than 10 degrees b/l. ASSESSMENT 1. Cellulitis of second toe of left foot PLAN Patient will take the oral antibiotic as prescribed he is to only wear the shoes that are properly fitted he is going to follow up in Dr. Brito's office in 1 week. ASH Keating documented in this encounterBoone Hospital [id number] History of Present illness Narrative* Dago Brito DPM - 01/14/2025 11:40 AM EDT Patient: Roscoe Hernandez : 1935 PCP: Eh Lund MD SUBJECTIVE Patient presents today with a CC of elongated, thick nails. Pt states nails have been elongated and thick for many years and cause pain with ambulation in shoegear. Pt has tried previous treatment with minimal relief. Pt presents today for nail care and treatment. 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 Allergies: Allergies Allergen Reactions Ciprofloxacin GI intolerance Other Reaction(s): rapid heartbeat Sulfa Antibiotics Rash and Hives Sulfamethoxazole-Trimethoprim Rash Past Medical History: Past Medical History: Diagnosis Date Abdominal pain Arthritis At risk for falls Bladder cancer (CMS/HCC) Bleeding disorder (CMS/HCC) BMI 28.0-28.9,adult Cancer (CMS/HCC) Chicken pox CVA (cerebral vascular accident) (CMS/HCC) Drop foot gait, right Family history of cancer Family history of prostate problems Hyperlipidemia (CMS/HCC) Hypertension (CMS/HCC) Macular degeneration Measles Mumps OM (onychomycosis) Peripheral neuropathy Stroke (CMS/HCC) TIA (transient ischemic attack) Toe pain, bilateral Tonsillitis Medications: Current Outpatient Medications: acetaminophen (Tylenol) 325 MG tablet, every 4 (four) hours., Disp: , Rfl: ASPIRIN 81 MG chewable tablet, 1 (one) time each day at the same time., Disp: , Rfl: atorvastatin (Lipitor) 40 MG tablet, , Disp: , Rfl: cefuroxime (Ceftin) 250 MG tablet, Take 250 mg by mouth in the morning and 250 mg before bedtime., Disp: , Rfl: clopidogrel (Plavix) 75 MG tablet, , Disp: , Rfl: doxycycline (Vibramycin) 100 MG capsule, , Disp: , Rfl: folic acid (Folvite) 400 MCG tablet, 1 (one) time each day at the same time., Disp: , Rfl: lisinopril 10 MG tablet, , Disp: , Rfl: Multiple Vitamins-Minerals (Ocuvite Adult 50+) capsule, Orally, Disp: , Rfl: tamsulosin (Flomax) 0.4 MG 24 hr capsule, Take 0.4 mg by mouth in the morning., Disp: , Rfl: Social History: Social History Socioeconomic History Marital status: Spouse name: Not on file Number of children: Not on file Years of education: Not on file Highest education level: Not on file Occupational History Not on file Tobacco Use Smoking status: Former Types: Cigarettes Smokeless tobacco: Never Vaping Use Vaping status: Unknown Substance and Sexual Activity Alcohol use: Never Comment: caffeine intake: 1-2 cups per day Drug use: Never Sexual activity: Defer Partners: Decline to Answer Other Topics Concern Not on file Social History Narrative Not on file Social Drivers of Health Financial Resource Strain: Not on file Food Insecurity: Not on file Transportation Needs: Not on file Physical Activity: Not on file Stress: Not on file Social Connections: Not on file Intimate Partner Violence: Not on file Housing Stability: Not on file ROS: General: denies fever, chills, fatigue, malaise GI: denies loose or watery stool on antibiotic OBJECTIVE LE EXAM: DERM: Elongated thick yellow crumbly nails digits 1 through 10. Diminished hair growth b/l feet. Plus one pitting edema to the right ankle region Right sub 1st metatarsal has a healed ulceration with negative erythema or drainage VASC: Positive palpable pedal pulses bilaterally NEURO: Gross sensation diminished to bilateral feet ORTHO: Positive pain on palpation to toenails of the left 1,2,3,4,5 toes and right 1,2,3,4,5 toes +0 5 dorsiflexion right foot ASSESSMENT 1. Other polyneuropathy 2. Pain due to onychomycosis of toenails of both feet 3. Right foot drop PLAN Discussed proper foot care with patient today. Debride nails in length and thickness digits 1 through 10 Dago Brito DPM documented in this encounterBoone Hospital [id number] Evaluation note* Diagnosis Onset Date Resolution Status Admit Date Other chronic pain acuteApril 2024 10:08amRib painacuteApril 2024 10:08amSpondylosis without myelopathy or radiculopathy, lumbosacral regionacuteApril 2024 10:08amOther chronic painacuteMay 2024 10:46amRib painacuteMay 2024 10:46amSpondylosis without myelopathy or radiculopathy, lumbosacral regionacute January 31, 2025 10:46amOther chronic painacuteMay 2024 9:31amRib painacute May 2024 9:31amSpondylosis without myelopathy or radiculopathy, lumbosacral regionacuteMay 2024 9:31amOther chronic painacuteJune 2024 9:47amRib painacuteJune 2024 9:47amSpondylosis without myelopathy or radiculopathy, lumbosacral regionacuteJune 2024 9:47am [facility] Work Phone: 1(155) 648-319804-08-2025 [place] [address] Pain Management Procedure Note Signed Patient: Roscoe Hernandez MR#: [id number] : 1935 Acct:[id number] Age/Sex: 89 / M Adm Date: 5 Loc: Room: Type: [facility] Attending Dr: Jordin Carson MD Copies to: DO Jordin Stevens MD~ Pain Procedure PROCEDURE PERFORMED BY: Jordin Carson PROCEDURE DATE: 01/01/2025 PREPROCEDURE DIAGNOSIS:? Spondylosis with radiculopathy, lumbar region Chronic pain. POSTPROCEDURE DIAGNOSIS:? Spondylosis with radiculopathy, lumbar region Chronic pain. PROCEDURE:? Interlaminar epidural steroid injection at the L4/5 level under fluoroscopic guidance. COMPLICATIONS:? None. ANESTHESIA:? Local. CLINICAL NOTE:? The patient has a history of low back pain.? The patient requests the epidural in an attempt to improve the pain.? The risks, benefits, and alternatives of theprocedure were explained to the patient.? The patient wishes to proceed. PROCEDURE NOTE:? The patient was brought to the procedure room and placed in the prone position. The skin was prepped and draped with ChloraPrep and sterile drape.? 5 mL of 1% lidocaine were injected through a 27-gauge needle for local anesthesia.? An 18- gauge Tuohy needle was guided to L4/5 interlaminar space under fluoroscopic guidance by the loss of resistance technique.? Contrast was injected under live fluoroscopy to ensure proper needle placement.? After negative aspiration, 60 mgof methylprednisolone and2 mL of 0.25% marcaine was injected through the needle.? The needle was removed and band-aid was applied. The patient tolerated the procedure well and was transferred to recovery in stable condition. PLAN:? The patient was instructed to call the clinic in 1 week to inform us of any progress.? The patient was encouraged to call at any time with any questions or concerns. Documented By: Jordin Carson MD 01/01/25 1017 Signed By: 01/01/25 1018 [facility]03-19-2025 Evaluation note* Diagnosis Onset Date Resolution Status Admit Date Other chronic pain acuteMarch 2024 10:28amOther low back painacuteMarch 2024 10:28am Other spondylosis with radiculopathy, lumbar regionacuteMarch 2024 10:28am Rib painacuteMarch 2024 10:28am [facility] Work Phone: 1(284) 251-490803-19-2025 Evaluation note* Diagnosis Onset Date Resolution Status Admit Date Other chronic pain acuteMarch 2024 10:28amOther low back painacuteMarch 2024 10:28am Other spondylosis with radiculopathy, lumbar regionacuteMarch 2024 10:28am Rib painacuteMarch 2024 10:28amOther chronic painacuteApril 2024 10:08amRib painacuteApril 2024 10:08amSpondylosis without myelopathy or radiculopathy, lumbosacral regionacuteApril 2024 10:08am [facility] Work Phone: 1(885) 871-101203-19-2025 Evaluation note* Diagnosis Onset Date Resolution Status Admit Date Other chronic pain acuteMarch 2024 10:28amOther low back painacuteMarch 2024 10:28am Other spondylosis with radiculopathy, lumbar regionacuteMarch 2024 10:28am Rib painacuteMarch 2024 10:28amOther chronic painacuteApril 2024 10:08amRib painacuteApril 2024 10:08amSpondylosis without myelopathy or radiculopathy, lumbosacral regionacuteApril 2024 10:08amOther chronic pain acuteMay 2024 10:46amRib painacuteMay 2024 10:46amSpondylosis without myelopathy or radiculopathy, lumbosacral regionacuteMay 2024 10:46am [facility] Work Phone: 1(609) 471-557703-19-2025 Evaluation note* Diagnosis Onset Date Resolution Status Admit Date Other chronic pain acuteMarch 2024 10:28amOther low back painacuteMarch 2024 10:28am Other spondylosis with radiculopathy, lumbar regionacuteMarch 2024 10:28am Rib painacuteMarch 2024 10:28amOther chronic painacuteApril 2024 10:08amRib painacuteApril 2024 10:08amSpondylosis without myelopathy or radiculopathy, lumbosacral regionacuteApril 2024 10:08amOther chronic pain acuteMay 2024 10:46amRib painacuteMay 2024 10:46amSpondylosis without myelopathy or radiculopathy, lumbosacral regionacuteMay 2024 10:46amOther chronic painacuteMay 2024 9:31amRib painacuteMay 2024 9:31am Spondylosis without myelopathy or radiculopathy, lumbosacral regionacuteMay 2024 9:31am [facility] Work Phone: 1(347) 493-821903-04-2025 NotePatient Education Oncology Cancer Screening for Males A cancer screening is a test or exam that checks for cancer. Work with your health care provider tocreate a cancer screening schedule that protects your health. Who should have screening? All people who are male should be considered for screening of certain cancers, including colorectalcancer, prostate cancer, lung cancer, and skin cancer. Your health care provider may recommend screenings for other types of cancer if: ??? You have had cancer before. ??? You have a family member with cancer. ??? You have genes that could increase the risk of cancer. ??? You have risk factors for certain cancers, such as current or past use of tobacco products or being overweight. What are the benefits of screening? Cancer screening is done to look for cancer in the very early stages, before it spreads and becomesharder to treat and before you would start to notice symptoms. Finding cancer early improves the chances of successful treatment. It may save your life. When should I be screened for cancer? When you should be screened for cancer depends on: ??? Your age. ??? Your medical history and your family's medical history. ??? Certain lifestyle factors, such as smoking or other use of tobacco products. ??? Environmental exposure, such as to asbestos. How is screening done? Colorectal cancer Colorectal cancer screening looks for cancer or for growths called polyps that often form before cancer starts. Tests to look for cancer or polyps include: ??? Colonoscopy or flexible sigmoidoscopy. For these procedures, a flexible tube with a small camera is inserted into the rectum. ??? CT colonography. This test uses X-rays and a contrast dye to check the colon for polyps. Tests to look for cancer in the stool (feces) include: ??? Guaiac-based fecal occult blood test (FOBT). This test can find blood in stool. It can be done at home with a kit. ??? Fecal immunochemical test (FIT). This test can find blood in stool. For this test, you will need to collect stool samples at home. ??? Stool DNA test. This test looks for blood in stool and any changes in DNA that can lead to colon cancer. For this test, you will need to collect a stool sample at home and send it to a lab. All adults should have screenings starting at 45 years old and continuing through 75 years old. Formales 76?85 years old, the decision to be screened should be based on a person's preferences, life expectancy, overall health, and prior screening history. Your health care provider may recommend screening before 45 years old. You will have tests every 1?10 years, depending on your results and the type of screening test. People at increased risk should start screening at an earlier age. Talk withyour health care provider about which screening test is right for you and how often you should be screened. Prostate cancer Prostate cancer screening is done with blood tests and a digital rectal exam. During this exam, a health care provider uses a gloved finger to check prostate size. You may need to be screened for prostate cancer if: ??? You have risk factors for prostate cancer, such as being an person or having aclose family member with prostate cancer. ??? You have had gene changes or a genetic condition that was passed on to you from a parent (inherited). These gene changes or genetic conditions include BRCA1 or BRCA2 gene mutations or Reynoso syndrome. ??? You have symptoms of prostate cancer, such as problems urinating or problems getting or keepingan erection (erectile dysfunction). When you have been screened for prostate cancer, future screening may be recommended based on the results of your blood tests. Prostate cancer screening for males with average risk may start at 50 years old. Males with risk factors may need to be screened earlier, at 40?45 years old. Talk with your health care provider aboutwhether screening is right for you and, if so, how often you should be screened. Lung cancer Lung cancer screening is done with a CT scan that looks for abnormal changes in the lungs. Discuss lung cancer screening with your health care provider if you are 50?80 years old and if any of the following apply to you: ??? You currently smoke. ??? You used to smoke heavily. ??? You have a smoking history of 1 pack of cigarettes a day for 20 years or 2 packs a day for 10 years. You may need to be screened every year if you smoke heavily or if you used to smoke. Skin cancer Skin cancer screening is done by checking the skin for unusual moles or spots and any changes in existing moles. Your health care provider should check your skin for signs of skin cancer at every physical exam. You should check your skin every month and tell your health care provider right away if anything looks unusual. 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 Subject: Medication Management Due: November 13, 2024 12:02:12 AM SUCKER MACHINE OPERATOR On Hold Pending Signature Drug: lisinopril (lisinopril 10 mg oral tablet), TAKE 1 TABLET DAILY Quantity: 90 tab(s) Days Supply: 0 Refills: 3 Substitutions Allowed Notes from Pharmacy: Dispensed Drug: lisinopril (lisinopril 10 mg oral tablet), TAKE 1 TABLET DAILY Quantity: 90 tab(s) Days Supply: 0 Refills: 3 Substitutions Allowed Notes from Pharmacy: From: Eh Lund DO To: [facility] Sent: 11/12/2024 07:30:59 EST Subject: FW: Medication Management Submitted: Complete:lisinopril (lisinopril 10 mg oral tablet) Signed by Eh Lund DO 11/12/2024 07:30:00 EST Approved with modifications: lisinopril (LISINOPRIL TABS 10MG) TAKE 1 TABLET DAILY Qty: 90 tab(s) Days Supply: 0 Refills: 3 Substitutions Allowed [facility]02-10-2025 History of Present illness Narrative* Dago Brito, DPM - 11/05/2024 11:50 AM EST Patient: Roscoe Hernandez : 1935 PCP: Eh Lund MD SUBJECTIVE Patient presents today with a CC of elongated, thick nails. Pt states nails have been elongated and thick for many years and cause pain with ambulation in shoegear. Pt has tried previous treatment with minimal relief. Pt presents today for nail care and treatment. 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 Allergies: Allergies Allergen Reactions Ciprofloxacin GI intolerance Other Reaction(s): rapid heartbeat Sulfa Antibiotics Rash and Hives Sulfamethoxazole-Trimethoprim Rash Past Medical History: Past Medical History: Diagnosis Date Abdominal pain Arthritis At risk for falls Bladder cancer (CMS/HCC) Bleeding disorder (CMS/HCC) BMI 28.0-28.9,adult Cancer (CMS/HCC) Chicken pox CVA (cerebral vascular accident) (CMS/HCC) Drop foot gait, right Family history of cancer Family history of prostate problems Hyperlipidemia (CMS/HCC) Hypertension (CMS/HCC) Macular degeneration Measles Mumps OM (onychomycosis) Peripheral neuropathy Stroke (CMS/HCC) TIA (transient ischemic attack) Toe pain, bilateral Tonsillitis Medications: Current Outpatient Medications: acetaminophen (Tylenol) 325 MG tablet, every 4 (four) hours., Disp: , Rfl: ASPIRIN 81 MG chewable tablet, 1 (one) time each day at the same time., Disp: , Rfl: atorvastatin (Lipitor) 40 MG tablet, , Disp: , Rfl: cefuroxime (Ceftin) 250 MG tablet, Take 250 mg by mouth in the morning and 250 mg before bedtime., Disp: , Rfl: clopidogrel (Plavix) 75 MG tablet, , Disp: , Rfl: doxycycline (Vibramycin) 100 MG capsule, , Disp: , Rfl: folic acid (Folvite) 400 MCG tablet, 1 (one) time each day at the same time., Disp: , Rfl: lisinopril 10 MG tablet, , Disp: , Rfl: Multiple Vitamins-Minerals (Ocuvite Adult 50+) capsule, Orally, Disp: , Rfl: tamsulosin (Flomax) 0.4 MG 24 hr capsule, Take 0.4 mg by mouth in the morning., Disp: , Rfl: Social History: Social History Socioeconomic History Marital status: Spouse name: Not on file Number of children: Not on file Years of education: Not on file Highest education level: Not on file Occupational History Not on file Tobacco Use Smoking status: Former Types: Cigarettes Smokeless tobacco: Never Vaping Use Vaping status: Unknown Substance and Sexual Activity Alcohol use: Never Comment: caffeine intake: 1-2 cups per day Drug use: Never Sexual activity: Defer Partners: Decline to Answer Other Topics Concern Not on file Social History Narrative Not on file Social Drivers of Health Financial Resource Strain: Not on file Food Insecurity: Not on file Transportation Needs: Not on file Physical Activity: Not on file Stress: Not on file Social Connections: Not on file Intimate Partner Violence: Not on file Housing Stability: Not on file ROS: General: denies fever, chills, fatigue, malaise GI: denies loose or watery stool on antibiotic OBJECTIVE LE EXAM: DERM: Elongated thick yellow crumbly nails digits 1 through 10. Diminished hair growth b/l feet. Plus one pitting edema to the right ankle region Right sub 1st metatarsal has a healed ulceration with negative erythema or drainage VASC: Positive palpable pedal pulses bilaterally NEURO: Gross sensation diminished to bilateral feet ORTHO: Positive pain on palpation to toenails of the left 1,2,3,4,5 toes and right 1,2,3,4,5 toes +0 5 dorsiflexion right foot ASSESSMENT 1. Other polyneuropathy 2. Pain due to onychomycosis of toenails of both feet 3. Right foot drop PLAN Discussed proper foot care with patient today. 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 Subject: Medication Management Due: October 18, 2024 12:01:40 AM SUCKER MACHINE OPERATOR On Hold Pending Signature Drug: clopidogrel (clopidogrel 75 mg oral tablet), TAKE 1 TABLET DAILY Quantity: 90 tab(s) Days Supply: 0 Refills: 3 Substitutions Allowed Notes from Pharmacy: Dispensed Drug: clopidogrel (clopidogrel 75 mg oral tablet), TAKE 1 TABLET DAILY Quantity: 90 tab(s) Days Supply: 0 Refills: 3 Substitutions Allowed Notes from Pharmacy: From: Eh Lund DO To: [facility] Sent: 10/17/2024 07:27:40 EST Subject: FW: Medication Management Submitted: Complete:clopidogrel (clopidogrel 75 mg oral tablet) Signed by Eh Lund DO 10/17/2024 07:27:00 EST Approved with modifications: clopidogrel (CLOPIDOGREL BISULFATE TABS 75MG) TAKE 1 TABLET DAILY Qty: 90 tab(s) Days Supply: 0 Refills: 3 Substitutions Allowed [id number] Note From: Ghazala Carter RN ([facility] ([facility])) To: Marija Russell CNP; Sent: 10/08/2024 07:30:09 EST Subject: FW: Medication Management Due Date/Time: 10/09/2024 02:29:00 EST Caller Name: ROSCOE HERNANDEZ; Caller Number: Erika , Vickie From: [facility] To: Kevon Eh Rebecca HANDLEY Sent: October 08, 2024 1:29:27 AM SUCKER MACHINE OPERATOR Subject: Medication Management Due: October 09, 2024 12:02:12 AM SUCKER MACHINE OPERATOR On Hold Pending Signature Drug: atorvastatin (atorvastatin 40 mg oral tablet), TAKE 1 TABLET DAILY Quantity: 90 tab(s) Days Supply: 0 Refills: 3 Substitutions Allowed Notes from Pharmacy: Dispensed Drug: atorvastatin (atorvastatin 40 mg oral tablet), TAKE 1 TABLET DAILY Quantity: 90 tab(s) Days Supply: 0 Refills: 3 Substitutions Allowed Notes from Pharmacy: From: Marija Russell APRN, CNP To: [facility] Sent: 10/08/2024 12:08:11 EST Subject: FW: Medication Management Submitted: Complete:atorvastatin (atorvastatin 40 mg oral tablet) Signed by Marija Russell APRN, CNP 10/08/2024 12:08:00 EST Approved with modifications: atorvastatin (ATORVASTATIN TABS 40MG) TAKE 1 TABLET DAILY Qty: 90 tab(s) Days Supply: 0 Refills: 3 Substitutions Allowed Route To Pharmacy - [facility] Signed by Marija Russell APRN, CNPUniversity Hospitals Beachwood Medical [id number] NoteEducation Materials ENT Cough, Adult A cough helps to clear your throat and lungs. It may be a sign of an illness or another condition. A short-term (acute) cough may last 2?3 weeks. A long-term (chronic) cough may last 8 or more weeks. Many things can cause a cough. They include: ? Illnesses such as: ? An infection in your throat or lungs. ? Asthma or other heart or lung problems. ? Gastroesophageal reflux. This is when acid comes back up from your stomach. ? Breathing in things that bother (irritate) your lungs. ? Allergies. ? Postnasal drip. This is when mucus runs down the back of your throat. ? Smoking. ? Some medicines. Follow these instructions at home: Medicines ? Take pyqy-hhs-rhpaiyp and prescription medicines only as told by your doctor. ? Talk with your doctor before you take cough medicine (cough suppressants). Eating and drinking ? Do not drink alcohol. ? Do not drink caffeine. ? Drink enough fluid to keep your pee (urine) pale yellow. Lifestyle ? Stay away from cigarette smoke. ? Do not smoke or use any products that contain nicotine or tobacco. If you need help quitting, askyour doctor. ? Stay away from things that make you cough. These may include perfume, candles, cleaning products,or campfire smoke. General instructions ? Watch for any changes to your cough. Tell your doctor about them. ? Always cover your mouth when you cough. ? If the air is dry in your home, use a cool mist vaporizer or humidifier. ? If your cough is worse at night, try using extra pillows to raise your head up higher while you sleep. ? Rest as needed. Contact a doctor if: ? You have new symptoms. ? Your symptoms get worse. ? You cough up pus. ? You have a fever that does not go away. ? Your cough does not get better after 2?3 weeks. ? Cough medicine does not help, and you are not sleeping well. ? You have pain that gets worse or is not helped with medicine. ? You are losing weight and do not know why. ? You have night sweats. Get help right away if: ? You cough up blood. ? You have trouble breathing. ? Your heart is beating very fast. These symptoms may be an emergency. Get help right away. Call 911. ? Do not wait to see if the symptoms will go away. ? Do not drive yourself to the hospital. This information is not intended to replace advice given to you by your health care provider. Make sure you discuss any questions you have with your health care provider. Document Revised: 05/13/2023 Document Reviewed: 05/13/2023 [employer] Patient Education ? 2023 [facility]12-02-2024 History of Present illness Narrative* Dago Starla Brito, DPM - 08/27/2024 11:40 AM EST Patient: Roscoe Hernandez : 1935 PCP: Eh Lund MD SUBJECTIVE Patient presents today with a CC of elongated, thick nails. Pt states nails have been elongated and thick for many years and cause pain with ambulation in shoegear. Pt has tried previous treatment with minimal relief. Pt presents today for nail care and treatment. Positive history of peripheral neuropathy with footdrop and AFO. Allergies: Allergies Allergen Reactions Ciprofloxacin GI intolerance Other Reaction(s): rapid heartbeat Sulfa Antibiotics Rash and Hives Sulfamethoxazole-Trimethoprim Rash Past Medical History: Past Medical History: Diagnosis Date Abdominal pain Arthritis At risk for falls Bladder cancer (CMS/HCC) Bleeding disorder (CMS/HCC) BMI 28.0-28.9,adult Cancer (CMS/HCC) Chicken pox CVA (cerebral vascular accident) (CMS/HCC) Drop foot gait, right Family history of cancer Family history of prostate problems Hyperlipidemia (CMS/HCC) Hypertension (CMS/HCC) Macular degeneration Measles Mumps OM (onychomycosis) Peripheral neuropathy Stroke (CMS/HCC) TIA (transient ischemic attack) Toe pain, bilateral Tonsillitis Medications: Current Outpatient Medications: acetaminophen (Tylenol) 325 MG tablet, every 4 (four) hours., Disp: , Rfl: ASPIRIN 81 MG chewable tablet, 1 (one) time each day at the same time., Disp: , Rfl: atorvastatin (Lipitor) 40 MG tablet, , Disp: , Rfl: cefuroxime (Ceftin) 250 MG tablet, Take 250 mg by mouth in the morning and 250 mg before bedtime., Disp: , Rfl: clopidogrel (Plavix) 75 MG tablet, , Disp: , Rfl: doxycycline (Vibramycin) 100 MG capsule, , Disp: , Rfl: folic acid (Folvite) 400 MCG tablet, 1 (one) time each day at the same time., Disp: , Rfl: lisinopril 10 MG tablet, , Disp: , Rfl: Multiple Vitamins-Minerals (Ocuvite Adult 50+) capsule, Orally, Disp: , Rfl: tamsulosin (Flomax) 0.4 MG 24 hr capsule, Take 0.4 mg by mouth in the morning., Disp: , Rfl: Social History: Social History Socioeconomic History Marital status: Spouse name: Not on file Number of children: Not on file Years of education: Not on file Highest education level: Not on file Occupational History Not on file Tobacco Use Smoking status: Former Types: Cigarettes Smokeless tobacco: Never Vaping Use Vaping status: Unknown Substance and Sexual Activity Alcohol use: Never Comment: caffeine intake: 1-2 cups per day Drug use: Never Sexual activity: Defer Partners: Decline to Answer Other Topics Concern Not on file Social History Narrative Not on file Social Drivers of Health Financial Resource Strain: Not on file Food Insecurity: Not on file Transportation Needs: Not on file Physical Activity: Not on file Stress: Not on file Social Connections: Not on file Intimate Partner Violence: Not on file Housing Stability: Not on file ROS: General: denies fever, chills, fatigue, malaise GI: denies loose or watery stool on antibiotic OBJECTIVE LE EXAM: DERM: Elongated thick yellow crumbly nails digits 1 through 10. Diminished hair growth b/l feet. Plus one pitting edema to the right ankle region Right sub 1st metatarsal has a healed ulceration with negative erythema or drainage VASC: Positive palpable pedal pulses bilaterally NEURO: Gross sensation diminished to bilateral feet ORTHO: Positive pain on palpation to nails 1 through 10 +0 5 dorsiflexion right foot ASSESSMENT 1. Other polyneuropathy 2. Onychomycosis 3. Toe pain, right 4. Toe pain, left 5. Right foot drop PLAN Discussed proper foot care with patient today. Debride nails in length and thickness digits 1 through 10 Dago Brito DPM documented in this encounterBoone Hospital [id number] NotePROCEDURE: XR Hip Complete Right, XR Sacroiliac Joints Minimum 3 Views HISTORY: Pain in right hip COMPARISON: CT chest abdomen pelvis 06/10/2023 FINDINGS: BONES:Extensive prior surgical changes of the pelvis involving and surrounding the right acetabulum. Right hip replacement. No appreciable bone fracture or change of hardware. Prior screw fractures or residual from prior modification present. No fracture of the sacrum or coccyx. Degenerative changes of the sacroiliac joints. SOFT TISSUES:No visible soft tissue swelling. EFFUSION:None visible. OTHER: Negative. IMPRESSION: 1. No acute bone abnormality or appreciable hardware change. 2. 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 No appreciable change in the hardware, although prior hardware failure cannot be excluded. 3. Mild degenerative change of the sacroiliac joints. No appreciable acute abnormality of the sacrum or coccyx. Final Dictated by: Eh Medina MD Dictated DT/TM: 08/22/24 11:58 Signed (Electronic Signature): Eh Medina MD 08/22/24 12:03 p Technologist: [facility]11-27-2024 NotePROCEDURE: XR Shoulder Complete Right HISTORY: Pain in right shoulder COMPARISON: None. FINDINGS: BONES:Total right shoulder replacement without evidence of hardware fracture loosening. Degenerative change of the acromioclavicular joint. SOFT TISSUES:No visible soft tissue swelling. EFFUSION:None visible. OTHER: Negative. IMPRESSION: 1. No appreciable acute abnormality. Degenerative changes. 2. Right shoulder replacement. Final Dictated by: Eh Medina MD Dictated DT/TM: 08/22/24 12:03 Signed (Electronic Signature): Eh Medina MD 08/22/24 12:04 p Technologist: [facility]11-27-2024 NotePROCEDURE: XR Hip Complete Right, XR Sacroiliac Joints Minimum 3 Views HISTORY: Pain in right hip COMPARISON: CT chest abdomen pelvis 06/10/2023 FINDINGS: BONES:Extensive prior surgical changes of the pelvis involving and surrounding the right acetabulum. Right hip replacement. No appreciable bone fracture or change of hardware. Prior screw fractures or residual from prior modification present. No fracture of the sacrum or coccyx. Degenerative changes of the sacroiliac joints. SOFT TISSUES:No visible soft tissue swelling. EFFUSION:None visible. OTHER: Negative. IMPRESSION: 1. No acute bone abnormality or appreciable hardware change. 2. 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 No appreciable change in the hardware, although prior hardware failure cannot be excluded. 3. Mild degenerative change of the sacroiliac joints. No appreciable acute abnormality of the sacrum or coccyx. Final Dictated by: Eh Medina MD Dictated DT/TM: 08/22/24 11:58 Signed (Electronic Signature): Eh Medina MD 08/22/24 12:03 p Technologist: [facility]11-12-2024 NotePatient Education Oncology Cancer Screening for Males A cancer screening is a test or exam that checks for cancer. Work with your health care provider tocreate a cancer screening schedule that protects your health. Who should have screening? All people who are male should be considered for screening of certain cancers, including colorectalcancer, prostate cancer, lung cancer, and skin cancer. Your health care provider may recommend screenings for other types of cancer if: ??? You have had cancer before. ??? You have a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 Notes Treatment Clinical Notes Sep, Other spondylosis wi th radiculopathy, lumbar region (ICD-10 - M47.26) We discussed the patient's lumbar MRI in detail, largely unchanged from previous imaging. Patient is voicing minimal complaints of lumbar or radiating pain at this time, noting significant resolutionof his symptoms since previous visit. He attributes this to a recent Medrol dose pack. We will continue to monitor his symptoms in this region. We discussed repeating lumbar epidural injections in the future should his symptoms return. Anatomy of spine discussed in detail with patient in regard to patients condition. Sep,Other chronic pain (ICD-10 - G89.29) Sep,DD (degenerative disc disease), lumbar (ICD-10 - M51.36) Sep,OtherAbove note written by Jennifer Lund LPN, Auto [employer]. Edited and approved by Dr. Jordin Carson MD. [employer] Other 11-30-2023 Evaluation note* Encounter Date Diagnosis Assessment Notes Treatment Notes Treatment Clinical Notes Jul, Other spondylosis wi th radiculopathy, lumbar region (ICD-10 - M47.26) Patients primary complaint today is severe low lumbar pain radiating into his left lower extremity.Given his failure of conservative treatment, as well as progressing symptoms, I will order an updated MRI of his lumbar spine for further evaluation. Pending the results, we can consider a referral to neurosurgery vs further injections. In the meantime, I will prescribe a short term supply of Oxycodone/ Acetaminophen 5-325 up to twice daily as needed. I will also trial Flexeril up to twice daily as needed for muscle spasms. Additionally, I will prescribe a Medrol Dose pack to hopefully help alleviate some of his symptoms. We jess follow up with the patient once we obtain his MRI results. Jul,Other chronic pain (ICD-10 - G89.29) Jul,DD (degenerative disc disease), lumbar (ICD-10 - M51.36) Jul,OtherAbove note written by Alejandro English MA, Auto [employer]. Edited and approved by Dr. Jordin Carson MD. Patients primary complaint today is returning right knee pain. He notes previous HOWARD injections with orthopedics with significant, extended relief. I would like to get record of his imaging and whenthis was done most recently. We will follow up with the patient once we obtain a copy of his medical records and can consider proceeding with HOWARD injections in the office. [employer] Other 11-30-2023 Evaluation note* Encounter Date Diagnosis Assessment Notes Treatment Notes Treatment Clinical Notes Jul, Other spondylosis wi th radiculopathy, lumbar region (ICD-10 - M47.26) [employer] Other 03-14-2023 Evaluation note* Encounter Date Diagnosis Assessment Notes Treatment Notes Treatment Clinical Notes Nov, Other spondylosis wi th radiculopathy, lumbar region (ICD-10 - M47.26) [employer] Other 03-14-2023 Evaluation note* Encounter Date Diagnosis Assessment Notes Treatment Notes Treatment Clinical Notes Nov, Other spondylosis wi th radiculopathy, lumbar region (ICD-10 - M47.26) Patients primary complaint today is returning low lumbar pain radiating into the posterior and lateral aspect of his bilateral lower extremities. Based on previous positive results, as well as location of pain and exam findings, patient is a candidate for repeat lumbar epidural steroid injection which we will proceed with. Risks and benefits of procedure explained to patient; patient verbalizes understanding. It was discussed in detail, along with providing written instructions, for the patientto discuss and receive permission to stop their anticoagulation from their prescribing provider prior to each procedure. Additionally, the patient agrees to fully understand and accept the potential r isks of stopping this medication prior to doing so. In the meantime, given the severity of his symptoms, I will prescribe a temporary supply of Oxycodone/ Acetaminophen 5-325 up to twice daily as needed for severe pain. Risks and side effects of this medication was discussed in detail with the patient who voiced understanding. We will follow up with the patient two weeks following his procedure. Anatomy of spine discussed in detail with patient in regards to patients condition. Nov,Other low back pain (ICD-10 - M54.59) Nov,Other chronic pain (ICD-10 - G89.29) Nov,OtherAbove note written by Alejandro English MA, Auto H[employer]. Edited and approved by Dr. Jordin Carson MD. [employer] Other 06-02-2022 Evaluation note* Encounter Date Diagnosis Assessment Notes Treatment Notes Treatment Clinical Notes Feb, Other spondylosis wi th radiculopathy, lumbar region (ICD-10 - M47.26) Patient continues to benefit from a previous lumbar epidural steroid injection. We will continue tomonitor his symptoms in this region. Anatomy of spine discussed in detail with patient in regards to patients condition. Overall, patient believes their pain is reasonably well controlled and he is in agreement with our treatment plan. Feb,ther low back pain (ICD-10 - M54.59) Feb,ther chronic pain (ICD-10 - G89.29) Feb,2OtherAbove note written by Alejandro English MA, Auto H[employer]. Edited and approved by Dr. Jordin Carson MD. [facility] [employer] Other 10-28-2021 Evaluation note* Encounter Date Diagnosis Assessment Notes Treatment Notes Treatment Clinical Notes Jun, Other spondylosis wi th radiculopathy, lumbar region (ICD-10 - M47.26) Patient voices minimal complaints of pain at this time and continues to benefit from a previous lumbar epidural steroid injection. We will proceed with future injections as needed. Patient willl follow up with us in three months, sooner if needed. Anatomy of spine discussed in detail with patient in regards to patients condition. Overall, patient believes their pain is reasonably well controlled and he is in agreement with our treatment plan. Jun,Other chronic pain (ICD-10 - G89.29) Jun,ow back pain, unspecified (ICD-10 - M54.50) [facility] [employer] Other Evaluation noteNo InformationNortGeisinger Community [facility] Center [employer] Other Evaluation noteNo assessment information available [facility] Work Phone: Evaluation note* Diagnosis Abnormal EKG- Primary Nonspecific abnormal electrocardiogram (ECG) (EKG) Pre-operative cardiovascular examination RBBB Primary hypertension Unspecified essential hypertension Mixed hyperlipidemia Personal history of TIA (transient ischemic attack) Transient ischemic attack (TIA), and cerebral infarction without residual deficits documented in this encounter [facility] Work Phone: Evaluation note* Diagnosis Onset Date Resolution Status Cervical muscle pain acuteCervical spine arthritisacuteOther chronic painacuteOther spondylosis with radiculopathy, lumbar regionacute [facility] Work Phone: Evaluation note* Diagnosis Onset Date Resolution Status Cervical muscle pain acuteCervical spine arthritisacuteOther chronic painacuteOther spondylosis with radiculopathy, lumbar regionacuteCervical muscle painacuteCervical spine arthritisacuteOther chronic painacute [facility] Work Phone: Evaluation note* Diagnosis Pain- Primary Generalized pain [facility] Diagnosis 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 Right foot drop Other acquired deformity of ankle and foot documented [facility] encounter [facility]* Diagnosis Pain Generalized pain documented in this [facility]* Diagnosis Onset Date Resolution Status Other chronic pain acuteOther low back painacuteOther spondylosis with radiculopathy, lumbar region acute [facility] Work Phone: Evaluation note* Diagnosis Onset Date Resolution Status Other chronic pain acuteOther low back painacuteOther spondylosis with radiculopathy, lumbar region acuteOther chronic painacuteOther low back painacuteOther spondylosis with radiculopathy, lumbar regionacuteRib painacute [facility] Work Phone: Evaluation note* Diagnosis Other polyneuropathy- Primary Onychomycosis Dermatophytosis of nail Toe pain, right Pain in soft tissues of limb Toe pain, left Pain in soft tissues of limb Right foot drop Other acquired deformity of ankle and foot documented in this encounter [facility] HealthcareEvaluation [facility]* Diagnosis Other polyneuropathy- Primary Onychomycosis Dermatophytosis of nail Toe pain, bilateral Right foot drop Other acquired deformity of ankle and foot documented in this encounter [facility] HealthcareEvaluation note* Diagnosis Other polyneuropathy- Primary Pain due to onychomycosis of toenails of both feet Right foot drop Other acquired deformity of ankle and foot documented in this encounter [facility] HealthcareEvaluation note* Diagnosis Onset Date Resolution Status Admit Date Other chronic pain acuteMarch 2024 10:28amOther low back painacuteMar 2024 10:28am Other spondylosis with radiculopathy, lumbar regionacuteMar 2024 10:28am Rib painacuteMar 2024 10:28am [facility] Work Phone: Evaluation note* Diagnosis Other polyneuropathy- Primary Pain due to onychomycosis of toenails of both feet Right foot drop Other acquired deformity of ankle and foot documented in this encounter [facility] HealthcareEvaluation note* Diagnosis Cellulitis of second toe of left foot- Primary Other polyneuropathy documented in this encounter [facility] HealthcareEvaluation note* Diagnosis Chest pain, unspecified type- Primary RBBB Mixed hyperlipidemia Primary hypertension Unspecified essential hypertension Abnormal EKG Nonspecific abnormal electrocardiogram (ECG) (EKG) Personal history of TIA (transient ischemic attack) Transient ischemic attack (TIA), and cerebral infarction without residual deficits Chronic obstructive pulmonary disease, unspecified COPD type (Multi) BMI 24.0-24.9, adult Edema of right lower extremity Easy bruisability Other symptoms involving skin and integumentary tissues documented in this encounter [facility] Work Phone: Evaluation note* Diagnosis Other polyneuropathy- Primary Pain due to onychomycosis of toenails of both feet Right foot drop Other acquired deformity of ankle and foot [facility] Chest pain, unspecified type documented in this encounter [facility] Work Phone: Evaluation note* Diagnosis 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 Chest pain, unspecified type- Primary Primary hypertension Unspecified essential hypertension RBBB Mixed hyperlipidemia Abnormal EKG Nonspecific abnormal electrocardiogram (ECG) (EKG) Easy bruisability Other symptoms involving skin and integumentary tissues BMI 23.0-23.9, adult Edema of right lower extremity Nonrheumatic aortic (valve) stenosis Former smoker Personal history of tobacco use, presenting hazards to health documented in this encounter [facility] Work Phone: History general Narrative - Reported* Type Description Date Medical History HTN Medical HistoryCVAMedical Historybladder cancerMedical HistoryRT drop foot Medical HistoryBMI 28.0-28.9,adultMedical HistoryToe pain, leftMedical History Toe pain, rightMedical HistoryAt risk for fallsMedical HistoryOM (onychomycosis) Medical HistoryPeripheral neuropathyMedical HistoryBMI 28.0-28.9,adultSurgical HistoryRight Hip Repair and several revisionsSurgical HistoryRT hip ORIF/bipolar and revision sxSurgical HistoryHernia RepairSurgical HistoryRT shoulder rev TSA Surgical Historyhernia repair x 2Surgical HistoryProstatectomySurgical History prostate sxSurgical HistoryRight ShoulderSurgical Historybladder tumor exc Surgical Historycyst exc [id number] Historysee surgical history Hospitalization HistoryRt leg [id number] [employer] Other History of Present illness Narrative* Dago Brito, DPM - 06/18/2024 11:30 AM EDT Patient: Roscoe Hernandez : 1935 PCP: Eh Lund MD SUBJECTIVE Patient presents today with a CC of elongated, thick nails. Pt states nails have been elongated and thick for many years and cause pain with ambulation in shoegear. Pt has tried previous treatment with minimal relief. Pt presents today for nail care and treatment. Positive history of peripheral neuropathy with footdrop and AFO. Allergies: Allergies Allergen Reactions Ciprofloxacin GI intolerance Other Reaction(s): rapid heartbeat Sulfa Antibiotics Rash and Hives Sulfamethoxazole-Trimethoprim Rash Past Medical History: Past Medical History: Diagnosis Date Abdominal pain Arthritis At risk for falls Bladder cancer (CMS/HCC) Bleeding disorder (CMS/HCC) BMI 28.0-28.9,adult Cancer (CMS/HCC) Chicken pox CVA (cerebral vascular accident) (CMS/HCC) Drop foot gait, right Family history of cancer Family history of prostate problems Hyperlipidemia (CMS/HCC) Hypertension (CMS/HCC) Macular degeneration Measles Mumps OM (onychomycosis) Peripheral neuropathy Stroke (CMS/HCC) TIA (transient ischemic attack) Toe pain, bilateral Tonsillitis Medications: Current Outpatient Medications: acetaminophen (Tylenol) 325 MG tablet, every 4 (four) hours., Disp: , Rfl: ASPIRIN 81 MG chewable tablet, 1 (one) time each day at the same time., Disp: , Rfl: atorvastatin (Lipitor) 40 MG tablet, , Disp: , Rfl: cefuroxime (Ceftin) 250 MG tablet, Take 250 mg by mouth in the morning and 250 mg before bedtime., Disp: , Rfl: clopidogrel (Plavix) 75 MG tablet, , Disp: , Rfl: doxycycline (Vibramycin) 100 MG capsule, , Disp: , Rfl: folic acid (Folvite) 400 MCG tablet, 1 (one) time each day at the same time., Disp: , Rfl: lisinopril 10 MG tablet, , Disp: , Rfl: Multiple Vitamins-Minerals (Ocuvite Adult 50+) capsule, Orally, Disp: , Rfl: tamsulosin (Flomax) 0.4 MG 24 hr capsule, Take 0.4 mg by mouth in the morning., Disp: , Rfl: Social History: Social History Socioeconomic History Marital status: Spouse name: Not on file Number of children: Not on file Years of education: Not on file Highest education level: Not on file Occupational History Not on file Tobacco Use Smoking status: Former Types: Cigarettes Smokeless tobacco: Never Vaping Use Vaping status: Unknown Substance and Sexual Activity Alcohol use: Never Comment: caffeine intake: 1-2 cups per day Drug use: Never Sexual activity: Defer Partners: Decline to Answer Other Topics Concern Not on file Social History Narrative Not on file Social Determinants of Health Financial Resource Strain: Not on file Food Insecurity: Not on file Transportation Needs: Not on file Physical Activity: Not on file Stress: Not on file Social Connections: Not on file Intimate Partner Violence: Not on file Housing Stability: Not on file ROS: General: denies fever, chills, fatigue, malaise GI: denies loose or watery stool on antibiotic OBJECTIVE LE EXAM: DERM: Elongated thick yellow crumbly nails digits 1 through 10. Diminished hair growth b/l feet. Plus one pitting edema to the right ankle region Right sub 1st metatarsal has a healed ulceration with negative erythema or drainage VASC: Positive palpable pedal pulses bilaterally NEURO: Gross sensation diminished to bilateral feet ORTHO: Positive pain on palpation to nails 1 through 10 +0 5 dorsiflexion right foot ASSESSMENT 1. Other polyneuropathy 2. Onychomycosis 3. Toe pain, bilateral 4. Right foot drop PLAN Discussed proper foot care with patient today. Debride nails in length and thickness digits 1 through 10 [facility] DPM [facility] Additional Instructions DISCHARGE INSTRUCTIONS FOR BLADDER TUMOR, BLADDER BIOPSY -Even though there are no visible incisions, the bladder is quite raw on the inside, and you need to follow some instructions to minimize the risks of bleeding and disturbing the area over the next six weeks. -The catheter in the bladder will be irritating, sometimes causing a strong desire to urinate. Often patients will experience urine leakage around the catheter, as well as some blood in the urine. These same symptoms may persist even after the catheter is removed. -You have a leg bag to hold the urine, which will need to be emptied to avoid a urine backup. You may wash around the catheter entrance site with soap and water. You may also use an antibiotic ointment, such as Bacitracin or Neomycin. DIET -You may resume your normal diet, but you may want to avoid alcohol, carbonated drinks, caffeine, and spicy foods, which may increase the irritation from the surgery and the catheter. Drink plenty of water to keep the urine clear. ACTIVITY -You should limit any physical activity, especially over the first two weeks. -No heavy lifting or straining (10 pound limit). -No driving a car and limit long car rides for 1-2 weeks. -Showering is OK, even while the catheter is in. -Light activity, such as walking, is encouraged; as you are able (stairs are OK). BOWELS -Try to keep your bowel movements soft to minimize straining to have a bowel movement. -You may use a stool softener or over the counter laxative if needed. -Difficult bowel movements may lead to straining and bleeding from the prostate. MEDICATIONS -You may resume your home medications unless instructed otherwise. -Take your prescribed medications as directed, including your antibiotics. THINGS TO WATCH FOR WHICH WOULD REQUIRE AN EMERGENCY ROOM VISIT OR CALL 911: (This is not a complete list) -Persistent or heavy bleeding or blood clots clogging the catheter. -Inability to urinate. -Fever over 101.5 degrees Farhenheit with or without chills. -Severe drug reactions, with itching, hives, or rash. FOLLOW UP -Please call the office to arrange for your post-operative appointment and to remove the catheter.[facility] Work Phone: Hospital Discharge instructions Additional Instructions 1. No driving if taking narcotic pain medication. 2. No lifting more than 20 pounds for 3 weeks. 3. May shower.[facility] Work Phone: Hospital Discharge instructions Additional Instructions Follow-up with your primary care doctor Return to ED if develop worsening symptoms or concernsLouis [facility] Work Phone: Reason for referral (narrative)* Diagnostic Procedure Only (Routine) - AuthorizedSpecialtyDiagnoses / ProceduresReferred By Contact Referred To ContactXR IMAGING Diagnoses Pain Procedures XR HIP GENERAL 3V PELV/AP/LAT RIGHT RADEX HIP UNILATERAL WITH PELVIS 2-3 VIEWS Gaurang Shane MD [address] [place] [address] [facility] [place] [address] Referral IDStatusReasonStart DateExpiration DateVisits RequestedVisits [id number] Auto-Generated Referral [facility] for referral (narrative)* Diagnostic Procedure Only (Routine) - ClosedSpecialtyDiagnoses / ProceduresReferred By ContactReferred To ContactXR IMAGING Diagnoses Pain Procedures XR HIP GENERAL 3V PELV/AP/LAT RIGHT RADEX HIP UNILATERAL WITH PELVIS 2-3 VIEWS Gaurang Shane MD [address] [place] [address] [facility] [place] [address] Referral IDStatusReasonStart DateExpiration DateVisits RequestedVisits [id number] Auto-Generated Referral [facility] for visit Narrative* Diagnostic Procedure Only (Routine) - ClosedSpecialtyDiagnoses / ProceduresReferred By ContactReferred To Contact XR IMAGING Diagnoses Pain Procedures XR HIP GENERAL 3V PELV/AP/LAT RIGHT RADEX HIP UNILATERAL WITH PELVIS 2-3 VIEWS Gaurang Shane MD [address] [place] [address] [facility] [place] [address] Referral IDStatusReasonStart DateExpiration DateVisits RequestedVisits [id number] Auto-Generated Referral [facility] for visit Narrative* Cardiac Stress Testing (Routine) - AuthorizedSpecialtyDiagnoses / ProceduresReferred By ContactReferred To ContactRadiology Diagnoses Chest pain, unspecified type Procedures Nuclear Stress Test CHG MYOCARDIAL SPECT MULTIPLE STUDIES Jd Moreira MD [address] [facility], [place] [address] [place] [address] Phone: tel: fax: Referral IDStatusReasonStart DateExpiration DateVisits RequestedVisits [id number] [facility] Work Phone: Reason for visit Narrative* Cardiac Stress Testing (Routine) - AuthorizedSpecialtyDiagnoses / ProceduresReferred By Contact Referred To ContactRadiology Diagnoses Chest pain, unspecified type Procedures Nuclear Stress Test CHG MYOCARDIAL SPECT MULTIPLE STUDIES Jd Moreira MD [address] [facility], [address] [address] Phone: tel: fax:[phone] Referral IDStatusReasonStart DateExpiration DateVisits RequestedVisits [id number] [facility] Work Phone: Summary Purpose Family History No Family History Records Found Relationship Condition Age at Onset Recorded Date/T robert father Malignant neoplasm Unknown Not SpecifiedHeart diseaseUnknownbrotherHypertensionUnknown Relationship Condition Age at Onset Recorded Date/T robert father Malignant neoplasm Unknown Malignant neoplasm of boneUnknownDeceasedUnknownNot SpecifiedHeart disease UnknownbrotherHypertensionUnknownfamily memberDiabetes mellitusUnknown Relationship Condition Age at Onset Recorded Date/T robert father Malignant neoplasm Unknown Malignant neoplasm of boneUnknownDeceasedUnknownmotherHeart diseaseUnknown brotherHypertensionUnknownauntDiabetes mellitusUnknown Relationship Condition Age at Onset Recorded Date/T robert father Malignant neoplasm of bone Unknown DeceasedUnknownMalignant neoplasmUnknownmotherHeart diseaseUnknownbrother HypertensionUnknownauntDiabetes mellitusUnknown Advance Directives No Advanced Directives Records Found Advance Directive Response Recorded Date/ Time Advance Directives No July 28, 2017 12:04pm Advance Directive Response Recorded Date/ Time Advance Directives No July 28, 2017 1:04pm Chief Complaint and Reason for Visit Chief Complaint memory loss, weaknes s Bladder tumor, bladder cancer Chief Complaint Bladder tumor, bladd er cancer Bladder tumor, bladder cancer Chief Complaint Bladder tumor, bladd er cancer Bladder tumor, bladder cancer Left Inguinal Hernia Chief Complaint Bladder tumor, bladd er cancer Bladder tumor, bladder cancer Left Inguinal Hernia Left Inguinal Hernia Chief Complaint cough Chief Complaint cough M47.26 M54.12 E07.9 bladder tumors, hx bladder cancer back and neck painReason for VisitCervical muscle pain Cervical spine arthritis Other chronic pain Other spondylosis with radiculopathy, lumbar region Chief Complaint M47.26 M54.12 E07.9 bladder tumors, hx bladder cancer back and neck pain bladder tumors, hx bladder cancerReason for VisitCervical muscle pain Cervical spine arthritis Other chronic pain Other spondylosis with radiculopathy, lumbar region Chief Complaint M54.12 E07.9 bladder tumors, hx bladder cancer back and neck pain bladder tumors, hx bladder cancer PT REQUESTING F/U FOR BACK/NECK PAINReason for VisitCervical muscle pain Cervical spine arthritis Other chronic pain Other spondylosis with radiculopathy, lumbar region Cervical muscle pain Cervical spine arthritis Other chronic pain Chief Complaint BACK PAIN Reason for Visit Other chronic pain Other low back pain Other spondylosis with radiculopathy, lumbar region Chief Complaint BACK PAIN Back Pain Back PainReason for VisitOther chronic pain Other low back pain Other spondylosis with radiculopathy, lumbar region Chief Complaint BACK PAIN Back Pain Back Pain F/U LUMBAR EPIDURAL STEROID INJ G89.29 - Other chronic pain M54.59 - Other low bacReason for VisitOther chronic pain Other low back pain Other spondylosis with radiculopathy, lumbar region Other chronic pain Other low back pain Other spondylosis with radiculopathy, lumbar region Rib pain Chief Complaint Admit Date BACK PAIN July 04, 2024 10 :48am Back Pain July 17, 2024 8 :43am Back Pain July 17, 2024 9 :57am F/U LUMBAR EPIDURAL STEROID INJ August 01, 2024 10:34am G89.29 M54.59 August 01, 2024 1 1:02am *PLAVIX* RIGHT INTERCOSTAL NERVE BLOCK T 11 T12/CJ August 15, 2024 2:40pm Reason for Visit Admit Date Other chronic pain July 04, 2024 10 :48am Other low back pain July 04, 2024 10 :48am Other spondylosis with radiculopathy, [place]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 July 04, 2024 10:48am Other chronic pain August 01, 2024 1 0:34am Other low back pain August 01, 2024 1 0:34am Other spondylosis with radiculopathy, [place]idelina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 August 01, 2024 10:34am Rib pain August 01, 2024 1 0:34am Chief Complaint Admit Date BACK PAIN December 12, 2024 10: 28am Reason for Visit Admit Date Other chronic pain December 12, 2024 10: 28am Other low back pain December 12, 2024 10: 28am Other [facility] December 12, 2024 10:28am Rib pain December 12, 2024 10: 28am Chief Complaint Admit Date BACK PAIN December 12, 2024 10: 28am Back Pain January 01, 2025 9:16 am Back Pain January 01, 2025 10:1 7am Chief Complaint Admit Date BACK PAIN December 12, 2024 10: 28am Back Pain January 01, 2025 9:16 am Back Pain January 01, 2025 10:1 7am F/U LUMBAR EPIDURAL January 10, 2025 10: 08am *CONT PLAVIX* LEFT LUMBAR FACET MBB L4 L 5/CJ January 23, 2025 12:15pm Reason for Visit Admit Date Other chronic pain December 12, 2024 10: 28am Other low back pain December 12, 2024 10: 28am Other spondylosis with [facility] December 12, 2024 10:28am Rib pain December 12, 2024 10: 28am Other chronic pain January 10, 2025 10: 08am Rib pain January 10, 2025 10: 08am Spondylosis without myelopat hy or radiculopathy, lumbosacral region January 10, 2025 10:08am Chief Complaint Admit Date BACK PAIN December 12, 2024 10: 28am Back Pain January 01, 2025 9:16 am Back Pain January 01, 2025 10:1 7am F/U LUMBAR EPIDURAL January 10, 2025 10: 08am *CONT PLAVIX* LEFT LUMBAR FACET MBB L4 L 5/CJ January 23, 2025 12:15pm F/U 1ST LT LUMB MBB January 31, 2025 10:46a m Reason for Visit Admit Date Other chronic pain December 12, 2024 10: 28am Other low back pain December 12, 2024 10: 28am Other spondylosis with radiculopathy, [place]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 December 12, 2024 10:28am Rib pain December 12, 2024 10: 28am Other chronic pain January 10, 2025 10: 08am Rib pain January 10, 2025 10: 08am Spondylosis without myelopat hy or radiculopathy, lumbosacral region January 10, 2025 10:08am Other chronic pain January 31, 2025 10:46a m Rib pain January 31, 2025 10:46a m Spondylosis without myelopat hy or radiculopathy, lumbosacral region January 31, 2025 10:46am Chief Complaint Admit Date BACK PAIN December 12, 2024 10: 28am Back Pain January 01, 2025 9:16 am Back Pain January 01, 2025 10:1 7am F/U LUMBAR EPIDURAL January 10, 2025 10: 08am *CONT PLAVIX* LEFT LUMBAR FACET MBB L4 L 5/CJ January 23, 2025 12:15pm F/U 1ST LT LUMB MBB January 31, 2025 10:46a m LEFT LUMBAR FACET MBB L4 L5/CJ January 12:23pm Chief Complaint Admit Date BACK PAIN December 12, 2024 10: 28am Back Pain January 01, 2025 9:16 am Back Pain January 01, 2025 10:1 7am F/U LUMBAR EPIDURAL January 10, 2025 10: 08am *CONT PLAVIX* LEFT LUMBAR FACET MBB L4 L 5/CJ January 23, 2025 12:15pm F/U 1ST LT LUMB MBB January 31, 2025 10:46a m LEFT LUMBAR FACET MBB L4 L5/CJ January 12:23pm F/U 2ND LT LUMB MBB February 21, 2025 9:31a m Reason for Visit Admit Date Other chronic pain December 12, 2024 10: 28am Other low back pain December 12, 2024 10: 28am Other spondylosis with radiculopathy, [place]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 December 12, 2024 10:28am Rib pain December 12, 2024 10: 28am Other chronic pain January 10, 2025 10: 08am Rib pain January 10, 2025 10: 08am Spondylosis without myelopat hy or radiculopathy, lumbosacral region January 10, 2025 10:08am Other chronic pain January 31, 2025 10:46a m Rib pain January 31, 2025 10:46a m Spondylosis without myelopat hy or radiculopathy, lumbosacral region January 31, 2025 10:46am Other chronic pain February 21, 2025 9:31a m Rib pain February 21, 2025 9:31a m Spondylosis without myelopat hy or radiculopathy, lumbosacral region February 21, 2025 9:31am Chief Complaint Admit Date BACK PAIN December 12, 2024 10: 28am Back Pain January 01, 2025 9:16 am Back Pain January 01, 2025 10:1 7am F/U LUMBAR EPIDURAL January 10, 2025 10: 08am *CONT PLAVIX* LEFT LUMBAR FACET MBB L4 L 5/CJ January 23, 2025 12:15pm F/U 1ST LT LUMB MBB January 31, 2025 10:46a m LEFT LUMBAR FACET MBB L4 L5/CJ January 12:23pm F/U 2ND LT LUMB MBB February 21, 2025 9:31a m *CONT PLAVIX* LEFT LUMBAR RFA L4 L5/DS J une 2024 11:59am Chief Complaint Admit Date Back Pain January 01, 2025 9:16 am Back Pain January 01, 2025 10:1 7am F/U LUMBAR EPIDURAL January 10, 2025 10: 08am *CONT PLAVIX* LEFT LUMBAR FACET MBB L4 L 5/CJ January 23, 2025 12:15pm F/U 1ST LT LUMB MBB January 31, 2025 10:46a m LEFT LUMBAR FACET MBB L4 L5/CJ January 12:23pm F/U 2ND LT LUMB MBB February 21, 2025 9:31a m *CONT PLAVIX* LEFT LUMBAR RFA L4 L5/DS J une 2024 11:59am F.U LEFT LUMBAR RFA March 25, 2025 9:47 am Reason for Visit Admit Date Other chronic pain January 10, 2025 10: 08am Rib pain January 10, 2025 10: 08am Spondylosis without myelopat hy or radiculopathy, lumbosacral region January 10, 2025 10:08am Other chronic pain January 31, 2025 10:46a m Rib pain January 31, 2025 10:46a m Spondylosis without myelopat hy or radiculopathy, lumbosacral region January 31, 2025 10:46am Other chronic pain February 21, 2025 9:31a m Rib pain February 21, 2025 9:31a m Spondylosis without myelopat hy or radiculopathy, lumbosacral region February 21, 2025 9:31am Other chronic pain March 25, 2025 9:47 am Rib pain March 25, 2025 9:47 am Spondylosis without myelopat hy or radiculopathy, lumbosacral region March 25, 2025 9:47am Reason for Referral SpecialtyDiagnoses / ProceduresReferred By ContactReferred To Contact Diagnoses Pre-operative cardiovascular examination Procedures ECG 12 Lead Jd Moreira MD [address] [place] [address] Referral IDStatusReasonStart DateExpiration DateVisits RequestedVisits [id number] Additional Source Comments (unrecognized sect ion and content) No Status Records FoundNo Status Records FoundNo Status Records FoundNo Status Records FoundNo Status Records FoundNo Status Records FoundNo Status Records FoundNo Status Records FoundNo Status Records FoundNo Status Records FoundNo Status Records FoundNo Status Records FoundNo Status Records FoundNo Status Records FoundNo Status Records FoundNo Status Records FoundNo Status Records FoundNo Status Records FoundNo Status Records FoundNo Status Records FoundNo Status Records FoundNo Status Records Found INFORMATION SOURCE (unrecogn ized section and content) DATE CREATED AUTHOR 05/29/2018 [facility] DATE CREATED AUTHOR AUTHOR'S ORGANIZ ATION 09/05/2018 [facility] DATE CREATED AUTHOR AUTHOR'S ORGANIZ ATION 04/04/2021 [facility] DATE CREATED AUTHOR AUTHOR'S ORGANIZ ATION 02/14/2024 [facility] DATE CREATED AUTHOR AUTHOR'S ORGANIZ ATION 02/28/2024 [facility] DATE CREATED AUTHOR AUTHOR'S ORGANIZ ATION 03/02/2024 [facility] DATE CREATED AUTHOR AUTHOR'S ORGANIZ ATION 03/13/2024 [facility] DATE CREATED AUTHOR AUTHOR'S ORGANIZ ATION 03/15/2024 [facility] DATE CREATED AUTHOR AUTHOR'S ORGANIZ ATION 05/10/2024 [facility] DATE CREATED AUTHOR AUTHOR'S ORGANIZ ATION 12/02/2024 [facility] DATE CREATED AUTHOR AUTHOR'S ORGANIZ ATION 12/15/2024 [facility] DATE CREATED AUTHOR AUTHOR'S ORGANIZ ATION 12/16/2024 [facility] DATE CREATED AUTHOR AUTHOR'S ORGANIZ ATION 01/12/2025 [facility] DATE CREATED AUTHOR AUTHOR'S ORGANIZ ATION 02/19/2025 [facility] DATE CREATED AUTHOR AUTHOR'S ORGANIZ ATION 04/08/2025 [facility] DATE CREATED AUTHOR AUTHOR'S ORGANIZ ATION 04/16/2025 [facility] [facility] DATE CREATED AUTHOR AUTHOR'S ORGANIZ ATION 06/04/2025 [facility] DATE CREATED AUTHOR AUTHOR'S ORGANIZ ATION 06/12/2025 [facility] DATE CREATED AUTHOR AUTHOR'S ORGANIZ ATION 06/19/2025 [facility] DATE CREATED AUTHOR AUTHOR'S ORGANIZ ATION 06/21/2025 [facility] DATE CREATED AUTHOR AUTHOR'S ORGANIZ ATION 07/24/2025 [facility] DATE CREATED AUTHOR AUTHOR'S ORGANIZ ATION 07/25/2025 [facility] REASON FOR VISIT (unrecogniz ed section and content) ReasonCommentsEstablish CarePre-op ClearanceBladder tumor- watersSpecialty Diagnoses / ProceduresReferred By ContactReferred To Contact Diagnoses Pre-operative cardiovascular examination Procedures ECG 12 Lead Jd Moreira MD [address] [place] [address], [address] [address] Referral IDStatusReasonStart DateExpiration DateVisits RequestedVisits [id number] Request [facility]ReasonCommentsNewNeed to establishSpecialtyDiagnoses / Procedures Referred By ContactReferred To ContactOrthopedics / ORTHOPAEDIC SURGERY Diagnoses Right hip pain right hip [facility]- [facility] Initial DOI is 04/11/1977 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 *ok per Jyoti* Procedures OFFICE/OUTPATIENT NEW HIGH MDM 60 MINUTES [facility]/SPORTS Pcp, No, Gaurang Tripp MD [address] [id number] Referral IDStatusReasonStart DateExpiration DateVisits RequestedVisits [id number] Foot CareDm nail careReasonCommentsDM Foot CareDm nail careReasonCommentsToenail CareNon dm catrachito lcareReasonCommentsToenail IdfoacmTcxxjoDjxgfxcqWdybzr-ljMx-dfwgpifvjjxs after 1 year for Chest painReasonCommentsToenail CareReasonCommentsDM Foot CareReason CommentsFollow-up4 month HTN (hypertension)SpecialtyDiagnoses / Procedures Referred By ContactReferred To ContactCardiology Diagnoses Primary hypertension Procedures Follow Up In Cardiology Jd Moreira MD [address] [address], [address] [address] Phone: tel: fax: Jd Moreira MD [address] [place] [address], [address] [address] Phone: tel: fax: Referral IDStatusReasonStart DateExpiration DateVisits RequestedVisits [id number]/26/20256/26/202611 Care Teams (unrecognized sec tion and content) Team Status: Active Member Role Status Darío Lund DO Primary Care Provider Active Team Status: Inactive Member Role Status Darío Lund DO Primary Care Provider Active Bigg Shaikh ProviderActive Team Status: Inactive Member Role Status Darío Lund DO Primary Care Provider Active Meredith Pastor ProviderActive Team Status: Inactive Member Role Status Darío Lund DO Primary Care Provider Active Meredith Gaxiola ProviderActive Team Status: Inactive Member Role Status Darío Lund DO Primary Care Provider Active Graham Cotton ProviderActiveTeam MemberRelationshipSpecialtyStart DateEnd Date Eh Lund DO [address] [place] [address] [facility]12/09/23 Team Status: Inactive Member Role Status Darío Lund DO Primary Care Provider Active Start: September 18, 2023 End: September 18, 2023Graham Cotton ProviderActiveStart: September 18, 2023 End: September 18, 2023 Team Status: Inactive Member Role Status Darío Lund DO Primary Care Provider Active Start: September 21, 2023 End: September 21, 2023Meredith Thompson ProviderActiveStart: September 21, 2023 End: September 21, 2023 Team Status: Inactive Member Role Status Darío Lund DO Primary Care Provide r, Attending Provider Active Start: November 29, 2023 End: November 29, 2023 Team Status: Inactive Member Role Status Darío Lund DO Primary Care Provider Active Start: December 06, 2023 End: December 05Meredith Diane ProviderActiveStart: December 06, 2023 End: December 06, 2023 Team Status: Inactive Member Role Status Darío Lund DO Primary Care Provider Active Start: December 12, 2023 End: December 11omas Yamileth MDAttending ProviderActiveStart: December 12, 2023 End: December 12, 2023 Team Status: Inactive Member Role Status Dates Eh Lund DO Primary Care Provider Active Start: December 20, 2023 End: December 19atricalebrtina Gill DENEENttending ProviderActiveStart: December 20, 2023 End: December 20, 2023 Team Status: Inactive Member Role Status Dates Eh Lund DO Primary Care Provider Active Start: January 10, 2024 End: January 09omas FeltDENEEN barnettttending ProviderActiveStart: January 10, 2024 End: January 10, 2024 Team Status: Inactive Member Role Status Darío Lund DO Primary Care Provider Active Start: July 04, 2024 End: July 04omas Feltericka , MDAttending ProviderActiveStart: July 04, 2024 End: July 04, 2024 Team Status: Inactive Member Role Status Darío Lund DO Primary Care Provider Active Start: July 17, 2024 End: July 17omas DENEEN Carsonttending ProviderActiveStart: July 17, 2024 End: July 17, 2024 Team Status: Active Member Role Status Darío Lund DO Primary Care Provider Active Start: July 17, 2024 Jordin Meredith Carson Provider, Other ProviderActiveStart: July 17, 2024 Team Status: Inactive Member Role Status Darío Lund DO Primary Care Provider Active Start: August 01, 2024 End: August 01omas DENEEN Carsonttending ProviderActiveStart: August 01, 2024 End: August 01, 2024 Team Status: Active Member Role Status Darío Lund DO Primary Care Provider Active Start: August 01, 2024 Jordin Karen Carsonending ProviderActiveStart: August 01, 2024 Team Status: Inactive Member Role Status Darío Lund DO Primary Care Provider Active Start: August 15, 2024 End: August 15omas Feltericka , MDAttending ProviderActiveStart: August 15, 2024 End: August 15, 2024Team MemberRelationshipSpecialtyStart DateEnd Eh Morton MD [address] [facility] [place] [place] [address] PCP - GeneralFamily Medicine02/28/23Team MemberRelationshipSpecialtyStart DateEnd Eh Lund MD [address] [facility] [place] [address] PCP - GeneralFamily Medicine02/28/23Team MemberRelationshipSpecialtyStart DateEnd Eh Lund MD [address] [place] [address] PCP - GeneralFamily Medicine02/28/23Team MemberRelationshipSpecialtyStart DateEnd Eh Lund MD [address] [place] [address] PCP - Generalmily Medicine02/28/23Team MemberRelationshipSpecialtyStart DateEnd Eh Lund MD [address] [place] [address] PCP - GeneralFamily Medicine02/28/23 Team Status: Inactive Member Role Status Dates Eh Lund DO Primary Care Provider Active Start: December 12, 2024 End: December 12, 2024ThMeredith Robles ProviderActiveStart: December 12, 2024 End: December 12, 2024 Team Status: Inactive Member Role Status Dates Eh Lund DO Primary Care Provider Active Start: January 01, 2025 End: January 01, 2025ThMeredith Robles ProviderActiveStart: January 01, 2025 End: January 01, 2025 Team Status: Active Member Role Status Dates Eh Lund DO Primary Care Provider Active Start: January 01, 2025 Meredith Thompson Provider, Other ProviderActiveStart: January 01, 2025 Team MemberRelationshipSpecialtyStart DateEnd Date Eh Lund MD [address] [place] [address] [facility]02/28/23 Team Status: Inactive Member Role Status Dates Eh Lund DO Primary Care Provider Active Start: January 10, 2025 End: January 10omas DENEEN Carsonttending ProviderActiveStart: January 10, 2025 End: January 10, 2025 Team Status: Inactive Member Role Status Dates Eh Lund DO Primary Care Provider Active Start: January 23, 2025 End: January 23omas DENEEN Carsonttending ProviderActiveStart: January 23, 2025 End: January 23, 2025Team MemberRelationshipSpecialtyStart DateEnd Date Eh Lund MD [address] [place] [address] [facility]02/28/23 Team Status: Active Member Role Status Dates Eh Lund DO Primary Care Provider Active Start: January 23, 2025 Karen Thompsonending ProviderActiveStart: January 23, 2025 Team Status: Inactive Member Role Status Darío Lund DO Primary Care Provider Active Start: January 31, 2025 End: January 31omas DENEEN Carsonttending ProviderActiveStart: January 31, 2025 End: January 31, 2025 Team Status: Inactive Member Role Status Darío Lund DO Primary Care Provider Active Start: February 13, 2025 End: February 13omas DENEEN Carsonttending ProviderActiveStart: February 13, 2025 End: February 13, 2025 Team Status: Active Member Role Status Darío Lund DO Primary Care Provider Active Start: February 13, 2025 Jordin Carson MDAttending ProviderActiveStart: February 13, 2025 Team Status: Inactive Member Role Status Darío Lund DO Primary Care Provider Active Start: February 21, 2025 End: February 21omas Meredith Carson ProviderActiveStart: February 21, 2025 End: February 21, 2025 Team Status: Inactive Member Role Status Dates Eh Lund DO Primary Care Provider Active Start: March 04, 2025 End: March 04, 2025ThMeredith Robles ProviderActiveStart: March 04, 2025 End: March 04, 2025Team MemberRelationshipSpecialtyStart [place] [address] [place] [address] [facility]23 Team Status: Active Member Role Status Dates Eh Lund DO Primary Care Provider Active Start: January 01, 2025 Meredith Thompson ProviderActiveStart: January 01, 2025 Ramone Thompson ProviderActiveStart: January 01, 2025 Team Status: Active Member Role Status Dates Eh Lund DO Primary Care Provider Active Start: March 04, 2025 Meredith Thompson ProviderActiveStart: March 04, 2025 Team Status: Inactive Member Role Status Dates Eh Lund DO Primary Care Provider Active Start: March 25, 2025 End: March 25, 2025ThMeredith Robles ProviderActiveStart: March 25, 2025 End: March 25, 2025Team MemberRelationshipSpecialtyStart DateEnd Date Eh Lund MD [address] [place] [address] [facility]02/28/23Team MemberRelationshipSpecialtyStart DateEnd Date Eh Lund DO [address] [place] [address] PCP - Generalmily Medicine12/09/23Team MemberRelationshipSpecialtyStart DateEnd Date Eh Lund DO [address] [place] [address] PCP - GeneralFamily Medicine12/09/23Team MemberRelationshipSpecialtyStart DateEnd Date Eh Lund DO [address] [place] [address] PCP - Generalmily Medicine12/09/23Team MemberRelationshipSpecialtyStart DateEnd Date Eh Lund MD [address] [place] [address] PCP - GeneralFamily Medicine02/28/23Team MemberRelationshipSpecialtyStart DateEnd Date Eh Lund DO [address] [place] [address] PCP - [facility]12/09/23 Goals (unrecognized section and content) Goals may be documented in a n alternate section Source Comments (unrecognize d section and content) In the event this informatio n is protected by the Federal Confidentiality of Alcohol and Drug Abuse Patient Records regulations: The Federal rules restrict any use of the information to criminally investigate or prosecute any alcohol or drug abuse patient.[facility] InstituteIn the event this information is protected by the Federal Confidentiality of Alcohol and Drug Abuse Patient Records regulations: The Federal rules restrict any use of the information to criminally investigate or prosecute any alcohol or drug abuse patient.[facility] InstituteIn the event this information is protected by the Federal Confidentiality of Alcohol and Drug Abuse Patient Records regulations: The Federal rules restrict any use of the information to criminally investigate or prosecute any alcohol or drug abuse patient.[facility] InstituteIn the event this information is protected by the Federal Confidentiality of Alcohol and Drug Abuse Patient Records regulations: The Federal rules restrict any use of the information to criminally investigate or prosecute any alcohol or drug abuse patient.[facility] InstituteIn the event this information is protected by the Federal Confidentiality of Alcohol and Drug Abuse Patient Records regulations: The Federal rules restrict any use of the information to criminally investigate or prosecute any alcohol or drug abuse patient.[facility] FOR RECORDS PERTAINING TO PATIENTS WHO ARE OR HAVE BEEN ENROLLED IN A CHEMICAL DEPENDENCY/SUBSTANCEABUSE PROGRAM, SOME INFORMATION MAY BE OMITTED. This clinical summary was aggregated from multiple sources. Caution should be exercised in using it in the provision of clinical care. This summary normalizes information from multiple sources, and as a consequence, information in this document may materially change the coding, format and clinical context of patient data. In addition, data may be omitted in some cases. CLINICAL DECISIONS SHOULD BE BASED ON THE PRIMARY CLINICAL RECORDS. [facility] [employer] [facility]. provides no warranty or guarantee of the accuracy or completeness of information in this document.
[2025-08-20 09:17] LABS: INR 1.02; Partial Thromboplastin Time 27.9 sec (22.3-36.2); Prothrombin Time 10.8 sec (9.0-11.6)
== END 2025-08-20 08:04 | disposition home or self-care (01) ==
LOC: PST 08:08
PROVIDERS: Visit Provider Urology
DX: Z01.812 Encounter for preprocedural laboratory examination (principal); Z01.810 Encounter for preprocedural cardiovascular examination; N20.0 Calculus of kidney
CPT/HCPCS: 36415; 71046; 85610; 85730

== ENCOUNTER 2025-08-29 07:06 | Day surgery (SDC) | payer MEDICARE, OTHER, SELFPAY ==
[2025-08-20 08:47] VITALS: BP 149/65; PULSE 56; TEMP 36.5; O2SAT 99; BMI 24.8
--- OUTSIDE RECORDS SUMMARY | 2025-08-26 11:40 | XMS_ITS | Encounter Summary ---
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 Name Role Phone Rik Lund MD Primary Care Provider Reason for Visit * ReasonCommentsDM Foot Care Encounter Details DateTypeDepartmentCare Team (Latest Contact Info)Xputngepslt78/01/2025 11:40 AM ESTOffice Visit ILDEFONSO [facility] [address] [place] [address] Dago Staton, DPVickie [address] [address] Other polyneuropathy (Primary Dx); Pain due to onychomycosis of toenails of both feet; Right foot drop Social History Tobacco UseTypesPacks/DayYears UsedDateSmoking Tobacco: FormerCigarettes Smokeless Tobacco: Never Tobacco Cessation:Counseling Given: Yes Alcohol UseStandard Drinks/WeekCommentsNever0 (1 standard drink = 0.6 oz pure alcohol)caffeine intake: 1-2 cups per daySex and Gender InformationValueDate RecordedSex Assigned at BirthNot on fileLegal YowOgst9812/08/2022 8:13 PM EDT Gender IdentityNot on fileSexual OrientationNot on filedocumented as of this encounter Last Filed Vital Signs Vital SignReadingTime TakenCommentsBlood Pressure--Pulse--Temperature-- Respiratory Nvcp272210/27/2024 11:49 AM ESTOxygen Saturation--Inhaled Oxygen Concentration--Jlcywy15.3 kg (177 lb)08/26/2025 11:49 AM AEVNkmakm949.3 cm (5' 11 )08/26/2025 11:49 AM ESTBody Mass Index24.6908/26/2025 11:49 AM ESTdocumented in this encounter Progress Notes * Dago Staton, DPM - 08/26/2025 11:40 AM EST Patient: Hector Hernandez : 1935 PCP: Rik Lund MD SUBJECTIVE Patient presents today with [...] and thickness digits 1 through 10 Dago Staton DPM documented in this encounter Plan of Treatment DateTypeDepartmentCare Team (Latest Contact Info)Prdezrglepv62/09/2026 11:40 AM ESTOffice Visit [facility] [address] [place] [address] Dago Staton DPM [address] [address] documented as of this encounter Visit Diagnoses Diagnosis Other polyneuropathy- Primary Pain due to onychomycosis of toenails of both feet 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
[2025-08-29] VITALS (14 sets, daily range): BP systolic 134–174; BP diastolic 67–98; PULSE 57–94; TEMP 36.3–36.5; O2SAT 93–99; BMI 24.6
--- OUTSIDE RECORDS SUMMARY | 2025-08-29 07:12 | XMS_ITS | CCD ---
Author Organization [facility] Care Team Providers Care Oven Roaster Name Role Phone ROCIO, RICARDO H Unavailable Unavailable ROCIO, RICARDO H Unavailable Unavailable ROSCOE BARONE V Unavailable Unavailable ROCIO, RICARDO H Unavailable Unavailable Jordin Carson Unavailable DO Eh Lund Primary Care Provider MD Simon English Emergency Provider MD Juan Gill Attending Provider DO Eh Lund Primary Care Provider MD Juan Gill Attending Provider [phone] MD Dominik Fenton Attending Provider DO Eh Lund Primary Care Provider DO John Haq Emergency Provider Kevon Eh HANDLEY [place] Primary Care Provider DO Eh Lund Primary Care Provider DO John Haq Emergency Provider MD Jordin Carson Attending Provider DO Eh Lund Attending Provider MD Juan Gill Attending Provider DO Eh Lund Primary Care Provider [phone] DO Eh Lund Primary Care Provider [phone] EVA RASCON Attending Unavailable EVA RASCON Attending Unavailable EVA RASCON Admitting Unavailable Juan GILL Attending Unavailable Juan GILL Admitting Unavailable Juan GILL Attending Unavailable Unavailable Primary Care Provider Unavailabl e Juan GILL Attending Unavailable GILL, Juan R Admitting Unavailable GILL, Juan R Attending Unavailable KevonDO [facility] Provider [phone] MD Jordin Carson Attending Provider [phone] DO Kevon [facility] Provider MD Jordin Carson Attending Provider [phone] Kevon HANDLEY [facility] Provider [phone] Jordin Carson MD Attending Provider Eh Lund MD Primary Care Provider GILL, Juan R Attending Unavailable GILL, Juan R Attending Unavailable GILL, Juan R Admitting Unavailable GILL, Juan R Attending Unavailable GILL, Juan R Attending Unavailable GILL, Juan R Attending Unavailable GILL, Juan R Attending Unavailable GILL, Juan R Admitting Unavailable Kevon , [facility] Provider Jordin Carson MD Attending Provider GILL, Juan R Attending Unavailable GILL, Juan R Attending Unavailable GILL, Juan R Attending Unavailable GILL, Juan R Admitting Unavailable Yamileth, Jordin Attending Unavailable [facility] Unavailable Yamileth, Jordin Admitting Unavailable Yamileth, Jordin Attending Unavailable [facility] Unavailable Jordin Carson Admitting Unavailable Olexa, Jordin Admitting Unavailable Olexa, Jordin Attending Unavailable [facility] Unavailable Yamileth, Jordin Attending Unavailable [facility] Unavailable Yamileth, Jordin Admitting Unavailable [place] DO [facility] Provider Jordin Carson MD Other Provider JD MOREIRA Referring Unavailable [facility] Unavailabl e JD MOREIRA Referring Unavailable [facility] Unavailabl e DAGO BRITO Attending Unavailable DAGO [...] OnsetReaction(s) FacilityQuinolones (antibiotic) (1 source)Ciprofloxacin; Translations: [ciprofloxacin]Drug [facility]ergySum[facility] RepositorySulfamethoxazole / Trimethoprim (1 source)Sulfamethoxazole / Trimethoprim; Translations: [Bactrim]Drug Allergy [facility] RepositorySulfonamides (antibiotic) (1 source)Sulfamethoxazole; Translations: [sulfamethoxazole]Drug AllergySum[facility] Rep[facility] (20 sources)Ciprofloxacin; Translations: [ciprofloxacin]Drug Gtgvsds32-02-1537DY intolerance, Other, IntolerancePremier Health [facility] (20 sources)Sulfamethoxazole / TrimethoprimDrug Qbgwuts06-59-8816wbrmNmlvdACAL Energy Other (10 sources)Sulfonamides (Antibiotic)Propensity to adverse reactionsmountain view regional medical centerZillow Other (20 sources)Sulfamethoxazole; Translations: [sulfamethoxazole]Drug Allergy 30-39-2595CdqywNighllssdOhioHealth Dublin Methodist Hospital (20 sources)Sulfonamides (Antibiotic); Translations: [Sulfa (Sulfonamide Antibiotics)]Allergy to dbkjlppuj17-86-2382Swpao, [facility] (20 sources)Trimethoprim; Translations: [trimethoprim]Drug Ieirzcu01-16-2151AffuMercy Health [facility] (6 sources)Sulfamethoxazole / Trimethoprim; Translations: [Bactrim]Drug Allergy [facility] Repository (20 sources)Sulfonamides (Antibiotic)Drug Hsauxtuuchi62-47-8471FsusShriners Hospitals for Children (1 source)CiprofloxacinDrug Ldwkeof78-02-2024OrvvdgejePremier Health [facility] Repository (3 sources)Sulfamethoxazole / Trimethoprim; Translations: [SULFAMETHOXAZOLE-TRIMETHOPRIM]Drug Mhpowuv49-43-4643[facility] Medications Current Medications MedicationDrug Class(es)DatesSig (Normalized)Sig (Original)acetaminophen 500 mg oral tablet (20 sources)Start: 60-32-9918cqhl 1 tablet by mouth every six hours as needed for painStart: 07-13-2018 End: 15-36-9727erss 1 tablet by mouth every four to [...] 5 mg oral tablet (9 sources)Opioid AgonistStart: 01-72-3574sbeb 1 tablet by mouth twice daily as [...] sources)Platelet Aggregation Inhibitor, Nonsteroidal Anti-inflammatory Drug Start: 64-67-8167Ospte: 53-96-3108KKNCBVW 81 MG TAB Take one(1) tablet daily. 0 12/13/2006 Active End: 27-05-6700LTPDLJK 81 MG chewable tablet 1 (one) time each day at the same time Activeatorvastatin 40 mg oral tablet (20 sources)HMG-CoA Reductase InhibitorStart: 04-26-6873tsjv 1 tablet by mouth once dailyatorvastatin (Lipitor) 40 mg tablet Take 1 tablet (40 mg) by mouth once daily. 01/16/2023 Activecefuroxime 250 mg oral tablet (12 sources)Cephalosporin AntibacterialStart: 97-19-3356xwxd 1 tablet by mouth in the morningcefuroxime (Ceftin) 250 MG tablet Take 250 mg by mouth in the morning and 250 mg before bedtime. 06/15/2023 Activecephalexin 500 mg oral capsule (20 sources)Cephalosporin AntibacterialStart: 01-28-2025 End: 08-52-7634cqrg 1 capsule by mouth in the morningcephalexin (Keflex) 500 MG capsule Indications: Skin and Skin Structure Infection Take 1 capsule (500 mg) by mouth in the morning and 1 capsule (500 mg) before bedtime. Do all this for 10 days. 20 capsule 01/28/2025 02/07/2025 ActiveStart: 12-14-2022 End: 35-37-9142wfhp 1 capsule by mouth twice dailyCephalexin 500 mg capsule Discontinued 500 MG PO Twice daily 14 December 14, 2022 12:00am January 13, 2023 2:48pmclopidogrel 75 mg oral tablet (20 sources)P2Y12 Platelet InhibitorStart: 03-51-3828ktovsfkuurh (Plavix) 75 mg tablet Take 1 tablet (75 mg) by mouth. 12/13/2006 Activecyclobenzaprine hydrochloride 10 mg oral tablet (3 sources)Muscle RelaxantStart: 72-99-6551apjj 1 tablet by mouth twice daily as neededCyclobenzaprine HCl 10 MG 1 tablet as needed Orally up to twice daily as needed for 7 days Jul, Activedoxycycline hyclate 100 mg oral capsule (20 sources)Tetracycline-class DrugStart: 38-67-8960czfqidaavlf (Vibramycin) 100 MG capsule 06/23/2023 Activefolic acid 0.4 mg oral tablet (20 sources)Start: 05-45-8951fqxv 1 tablet by mouth once daily in the morning Start: 62-32-5115QDVKE ACID 1 MG TAB Take one(1) tablet daily. 0 10/16/2009 Active End: 89-37-6889PCGML ACID ORAL Take by mouth. 06/21/2024 Discontinued (Duplicate Entry)FOLIC ACID ORAL Take by mouth. 0 Activetake 1 tablet by mouth every twenty-four hoursFolic Acid 400 MCG 1 tablet Orally Once a day Activetake 1 tablet by mouth once dailyFolic Acid 400 MCG 1 tablet Orally Once a day Active Lisinopril (20 sources)Angiotensin Converting Enzyme InhibitorStart: 31-92-7894lxza 1 tablet by mouth once dailylisinopril Active 1 TAB PO Daily July 16, 2024 11:00pmStart: 44-01-4030tzgh 1 tablet by mouth once dailylisinopril Active 1 TAB PO Daily July 17, 2024 12:00amStart: 07-13-2018 End: 22-01-7293fpjjhnlgzx 10 MG tablet 02/20/2023 Activetake 1 tablet [...] ActivemethylPREDNISolone 4 mg oral tablet (3 sources)CorticosteroidStart: 43-57-9951Iriiam 4 MG as directed Orally Jul, ActiveMultiple Vitamins-Minerals (Ocuvite Adult 50+) capsule (9 sources)Multiple Vitamins-Minerals (Ocuvite Adult 50+) capsule Orally Active yq-kn-it6-ouk-ttz-yssg-lut-julia (Ocuvite Adult 50 Plus) 250 mg (90 mg-160 mg) capsule (8 sources)jo-uq-pf3-mni-lzd-rozn-lut-julia (Ocuvite Adult 50 Plus) 250 mg (90 mg- 160 mg) capsule Take by mouth.Kuaklyxe-co-rt5-see-uox-fpcn-lut-julia (Ocuvite Adult 50 Plus) 250 mg (90 mg-160 mg) capsule Take by mouth.0 Activetamsulosin hydrochloride 0.4 mg oral capsule (20 sources)alpha-Adrenergic BlockerStart: 21-49-3929pnjd 1 capsule by mouth every twenty-four hours in the morningtamsulosin (Flomax) 0.4 MG 24 hr capsule Take 0.4 mg by mouth in the morning. 02/22/2023 ActiveStart: 07-13-2018 End: 07-54-9277ywwd 1 capsule by mouth once dailytamsulosin (Flomax) 0.4 mg 24 hr capsule Take 1 capsule (0.4 mg) by mouth once daily. 02/22/2023 ActiveVit C- Vit E-Zbkbdm-Lug-Om-3 (Ocuvite) 837-34-3-150 fd-pdpg-ax-mg Capsule (20 sources)Start: 32-98-3544ighq 1 capsule by mouth twice dailyStart: 59-41-5980cuxa 1 capsule by mouth twice dailyVit C-Vit B-Dgmjlu-Hmm-Om-3 (Ocuvite) 665-90-8-150 ar-barw-oj-mg Capsule Active 1 CAP PO Twice daily July 12, 2018 11:00pmStart: 60-87-3685knsb 1 capsule by mouth twice dailyVit C-Vit C-Jhhnwu-Kyw-Om-3 (Ocuvite) 694-16-9-150 xr-fkmd-fr-mg Capsule Active 1 CAP PO Twice daily July 13, 2018 12:00amStart: 77-11-2769jcli 1 capsule by mouth once dailyVit C-Vit W-Btqyoj-Jtm-Om-3 (Ocuvite) 459-95-5-150 mr-ipbz-ai-mg Capsule Active 1 CAP PO Daily July 13, 2018 12:00amStart: 42-32-4617dllf 1 capsule by mouth once dailyVit C-Vit N-Jjvmah-Tbo-Om-3 (Ocuvite) 852-82-4-150 mf-vqcm-ow-mg Capsule Active 1 CAP PO Daily July 12, 2018 11:00pm Completed/Discontinued Medications MedicationDrug Class(es)DatesSig (Normalized)Sig (Original)acetaminophen 325 mg / HYDROcodone bitartrate 5 mg oral tablet (20 sources)Opioid AgonistStart: 01-27-2023 End: 04-94-0552knlc 1 tablet by mouth every six hours as needed for pain Hydrocodone-Acetaminophen 5-325 mg tablet Discontinued 1 TAB PO Q6H as needed for pain 28 January 27, 2023 December 06, 2023 3:54pmStart: 16-15-7329uats 1 tablet by mouth twice daily as neededHYDROcodone-Acetaminophen 5-325 MG 1 tablet as needed Orally up to two times daily as needed for 7 days Sep, Active Start: 11-21-2020 End: 25-55-8580vfnt 1 tablet by mouth every six hours as needed for pain Hydrocodone-Acetaminophen 5-325 mg tablet Discontinued 1 TAB PO Q6H as needed for pain 20 5 November 21, 2020 September 05, 2022 3:47zqesq021236 200 actuat albuterol 0.09 mg/actuat metered dose inhaler (17 sources)beta2-Adrenergic AgonistStart: 09-18-2023 End: 24-15-9840Amgtuucxx Sulfate (Ventolin Hfa) 90 mcg/actuation HFA aerosol inhaler Discontinued 1 INH INHALATIONEVERY 4-6 HOURS as needed for shortness of breath or wheezing 6.7 September 18, 2023 1:00am July 17, 2024 9:05am clindamycin 300 mg oral capsule (17 sources)Lincosamide AntibacterialStart: 09-18-2023 End: 02-20-5345mybd 1 capsule by mouth once dailyClindamycin Hcl 300 mg capsule Discontinued 300 MG PO Daily September 18, 2023 1:00am December 06, 2023 3:54pm fluticasone propionate 0.05 mg/actuat metered dose nasal spray (20 sources)CorticosteroidStart: 07-13-2018 End: 07-76-1932Ytsnhmknbdb Propionate 50 mcg/actuation [place],Suspension Discontinued 50 MCG INTRANASAL Every morning as needed for Allergic Symptoms July 13, 2018 12:00am September 05, 2022 3:08pmpredniSONE 50 mg oral tablet (20 sources)Start: 09-18-2023 End: 44-96-3563rlzm 1 tablet by mouth once dailyPrednisone 50 mg tablet Discontinued 50 MG PO Daily 5 5 September 18, 2023 1:00am December 06, 2023 3:54pmStart: 07-13-2018 End: 98-00-8865Kehpjbgjah 1 mg Tablet Discontinued 2 TAB PO As Directed July 13, 2018 12:00am July 25, 2018 8:21amStart: 07-13-2018 End: 19-40-6007Citicvzqfj Discontinued 2 TAB PO As Directed July 12, 2018 11:00pm July 25, 2018 7:21amregadenoson (Lexiscan) injection 0.4 mg (1 source)Start: 04-11-2025 End: .4 mg, intravenous, Once, On Shelli 04/11/25 at 1300, For 1 doseTc- 99m tetrofosmin (Myoview) injection 10 millicurie (1 source)Start: 04-11-2025 End: 12-23-016433 millicurie, intravenous, Once in imaging, Starting on [...] (16 sources)Central alpha-2 Adrenergic AgonistStart: 12-12-2023 End: 83-72-9958uuww 1 capsule by mouth twice daily as neededTizanidine 2 mg capsule Discontinued 2 MG PO Twice daily as needed for muscle spasticity December 12, 2023 12:00am July 17, 2024 9:05am Problems Active Problems Problem ClassificationProblemDateDocumented DateEpisodic/ChronicCancer of bladder (20 sources)Malignant tumor of urinary bladder; Translations: [Malignant neoplasm of bladder, unspecified]Onset: 057740-06-5038QuzfvctSitqudp obstructive pulmonary disease and bronchiectasis (20 sources)Chronic obstructive lung disease; Translations: [Chronic obstructive pulmonary disease, unspecified]Onset: 092896-38-7012NfipjwvUdwuuwr ulcer of skin (20 sources)Non-pressure chronic ulcer of other part of right foot with fat layer exposed; Translations: [Ulcerof other part of foot]Onset: 02-28-2023 38-29-9455CkntcujLopkehtgilu and hemorrhagic disorders (11 sources)Easy bruising; Translations: [Spontaneous ecchymoses]Onset: 130999-56-8324IteldifqGbyqfdfgri disorders (13 sources)Right bundle branch block; Translations: [Unspecified right bundle- branch block]Onset: 320801-72-8026VpniarzFohhrbst atherosclerosis and other heart disease (20 sources)Coronary arteriosclerosis; Translations: [Atherosclerotic heart disease of [place] coronary artery without angina pectoris]Onset: 02-28-2023 08-77-4104BwbtjbnCotbzpdkn of lipid metabolism (20 sources)Mixed hyperlipidemia; Translations: [Mixed hyperlipidemia]Onset: 090343-59-7159KstfnvgVeonziusdt disorders (20 sources)Gastroesophageal reflux disease; Translations: [Gastro-esophageal reflux disease without esophagitis]Onset: 323580-07-3326FfcntzxJtluutnjp hypertension (20 sources)Essential hypertension; Translations: [Essential (primary) hypertension]Onset: 192942-14-5607JjgvpnxYtczn valve disorders (5 sources)Aortic stenosis, non-rheumatic ; Translations: [Nonrheumatic aortic (valve) stenosis]Onset: 093962-26-7589AcosuawLeebj disorders and dislocations; trauma-related (20 sources)Derangement of right knee; Translations: [Unspecified internal derangement of right knee]Onset: 364246-07-1376JuwvjkeBnqg disorders (20 sources)Depressive disorder; Translations: [Depression]Onset: 02-28-2023 76-13-8074CtqxfuiIfjcndd (20 sources)Onychomycosis due to dermatophyte ; Translations: [Tinea unguium] Onset: 923345-73-7110CpxmovkpQtbjweichse chest pain (16 sources)Chest pain; Translations: [Chest pain, unspecified]Onset: 03-21-2025 04-80-3015YeblsowvOgckudnfpwuxnr (20 sources)Osteoarthritis of knee; Translations: [Unilateral primary osteoarthritis, left knee]Onset: 405538-68-6727GtduwefSkwcoqldwczk (20 sources)Idiopathic osteoporosis; Translations: [Other osteoporosis without current pathological fracture]Onset: 782531-21-4922HzgmnafNxllw circulatory disease (20 sources)Peripheral arterial occlusive disease; Translations: [Disorder of arteries and arterioles, unspecified]Onset: 496029-68-6886UnufbplAggvd connective tissue disease (5 sources)History of repair of hip joint; Translations: [Presence of unspecified artificial hip joint]Onset: 394498-37-5402PvbvzbzGahrc connective tissue disease (2 sources)History of revision of right total hip arthroplasty; Translations: [Presence of right artificial hip joint]41-08-8498UqrlhejVkuja connective tissue disease (8 sources)History of reverse prosthetic total arthroplasty of right shoulder; Translations: [Presence of right artificial shoulder joint]90-24-1222Dnhnuen Other connective tissue disease (1 source)Presence of right artificial shoulder joint; Translations: [Presence of right artificial shoulder joint]Onset: 31-01-8844DrqztoqFqaba connective tissue disease (1 source)Presence of right artificial hip joint; Translations: [History of revision of total replacement of right hip joint]Onset: 93-02-4110CydlszzPzkpl connective tissue disease (2 sources)Pain of toe of right foot; Translations: [Pain in right toe(s)] 16-44-0509SbbpcwpwTbkdt connective tissue disease (2 sources)Pain of toe of left foot; Translations: [Pain in left toe(s)] 16-01-6991YeagzbbhCtdyl connective tissue disease (2 sources)Pain of toes of bilateral feet; Translations: [Pain in right toe(s)] 82-78-4118KwjqhavsZmjwa injuries and conditions due to external causes (10 sources)At risk for falls ; Translations: [History of falling]EpisodicOther lower respiratory disease (17 sources)Cough; Translations: [Cough]32-80-5240OupfbwkwZeeio lower respiratory disease (15 sources)Rib pain; Translations: [Pleurodynia]70-36-5912XyowekjvOrlpi lower respiratory disease (20 sources)Pleurodynia; Translations: [Chest pain, unspecified]08-01-2024 EpisodicOther nervous system disorders (20 sources)Chronic pain; Translations: [Other chronic pain]21-83-2991Cfaprbh Other nervous system disorders (20 sources)Peripheral nerve disease ; Translations: [Polyneuropathy, unspecified]Onset: 859927-25-6639VvxfaebEokeb nervous system disorders (20 sources)Other chronic pain; Translations: [Other chronic pain]Onset: 07-23-2021 Resolved: 35-36-3332SkvifudPuarq nervous system disorders (14 sources)Polyneuropathy; Translations: [Other specified polyneuropathies] 29-18-2431RqcqyegRvlvy nervous system disorders (20 sources)Acute postoperative pain; Translations: [Other acute postprocedural pain]69-88-4251MqgjwnwbKqlzt non-traumatic joint disorders (10 sources)Knee pain; Translations: [Pain in right knee]EpisodicOther nutritional; endocrine; and metabolic disorders (10 sources)Body mass index 25-29 - overweight; Translations: [Body mass index (BMI) 28.0-28.9, adult]EpisodicOther nutritional; endocrine; and metabolic disorders (1 source)Overweight in adulthood with body mass index of 25 or more but less than 30; Translations: [Body mass index (BMI) 25.0-25.9, adult]Onset: 12-09-2023 92-21-8855SfpkspbuXhmyg screening for suspected conditions (not mental disorders or infectious disease) (13 sources)Electrocardiogram abnormal; Translations: [Abnormal electrocardiogram [ECG] [EKG]]Onset: 763011-04-8715XokljgqbSycqca media and related conditions (20 sources)Chronic serous otitis media; Translations: [Chronic serous otitis media, unspecified ear]Onset: 142813-90-8883RuliyscOtrumdrq codes; unclassified (2 sources)Pain; Translations: [Pain, unspecified]55-62-6254TauqblttGhgwzqmn codes; unclassified (9 sources)Body mass index 20-24 - normal; Translations: [Body mass index (BMI) 24.0-24.9, adult]Onset: 100353-71-6649JyxxvdqpFjjamifp codes; unclassified (9 sources)Edema of right lower limb; Translations: [Localized edema]Onset: 019203-75-1301LksgotmqYmhhksgj codes; unclassified (2 sources)Body mass index (BMI) 23.0-23.9, adult; Translations: [Body mass index (BMI) 23.0-23.9, adult]Onset: 40-37-4057KyibmmvwKhmwynrx codes; unclassified (2 sources)Localized edema; Translations: [Localized edema]Onset: 03-21-2025 EpisodicScreening and history of mental health and substance abuse codes (4 sources)Ex-smoker; Translations: [Personal history of nicotine dependence] Onset: 490535-22-6744GemhcxziXoou and subcutaneous tissue infections (2 sources)Cellulitis of left toe; Translations: [Cellulitis and abscess of toe, unspecified]42-27-8782ZlivxeupHsrvmixyvdk; intervertebral disc disorders; other back problems (20 sources)Other spondylosis with radiculopathy, cervical region; Translations: [Other spondylosis with myelopathy, cervical region]Onset: 08-31-2018 Resolved: 64-70-7051SxxgeztLyscwfm and strains (8 sources)Shoulder strain; Translations: [Strain of unspecified muscle, fascia and tendon at shoulder and upper arm level, right arm, initial encounter] 35-65-3751MwkcihroBndsjpezx cerebral ischemia (20 sources)Transient cerebral ischemia; Translations: [Transient cerebral ischemic attack, unspecified]Onset: 173205-05-6367FqvbxgpRxehsbnyfvmp (1 source)Call Dr. Villalobos office to schedule a follow up appointment if you do not already have one scheduledUnclassified (1 source)History of revision of right total hip zutmlzjersfv75-91-4252 Past or Other Problems Problem ClassificationProblemDateDocumented DateEpisodic/ChronicAbdominal hernia (20 sources)Inguinal hernia; Translations: [Unilateral inguinal hernia, without obstruction or gangrene, not specified as recurrent]Onset: EpisodicAbdominal pain (20 sources)Right upper quadrant pain; Translations: [Right upper quadrant pain] Onset: 994244-10-1604YrtykrxzJwmdmaia foot deformities (20 sources)Right foot drop; Translations: [Foot drop, right foot]Onset: 591708-74-8199HxoyzpbsWgvdcfyc reactions (5 sources)Contact dermatitis; Translations: [Unspecified contact dermatitis, unspecified cause]Onset: 818606-43-1935ZtmeukjmMukftmy obstructive pulmonary disease and bronchiectasis (1 source)Bronchitis, not specified as acute or chronic; Translations: [Bronchitis, not specified as acute orchronic]Onset: 55-09-3740Zmlkvpks Complication of device; implant or graft (5 sources)Disorder of prosthetic joint; Translations: [Other specified complication of internal orthopedic prosthetic devices, implants and grafts, initial encounter]Onset: 475532-18-2582VoyottvfHxeivvjvjw associated with dizziness or vertigo (20 sources)Dizziness; Translations: [Dizziness and giddiness]Onset: 02-28-2023 Resolved: 495605-28-0771MxnpogqfXvkjdty and fatigue (20 sources)Fatigue; Translations: [Other fatigue]Onset: 786051-86-9900 EpisodicNeoplasms of unspecified nature or uncertain behavior (8 sources)Neoplasm of bladder; Translations: [Neoplasm of unspecified behavior of bladder]Onset: 111102-35-7538VwuupokzSapowxmglyzz breast conditions (20 sources)Breast lump; Translations: [Unspecified lump in unspecified breast] Onset: 625975-10-1779ZyitrsmaXgaiv acquired deformities (20 sources)Leg length inequality; Translations: [Unequal limb length (acquired), unspecified site]Onset: 401080-87-4347ExyfykmnOuuvq and ill- defined heart disease (20 sources)Heart disease; Translations: [Heart disease, unspecified]Onset: 02-28-2023 Resolved: 574678-21-8745OzqewqrIrzti circulatory disease (10 sources)History of transient ischemic attack; Translations: [Personal history of transient ischemic attack (TIA), and cerebral infarction without residual deficits]Onset: 664865-53-7423OnxggxshGopno circulatory disease (20 sources)Orthostatic hypotension; Translations: [Orthostatic hypotension] Onset: 829180-25-8162PgcwddpiNiyvk circulatory disease (2 sources)Personal history of transient ischemic attack (TIA), and cerebral infarction without residual deficits; Translations: [Personal history of transient ischemic attack (TIA), and cerebral infarction without residual deficits]Onset: 60-56-5564CpywitpeHgqac connective tissue disease (20 sources)Pain in limb; Translations: [Pain in left toe(s)]Onset: 02-28-2023 96-89-3405MxsxolbaUhvyk gastrointestinal disorders (20 sources)Anismus; Translations: [Outlet dysfunction constipation]Onset: 476422-02-7286QexnvculLbdxv injuries and conditions due to external causes (5 sources)Injury of lower extremity; Translations: [Unspecified injury of unspecified thigh, initial encounter]Onset: 097984-78-9406XkgcsvnqUmsjf lower respiratory disease (20 sources)Dyspnea; Translations: [Shortness of breath]Onset: 02-28-2023 53-61-3168TdupbgsxRnumw lower respiratory disease (20 sources)Lung mass; Translations: [Other nonspecific abnormal finding of lung field]Onset: 612825-72-9671WqfgomddHecky lower respiratory disease (20 sources)Chronic cough; Translations: [Chronic cough]Onset: 02-28-2023 30-37-4822BvqyxbciBcikv non-traumatic joint disorders (20 sources)Disorder of lower extremity; Translations: [Joint disorder, unspecified]Onset: 373135-60-6491QfdwicleMuiog non-traumatic joint disorders (20 sources)Pain in right knee; Translations: [Pain in joint, lower leg]Onset: 954898-80-1896YoncmhnrChxkk non-traumatic joint disorders (20 sources)Hip pain; Translations: [Pain in unspecified hip]Onset: 02-28-2023 22-04-2477LqcwhmoaOugng nutritional; endocrine; and metabolic disorders (9 sources)Weight loss; Translations: [Abnormal weight loss]Onset: 02-28-2023 70-37-3935AfkcuqapPqpfx nutritional; endocrine; and metabolic disorders (12 sources)Weight decreased; Translations: [Abnormal weight loss]Onset: 889290-64-9794UyucohgbJwnyd skin disorders (20 sources)Actinic keratosis; Translations: [Actinic keratosis]Onset: 128773-78-2697EtltuieeZgulb skin disorders (20 sources)Night sweats; Translations: [Generalized hyperhidrosis]Onset: 881653-17-7224GbscaoxiIgnhtdrtrm disorders (not diabetes) (20 sources)Acute pancreatitis; Translations: [Acute pancreatitis without necrosis or infection, unspecified]Onset: 201623-66-2203TtgudpucLpimgyue codes; unclassified (2 sources)Body mass index (BMI) 24.0-24.9, adult; Translations: [Body mass index (BMI) 24.0-24.9, adult]Onset: 60-21-3435RkmiltyhElisymdqjpc; intervertebral disc disorders; other back problems (20 sources)Low back pain; Translations: [Other low back pain]Onset: 02-28-2023 49-67-1305OpblunhiQfybodq (20 sources)Near syncope; Translations: [Syncope and collapse]Onset: 02-28-2023 Resolved: 469913-95-9012AlhzpdinEjygcvi disorders (20 sources)Mass of thyroid gland; Translations: [Disorder of thyroid, unspecified]Onset: 933777-04-9870MmcwsovzLbinndiligce (1 source)Low back pain, unspecified M54.50; Translations: [Low back pain, unspecified M54.50]Onset: 07-23-2021 Resolved: 25-89-9243Jrkwcqfyiacr (6 sources)Other low back pain; Translations: [Other low back pain]Unclassified (2 sources)Other low back pain M54.59Onset: 02-25-2022 Resolved: 33-25-1371Vpccxrvuixcf (8 sources)Onset: 12-09-2023 Resolved: Viral infection (20 sources)Disease caused by 2019-nCoV; Translations: [COVID-19]Onset: 148864-91-0674Aztvvams Results Test NameValueInterpretationReference RangeFacilityOutside Recordson 07-23-2025 Outside [id number]#1.00OTGTIFFParkview Health Bryan Hospital 19-95-2335OQXWFxlidy Visit (ORAVON) ROSCOE HERNANDEZ ([id number]) 1935 M Date Time Provider Department 06/20/25 10:40 AM LAKESHA NEGRETE During your visit today, we recorded the following information about you: Lakesha Negrete PA-C 06/20/2025 2:59 PM Signed Ortho Hip Follow Up Note Narrative Referring Provider: Gaurang Shane [address] [facility] [address] PCP: No primary care provider on file. IMPRESSION/PLAN: Impressions indicate: 89 year old here for right hip follow up. 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 Follow-up (more content not included)...NormalBarberton Citizens HospitalXR HIP 3V PELV+ AP/LAT RTon 32-34-2241VU HIP 3V PELV+ AP/LAT RT* * *Final [...] IMPRESSION: Postoperative changes similar to prior examination. Principal Product Manager: JENY Transcribe Date/Time: Jun 20 2025 8:43P Dictated by : VALENTIN LINDA MD This examination was interpreted and the report reviewed and electronically signed by: VALENTIN LINDA MD on Jun 20 2025 8:45PM EST [id number] Citizens HospitalLab - Other Lab Resultson 18-01-1399Beh - Other Lab Results [id number]#1.00[facility] UroVysion Fish and Urine Cyto ([facility])on 53-35-9520WQGGJP & UCDiagnosis Info Invalid Interpretation [facility] HospitalComment on above:Result Comment: A:Urine,Urine:Voided Diagnosis Summary - [...] with cytology and cystoscopy results. * CPT: 41811, 43932. 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 Electronically signed by : on: 06/18/2025 14:00:31Performed By: #### [id number] #### [facility] [address], [place] [address]Puaqtbxxpm Visit Summaryon 85-72-1764Hgztfksmzo Visit Summary Ambulatory Visit Summary ROSCOE HERNANDEZ [...] graft preparation for epidermal skin graft with 3ssa3xqq6.0cm (12/29/2016),Cystoscopy to remove object (11/29/2012), Laser bladder [...] [facility] [address] , [place] [address]- Medications What How Much When Instructions Unchanged [...] should be consid (more content not included)...Normal [facility] Medical CenterUroVysion Fish and Urine Cyto ([facility])on 06-11-2025 UVUC Method of ExtractionVoidedNoPeoples HospitalComment on above:Performed By: #### [id number] #### [facility] [address], [place] [address]WXJX Number of Rkxe1Xkquchf Interpretation CodeSumma Health Wadsworth - Rittman Medical CenterComment on above:Performed By: #### [id number] #### [facility] [address], [place] [address]UBHU SpecimenUrineNormalFisher Rosalio Medical CenterComment on above:Performed By: #### [id number] #### [facility] [address], [place] [address]PGJA Type of ServiceTechnical OnlyNormalFisher Johns Hopkins HospitalComment on above:Performed By: #### [id number] #### [facility] [address], [place] [address]Qzlmcqf Office/Clinic Noteon 39-03-9373Nbrdouw Office/Clinic NoteUrology Office/Clinic Note Chief Complaint Cysto [...] Urethra is: Normal The Prostatic Urethra is: Xrvgkdviwsdv0ln area of prior bleeding noted on retroflex [...] [facility] [address], [place] [address]- Additional Instructions: 6 mos surveillance cysto/bt ck/FISH/cytol [...] right sub first metatarsal (more content not included)...Memorial HospitalComment on above:Result Comment: Electronically Signed By: Juan GILL MD\.br\Date and Time Signed: 06/11/25 13:23 EDT\.br\Electronically Co-Signed By: Francia Dos Santos\.br\Date and Time Co-Signed: 06/11/25 13:20 EDT NM Heart Perfusion W stress and W radionuclide Wu 47-90-1603Ngiijc Lexiscan Myoview cardiac perfusion stress test. No evidence of ischemia or myocardial infarction by perfusion imaging. Normal left ventricular systolic function, ejection fraction 58%. No previous studies are available for comparison. Signed by: Chris Villa 04/11/2025 4:08 PM Dictation workstation: [id number] MMODALInterpreted By: Chris Villa, and Tika Rodriguez STUDY: MYOCARDIAL PERFUSION STRESS TEST WITH LEXISCAN Performing facility: [facility], [address], [address], [place] [address] [facility] Provider: Jd Moreira MD PCP: Dr. Ismael Lund Supervising provider: Jd Moreira MD INDICATION: Signs/Symptoms: ,R07.9 Chest pain, unspecified HISTORY: Gender: M; Age: 89 y/o ; Height: HT 180.3 cm cm; Weight: WT 78.472 kg kg. Abnormal EKG; High Cholesterol; HTN; Arrhythmias; Chest Pain; COPD; Denies smoking. COMPARISON: No comparison. ACCESSION NUMBER(S): [id number] ORDERING CLINICIAN: JD MOREIRA TECHNIQUE: ONE DAY [...] PERFUSION STRESS TEST WITH LEXISCAN Performing facility: [facility], [address], [address], [place] [address] [facility] Provider: Jd Moreira MD PCP: Dr. Ismael Lund Supervising provider: Jd Moreira MD INDICATION: Signs/Symptoms: ,R07.9 Chest pain, unspecified HISTORY: Gender: M; Age: 89 y/o ; Height: HT 180.3 cm cm; Weight: WT 78.472 kg kg. Abnormal EKG; High Cholesterol; HTN; Arrhythmias; Chest Pain; COPD; Denies smoking. COMPARISON: No comparison. ACCESSION NUMBER(S): [id number] ORDERING CLINICIAN: JD MOREIRA TECHNIQUE: ONE DAY [...] Chris Villa 04/11/2025 4:08 PM Dictation workstation: [id number] [facility] Work Phone: Radiology Study observation (narrative)[facility] Work Phone: NM Heart Perfusion W stress and W radionuclide IV Ordered By: Chris Villa on 28-49-9991WxluqugkvnBlanchard Valley Health System [facility] Work Phone: NUCLEAR STRESS TESTon 01-02-6634UWADQZQ STRESS TEST Interpreted By: Chris Villa and Giannuzzi Michael STUDY: MYOCARDIAL PERFUSION STRESS TEST WITH LEXISCAN Performing facility: [facility], [address] [place] [address], [address], [address] Provider: Jd Moreira MD PCP: Dr. Ismael Lund Supervising provider: Jd Moreira MD INDICATION: Signs/Symptoms: ,R07.9 Chest pain, unspecified HISTORY: Gender: M; Age: 89 y/o ; Height: HT 180.3 cm cm; Weight: WT 78.472 kg kg. Abnormal EKG; High Cholesterol; HTN; Arrhythmias; Chest Pain; COPD; Denies smoking. COMPARISON: No comparison. ACCESSION NUMBER(S): [id number] ORDERING CLINICIAN: JD MOREIRA TECHNIQUE: ONE DAY [...] Chris Villa 04/11/2025 4:08 PM Dictation workstation: [id number]y Memorial Hospital Reminderson 82-17-7353MfdhxrotpOztjmbekw From: Amrita Benjamin To: EU - Recalls Gill; Sent: 04/04/2025 12:43:49 EDT Show up: 08/26/2025 12:43:00 EST Subject: cysto/fish/cytol Due Date/Time: 09/23/2025 12:43:00 EST Reminder/Recall Patient is due in november 2025 for 6 month cysto/fish/cytol, bt ckNoPeoples HospitalRemindersReminders From: Amrita Benjamin To: EU - Recalls Gill; Sent: 10/18/2024 12:49:49 EST Show up: 11/24/2024 12:49:00 EST Subject: cysto/fish/cytol Due Date/Time: 12/17/2024 12:49:00 EDT Reminder/Recall Patient needs 3 month cysto/fish/cytol (bt ck) in February 2025 Patient is due for 6 month cysto/fish/cytol in May 2025 Patient sched for 06/11/25 in [employer] office.[facility] Outside Recordson 86-28-2717Rdkrndb Records [id number]#1.00[facility] Coding Summaryon 02-12-0102Ovhrrn SummaryHTMLBase 64 WyxytoxpVDe4mEx+PGhlYWQ+PV7HRZMdD93xwSXdgK8vP3MORApNBhqwFXISBOrKEnJpltMaYO5bjBUr ZXJu [file] ZXI (more content not included)...[facility]aritan Medical CenterConsent Formson 34-07-3161Glzonoe [id number]#1.00Community Memorial HospitalOutside Recordson 17-97-6795Xqgfnhd Records [id number]#1.00[facility] Coding Summaryon 58-79-2294Ltkozk SummaryHTMLBase 64 RegtcpikTTc0uDg+PGhlYWQ+QK9YVRZeP34yxHHnwO7iS1PFJKwDEhdrVMQOXEtPMbGksiFtDG8ynGUe ZXJu [file] c2U (more content not included)...[facility] Messageson 03-74-2723Bveeiupz Messages From: Eh Lund DO To: [facility] ([facility]); Sent: 03/18/2025 06:04:45 EDT Show up: 03/18/2025 06:05:00 EDT Subject: Results Follow Up Due Date/Time: 03/19/2025 06:04:00 EDT no change in nodules, please tickle to repeat US in one year. Results: Date Result Type Result Name 03/18/2025 5:57 Radiology US Thyroid Patient's hayden notified and voiced understanding. reminder placed.Normal [facility] Thyroidon 79-28-1225DJ ThyroidEXAMINATION: US Thyroid HISTORY: Nontoxic single thyroid [...] Eh Medina MD 03/18/25 5:54 am Technologist: [facility] HospitalCoding Queryon 79-46-3896Naofxp Query Please complete ED Note for this encounter. thanks, Nicki Shift Foreman [Electronically Signed on: 03/23/2025 06:08 EDT] Juan Reed MD [Verified on: 03/23/2025 06:08 EDT] Juan Reed MD [Transcribed on: 03/13/2025 09:49 EDT] [facility] HospitalNutrition Noteon 52-34-8786Zgpnkrbmd NoteChart reviewed. 89 yr old male admitted [...] cancer; agree with above plan of care. [facility] HospitalReminder Messageson 71-01-3183Pyolilkp Messages From: Gauri Rees MA ([facility] ([facility])) To: Eh Lund DO; Sent: 03/13/2025 10:40:59 EDT Show up: 03/13/2025 10:40:00 EDT Subject: RE: thyroid US patient notified, okay to send order to [facility]. From: Ghazala Carter RN ([facility] ([facility])) To: [facility] ([facility]); Sent: 03/13/2024 10:28:24 EDT Show up: 03/13/2025 10:28:00 EDT Subject: thyroid US Reminder: Please call patient to: Please schedule patient for: 1 year thyroid US Please ask patient to: Results Follow up Required for: From: Eh Lund DO To: [facility] ([facility]); Sent: 03/13/2025 10:43:58 EDT Show up: 03/13/2025 10:43:00 EDT Subject: RE: thyroid US doneUniversity Hospitals Samaritan Medical CenterTelemetry Stripson 79-24-8966Ikmfhkljw Strips [id number]#1.00OTGTIFFNormalMemorial Health SystemBM Standardon 49-61-8322gDIC Non AA>60Invalid Interpretation [facility] Comment on above:Performed By: #### [id number], [id number] ####[facility] (DEFAULT)[address] [place] [address] 31308yWKU AA>60Invalid Interpretation CodeOhiohealth Shelby Hospital HospitalComment on above:Performed By: #### [id number], [id number] ####[facility] (DEFAULT)[address] [place] [address] 18166Uvzof gap [Moles/Vol]12.5 mmol/LNormal5.0-19.0[facility] HospitalComment on above:Performed By: #### [id number], [id number] ####[facility] (DEFAULT)[address] [place] [address] 40054Typjiwm [Mass/Vol]8.6 mg/dLLow8.9-10.3[facility] HospitalComment on above:Performed By: #### [id number], [id number] ####[facility] (DEFAULT)[address] [place] [address] 27438Rqnehetz [Moles/Vol]105 mmol/QKuugtm658-067Udnlyfxc HospitalComment on above:Performed By: #### [id number], [id number] ####[facility] (DEFAULT)[address] [place] [address] 67491IZ9 [Moles/Vol]24 mmol/GSetxwp39-41Qwookasd HospitalComment on above:Performed By: #### [id number], [id number] ####[facility] (DEFAULT)[address] [place] [address] 67148Msvnkbdblk [Mass/Vol]0.69 mg/dL Low0.90-1.30[facility] HospitalComment on above:Performed By: #### [id number], [id number] ####[facility] (DEFAULT)[address] [place] [address] 22625Khwyvmi [Mass/Vol]101.0 mg/tINldtpl12.0-118.0Memorial Health SystemComment on above:Performed By: #### [id number], [id number] ####[facility] (DEFAULT)[address] [place] [address] 82087Upvxvrawuu697 mOsm/LInvalid Interpretation [facility] Medical CenterComment on above:Performed By: #### [id number], [id number] ####[facility] (DEFAULT)[address] [place] [address] 36225Jbfufjhja [Moles/Vol]3.5 mmol/LLow3.6-5.1MSalem Regional Medical Center Comment on above:Performed By: #### [id number], [id number] ####[facility] (DEFAULT)[address] [place] [address] 83813Bthfjn [Moles/Vol]138.0 mmol/L Dxtngs700.0-144.0Memorial Health SystemComment on above:Performed By: #### [id number], [id number] ####[facility] (DEFAULT)[address] [place] [address] 92244Txuq nitrogen [Mass/Vol]16 mg/dLNormal8-26[facility] Comment on above:Performed By: #### [id number], [id number] ####[facility] (DEFAULT)[address] [place] [address] 80168Abtz nitrogen/Creatinine [Mass ratio]23.1 mg/mgHigh4.6-16.2MSalem Regional Medical CenterComment on above:Performed By: #### [id number], [id number] ####[facility] (DEFAULT)[address] [place] [address] 84541Cvonz Stowell 42-19-7872Lfhl CollectedYesInvalid Interpretation [facility] Medical CenterComment on above:Performed By: #### [id number] #### [facility] (DEFAULT) [address] [place] [address] 94774Zbdrutoll Patient Summaryon 38-48-1012Xjxwfhxqd Patient Summary[address] [address] Patient Discharge Instructions Name: ROSCOE HERNANDEZ : 1935 Patient Address: [address] [facility] [address] Primary Care Provider: Name: Eh Lund DO After you are discharged if you find you have any questions, please, call [phone] ext [phone] to speak to a nurse. The [facility]acy at [facility] is open Tuesday through Tuesday from [...] alcohol and/or drug addiction problems; contact the [facility] 18/04 Crisis Hotline -text 4hope to 741741. [...] business decisions or sign any legal documents [facility] would like to thank you for allowing us to assist you with your healthcare needs.The following includes patient education materials and information regarding your injury/illness. JUDE ROSCOE MARY has been given the following list of follow-up instructions, prescriptions, and patient education materials: Follow-up Instructions With: Address: When: [place] [address] [place] [address] 20283 03/20/2025 10:00 AM Medications During the course of your visit, your medication list was updated with the most current information. The details of those changes are reflected below: New Medications [facility] at [address] [place], [place] [id number], [phone] NIFEdipine (NIFEdipine 60 mg oral tablet, extended [...] Patient Activity Restrictions: P (more content not included)...[facility] Medical CenterPharmacy Noteon 07-74-5645Qbadstza NoteI have personally reviewed the patient's medication list upon discharge including, prescription medications, OTC products, vitamins and supplements. Below are the following medications the patient isdischarged on. New Medications [facility] at [address] [id number], [phone] NIFEdipine (NIFEdipine 60 mg oral tablet, extended [...] list against external fill history and available SVP OF DIGITAL medication history to ensure accuracy. Reviewed regimen upon discharge which is appropriate and correct. [Electronically Signed on: 03/12/2025 11:47 EDT] Keyon Ramesh PharmD [Verified on: 03/12/2025 11:47 EDT] Keyon Ramesh PharmDNToledo HospitalTelemetry Stripson 09-52-5889Hvoyutvop [id number]#1.00OTGTIFF [facility]aritan Medical CenterTnI HSon 71-79-5348Yzalrold I High Fqeiarfvhsn71.0 pg/mL Normal<=20.0Memorial Health SystemComment on above:Performed By: #### [id number], [id number] ####[facility] (DEFAULT)[address] [place], [place] [address]PJ Echocardiogram Completeon 38-81-4588AH Echocardiogram Complete APPROVED REPORT EXAM: Comprehensive 2D, [...] LVDs 2.66 (2.1 - 4.0 cm) LV Dqjf018.63 g LVOT Diameter 2.05 cm IVC1.87 (<= 2.1cm) M-Mode Dimensions TAPSE 2.7 (>1.7) LV Volume - Method of Disks (Damon's) Single Plane 2D LV VolumesBiplane 2D LV Volumes LV EDV A7M280.8 mLLV EDV BP136.12 mL M: 62 - 150 LV ESV A4C51.9 mLLV ESV BP50.6 mL LVEF(%) A4C62.6 %LVEF(%) BP62.83 % M: 52 - 72 LV EDV D0Y698.6 mLLV EDV BP Index68.40 mL/m2 M: 34 - 74 LV ESV A2C45.4 mLSV (BP)85.52 mL LVEF(%) A2C64.7 %SV (BP) Index43.07 mL/m2 CO BP4.9 L/min Left Atrium Volume Systole (Method of Disks) Single Plane 4 CH 41.02 mLBiplane LA Kltvuq44.73 mL Single Plane 2 CH68.89 mLLA ESV Index28.01 mL/m2 Right Atrium Area Systole RA Systolic Area A4C20.27 cm2RA Systolic Vol A4C58.10 mL Aortic Valve AoV Peak Velocity2.62 m/sLVOT Peak Velocity0.95 m/s AO Mean Velocity2.00 m/sLVOT Mean Velocity0.57 m/s AO Peak PG27.56 mmHgLVOT Peak PG3.60 mmHg AO Mean PG17.38 mmHgLVOT Mean PG1.62 mmHg AO V2 VTI57.44 cmLVOT V1 VTI23.74 cm CHAYA (Vmax)1.19 xw2JCAM Area 3.30 cm2 CHAYA (VTI)1.36 cm2SV (LVOT) 78.25 mL Indexed CHAYA (VTI)0.69 cm2/m2 Mitral Valve MV E Max Velocity0.40 m/sMV NEC439.52 ms MV A Max Velocity0.89 m/sMVA (PHT)2.07 cm2 E/A Ratio0.4 MV Decel. Bgap748.30 ms TDI Med e' Velocity7.99 cm/sMV E / Medial e' 5.05 Lat e' Velocity6.84 cm/sMV E / Lateral e' 5.89 TV S'12.52 cm/s Tricuspid Valve TR Peak Velocity2.27 m/sRAP Estimate8.00 mmHg TR Peak PG20.67 mtBcACCO03.67 mmHg Final Signed (Electronic Signature): Higinio Abernathy DO 03/12/25 11:55 a Technologist: [facility].Auto Diff 127-56-3381Rmek Wake %11 % Normal1-12[facility] HospitalComment on above:Performed By: #### [id number], [id number], [id number], 36221225, [id number], 5648246, [id number] ####[facility] (DEFAULT)[address] [place] [address] 70292Cguu Abs#0.0 d84Rsjgwk 0.0-0.2Magrbrecksville va / crille hospital HospitalComment on above:Performed By: #### [id number], [id number], [id number], 92136828, 1685329492, 0301220, [id number] ####[facility] (DEFAULT)[address] [place] [address] 43838Pddmvfwhv/100 WBC (Bld)0.5 % Normal0.2-2.0[facility] HospitalComment on above:Performed By: #### [id number], [id number], 323238223, 89663484, 9150836073, 5021778, [id number] ####[facility] (DEFAULT)[address] [place] [address] 43375Cye Abs#0.1 r92Flcrmj 0.0-0.4Magrbrecksville va / crille hospital HospitalComment on above:Performed By: #### [id number], [id number], 785748436, 96499323, 2563600273, 9554512, [id number] ####[facility] (DEFAULT)[address] [place] [address] 34332Qvzhhvahtrl/100 WBC (Bld)1.9 % Normal0.9-4.0[facility] HospitalComment on above:Performed By: #### 8382952, [id number], 467237908, 36684838, 4348886413, 8842914, [id number] ####[facility] (DEFAULT)[address] [place] [address] 08540Ipfhy Abs#0.9 x10Low 1.3-2.9Magruder HospitalComment on above:Performed By: #### 8022526, [id number], 600043282, 38274935, 4291863837, 0695013, 4423564999 ####[facility] (DEFAULT)[address] [place] [address] 10584Xbzytneobwq/100 WBC (Bld)16 % Ismpbb46-20Rplntlxa HospitalComment on above:Performed By: #### 1761325, [id number], 648292558, 18267208, 2176736270, 1248856, 3299891824 ####[facility] (DEFAULT)[address] [place] [address] 98483Gdxw Abs#0.6 w41Hqqabl 0.0-0.8Magruder HospitalComment on above:Performed By: #### 7976954, 1687196917, 969717718, 72429564, 4427142377, 2693867, [id number] ####[facility] (DEFAULT)[address] [place] [address] 20322Lwcd Abs#4.0 j78Idtbdu2.5-9.2 [facility] HospitalComment on above:Performed By: #### 7539331, [id number], 928911404, 89224654, 7427160673, 2738641, 5922041619 ####[facility] (DEFAULT)[address] [place] [address] 53875Zikpezhmnpm/100 WBC (Bld)70 % Wepdof56-32Ldspofwr HospitalComment on above:Performed By: #### 7695756, 2417944883, 204028128, 62159667, 8953384816, 9108928, 1400953299 ####[facility] (DEFAULT)[address] [place] [address] 49587RBM w/ Auto Diffon 13-78-0232Wjypiphhnjf distribution width (RBC) [Ratio]14.4 %Cxpyjm88.5-15.0 [facility] Health SystemComment on above:Performed By: #### 3790257, [id number], 495370987, 49151368, 2130693407, 0762579, 9959559423 #### [facility] (DEFAULT) [address] [place], [place] [address]Hematocrit (Bld) [Volume fraction]43.5 %Plaabe87.8-51.9 [facility] Health SystemComment on above:Performed By: #### 3225698, [id number], 050679572, 55871982, 8486555808, 1704543, 4886616304 #### [facility] (DEFAULT) [address] [place], [place] [address]Hemoglobin (Bld) [Mass/Vol]14.7 g/lYBjbvze80.8-17.7 [facility] Health SystemComment on above:Performed By: #### 2504035, 2802429804, 588158860, 99017474, 4766399243, 2616275, 0794129010 #### [facility] (DEFAULT) [address] [place], [place] [address]Man Diff?AutoInvalid Interpretation CodeMemorial Health System Comment on above:Performed By: #### 3900219, [id number], 575020160, 72517208, 2766166815, 5285496, 0538359339 #### [facility] (DEFAULT) [address] [place] [address] 02800VOK (RBC) [Entitic mass]32 udOfrsxo02-74Nyevobcl Hospital Comment on above:Performed By: #### 7590339, 2536431795, 025590648, 02891487, 8727960164, 3915841, 4826624261 #### [facility] (DEFAULT) [address] [place] [address] 10445DDJU (RBC) [Mass/Vol]34 g/uNHyhkkv20-58Bkjxqtnq Hospital Comment on above:Performed By: #### 6599167, 3231184964, 039597326, 51441747, 3326173810, 7050471, 1689169330 #### [facility] (DEFAULT) [address] [place] [address] 63059XPJ (RBC) [Entitic vol]94 cIXvpyyn71-052Nzuhptrt Hospital Comment on above:Performed By: #### 1830129, 4907976262, 394538494, 38676998, 4976219349, 9929247, 5026807434 #### [facility] (DEFAULT) [address] [place] [address] 16034Vklwxziy333 b79Fntxkd783-919Rlcriwgd HospitalComment on above:Performed By: #### 3199995, 2601723757, 804610339, 61505277, 9568493456, 0021105, 1419275429 #### [facility] (DEFAULT) [address] [place] [address] 43366Ugcciowu mean volume (Bld) [Entitic vol]9.3 fLNormal 6.3-10.2[facility] HospitalComment on above:Performed By: #### 2607752, 9917290552, 736394008, 69542290, 6203939418, 7315411, 4789252290 #### [facility] (DEFAULT) [address] [place] [address] 49717XBM1.64 m61Ymzbdy5.70-5.30[facility] HospitalComment on above:Performed By: #### 5991295, 6714200312, 120814545, 47970886, 9102449106, 9188963, 5783913646 #### [facility] (DEFAULT) [address] [place] [address] 24279IMR9.7 r25Tfhstv8.5-10.5[facility] HospitalComment on above: Performed By: #### 6758940, 6434355376, 873369261, 68482621, 6953326436, 3702893, 6686837451 #### [facility] (DEFAULT) [address] [place] [address] 02327XYH Standardon 41-01-3746jAEY Non AA>60Invalid Interpretation CodeOhiohealth Shelby Hospital HospitalComment on above:Performed By: #### 3167773, 3604566999, 763652372, 31018844, 1131765459, 6201298, 3478488878 ####[facility] (DEFAULT)[address] [place] [address] 32157iZDR AA>60Invalid Interpretation CodeOhiohealth Shelby Hospital HospitalComment on above:Performed By: #### 1296769, 2483683247, 087640945, 10940814, 3748144201, 0680296, 8008142143 ####[facility] (DEFAULT)[address] [place] [address] 27125Amiarym [Mass/Vol]3.9 g/dLNormal3.5-5.0[facility] HospitalComment on above:Performed By: #### 2493219, 0636045841, 166871521, 40324416, 9066053289, 4196686, 6073573195 ####[facility] (DEFAULT)[address] [place] [address] 80292Dtrtblb/Globulin [Mass ratio]1.2 {ratio}Low1.4-2.6[facility] HospitalComment on above:Performed By: #### 8056963, 7663832851, 519158553, 64321112, 1790218175, 8527794, 4457660848 ####[facility] (DEFAULT)[address] [place] [address] 44252Zoi Phos95 IU/QHfin39-84Oewuneef HospitalComment on above:Performed By: #### 5174233, 6265092474, 381063096, 13745466, 6076684355, 4662742, 3626569906 ####[facility] (DEFAULT)[address] [place] [address] 50470WHI [Catalytic activity/Vol]21.0 U/PThbcuq38.0-63.0[facility] HospitalComment on above:Performed By: #### 7802344, 4583803628, 534791930, 04511976, 7944787855, 7244073, 4392397102 ####[facility] (DEFAULT)[address] [place] [address] 96100Sinxd gap [Moles/Vol]11.8 mmol/LNormal5.0-19.0[facility] SystemComment on above:Performed By: #### 7687353, 9164218276, 906779018, 51608988, 4215419310, 9107380, 0505184236 ####[facility] (DEFAULT)[address] [place] [address] 16126QQE [Catalytic activity/Vol]21 U/LGufzuf27-96Vtblisbg Hospital Comment on above:Performed By: #### 1970687, 5175674850, 481017641, 37603214, 7895075939, 4815357, 9496909686 ####[facility] (DEFAULT)[address] [place] [address] 92686Bxhi Total1.0 mg/dLNormal0.3-1.2[facility] Comment on above:Performed By: #### 4267613, 1519282595, 620846979, 26500097, 9217773469, 6592029, 9646658501 ####[facility] (DEFAULT)[address] [place] [address] 54199Zbuajgs [Mass/Vol]9.0 mg/dLNormal8.9-10.3MSalem Regional Medical CenterComment on above:Performed By: #### 7158892, 9935837737, 393083976, 26575200, 6608000434, 3155739, 7812299294 ####[facility] (DEFAULT)[address] [place] [address] 43934Bbpmuiwj [Moles/Vol]102 mmol/HPlkavc786-038 [facility] SystemComment on above:Performed By: #### 4380567, 8392112651, 518970744, 69892552, 8223609385, 5221114, 9350225614 ####[facility] (DEFAULT)[address] [place] [address] 91511QE0 [Moles/Vol]25 mmol/LNormal 21-32[facility] HospitalComment on above:Performed By: #### 3535252, 9563516103, 756803119, 92631638, 6122183110, 3445101, 6608059335 ####[facility] (DEFAULT)[address] [place] [address] 54228Abjpfrizrq [Mass/Vol]0.77 mg/dL Low0.90-1.30[facility] HospitalComment on above:Performed By: #### 3274874, 8477430490, 433808174, 49701091, 0005629182, 6352775, 0458452851 ####[facility] (DEFAULT)[address] [place] [address] 92641Dnwoimqw (S) [Mass/Vol] 3.1 g/dLNormal1.5-4.3[facility] HospitalComment on above:Performed By: #### 3384146, 6890062988, 547142965, 67184414, 8989419210, 3743590, 1119765620 ####[facility] (DEFAULT)[address] [place] [address] 04363Qixaqry [Mass/Vol]108.0 mg/tJZukzkm91.0-118.0[facility] HospitalComment on above:Performed By: #### 7929904, 0117346637, 358685838, 84055430, 6610979996, 9137363, 6208688663 ####[facility] (DEFAULT)[address] [place] [address] 89086Uwwplumbxz193 mOsm/LInvalid Interpretation CodeOhiohealth Shelby Hospital HospitalComment on above:Performed By: #### 8939570, 8000454565, 312291648, 41553058, 1087651027, 0599652, 1284287624 ####[facility] (DEFAULT)[address] [place] [address] 05023Dvbahphrp [Moles/Vol]3.8 mmol/LNormal3.6-5.1[facility] Hospital Comment on above:Performed By: #### 9193355, 5528518173, 603274011, 51310385, 3374129840, 2109484, 6563490999 ####[facility] (DEFAULT)[address] [place] [address] 42314Boaiqkm [Mass/Vol]7.0 g/dLNormal6.5-8.1[facility] HospitalComment on above:Performed By: #### 4682535, 4157760358, 099392379, 16846037, 4519064540, 7617877, 2156581330 ####[facility] (DEFAULT)[address] [place] [address] 72698Zlmsdc [Moles/Vol]135.0 mmol/DXhd823.0-144.0 [facility] HospitalComment on above:Performed By: #### 1225546, 9155285723, 340108409, 60916210, 5037891411, 5284571, 2807367429 ####[facility] (DEFAULT)[address] [place] [address] 82110Rtca nitrogen [Mass/Vol]20 mg/dL Normal8-26[facility] Health SystemComment on above:Performed By: #### 2090332, 2974503696, 203562864, 30178831, 2880887049, 5872126, 8962977537 ####[facility] (DEFAULT)[address] [place] [address] 09186Fxdh nitrogen/Creatinine [Mass ratio]25.9 mg/mgHigh4.6-16.2[facility] HospitalComment on above:Performed By: #### 0838498, 8985297868, 795779923, 81831040, 9117435821, 6784298, 7036429488 ####[facility] (DEFAULT)[address] [place] [address] 67483NB Note-Nursingon 82-13-7729SK Note-NursingPt. C/o driving to his mail box and experiencing chest pain approx. 45 mins ago. Pt. states that hefelt weak and had some dizziness. Pt. rates pain 1/10 and in the epigastric location. Pt. states that he has not been feeling well for the last week. pt. denies any SOB, nausea or vomiting. Pt. is A&O x4. Pt. has a slow gait. n[facility] Medical CenterExtra Blueon 28-50-4143Uvxz CollectedYesInvalid Interpretation Code [facility] SystemComment on above:Performed By: #### 7105135, 1914133358, 135288874, 63665580, 8102644437, 6892016, 6242175240 #### [facility] (DEFAULT) [address] [place] [address] 33231Tucievtz 84-97-6263Yqmkwy Level28.0 IU/WSnqyox71.0-51.0 [facility] SystemComment on above:Performed By: #### 1611204, 9220090648, 602848016, 93715900, 3091015428, 8047889, 0798564043 ####[facility] (DEFAULT)[address] [place] [address] 31219VCLT Formon 37-03-6788AWBO Form [id number]#1.00OTGTAdena Health System Progress Note - Nurseon 33-49-3013Ukbfxqkm Note - NursePt reports yesterday they had a clam bake for Father's day and he was drinking the clam broth whichhe says was very high in sodium, also reports that he has been urinating alot more than usual. [Electronically Signed on: 03/12/2025 01:38 EDT] Lali De Los Santos RN [Verified on: 03/12/2025 01:38 EDT] Lali De Los Santos RNUniversity Hospitals Samaritan Medical CenterProgress Note - NurseBP 197/85, pt reports his [...] 03/11/2025 20:40 EDT] Lali De Los Santos [facility] w/ Reflex to FT4on 64-99-8272ZVI Qn 1.11 m[IU]/LNormal0.45-5.33[facility] Health SystemComment on above:Performed By: #### 2508347, 8322788192, 002693653, 25630053, 6009008355, 1835482, 5322594058 ####[facility] (DEFAULT)[address] [place] [address] 92733ThU HSon 69-90-8003Zsunfhcn I High Sensitivity8.5 pg/mLNormal<=20.0[facility] Comment on above:Performed By: #### 1186900, 3477834502, 181044550, 66052129, 6503623708, 3028912, 7693985817 ####[facility] (DEFAULT)[address] [place] [address] 80892LZ Standardon 67-76-8697Qxejrksnzo UANormal [facility] Health SystemComment on above:Performed By: #### [id number] #### [facility] (DEFAULT) [address] [place] [address] 08498Texhz (U)StrawNormalMagruder HospitalComment on above: Performed By: #### [id number] #### [facility] (DEFAULT) [address] [place] [address] 88354Eefyame (U) [Mass/Vol]NegativeNormalMagruder Hospital Comment on above:Performed By: #### [id number] #### [facility] (DEFAULT) [address] [place] [address] 94082Aeugxov Ql (U)NegativeNormalMagruder HospitalComment on above:Performed By: #### [id number] #### [facility] (DEFAULT) [address] [place] [address] 39991KL BilirubinNegativeNormalMagruder HospitalComment on above:Performed By: #### [id number] #### [facility] (DEFAULT) [address] [place] [address] 10172FF BloodNegativeNormalNEGATIVEMagruder HospitalComment on above:Performed By: #### [id number] #### [facility] (DEFAULT) [address] [place] [address] 60860CI ClarityCLEARNormalCLEARMagruder HospitalComment on above:Performed By: #### [id number] #### [facility] (DEFAULT) [address] [place] [address] 57149IL Leuk EstTRACEAbnormalNEGATIVEMagruder HospitalComment on above:Performed By: #### [id number] #### [facility] (DEFAULT) [address] [place] [address] 08502BT NitriteNegativeNormalNEGATIVEMagruder HospitalComment on above:Performed By: #### [id number] #### [facility] (DEFAULT) [address] [place] [address] 59209SK pH6.7Mpcbrb5-5Yodorcni HospitalComment on above: Performed By: #### [id number] #### [facility] (DEFAULT) [address] [place] [address] 50305EQ ProteinNegativeNormalNEGATIVEMagruder HospitalComment on above:Performed By: #### [id number] #### [facility] (DEFAULT) [address] [place], [place] [address]KZ Spec Grav<=1.225Vdirsd0.001-1.035[facility] Comment on above:Performed By: #### [id number] #### [facility] (DEFAULT) [address] [place] [address] 20271ZM Urobilinogen0.2 mg/dLNormal0.2-1.0[facility] Comment on above:Performed By: #### [id number] #### [facility] (DEFAULT) [address] [place] [address] 77753Woxgp SourceClean Mary Rutan HospitalComment on above:Performed By: #### [id number] #### [facility] (DEFAULT) [address] [place] [address] 89487GD Chest 1 View Frontalon 56-33-0509CS Chest 1 View FrontalEXAM: XR Chest 1 [...] Brett Caldwell DO 03/11/25 5:09 pm Technologist: [facility] Centerjuan joséMemorial Health SystemOutside Recordson 98-51-3187Zphbbbd [id number]#1.00OTGTAdena Health SystemOutside Recordson 07-15-4591Eknncmd Records [id number]#1.00[facility]GTSt. [facility] Outside Recordson 47-98-9546Nhrgbag Records [id number]#1.00[facility] Outside Recordson 83-15-1913Easlzsi Records [id number]#1.00[facility] HospitalC Urineon 40-22-4209Vdowxeze identified Cx Nom (U)Microbiology PROCEDURE: Urine Culture [R1] SOURCE: U Random BODY SITE: COLLECTED DATE/TIME: 12/13/2024 12:47 EDT RECEIVED DATE/TIME: 12/13/2024 17:42 EDT START DATE/TIME: 12/13/2024 17:42 EDT FREE TEXT SOURCE: JAIRO CALVO, Juan GILL MD, Juan Rodriguez FINAL REPORTS Final Report [] Verified Date/Time: 12/15/2024 07:15 EDT No growth at 2 days. Performing Locations R1: This test was performed at: [facility], [address] [place] [address], [facility] , , GtymhnHbyciaProMedica Memorial HospitalComment on above:Performed By: #### [id number] #### [facility] [address] [place] [address] 040[address]Asdzwoh Recordson 71-95-3464Pjztrds Records [id number]#1.00[facility] HospitalLab - Other Lab Resultson 55-52-6263Ffj - Other Lab Results [id number]#1.00[facility] UroVysion Fish and Urine Cyto (P4 Labs)on 80-15-3980KIXSEE & UCDiagnosis Info Invalid Interpretation [facility] HospitalComment on above:Result Comment: A:Urine,Bladder Wash:Bladder Wash Diagnosis [...] with cytology and cystoscopy results. * CPT: 17246, 62555. Microscopic Notes - Microscopic Notes - Abnormal cells 9p21 deletions: Abnormal cells aneploid events: Total cells analyzed: 177 Hematuria: Gross Description Site ID:A color Yellow fixative Alcohol Received 100 mls of clear yellow fluid with the patient's name and, Bladder Wash on the vial. Electronically signed by : on: 12/06/2024 14:37:28Performed By: #### [id number] #### [facility] [address] [place], [place] [address]Toejhyfcwv Visit Summaryon 79-10-1212Fuyyqzszbs Visit Summary Ambulatory Visit Summary ROSCOE HRENANDEZ :1935 Visit Date:11/27/2024 Ambulatory Visit Instructions Your [...] graft preparation for epidermal skin graft with 2goz2qdj5.0cm (12/29/2016), Cystoscopy to remove object (11/29/2012), Laser [...] [facility] [address] , [place] [address]- Medications What How Much When Instructions Unchanged [...] care provider may recommend (more content not included)...NormalSumma Health Wadsworth - Rittman Medical CenterUroVysion Fish and Urine Cyto (P4 Labs)on 80-89-9256TCMD Method of ExtractionBladder WashMemorial HospitalComment on above:Performed By: #### [id number] #### [facility] [address], [place] [address]SYOR Number of Jmdw2Pzprfzt Interpretation [facility] HospitalComment on above:Performed By: #### [id number] #### [facility] [address], [place] [address]RFAQ SpecimenBladder [facility] Comment on above:Performed By: #### [id number] #### [facility] [address] [place], [place] [address]FEWC Type [facility] HospitalComment on above:Performed By: #### [id number] #### [facility] [address] [place], [place] [address]Nyrdgkx Office/Clinic Noteon 79-65-9766Akmylaj Office/Clinic NoteUrology Office/Clinic Note Chief Complaint 3 [...] [facility] [address], [place] [address]- Additional Instructions: Mitomycin x 2 then 6 [...] (02/12/2020), Cystoscope (11/20/2019), Cys (more content not included)...Memorial HospitalComment on above:Result Comment: Electronically Signed By: Juan GILL MD\.br\Date and Time Signed: 11/27/24 13:22 EST\.br\Electronically Co- Signed By: Francia Dos Santos\.br\Date and Time Co-Signed: 11/27/24 13:18 EST Coding Summaryon 13-33-8672Aejmkl SummaryHTMLBase 64 KgklquhhQEo5fCa+PGhlYWQ+XH2DGPMgO34lwNXphU3tX0UFQDtEWjvvMVMIVFlHGkQdqyRgXO8uuMWp ZXJu [file] LWN (more content not included)...[facility].Auto Diff 147-08-7445Mngj Wake %12 %[address] Gray StreetComment on above:Performed By: #### 4993797, 5705968953, 0480739582, 4338667, 4240303, 0926470495, 70833060, 7469287198 ####[facility] (DEFAULT)[address] [place] [address] 99483Onma Abs#0.0 f95Lpwbvi3.0-0.2[facility] HospitalComment on above: Performed By: #### 9514509, 9692282273, 0940918448, 5224066, 5401702, 8834415587, 87036046, 2690675866 ####[facility] (DEFAULT)[address] [place] [address] 40424Gdbxzcdrk/100 WBC (Bld)0.5 %Normal0.2-2.0[facility] HospitalComment on above:Performed By: #### 1724580, 1531476060, 3669914055, 7398821, 7486868, 0771413348, 98284465, 4489961831 ####[facility] (DEFAULT)[address] [place] [address] 14519Ohd Abs#0.1 m68Vyuvqm7.0-0.4 [facility] HospitalComment on above:Performed By: #### 8209881, 7961336354, 9693025558, 9259753, 6982227, 4932864338, 90438166, 9269987649 ####[facility] (DEFAULT)[address] [place] [address] 24480Avsxozddqko/100 WBC (Bld)2.5 %Normal0.9-4.0[facility] HospitalComment on above:Performed By: #### 2690400, 3418169066, 4469379577, 5479630, 5658462, 1210644045, 96016651, 9344577482 ####[facility] (DEFAULT)[address] [place] [address] 39150Gsgaq Abs#0.6 i70Gnz5.3-2.9[facility] HospitalComment on above:Performed By: #### 5478998, 9651402913, 0222629279, 0757803, 0056876, 6365347630, 31898542, 3372166005 ####[facility] (DEFAULT)[address] [place] [address] 18169Nkjxbtlomzn/100 WBC (Bld)11 %Vgc62-33Dkkdigkp HospitalComment on above: Performed By: #### 6079797, 7980782772, 3119365192, 1219368, 7026713, 2354306649, 87323495, 9434428984 ####[facility] (DEFAULT)[address] [place] [address] 30486Hjpu Abs#0.7 c29Fvujsd5.0-0.8[facility] Comment on above:Performed By: #### 8134421, 2501783674, 2108656471, 3780119, 3141740, 9153747349, 21495690, 6375804105 ####[facility] (DEFAULT)[address] [place] [address] 81606Fgdx Abs#4.3 u05Bjwpgi8.5-9.2[facility] HospitalComment on above:Performed By: #### 9767214, 5837284537, 9294170102, 6175285, 5631705, 8116430901, 61730290, 4466825835 ####[facility] (DEFAULT)[address] [place] [address] 03196Qnjbghzusyu/100 WBC (Bld)74 % Rjoxqx78-07Dyfgmhnc HospitalComment on above:Performed By: #### 0789779, 7591357641, 3580009150, 5595060, 0483945, 2632916301, 79924233, 8037796590 ####[facility] (DEFAULT)[address] [place] [address] 79896.QC SARS-CoV-2 (COVID-19)/Flu/RSV (GeneXpert)on 49-68-4715Fldtbrab ControlPassNormal [facility] Health SystemComment on above:Order Comment: Ordered by Discern.[GL_[email or web address]_QC]Performed By: #### [id number], [id number] ####[facility] (DEFAULT)[address] [place] [address] 15727UGM.on 75-86-7032Iolehlurhxe peptide B (Bld) [Mass/Vol]49.0 pg/mLNormal0.0-100.0 [facility] Health SystemComment on above:Result Comment: BNP results greater than 100 pg/mL are considered abnormal and suggestive of patients with CHF. Higher BNP concentrations measured in the first 72 hours after an acute coronary syndorme are associated with an increased risk of , myocardial infarction, and CHF. Performed By: #### 7207957, 3384461976, 4881197095, 9996193, 6921109, 8658855309, 04909712, 5834471289 ####[facility] (DEFAULT)[address] [place] [address] 09738EGB w/ Auto Diffon 20-36-5159Ewycearzork distribution width (RBC) [Ratio]14.5 %Ydtwzs50.5-15.0[facility] Health SystemComment on above:Performed By: #### 4876299, 1548201190, 3099815590, 0913814, 0575897, 2053416326, 63940452, 8668885293 ####[facility] (DEFAULT)[address] [place] [address] 99321Iyzetfgevh (Bld) [Volume fraction]41.1 %Normal 34.8-51.9[facility] Health SystemComment on above:Performed By: #### 3485653, 2578141064, 1072906012, 3871720, 2913334, 4623107036, 61295472, 3626252046 ####[facility] (DEFAULT)[address] [place] [address] 92619Knfesnogqv (Bld) [Mass/Vol]13.8 g/yYGyhlhl29.8-17.7[facility] HospitalComment on above: Performed By: #### 7062402, 2517437166, 6907385009, 5672410, 4362060, 2372967616, 13391461, 5365869484 ####[facility] (DEFAULT)[address] [place] [address] 71407Zmv Diff?AutoInvalid Interpretation CodeOhiohealth Shelby Hospital HospitalComment on above:Performed By: #### 8872274, 9921131769, 5075069309, 4930064, 3716052, 0844534301, 64253242, 0980678933 ####[facility] (DEFAULT)[address] [place], [place] [address]H (RBC) [Entitic mass]32 pg Fqetlv32-02Ubksapol HospitalComment on above:Performed By: #### 6752575, 7623737573, 1341379204, 3681858, 9338338, 9918239050, 49052493, 5041846196 ####[facility] (DEFAULT)[address] [place], [place] [address]HC (RBC) [Mass/Vol]34 g/zAGkcgso37-57Hsvkqplh HospitalComment on above:Performed By: #### 5601006, 5861639091, 1520487263, 5500648, 3657931, 6104119114, 35689924, 2146805102 ####[facility] (DEFAULT)[address] [place] [address] 61097QJY (RBC) [Entitic vol]96 pMKmgkvf83-302Pkmgyxyh HospitalComment on above: Performed By: #### [id number], [id number], [id number], 8185460, 7696583, [id number], 81657816, [id number] ####[facility] (DEFAULT)[address] [place] [address] 36369Ghfmvsyi785 s06Wqvbmz885-403Mtawajav HospitalComment on above:Performed By: #### [id number], [id number], [id number], 6786086, 3320539, 0151736193, 50236994, [id number] ####[facility] (DEFAULT)[address] [place] [address] 06310Guncdkik mean volume (Bld) [Entitic vol]8.5 fLNormal 6.3-10.2[facility] HospitalComment on above:Performed By: #### [id number], [id number], 8786030516, 8402252, 2023428, 3245710667, 09306075, [id number] ####[facility] (DEFAULT)[address] [place] [address] 37963GCJ7.29 y99Ckqunb4.70-5.30[facility] SystemComment on above:Performed By: #### 1754178, [id number], [id number], 8060307, 2605588, 4968141714, 46644339, 5861885581 ####[facility] (DEFAULT)[address] [place] [address] 81889VGM0.7 x10 Normal3.5-10.5[facility] HospitalComment on above:Performed By: #### 3566555, [id number], [id number], 6851493, 4422234, 2569587147, 16178572, [id number] ####[facility] (DEFAULT)[address] [place] [address] 46851JKY Standardon 72-76-9755fJCB Non AA>60Invalid Interpretation [facility] Comment on above:Performed By: #### [id number], [id number], [id number], 8521911, 0708301, [id number], 81866088, [id number] ####[facility] (DEFAULT)[address] [place] [address] 77305wQTK AA>60Invalid Interpretation [facility] CenterComment on above:Performed By: #### [id number], [id number], 7835372230, 4133516, 6444296, 3760019500, 32627097, [id number] ####[facility] [facility] (DEFAULT)[address] [place] [address] 01110Xbwjetn [Mass/Vol]3.4 g/dLLow 3.5-5.0Memorial Health SystemComment on above:Performed By: #### 9879307, [id number], 0513090932, 1140419, 9283309, 2992076392, 98531303, 3117729273 ####[facility] (DEFAULT)[address] [place] [address] 62711Hal Phos81 IU/LNormal 32-91[facility] HospitalComment on above:Performed By: #### 6084297, 8292605954, 7191419790, 7592064, 0823998, 4501542285, 49047144, 9051886303 ####[facility] (DEFAULT)[address] [place] [address] 45380INM [Catalytic activity/Vol]25.0 U/EKjqzlz64.0-63.0[facility] HospitalComment on above:Performed By: #### 5105811, 8560384367, 6433894416, 0944656, 2336926, 9322262437, 66151764, 6129619586 ####[facility] (DEFAULT)[address] [place] [address] 51792FXO [Catalytic activity/Vol]25 U/GLsagjk39-72Gophkevf Hospital Comment on above:Performed By: #### 3869869, 6434244878, 7109991503, 6843203, 4498209, 1306356536, 14216184, 4152765542 ####[facility] (DEFAULT)[address] [place] [address] 38721Jdvd Total1.1 mg/dLNormal0.3-1.2[facility] HospitalComment on above:Performed By: #### 5560752, 9806457166, 2045148308, 2334848, 4076821, 5014101511, 61166297, 4510597267 ####[facility] (DEFAULT)[address] [place] [address] 20782Ycuakik [Mass/Vol]8.4 mg/dLLow 8.9-10.3[facility] HospitalComment on above:Performed By: #### 7804464, 9398617212, 3479979241, 4589005, 8331613, 3419381318, 28364260, 6393027558 ####[facility] (DEFAULT)[address] [place] [address] 40481Thesshum [Moles/Vol]101 mmol/RRndphm542-286Qsxsybzc HospitalComment on above:Performed By: #### 7023768, 1522735161, 0107984461, 3799599, 9089356, 8861498142, 89617912, 9668384285 ####[facility] (DEFAULT)[address] [place] [address] 53584OK5 [Moles/Vol]28 mmol/CQdurwd75-66Pvolhlov HospitalComment on above:Performed By: #### 1368422, 9060997708, 2701202532, 9191927, 1132024, 1718093965, 85525042, 9086558878 ####[facility] (DEFAULT)[address] [place] [address] 23846Vfkkffhrno [Mass/Vol]1.03 mg/dLNormal0.90-1.30 [facility] HospitalComment on above:Performed By: #### 5675787, 7010642783, 7650850962, 4546536, 6774093, 4958265088, 65091114, 5428033982 ####[facility] (DEFAULT)[address] [place] [address] 26273Lhsqoki [Mass/Vol]116.0 mg/bXDlmjcw79.0-118.0[facility] HospitalComment on above:Performed By: #### 2449558, 1992768112, 3964965007, 9903530, 7580185, 3349901923, 21642479, 2182179449 ####[facility] (DEFAULT)[address] [place] [address] 31905Sjfsbeggo [Moles/Vol]3.7 mmol/LNormal3.6-5.1[facility] HospitalComment on above:Performed By: #### 3627894, 0424234803, 8278124232, 4348109, 9044631, 6639891249, 65109822, 3957941589 ####[facility] (DEFAULT)[address] [place] [address] 56350Mjhnvso [Mass/Vol]6.5 g/dLNormal6.5-8.1[facility] HospitalComment on above:Performed By: #### 2732375, 7619230736, 3501923683, 3170723, 8360521, 0487475628, 40298722, 8426483811 ####[facility] (DEFAULT)[address] [place] [address] 15575Kayhlp [Moles/Vol]137.0 mmol/L Tglotv550.0-144.0[facility] HospitalComment on above:Performed By: #### 1215770, 1972416802, 2070326682, 2304804, 1996936, 4313303465, 58157766, 7881243742 ####[facility] (DEFAULT)[address] [place] [address] 75505Mdxi nitrogen [Mass/Vol]24 mg/dLNormal8-26[facility] HospitalComment on above:Performed By: #### 0025207, 8109473941, 4593923477, 3603822, 3417852, 4407153681, 35800734, 7132298578 ####[facility] (DEFAULT)[address] [place] [address] 42906Ezpqktz/Globulin [Mass ratio]1.0 {ratio}Low1.4-2.6[facility] HospitalComment on above:Performed By: #### 8604360, 8742443947, 5557906999, 6473563, 3507555, 1739491332, 25506606, 8992654995 ####[facility] (DEFAULT)[address] [place] [address] 61677Huqzi gap [Moles/Vol]11.7 mmol/L Normal5.0-19.0[facility] HospitalComment on above:Performed By: #### 4958624, 8505363813, 1929712864, 8443453, 7097270, 1943992934, 29054491, 0081479313 ####[facility] (DEFAULT)[address] [place] [address] 15228Gkjcpkrt (S) [Mass/Vol]3.1 g/dLNormal1.5-4.3[facility] HospitalComment on above:Performed By: #### 9865697, 7695856024, 8129449635, 2437035, 2084673, 8279848015, 01488200, 1972341719 ####[facility] (DEFAULT)[address] [place] [address] 98698Objmbdlian459 mOsm/LInvalid Interpretation CodeOhiohealth Shelby Hospital HospitalComment on above:Performed By: #### 1755485, 7467862833, 7992364316, 4182819, 2521707, 1922459831, 52521918, 4333496058 ####[facility] (DEFAULT)[address] [place] [address] 53602Hxrd nitrogen/Creatinine [Mass ratio]23.3 mg/mgHigh4.6-16.2Magrbrecksville va / [facility]ille hospital HospitalComment on above:Performed By: #### 9315675, 9374175734, 2751250060, 0904949, 7713801, 8639349013, 76632876, 0899453757 ####[facility] (DEFAULT)[address] [place] [address] 00430Msyozaubfw ChemTriHealth Good Sam[facility]itan Hospital HospitalComment on above:Performed By: #### 0552859, 1015118769, 6439371342, 3342625, 2843783, 3712851781, 15544351, 6687839087 ####[facility] (DEFAULT)[address] [place] [address] 74762SDIBN/Flu/RSV (GeneXpert)on 09-97-4580Ohd A (GXpert COVFLURSV)Negative NormalNegCincinnati Shriners Hospital HospitalComment on above:Performed By: #### 8670321325, 7395996992 ####[facility] (DEFAULT)[address] [place] [address] 92696Ntv B (GXpert COVFLURSV)NegativeNormalNegativeOhiohealth Shelby Hospital HospitalComment on above:Performed By: #### 6205059683, 2274712783 ####[facility] (DEFAULT)[address] [place] [address] 50417CNB (GXpert COVFLURSV)Negative NormalNegCincinnati Shriners Hospital HospitalComment on above:Performed By: #### 4431752186, 9707410428 ####[facility] (DEFAULT)[address] [place], [place] [address]HMGO-CgC-4 (COVID-19) RNA BATOOL+probe Ql (Unsp spec)NegativeNormalNegative [facility] Health SystemComment on above:Result Comment: Performed by PCR methodology. Performed By: #### [id number], [id number] ####[facility] (DEFAULT)[address] [place], [place] [address]ZJ Clinical Summaryon 22-93-8602RM Clinical SummaryMemorial Health System - Emergency Department [address] [place] [address] ED Clinical Summary PERSON INFORMATION Name: ROSCOE HERNANDEZ Age: 89 Years Sex: MALE : 1935 MRN: Acct#: Visit Reason: Cough; COUGH Arrival: 09/24/2024 06:32:39 Discharge: 09/24/2024 09:26:00 LOS: 000 02:54 Check In: 09/24/2024 06:32:39 Checkout:09/24/2024 09:26:00 Address: [address] [place] [address] PCP: Eh Lund DO PROVIDER INFORMATION Provider [...] Home PATIENT EDUCATION INFORMATION Instructions: Cough, Adult, Iyqe-tc-Fxlw Follow-Up: With: Address: When: Eh Lund [facility] [place] [address] [facility] (1) Within 7 to 10 days [...] - Patient/family/caregiver verbalizes understanding of instructions given Comment:[facility] CenterED Note - Physicianon 74-09-2551ZH Note - PhysicianPatient: ROSCOE HERNANDEZ Age: 89 [...] Social History Medical history: Resolved 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 Resolved. Comments: - states he had it for 1 1/2 years 6 months ago resolved bladder CA (3902360403): Resolved. tia (333248649): Resolved. Tear of retina (293907410): Resolved. Comments: - per patient bleeding in the left eye retina, from a recent fall. Due to see a specailist 10/18/14 PE - Pulmonary embolism (0052811425): Resolved. 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 COVID-19 (1457919267): Resolved.. Surgical history: Epidural block (7007926933) in the month of 03/2021 at 85 Years. Colonoscopy (974926344) in 2008 at 74 Years. Cardiac catheterisation (661851246) in 2007 at 73 Years. Unilateral repair of inguinal hernia (5121282974). Comments: 01/14/2017 11:15 Riddhi Bain Rt Shoulder replacement (173187977). Comments: 01/14/2017 11:21 Riddhi Bain Rt Hip replacement (6294747501).. Family history: Detached retina Brother Bone tumor Father Heart attack Mother . Social history: Social & Psychosocial Habits Alcohol 09/24/2024 Alcohol Use: Never Employment/School 09/24/2024 Status: Retired Exercise 09/24/2024 Duration (average number of minutes (more content not included)... [facility] Patient Summaryon 48-27-2955YX Patient [facility] - Emergency Department [address] [place] [address] PATIENT DISCHARGE INSTRUCTIONS Patient Information Name: ROSCOE HERNANDEZ Age: 89 Years Date of : 1935 Reason For Visit: Cough; COUGH Arrival Time: 09/24/2024 06:32:39 Primary Care Physician: Eh Lund DO Attending Physician: Elias Douglas MD Comment: Visit Diagnosis: Diagnoses This Visit Cough ([id number]) Cough (R05.9) Shortness of breath (R06.02) Throat irritation (J39.2) The [facility] at [facility] is open Tuesday through Tuesday from [...] alcohol and/or drug addiction problems; contact the [facility] 18/04 Crisis Hotline -Text 4YBOH be 174495. If you received any narcotics, sedation, or [...] legal documents With: Address: When: Eh Lund [address] [place] [address] Business (1) Within 7 to 10 [...] and treatment you received today in the [facility] Emergency Department were for an urgent problem and are not intended as complete care. It is important for you to follow up with a doctor, nurse practitioner, or physician?s assistant to the ceo for ongoing care. If your symptoms become [...] so we can reach you if necessary. [facility] has provided you with a complete list of medications post discharge. Please inform your kosher inspector/provider of your visit and for further instruction on these medications. Any specific questions regarding your chronic medications and dosages should be discussed with your primary care physician(s) and/or pharmacist. New Medications The Pharmacy at [address] [phone], [phone] amoxicillin-clavulanate (amoxicillin-clavulanate 875 mg-125 mg oral tablet) [...] by mouth) every day. (more content not included)...NormalMemorial Health SystemMagnesiumon 70-80-8381Irbpxeivc [Mass/Vol]1.90 mg/dLNormal1.80-2.50Memorial Health SystemComment on above:Performed By: #### 0301133, 8905669254, 8103795280, 3689023, 6610721, 4571270356, 46538834, 7164874059 ####[facility] (DEFAULT)[address] [place], [place] [address]Mycoplasma pneumoniae IgMon 55-91-7207Rxaklzlk ControlPassNormHolzer Medical Center – JacksonComment on above:Performed By: #### 1253825, 4211163954, 7183772283, 9209531, 8254761, 6162555300, 96419377, 1361140249 ####[facility] (DEFAULT)[address] [place], [place] [address]Mycoplasma IgMNegativeNormalNegativeMemorial Health SystemComment on above:Performed By: #### 2050930, 1676932421, 2494402455, 7639916, 6355710, 7948317010, 26381211, 5781627211 ####[facility] (DEFAULT)[address] [place] [address] 97877QStk 43-14-7972XLP Coag (PPP) [Relative time]1.01 {INR}Normal0.91-1.11 [facility] Health SystemComment on above:Performed By: #### 5318086, 1223409242, 7730465637, 1808573, 0543167, 5915466890, 15712450, 5607671471 ####[facility] (DEFAULT)[address] [place], [place] [address]AV02.5 second(s)Normal 9.7-11.8Memorial Health SystemComment on above:Performed By: #### 5059699, 9249155322, 6594744141, 8225001, 2337356, 2003560238, 67291119, 6247912791 ####[facility] (DEFAULT)[address] [place] [address] 33903LkH HSon 82-43-4557Ooriqqwm I High Sensitivity6.8 pg/mLNormal<=20.0[facility] Comment on above:Performed By: #### 8049620, 1652456508, 8329776666, 5058933, 9219160, 7674549736, 87781543, 3206734006 ####[facility] (DEFAULT)[address] [place] [address] 49867JD Chest 2 Viewson 67-95-3561RT Chest 2 Views EXAM: XR Chest 2 [...] Eldridge MD 09/24/24 10:04 a Technologist: LIA CLARKEToledo HospitalCoding Summaryon 90-90-9500Uoisev SummaryHTMLBase 64 CnyiufjsLTc5rXp+PGhlYWQ+ZX6GTKReG77naOMlcP3mP5FXCIrOAppiDEZBTIqXKkCmmfFaWO5kyMBo ZXJu [file] c2U (more content not included)...[facility] Medical CenterReminder Messageson 51-63-2390Dadcivzb Messages From: Eh Lund DO To: [facility] ([facility]); Sent: 09/12/2024 15:09:45 EST Show up: 09/12/2024 15:10:00 EST Subject: Results Follow Up Due Date/Time: 09/13/2024 15:09:00 EST no new lung nodules new right rib fractures. trauma?? Results: Date Result Type Result Name 09/12/2024 14:[address] Chest W/O Contrast From: Ghazala Carter RN ([facility] ([facility])) To: Eh Lund DO; Sent: 09/13/2024 11:24:23 EST Show up: 09/13/2024 11:24:00 EST Subject: RE: Results Follow Up Fell 07/28 - rib xrays were done 08/22 and read as negative From: Eh Lund DO To: [facility] ([facility]); Sent: 09/13/2024 11:58:53 EST Show up: 09/13/2024 11:58:00 EST Subject: RE: Results Follow Up xrays were wrong patient notified and voiced understanding.[facility] Chest W/O Contraston 64-17-9725AK Chest W/O ContrastEXAMINATION: CT Chest W/O Contrast, [...] Jaime Rangel MD 09/12/24 2:56 pm Technologist: DARLENESt. Mary[facility]ont[facility] CampusPatient Letter FTon 09-11-2024 Patient Letter [place] September 11, 2024 ROSCOE HERNANDEZ [address] [place] [address] : 1935 Dear [employer], Roscoe Hernandez : 1935, [place] file number [id number], is a current urological patient of mine [...] Gill M.D., F.A.C.S. [facility] [address] [place], [place] [address] , Option #3NoPeoples HospitalPatient Letter [place] Patient Letter [place] September 11, 2024 ROSCOE HERNANDEZ [address] [place] [place] [address] : 1935 Dear [employer], Roscoe Hernandez : 1935, [place] file number [id number], is a current urological patient of mine [...] F.A.C.S. [facility] [address] [place], [place] [address] , Option #3NormalSumma Health Wadsworth - Rittman Medical CenterOutside Recordson 40-83-6838Myfldvs [id number]#1.00OTGTIFF [facility] Medical CenterReminder Messageson 88-63-6542Vhmshibk MessagesEntered by Ghazala Carter RN on September 03, 2024 09:16:30 EST ordered - tv From: Ghazala Carter RN ([facility] ([facility])) To: [facility] ([facility]); Sent: 02/06/2024 15:13:57 EDT Show up: 08/08/2024 14:13:00 EST Subject: CT chest Reminder: Please call patient to: Please schedule patient for: [address] chest Please ask patient to: Results Follow up Required for:[facility] Medical CenterXR shoulder RT min 2V*on 15-91-5989DD shoulder RT min 2V*[facility] [address] [place] [address] XRay Report Signed Patient: Roscoe Hernandez MR#: [id number] 74 : 1935 Acct:[id number] Age/Sex: 89 / M ADM Date: 08/30/24 Loc: [facility] Room: Type: [facility] Attending Dr: Jordin Saez MD Copies to: [...] Srikanth Vogt M.D.08/30/2024 12:35 PM Dictation Location: [place] [address] Transcribed By: [facility] 08/30/24 1235 Dictated By: Srikanth Vogt DO 08/30/24 1235 Signed By: 08/30/[address] [place] [address] Physician GroupOutside Recordson 08-29-2024 Outside [id number]#1.00OTGTSt. Albans Hospital HospitalCoding Summaryon 50-68-1395Lasehs SummaryMLBase 64 JbjkhzooLPe8uYd+PGhlYWQ+EO7DAKNtJ67ufKYprY2aU6BVYIuJZnpkAXOTQBgMJoQgmmVjIZ9epJYz ZXJu [file] c2U (more content not included)...[facility] Medical CenterPatient Handouton 33-86-1658Tdfbojp HandoutOrthopedics Chest Wall Pain Chest wall pain [...] safe for you. General instructions ? Take lfgn-ybw-hycfsjo and prescription medicines only as told by [...] provider. Document Revised: 09/05/2023 Document Reviewed: 09/05/2023 [employer] Patient Education ? 2023 [employer].[facility] Messageson 51-21-8858Gzdpnimt Messages From: Marija Russell APRN, CNP To: [facility] ([facility]); Sent: 08/22/2024 13:02:04 EST ! Show up: 08/22/2024 13:02:04 EST Subject: Results Follow Up Actions: Call the patient with result(s) Due Date/Time: 08/23/2024 13:01:00 EST Reminder Comments: no hardware issues on Xray Results: Date Result Type Result Name 08/22/2024 12:06 Radiology XR Shoulder Complete Right patient notified, voiced understanding.[facility] Messages From: Marija Russell APRN, CNP To: [facility] ([facility]); Sent: 08/22/2024 13:02:54 EST ! Show up: 08/22/2024 13:02:54 EST Subject: Results Follow Up Actions: Call the patient with result(s) Due Date/Time: 08/23/2024 13:02:00 EST Reminder Comments: no hardware changes in hip Results: Date Result Type Result Name 08/22/2024 12:05 Radiology XR Hip Complete Right patient notified, voiced understanding.[facility] Messages From: Marija Russell APRN, CNP To: [facility] CallmyName [place] ([facility]); Sent: 08/22/2024 13:03:15 EST ! 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 Show up: 08/22/2024 13:03:40 EST Subject: Results Follow Up Actions: Call the patient with result(s) Due Date/Time: 08/23/2024 13:03:00 EST Reminder Comments: no rib fracture, normal xray Results: Date Result Type Result Name 08/22/2024 12:00 Radiology XR Ribs 2 Views Right patient notified, voiced understanding.[facility] Medical CenterXR Ribs 2 Views Righton 23-07-8880YA Ribs 2 Views RightEXAMINATION: XR Ribs 2 [...] Eh Medina MD 08/22/24 11:58 a Technologist: [facility] - Other Lab Resultson 11-14-7571Qni - Other Lab [id number]#1.00OTGTIFFNoWVUMedicine Harrison Community HospitalUroVysion Fish and Urine Cyto (P4 Labs)on 85-63-5404XWZTKY & UC Diagnosis InfoInvalid Interpretation CodeFormerly [facility], [facility] HospitalComment on above:Result Comment: A:Urine,Bladder Wash:Bladder Wash Diagnosis [...] with cytology and cystoscopy results. * CPT: 32150, 40747. Microscopic Notes - Microscopic Notes - Abnormal cells 9p21 deletions: Abnormal cells aneploid events: Total cells analyzed: 200 Hematuria: Gross Description Site ID:A color dark Yellow fixative Alcohol Received 110 mls of clear dark yellow fluid with the patient's name and, Bladder Wash on the vial. Electronically signed by : on: 08/13/2024 16:52:56Performed By: #### [id number] #### [facility] [address] [place], [place] [address]Mdhdqeedqqm 69-82-8643LufopqlbmJbnbmpgwh From: Amrita Benjamin To: EU - Recalls Gill; Sent: 2024 14:45:58 EDT Show up: 09/26/2024 14:45:00 EST Subject: cysto/fish/cytol Due Date/Time: 10/22/2024 14:45:00 EST Reminder/Recall Patient is due in Oct 2024 for 3 month cysto/fish/cytol (bt ck) Patient sched for 11/27/24 Cysto per [facility] Ambulatory Visit Summaryon 44-64-3279Lcuftuwdej Visit SummaryAmbulatory Visit Summary ROSCOE HERNANDEZ :1935 [...] graft preparation for epidermal skin graft with 4rdi0feq9.0cm (12/29/2016), Cystoscopy to remove object (11/29/2012), Laser [...] [facility] [address] [place] [address]- Medications What How Much When Instructions Unchanged [...] certain cancers, including colorectalc (more content not included)...Memorial HospitalUroVysion Fish and Urine Cyto (P4 Labs)on 32-04-0417ZQME Method of ExtractionBladder WashMemorial HospitalComment on above: Performed By: #### [id number] #### [facility] [address], [place] [address]WHHI Number of Jack9Ljpzpre Interpretation [facility] HospitalComment on above:Performed By: #### [id number] #### [facility] [address], [place] [address]EQBC SpecimenBladder [facility] Comment on above:Performed By: #### [id number] #### [facility] [address], [place] [address]ATNF Type of ServiceTechnical OnlyMemorial HospitalComment on above:Performed By: #### [id number] #### [facility] [address] [place], [place] [address]Oheyxic Office/Clinic Noteon 70-18-8133Zrbagfb Office/Clinic NoteUrology Office/Clinic Note Chief Complaint Cysto [...] [facility] [address], [place] [address]- Additional Instructions: Schedule mitomycin x 2 then [...] Medical History Ongoing Anticoagula (more content not included)...[facility] Comment on above:Result Comment: Electronically Signed By: JAIRO CALVO, Juan Rodriguez\.br\Date and Time Signed: 08/07/24 11:18 EST\.br\Electronically Co-Signed By: Francia Dos Santos\.br\Date and Time Co-Signed: 08/07/24 11:16 ESTOutside Records on 05-63-3453Yzwfcqf Records [id number]#1.00Wood County HospitalXR femur RT 2V*on 86-86-5938NR femur RT 2V*[facility] [address] [place] [address] XRay Report Signed Patient: Roscoe Hernandez MR#: [id number] 74 : 1935 Acct:[id number] Age/Sex: 89 / M ADM Date: 08/01/24 Loc: [facility] Room: Type: [facility] Attending Dr: Jordin Carson MD Copies to: Jordin Carson MD Ordering Provider: Jordin Carson MD Date of Service: 08/01/24 XR/XR femur RT 2V*: G89.29 - Other chronic pain ([id number]) XR/XR pelvis 1-2V: M54.59 - Other low back pain ([id number]) XR/XR ribs RT min 3V w CXR1V*: [...] Srikanth Vogt M.D.08/01/2024 2:39 PM Dictation Location: [place] [address] Transcribed By: [facility] 08/01/24 1439 Dictated By: Srikanth Vogt DO 08/01/24 1435 Signed By: 08/01/[address] [place] [address] Physician GroupCoding Summaryon 07-30-2024 Coding SummaryHTMLBase 64 AqvnuyelKSe6vEk+PGhlYWQ+CG1MNXCtG45vcBTbnT1gD8WQEUeMPcecHEPBYRsIAoMvnyNjIN1anDXr ZXJu [file] eWx (more content not included)...[facility] CenterXR Pelvis and Hip - right AP and Lateral frogon 93-16-0319PNKGHSBTVH: Postoperative findings as described with no acute osseous abnormality. Principal Product Manager: JENY Transcribe Date/Time: Jun 21 2024 2:50P Dictated by : DEVI PATTON MD This examination was interpreted and the report reviewed and electronically signed by: DEIV PATTON MD on Jun 21 2024 2:55PM [facility] DIVISION OF RADIOLOGY* * *Final Report* * [...] No other significant abnormality. DIVISION OF RADIOLOGYProvider, [facility] [place] - 06/21/2024 * * *Final Report* * [...] as described with no acute osseous abnormality. Principal Product [facility] Transcribe Date/Time: Jun 21 2024 2:50P Dictated by : DEVI PATTON MD This examination was interpreted and the report reviewed and electronically signed by: DEVI PATTON MD on Jun 21 2024 2:55PM EST [facility]Rad[facility] observation (narrative)[facility] HospitalXR Pelvis and Hip - right AP and Lateral frogOrdered By: [facility] Provider on 06-21-2024 [facility] HospitalUroVysion Fish and Urine Cyto ([facility]4 [facility])on 01-22-9172PNPIWG & UC Diagnosis InfoInvalid Interpretation Lutheran HospitalComment on above:Result Comment: A:Urine,Bladder Wash:Bladder Wash Diagnosis [...] by : on: 05/08/2024 17:51:41Performed By: #### [id number] #### [facility] [address] [place] [address]RbtPodxcn Fish and Urine Cyto ( Labs)on [id number] Method of ExtractionBladder [facility] Lutheran HospitalComment on above: Performed By: #### [id number] #### [facility] [address], [place] [address]PPYL Number of Vulq2Nyjjvnw Interpretation Lutheran HospitalComment on above:Performed By: #### [id number] #### [facility] [address] [place] [id number] SpecimenBladder [facility] Comment on above:Performed By: #### [id number] #### [facility] [address], [place] [address]BNDA Type of ServiceTechnical OnlyMemorial HospitalComment on above:Performed By: #### [id number] #### [facility] [address] [place] [address] 02248Nivjoyr Office/Clinic Noteon [id number] Office/Clinic NoteUrology Office/Clinic Note Chief Complaint cysto [...] [facility] [address], [place] [address]- Additional Instructions: 3 mos surveillance cysto/bt ck/FISH/cytol [...] History Flexible cystoscopy (0 (more content not included)...Memorial HospitalComment on above:Result Comment: Electronically Signed By: AJIRO CALVO, Juan Rodriguez\.br\Date and Time Signed: 05/01/24 14:57 EDT\.br\Electronically Co- Signed By: Francia Dos Santos\.br\Date and Time Co-Signed: 05/01/24 14:56 EDT Coding Summary.on [id number] Summary. [id number]+PGhlYWQ+DU1PVGKcE64epFFifU0zP9DDQTmQDxvqCMNZPOeSZlNiisNmRJ3caH NjZXJu [file] [id number] (more content not included)...Memorial HospitalC Urineon 36-01-5356Syovaivo identified Cx Nom (U)Microbiology PROCEDURE: Urine Culture [R1] SOURCE: U CleanCatch BODY SITE: COLLECTED DATE/TIME: 03/12/2024 11:48 EDT RECEIVED DATE/TIME: 03/12/2024 17:54 EDT START DATE/TIME: 03/12/2024 17:54 EDT FREE TEXT SOURCE: JAIRO CALVO, Juan GILL MD, Juan Rodriguez FINAL REPORTS Final Report [] Verified Date/Time: 03/14/2024 09:57 EDT No growth at 2 days. Performing Locations R1: This [facility] performed at: [facility], [address] [place] [address], [id number] , , OkdxsqCykjfwMemorial HospitalComment on above:Performed By: #### [id number] #### [facility] [address] [place] [place] [address]C Urineon 66-68-2183Ktmrcyss identified Cx Nom (U)Microbiology PROCEDURE: Urine Culture [...] Locations R1: This test was performed at: [facility], [address] [place] [address], [id number] [place] [address], [address] [place], [place] [address]Comment on above:Performed By: #### [id number] #### [facility] [address] [place] [address]B Urineon 64-96-1398Oyxlqhmj identified Cx Nom (U)Microbiology PROCEDURE: Urine Culture [R1] SOURCE: U Random BODY SITE: COLLECTED DATE/TIME: 02/10/2024 11:18 EDT RECEIVED DATE/TIME: 02/10/2024 17:19 EDT START DATE/TIME: 02/10/2024 17:19 EDT FREE TEXT SOURCE: JAIRO CALVO, Juan GILL MD, Juan Rodriguez FINAL REPORTS Final Report [] Verified Date/Time: 02/12/2024 09:25 EDT No growth at 2 days. Performing Locations R1: This test was performed at: [facility], [address] [place] [address], [id number] [place] [address], K[address]zrwGqllqq[address] Andrews StreetComment on above:Performed By: #### [id number] #### [facility] [address] [place] [address]Gyboixkw identified Cx Nom (U)Microbiology PROCEDURE: Urine Culture [R1] SOURCE: U Random BODY SITE: COLLECTED DATE/TIME: 02/10/2024 11:18 EDT RECEIVED DATE/TIME: 02/10/2024 17:19 EDT START DATE/TIME: 02/10/2024 17:19 EDT FREE TEXT SOURCE: JIARO CALVO, Juan GILL MD, Juan Rodriguez FINAL REPORTS Final Report [] Verified Date/Time: 02/12/2024 09:25 EDT No growth at 2 days. Performing Locations R1: This test was performed at: [facility], [address] [place] [address], [id number]- , [place], VuyquuTpseccPeoples HospitalComment on above:Performed By: #### [id number] #### [facility] [address] [place] [address] 09[address]Hzjcyejaz partial thromboplastin time (aPTT) in platelet poor plasma by coagulation aOrdered By: Juan Gill on 26-32-8079nGTL Coag (PPP) [Time]34.2 s25.1-36.5FMercy Health Urbana HospitalComment on above:A hematocrit value greater than 55% may lead to inaccurate results in coagulation testing. Patientshaving hematocrit values >55% require a special collection tube for coagulation studies. Please contact the laboratory at [phone] for redraw instructions.INR in Platelet poor plasma by Coagulation assayOrdered By: Juan Gill on 21-69-2784FKG Coag (PPP) [Relative time]1.0 {INR}[facility] SouthComment on above:INR Therapeutic Range A) Pre- and [...] 4.5Prothrombin time (PT)Ordered By: Juan Gill on 98-83-0824MX Coag (PPP) [Time]11.2 s9.0-12.9[facility] Hospital SouthComment on above:A hematocrit value greater than 55% may lead to inaccurate results in coagulation testing. Patientshaving hematocrit values >55% require a special collection tube for coagulation studies. Please contact the laboratory at [phone] for redraw instructions.ECG 12 Leadon 12-09-2023 Normal sinus rhythm with right bundle branch blockCPACSUK Healthcare Work Phone: basophils Auto (Bld) [#/Vol]Ordered By: Juan Gill on 85-35-7573Ulfsdpfbm (Bld) [#/Vol]0.0 10*3/uL0.0-0.2FMercy Health Urbana HospitalBasophils/100 WBC Auto (Bld)Ordered By: Juan Gill on 83-24-2894Zmmipxbem/100 WBC (Bld)0.7 %.[facility] SouthCalcium [Mass/volume] in Serum or PlasmaOrdered By: Juan Gill on 14-01-6135Phahcet [Mass/Vol]8.4 mg/dL8.6-10.3FMercy Health Urbana HospitalCarbon dioxide, total [Moles/volume] in Serum or PlasmaOrdered By: Juan Gill on 12-06-2023 CO2 [Moles/Vol]30.5 mmol/L21.0-31.0[facility] SouthChloride [Moles/volume] in Serum or PlasmaOrdered By: Juan Gill on 12-06-2023 Chloride [Moles/Vol]108 mmol/C65-652MrqmhabbmPremier Health Miami Valley Hospital SouthCreatinine [Mass/volume] in Serum or PlasmaOrdered By: Juan Gill on 12-06-2023 Creatinine [Mass/Vol]0.90 mg/dL0.70-1.30[facility] Eosinophils Auto (Bld) [#/Vol]Ordered By: Juan Gill on 12-06-2023 Eosinophils (Bld) [#/Vol]0.2 10*3/uL0.0-0.45[facility] Eosinophils/100 WBC Auto (Bld)Ordered By: Juan Gill on 12-06-2023 Eosinophils/100 WBC (Bld)4.6 %.[facility] Hospital SouthErythrocyte distribution width Auto (RBC) [Ratio]Ordered By: Juan Gill on 12-06-2023 Erythrocyte distribution width (RBC) [Ratio]14.0 %12.0-14.8[facility] SouthGlucose [Mass/volume] in Serum or PlasmaOrdered By: Juan Gill on 16-42-1151Luzjekt [Mass/Vol]102 mg/lA17-388OorjiejswPremier Health Miami Valley Hospital South Comment on above:ADA recommended reference rangeRandom Glucose Reference Range is dependent on time and content of last meal. Glucose of more than 200 mg/dL in a nonstressed, ambulatory subject supports the diagnosisof Diabetes Mellitus. Hematocrit Auto (Bld) [Volume fraction]Ordered By: Juan Gill on 12-06-2023 Hematocrit (Bld) [Volume fraction]41.0 %38.8-50.0[facility] SouthHemoglobin [Mass/volume] in BloodOrdered By: Jaun Gill on 12-06-2023 Hemoglobin (Bld) [Mass/Vol]13.8 g/dL13.0-17.0[facility] Leukocytes [#/volume] corrected for nucleated erythrocytes in Blood by Automated counOrdered By: Juan Gill on 49-46-1520LCS corrected for nucl RBC Auto (Bld) [#/Vol]4.5 10*3/uL4.1-10.5FMercy Health Urbana HospitalLymphocytes Auto (Bld) [#/Vol]Ordered By: Juan Gill on 71-16-2467Lywgdlkkzhl (Bld) [#/Vol]0.9 10*3/uL1.00-4.8[facility] SouthLymphocytes/100 WBC Auto (Bld)Ordered By: Juan Gill on 97-24-0188Tsxdxaisndp/100 WBC (Bld)20.9 %.[facility] CenterH Auto (RBC) [Entitic mass]Ordered By: Juan Gill on 67-21-7285OHK (RBC) [Entitic mass]31.4 pg27.5-35.2FMercy Health Urbana HospitalMCHC Auto (RBC) [Mass/Vol]Ordered By: Juan Gill on 52-61-9029PJGV (RBC) [Mass/Vol]33.6 g/dL32.5-35.6FMercy Health Urbana HospitalMCV Auto (RBC) [Entitic vol]Ordered By: Juan Gill on 60-70-5068KMY (RBC) [Entitic vol]93.4 fL83.5-101[facility] SouthMonocytes Auto (Bld) [#/Vol]Ordered By: Juan Gill on 62-14-1093Rhyftvkcn (Bld) [#/Vol]0.5 10*3/uL0.0-0.8[facility] SouthMonocytes/100 WBC Auto (Bld)Ordered By: Juan Gill on 69-15-5931Dcetgatzb/100 WBC (Bld)11.9 %. [facility] SouthNeutrophils Auto (Bld) [#/Vol]Ordered By: Juan Gill on 31-61-6234Qwkkktsmzqy (Bld) [#/Vol]2.8 10*3/uL1.8-7.7FMercy Health Urbana HospitalNeutrophils/100 WBC Auto (Bld)Ordered By: Juan Gill on 70-83-8381Chbweyevaoo/100 WBC (Bld)61.9 %.[facility] No Panel InformationOrdered By: Juan Gill on 55-46-4918Ucroqbkpx GFR (CKD-EPI)> 60.0 mL/MinPremier Health Miami Valley Hospital SouthPharmacy Creatinine Clearance (ChemN/AFMercy Health Urbana HospitalNucleated erythrocytes [Presence] in Blood by Automated countOrdered By: Juan Gill on 12-06-2023 Nucleated RBC Auto Ql (Bld)0.1 /100{WBC}0-0.5FMercy Health Urbana Hospital Platelet mean volume Auto (Bld) [Entitic vol]Ordered By: Juan Gill on 59-63-5679Grzmxbew mean volume (Bld) [Entitic vol]8.8 fL6.6-10.1FMercy Health Urbana HospitalPlatelets Auto (Bld) [#/Vol]Ordered By: Juan Gill on 77-64-7225Czyekcpgm (Bld) [#/Vol]156 10*3/pC485-809XvpagcwmoPremier Health Miami Valley Hospital SouthPotassium [Moles/volume] in Serum or PlasmaOrdered By: Juan Gill on 46-83-0925Djbolbyln [Moles/Vol]4.5 mmol/L3.5-5.1FMercy Health Urbana HospitalRBC Auto (Bld) [#/Vol]Ordered By: Juan Gill on 89-96-4887IZQ (Bld) [#/Vol]4.38 10*6/uL3.90-5.60[facility] Hospitalerum or plasma anion gap determinationOrdered By: Juan Gill on 74-56-3963Ylxou gap [Moles/Vol]10.0 mmol/L6.0-15.0[facility] Hospitalodium [Moles/volume] in Serum or PlasmaOrdered By: Juan Jairo on 90-59-3263Ikafaw [Moles/Vol]144 mmol/O822-787PwskhbygmPremier Health Miami Valley Hospital SouthUrea nitrogen [Mass/volume] in Serum or PlasmaOrdered By: Juan Jairo on 14-71-7222Sfsb nitrogen [Mass/Vol]20 mg/dL7-25Prem[facility] SouthWBC Auto (Bld) [#/Vol]Ordered By: Juan Gill on 01-17-1181QTM (Bld) [#/Vol]4.5 10*3/uL 4.1-10.5FMercy Health Urbana HospitalActivated partial thromboplastin time (aPTT) in platelet poor plasma by coagulation aOrdered By: John Haq on 66-67-2872hFZW Coag (PPP) [Time]38.2 s25.1-36.5FMercy Health Urbana Hospital Comment on above:A hematocrit value greater than 55% may lead to inaccurate results in coagulation testing. Patientshaving hematocrit values >55% require a special collection tube for coagulation studies. Please contact the laboratory at [phone] for redraw instructions.Alanine aminotransferase [Enzymatic activity/volume] in Serum or PlasmaOrdered By: John Haq on 21-79-5743SDL [Catalytic activity/Vol]22 U/L7-52[facility] Hospital SouthAlbumin [Mass/volume] in Serum or Plasma by Bromocresol green (BCG) dye binding metho Ordered By: Jhon Haq on 50-00-7277Djpkbua BCG dye [Mass/Vol]3.9 g/dL3.5-5.7 [facility] SouthAlkaline phosphatase [Enzymatic activity/volume] in Serum or PlasmaOrdered By: John Haq on 59-09-8443CWI [Catalytic activity/Vol]93 U/Q24-441XnokrhkdzPremier Health Miami Valley Hospital SouthAspartate aminotransferase [Enzymatic activity/volume] in Serum or PlasmaOrdered By: John Haq on 27-06-6613LNC [Catalytic activity/Vol]23 U/N25-08IuwmktjupPremier Health Miami Valley Hospital SouthBasophils Auto (Bld) [#/Vol]Ordered By: John Haq on 09-18-2023 Basophils (Bld) [#/Vol]0.0 10*3/uL0.0-0.2FMercy Health Urbana Hospital Basophils/100 WBC Auto (Bld)Ordered By: John Haq on 57-30-0902Aigwgwlzk/100 WBC (Bld)0.6 %.[facility] Hospital SouthBilirubin.direct [Mass/volume] in Serum or PlasmaOrdered By: John Haq on 26-93-5682Bjizslimi.direct [Mass/Vol]0.10 mg/dL0.03-0.18FMercy Health Urbana HospitalBilirubin.total [Mass/volume] in Serum or PlasmaOrdered By: John Haq on 23-23-6657Cwbvgsruq [Mass/Vol]0.7 mg/dL0.3-1.0[facility] SouthCOVID CepheidOrdered By: John Haq on 53-10-6547MKCU-CoV-2 (COVID-19) Ab IA QlNegativeNegative [facility] SouthComment on above:This is a duplicate [employer] Xpert Xpress CoV-2/Flu/RSV Plus RNA by RT-PCR result to be used for statistical tracking purpose only.SARS-CoV-2 (COVID-19) RNA BATOOL+probe Ql (Unsp spec) [facility] HospitalARS-CoV-2 (COVID-19) RNA BATOOL+probe Ql (Unsp spec)[facility] SouthCalcium [Mass/volume] in Serum or Plasma Ordered By: John Haq on 66-30-7742Ncauezn [Mass/Vol]9.0 mg/dL8.6-10.3 [facility] SouthCarbon dioxide, total [Moles/volume] in Serum or PlasmaOrdered By: John Haq on 79-79-7684ZY5 [Moles/Vol]28.9 mmol/L 21.0-31.0[facility] SouthChloride [Moles/volume] in Serum or PlasmaOrdered By: John Haq on 49-29-6153Airpgjmm [Moles/Vol]105 mmol/L98-107 [facility] SouthCreatine kinase [Enzymatic activity/volume] in Serum or PlasmaOrdered By: John Haq on 54-63-0664EL [Catalytic activity/Vol] 84 U/S72-818WqneigtymPremier Health Miami Valley Hospital SouthCreatinine [Mass/volume] in Serum or PlasmaOrdered By: John Haq on 77-85-9247Mxyzyfslbt [Mass/Vol]0.85 mg/dL 0.70-1.30[facility] SouthEosinophils Auto (Bld) [#/Vol]Ordered By: John Haq on 27-84-1856Lltlxlhohzy (Bld) [#/Vol]0.2 10*3/uL0.0-0.45 [facility] SouthEosinophils/100 WBC Auto (Bld)Ordered By: John Haq on 26-29-6290Cdvwpxleacu/100 WBC (Bld)5.0 %.[facility] SouthErythrocyte distribution width Auto (RBC) [Ratio]Ordered By: John Haq on 14-79-1528Gpxiqdlbowz distribution width (RBC) [Ratio]14.4 %12.0-14.8 [facility] SouthGlobulin Calc (S) [Mass/Vol]Ordered By: John Haq on 70-71-5548Cclizwur (S) [Mass/Vol]2.7 g/dLPremier Health Miami Valley Hospital SouthGlucose [Mass/volume] in Serum or PlasmaOrdered By: John Haq on 04-33-4665Ubqjilp [Mass/Vol]105 mg/rM70-166AfxndqbjmPremier Health Miami [facility] South Comment on above:ADA recommended reference rangeRandom Glucose Reference Range is dependent on time and content of last meal. Glucose of more than 200 mg/dL in a nonstressed, ambulatory subject supports the diagnosisof Diabetes Mellitus. Hematocrit Auto (Bld) [Volume fraction]Ordered By: John Haq on 09-18-2023 Hematocrit (Bld) [Volume fraction]42.2 %38.8-50.0[facility] SouthHemoglobin [Mass/volume] in BloodOrdered By: John Haq on 09-18-2023 Hemoglobin (Bld) [Mass/Vol]14.2 g/dL13.0-17.0[facility] INR in Platelet poor plasma by Coagulation assayOrdered By: John Haq on 04-95-0450SUD Coag (PPP) [Relative time]1.0 {INR}[facility] SouthComment on above:INR Therapeutic Range A) Pre- and [...] by Automated counOrdered By: John Haq on 54-92-4491BGZ corrected for nucl RBC Auto (Bld) [#/Vol]4.5 10*3/uL4.1-10.5FMercy Health Urbana Hospital Lymphocytes Auto (Bld) [#/Vol]Ordered By: John Haq on 12-43-9289Huswhvbxyag (Bld) [#/Vol]0.8 10*3/uL1.00-4.8[facility] SouthLymphocytes/100 WBC Auto (Bld)Ordered By: John Haq on 72-96-1079Pjcgetvahqs/100 WBC (Bld) 16.7 %.[facility] CenterH Auto (RBC) [Entitic mass]Ordered By: John Haq on 24-69-6615TQD (RBC) [Entitic mass]31.3 pg27.5-35.2FMercy Health Urbana HospitalMCHC Auto (RBC) [Mass/Vol]Ordered By: John Haq on 92-80-4307HNRR (RBC) [Mass/Vol]33.7 g/dL32.5-35.6FMercy Health Urbana HospitalMCV Auto (RBC) [Entitic vol]Ordered By: John Haq on 96-48-7589VKP (RBC) [Entitic vol]93.1 fL83.5-101[facility] SouthMonocyte distribution width [Entitic volume] in Blood by AutomatedOrdered By: John Haq on 42-23-3323Idsnulka distribution width Auto (Bld) [Entitic vol]17.67 % 0.00-20.00[facility] SouthMonocytes Auto (Bld) [#/Vol]Ordered By: John Haq on 39-51-2884Ozjjpaxcp (Bld) [#/Vol]0.5 10*3/uL0.0-0.8[facility] SouthMonocytes/100 WBC Auto (Bld)Ordered By: John Haq on 58-90-3339Foxhltepi/100 WBC (Bld)12.0 %.[facility] Natriuretic peptide B [Mass/Vol]Ordered By: John Haq on 03-88-2458Mgzyuatdxpt peptide B (Bld) [Mass/Vol]64.0 pg/mL5-100[facility] Neutrophils Auto (Bld) [#/Vol]Ordered By: John Haq on 35-23-0380Llvlbyxyjlv (Bld) [#/Vol]3.0 10*3/uL1.8-7.7FMercy Health Urbana HospitalNeutrophils/100 WBC Auto (Bld)Ordered By: John Haq on 72-97-6297Qcyitzefaia/100 WBC (Bld)65.7 %.[facility] SouthNo Panel InformationOrdered By: John Haq on 60-29-9644Flbmzielk GFR (CKD-EPI)> 60.0 mL/MinPremier Health Miami Valley Hospital SouthPharmacy Creatinine Clearance (Chem65.21[facility] Nucleated erythrocytes [Presence] in Blood by Automated countOrdered By: John Haq on 93-29-6921Otzggkkov RBC Auto Ql (Bld)0.0 /100{WBC}0-0.5FMercy Health Urbana HospitalPlatelet mean volume Auto (Bld) [Entitic vol]Ordered By: John Haq on 14-68-0326Xnslryvm mean volume (Bld) [Entitic vol]9.1 fL6.6-10.1 [facility] SouthPlatelets Auto (Bld) [#/Vol]Ordered By: John Haq on 81-57-7005Lecpvyamk (Bld) [#/Vol]160 10*3/zO335-925KynhqozkmPremier Health Miami Valley Hospital SouthPotassium [Moles/volume] in Serum or PlasmaOrdered By: John Haq on 84-25-3183Hhrytgjiy [Moles/Vol]3.7 mmol/L3.5-5.1FMercy Health Urbana HospitalProtein [Mass/volume] in Serum or PlasmaOrdered By: John Haq on 39-84-4320Yyzxuod [Mass/Vol]6.6 g/dL6.4-8.9[facility] Prothrombin time (PT)Ordered By: John Haq on 96-59-1764QP Coag (PPP) [Time] 11.2 s9.0-12.9[facility] Hospital SouthComment on above:A hematocrit value greater than 55% may lead to inaccurate results in coagulation testing. Patientshaving hematocrit values >55% require a special collection tube for coagulation studies. Please contact the laboratory at [phone] for redraw instructions.RBC Auto (Bld) [#/Vol]Ordered By: John Haq on 70-95-1784ZJU (Bld) [#/Vol]4.53 10*6/uL3.90-5.60[facility] Hospitalerum or plasma albumin/globulin mass ratioOrdered By: John Haq on 09-18-2023 Albumin/Globulin [Mass ratio]1.4 {ratio}[facility] Hospitalerum or plasma anion gap determinationOrdered By: John Haq on 80-38-5699Qdcuf gap [Moles/Vol]8.8 mmol/L6.0-15.0[facility] Hospitalerum or plasma non-glucuronidated bilirubin measurement (mass/volume)Ordered By: John Haq on 39-74-1945Hrzfvcryv.indirect [Mass/Vol]0.6 mg/dLCleveland Clinic Avon Hospitalodium [Moles/volume] in Serum or PlasmaOrdered By: John Haq on 64-49-3584Dxchqh [Moles/Vol]139 mmol/B126-096UtrlgfpdcPremier Health Miami [facility] Hospital South Troponin I.cardiac [Mass/volume] in Serum or Plasma by Detection limit <= 0.01 ng/Ordered By: John Haq on 17-94-6436Dcftnagt I.cardiac DL <= 0.01 ng/mL [Mass/Vol]8.0 pg/mL0.0-20.0[facility] SouthUrea nitrogen [Mass/volume] in Serum or PlasmaOrdered By: John Haq on 45-58-6512Lyes nitrogen [Mass/Vol]17 mg/dL7-25Prem[facility] SouthWBC Auto (Bld) [#/Vol]Ordered By: John Haq on 30-54-1373OGP (Bld) [#/Vol]4.5 10*3/uL4.1-10.5 [facility] SouthActivated partial thromboplastin time (aPTT) in platelet poor plasma by coagulation aOrdered By: Juan Gill on 11-30-2022 aPTT Coag (PPP) [Time]34.9 s25.1-36.5FMercy Health Urbana HospitalBasophils Auto (Bld) [#/Vol]Ordered By: Juan Gill on 98-75-9341Pphwbujlq (Bld) [#/Vol]0.0 10*3/uL0.0-0.2FMercy Health Urbana HospitalBasophils/100 WBC Auto (Bld)Ordered By: Juan Gill on 30-37-2057Nadjniusv/100 WBC (Bld)0.5 %. [facility] SouthCalcium [Mass/volume] in Serum or PlasmaOrdered By: Juan Gill on 29-66-2798Hpbfrez [Mass/Vol]9.0 mg/dL8.6-10.3FMercy Health Urbana HospitalCarbon dioxide, total [Moles/volume] in Serum or Plasma Ordered By: Juan Gill on 47-00-7623FO0 [Moles/Vol]30.1 mmol/L21.0-31.0 [facility] SouthChloride [Moles/volume] in Serum or Plasma Ordered By: Juan Gill on 03-01-1639Xqcujlhx [Moles/Vol]106 mmol/L98-107 [facility] SouthCreatinine [Mass/volume] in Serum or Plasma Ordered By: Juan Gill on 26-03-2653Nrcirtsjxw [Mass/Vol]0.93 mg/dL0.70-1.30 [facility] SouthEosinophils Auto (Bld) [#/Vol]Ordered By: Juan Gill on 73-23-5516Zyyolaauxch (Bld) [#/Vol]0.2 10*3/uL0.0-0.45 [facility] SouthEosinophils/100 WBC Auto (Bld)Ordered By: Juan Gill on 69-50-3429Kdmalwegcfs/100 WBC (Bld)2.8 %.[facility] SouthErythrocyte distribution width Auto (RBC) [Ratio]Ordered By: Juan Gill on 15-00-4386Qxczvefwonl distribution width (RBC) [Ratio]14.1 % 12.0-14.8[facility] SouthGlucose [Mass/volume] in Serum or PlasmaOrdered By: Juan Gill on 51-32-1571Tqtomji [Mass/Vol]81 mg/uX14-421 [facility] SouthComment on above:ADA recommended reference rangeRandom Glucose Reference Range is dependent on time and content of last meal. Glucose of more than 200 mg/dL in a nonstressed, ambulatory subject supports the diagnosisof Diabetes Mellitus.Hematocrit Auto (Bld) [Volume fraction]Ordered By: Juan Gill on 91-32-7429Gcykndcssh (Bld) [Volume fraction]42.4 %38.8-50.0[facility] SouthHemoglobin [Mass/volume] in BloodOrdered By: Juan Gill on 85-57-6344Dhgxwjopko (Bld) [Mass/Vol]14.0 g/dL13.0-17.0[facility] SouthLaboratory - Chemistry and Chemistry - challengeOrdered By: Juan Gill on 11-30-2022 GFR/1.73 sq M.predicted MDRD (S/P/Bld) [Vol rate/Area]mL/min/{1.73_m2}[facility] SouthLaboratory - CoagulationOrdered By: Juan Gill on 00-10-1462FD Coag (PPP) [Time]12.2 s9.0-12.9[facility] Leukocytes [#/volume] corrected for nucleated erythrocytes in Blood by Automated counOrdered By: Juan Gill on 00-96-2441VIR corrected for nucl RBC Auto (Bld) [#/Vol]5.8 10*3/uL4.1-10.5FMercy Health Urbana HospitalLymphocytes Auto (Bld) [#/Vol]Ordered By: Juan Gill on 51-35-4724Vnacccieojp (Bld) [#/Vol]1.0 10*3/uL1.00-4.8[facility] SouthLymphocytes/100 WBC Auto (Bld)Ordered By: Juan Gill on 61-64-9246Aulikevybwc/100 WBC (Bld)17.1 %.[facility] CenterH Auto (RBC) [Entitic mass]Ordered By: Juan Gill on 74-57-2852VVC (RBC) [Entitic mass]30.6 pg27.5-35.2FMercy Health Urbana HospitalMCHC Auto (RBC) [Mass/Vol]Ordered By: Juan Gill on 02-60-1656BAYM (RBC) [Mass/Vol]33.0 g/dL32.5-35.6FMercy Health Urbana HospitalMCV Auto (RBC) [Entitic vol]Ordered By: Juan Gill on 76-73-0271TIN (RBC) [Entitic vol]92.8 fL83.5-101[facility] SouthMonocytes Auto (Bld) [#/Vol]Ordered By: Juan Gill on 62-18-7419Gwplcemzn (Bld) [#/Vol]0.7 10*3/uL0.0-0.8[facility] SouthMonocytes/100 WBC Auto (Bld)Ordered By: Juan Gill on 57-32-9670Hrrrecxoi/100 WBC (Bld)12.4 %. [facility] SouthNeutrophils Auto (Bld) [#/Vol]Ordered By: Juan Gill on 48-07-9182Pkqokxjqvpv (Bld) [#/Vol]3.9 10*3/uL1.8-7.7FMercy Health Urbana HospitalNeutrophils/100 WBC Auto (Bld)Ordered By: Juan Gill on 75-50-2326Ouiaougjkeb/100 WBC (Bld)67.2 %.[facility] No Panel InformationOrdered By: Juan Gill on 96-09-1685Jiyjunxz Creatinine Clearance (ChemN/[facility] HospitalNucleated erythrocytes [Presence] in Blood by Automated countOrdered By: Juan Gill on 11-30-2022 Nucleated RBC Auto Ql (Bld)0.0 /100{WBC}0-0.5FMercy Health Urbana Hospital Platelet mean volume Auto (Bld) [Entitic vol]Ordered By: Juan Gill on 65-90-5118Ygvnzdex mean volume (Bld) [Entitic vol]8.8 fL6.6-10.1FMercy Health Urbana HospitalPlatelet poor plasma international normalized ratio (INR) by coagulation assay (relatOrdered By: Juan Gill on 03-74-8213YCP Coag (PPP) [Relative time]1.1 {INR}[facility] SouthComment on above: INR Therapeutic Range A) Pre- [...] Auto (Bld) [#/Vol]Ordered By: Juan Gill on 58-24-0038Ewhzbuiwh (Bld) [#/Vol]162 10*3/uS743-421KxgkgpugcPremier Health Miami [facility] Hospital SouthPotassium [Moles/volume] in Serum or PlasmaOrdered By: Juan Gill on 11-30-2022 Potassium [Moles/Vol]4.1 mmol/L3.5-5.1FMercy Health Urbana HospitalRBC Auto (Bld) [#/Vol]Ordered By: Juan Gill on 40-42-7307UPJ (Bld) [#/Vol]4.57 10*6/uL3.90-5.60[facility] Hospitalerum or plasma anion gap determinationOrdered By: Juan Gill on 06-00-0537Rmcqw gap [Moles/Vol]10.0 mmol/L6.0-15.0[facility] Hospitalodium [Moles/volume] in Serum or PlasmaOrdered By: Juan Gill on 32-13-0864Onltpg [Moles/Vol]142 mmol/L 136-145[facility] SouthUrea nitrogen [Mass/volume] in Serum or PlasmaOrdered By: Juan Gill on 85-25-5989Tbku nitrogen [Mass/Vol]21 mg/dL 7-25[facility] SouthWBC Auto (Bld) [#/Vol]Ordered By: Juan Gill on 35-27-0948PRF (Bld) [#/Vol]5.8 10*3/uL4.1-10.5FMercy Health Urbana HospitalActivated partial thromboplastin time (aPTT) in platelet poor plasma by coagulation aOrdered By: Simon English on 18-12-7621zWUK Coag (PPP) [Time]37.5 s25.1-36.5FMercy Health Urbana HospitalAlbumin [Mass/volume] in Body fluidOrdered By: Simon English on 12-41-0100Dxhjrcj (Body fld) [Mass/Vol]3.8 g/dL3.2-5.5FMercy Health Urbana HospitalAlkaline phosphatase [Enzymatic activity/volume] in Serum or PlasmaOrdered By: Simon English on 62-58-7167BSS [Catalytic activity/Vol]73 U/H10-81ScelvqtudPremier Health Miami [facility] Hospital SouthAspartate aminotransferase [Enzymatic activity/volume] in Serum or PlasmaOrdered By: Simon English on 77-68-0328KTC [Catalytic activity/Vol]26 U/F48-75BlaxmwjcyPremier Health [facility] Hospital SouthAutomated erythrocytes count in urine sediment (number/area) Ordered By: Simon English on 79-65-6220BQG Auto (Urine sed) [#/Area]0-1 [HPF]0-4 [facility] SouthAutomated leukocytes count in urine sediment (number/area)Ordered By: Simon English on 79-10-4807DRX Auto (Urine sed) [#/Area]0- 1 [HPF]0-4FMercy Health Urbana HospitalBasophils Auto (Bld) [#/Vol]Ordered By: Simon English on 43-42-9439Bmwtrqkaa (Bld) [#/Vol]0.0 10*3/uL0.0-0.2FMercy Health Urbana HospitalBasophils/100 WBC Auto (Bld)Ordered By: Simon English on 35-38-6444Zfqlqgspy/100 WBC (Bld)0.7 %.[facility] Bilirubin Test strip Ql (U)Ordered By: Simon English on 17-63-5072Flayvuirs Ql (U) NegativeNegativePremier Health Miami [facility] Hospital SouthBilirubin.total [Mass/volume] in Serum or PlasmaOrdered By: Simon English on 96-32-4696Gzfwxtyvu [Mass/Vol]0.6 mg/dL0.3-1.2FMercy Health Urbana HospitalCalcium [Mass/volume] in Serum or PlasmaOrdered By: Simon English on 95-20-4183Bxalyss [Mass/Vol]8.8 mg/dL8.2-10.2 [facility] SouthCarbon dioxide, total [Moles/volume] in Serum or PlasmaOrdered By: Simon English on 40-49-4394WQ9 [Moles/Vol]26.8 mmol/L22.0-30.0 [facility] SouthChloride [Moles/volume] in Serum or Plasma Ordered By: Simon English on 74-53-9770Ruvmprsq [Moles/Vol]103 mmol/L95-114 [facility] SouthColor Auto (U)Ordered By: Simon English on 16-09-8680Anbns (U)YellowYellowPremier Health [facility] Hospital SouthCreatine kinase [Enzymatic activity/volume] in Serum or PlasmaOrdered By: Simon English on 03-15-2287KP [Catalytic activity/Vol]109 U/O11-952FyrcrkqpePremier Health Miami [facility] Hospital SouthCreatine kinase.MB [Mass/volume] in Serum or PlasmaOrdered By: Simon English on 41-44-1387HK.MB [Mass/Vol]3.0 ng/mL0.6-6.3FMercy Health Urbana Hospital Creatinine and Glomerular filtration rate.predicted panel (S/P/Bld)Ordered By: Simon English on 70-94-1512Gjeobcpijf [Mass/Vol]0.94 mg/dL0.64-1.27[facility] SouthEosinophils Auto (Bld) [#/Vol]Ordered By: Simon English on 01-18-7454Yrngpiifhve (Bld) [#/Vol]0.3 10*3/uL0.0-0.45[facility] SouthEosinophils/100 WBC Auto (Bld)Ordered By: Simon English on 09-05-2022 Eosinophils/100 WBC (Bld)5.6 %.[facility] SouthErythrocyte distribution width Auto (RBC) [Ratio]Ordered By: Simon English on 09-05-2022 Erythrocyte distribution width (RBC) [Ratio]14.5 %12.0-14.8[facility] SouthEstimated glomerular filtration rate (GFR) non- Ordered By: Simon English on 48-44-0345KGH/1.73 sq M.predicted among non-blacks MDRD (S/P/Bld) [Vol rate/Area]> 60 mL/MinPremier Health Miami Valley Hospital South Globulin Calc (S) [Mass/Vol]Ordered By: Simon English on 43-49-1463Mmepodzc (S) [Mass/Vol]2.7 g/dLPremier Health Miami Valley Hospital SouthGlucose [Mass/volume] in Serum or PlasmaOrdered By: Simon English on 51-04-0534Jjsqofd [Mass/Vol]120 mg/dL 70-100[facility] SouthComment on above:ADA recommended reference rangeRandom Glucose Reference Range is dependent on time and content of last meal. Glucose of more than 200 mg/dL in a nonstressed, ambulatory subject supports the diagnosisof Diabetes Mellitus.Hematocrit Auto (Bld) [Volume fraction]Ordered By: Simon English on 70-92-7539Owldotgyla (Bld) [Volume fraction] 43.2 %38.8-50.0[facility] SouthHemoglobin [Mass/volume] in BloodOrdered By: Simon English on 96-75-6056Fwgehdmmkp (Bld) [Mass/Vol]14.3 g/dL 13.0-17.0[facility] SouthKetones Auto test strip (U) [Mass/Vol] Ordered By: Simon English on 10-88-6128Lwunzjk (U) [Mass/Vol]NegativeNegative [facility] SouthLaboratory - CoagulationOrdered By: Simon English on 44-10-0714EG Coag (PPP) [Time]11.3 s9.0-12.9[facility] Laboratory - UrinalysisOrdered By: Simon English on 93-31-9582Djzkaxn casts LM Ql (Urine sed)None seen [LPF]0-8[facility] SouthLeukocytes [#/volume] corrected for nucleated erythrocytes in Blood by Automated coun Ordered By: Simon English on 49-58-7897EZY corrected for nucl RBC Auto (Bld) [#/Vol]4.9 10*3/uL4.1-10.5FMercy Health Urbana HospitalLymphocytes Auto (Bld) [#/Vol]Ordered By: Simon English on 87-04-9472Owasbylwomk (Bld) [#/Vol]0.8 10*3/uL1.00-4.8[facility] SouthLymphocytes/100 WBC Auto (Bld) Ordered By: Simon English on 54-00-7311Bolwalbysan/100 WBC (Bld)17.0 %.[facility] Auto (RBC) [Entitic mass]Ordered By: Simon English on 73-57-1158XGU (RBC) [Entitic mass]31.2 pg27.5-35.2FCleveland Clinic [facility] HospitalHC Auto (RBC) [Mass/Vol]Ordered By: Simon English on 59-71-0591RPHQ (RBC) [Mass/Vol]33.2 g/dL32.5-35.6FMercy Health Urbana HospitalMCV Auto (RBC) [Entitic vol]Ordered By: Simon English on 49-09-6739IMI (RBC) [Entitic vol]94.1 fL 83.5-101[facility] SouthMonocyte distribution width [Entitic volume] in Blood by AutomatedOrdered By: Simon English on 76-33-4682Rugavtgf distribution width Auto (Bld) [Entitic vol]18.01 %0.00-20.00[facility] SouthMonocytes Auto (Bld) [#/Vol]Ordered By: Simon English on 09-05-2022 Monocytes (Bld) [#/Vol]0.6 10*3/uL0.0-0.8[facility] Monocytes/100 WBC Auto (Bld)Ordered By: Simon English on 48-20-6798Ogkwcincm/100 WBC (Bld)12.4 %.[facility] SouthNeutrophils Auto (Bld) [#/Vol] Ordered By: Simon English on 78-06-0132Ccyiswcqxur (Bld) [#/Vol]3.2 10*3/uL1.8-7.7 [facility] SouthNeutrophils/100 WBC Auto (Bld)Ordered By: Simon English on 59-23-9002Qiuabudfmid/100 WBC (Bld)64.3 %.[facility] SouthNitrite Test strip Ql (U)Ordered By: Simon English on 60-24-3159Cdkqcyk Ql (U)NegativeNegativePremier Health Miami [facility] Hospital SouthNo Panel InformationOrdered By: Simon English on 59-65-2183Yymlogsmb GFR ()> 60 mL/MinPremier Health Miami Valley Hospital SouthComment on above:GFR estimated reference range: According to KDOQI guidelines, <60 ml/min/1.73m2 is sufficient todiagnose a patient with chronic kidney disease.Pharmacy Creatinine Clearance (Chem60.08 [facility] SouthNucleated erythrocytes [Presence] in Blood by Automated countOrdered By: Simon English on 61-27-3811Nmvboqglo RBC Auto Ql (Bld) 0.1 /100{WBC}0-0.5FMercy Health Urbana HospitalPlatelet mean volume Auto (Bld) [Entitic vol]Ordered By: Simon English on 35-25-7552Pqqrleox mean volume (Bld) [Entitic vol]9.0 fL6.6-10.1FMercy Health Urbana HospitalPlatelet poor plasma international normalized ratio (INR) by coagulation assay (relatOrdered By: Simon English on 96-18-6644GAD Coag (PPP) [Relative time]1.0 {INR}[facility] SouthComment on above:INR Therapeutic Range A) Pre- and [...] (Bld) [#/Vol] Ordered By: Simon English on 90-45-4709Gaykeupoc (Bld) [#/Vol]173 10*3/fI863-172 [facility] SouthPotassium [Moles/volume] in Serum or Plasma Ordered By: Simon English on 44-71-7955Daubeacgn [Moles/Vol]4.0 mmol/L3.5-5.1 [facility] SouthProtein Auto test strip (U) [Mass/Vol]Ordered By: Simon English on 64-47-9054Eqyawcb (U) [Mass/Vol]NegativeNegativePrem[facility] Health [facility] Hospital SouthProtein [Mass/volume] in Serum or PlasmaOrdered By: Simon English on 31-65-4593Uzbbqai [Mass/Vol]6.5 g/dL6.1-7.9[facility] SouthRBC Auto (Bld) [#/Vol]Ordered By: Simon English on 52-59-7159PRY (Bld) [#/Vol]4.59 10*6/uL3.90-5.60[facility] Hospitalerum or plasma alanine aminotransferase measurement without P-5'-P (enzymatic activiOrdered By: Simon English on 87-64-2294AOT No additional P-5'-P [Catalytic activity/Vol]23 U/L 10-60[facility] Hospitalerum or plasma albumin/globulin mass ratioOrdered By: Simon English on 28-81-9900Shxmfyd/Globulin [Mass ratio]1.4 {ratio}[facility] Hospitalerum or plasma anion gap determination Ordered By: Simon English on 97-92-8698Mqtct gap [Moles/Vol]15.2 mmol/L6.0-15.0 [facility] Hospitalerum or plasma creatine kinase MB (CKMB)/total creatine kinase (CK) ratio by calculaOrdered By: Simon English on 02-28-2506HH.MB Calc [Catalytic fraction]2.7 %0.00-2.50[facility] Hospitalodium [Moles/volume] in Serum or PlasmaOrdered By: Simon English on 13-77-4106Pcbqfz [Moles/Vol]141 mmol/L231-442VcxglygphCleveland Clinic Avon Hospitalpecific gravity Auto test strip (U) [Rel density]Ordered By: Simon English on 62-95-2260Rgqhfhdh gravity (U) [Rel density]1.0091.001-1.030[facility] Squamous epithelial cells detection in urine sediment by light microscopyOrdered By: Simon English on 73-31-1645Pjipfyxhoe cells.squamous LM Ql (Urine sed)None seen [HPF]0-2FMercy Health Urbana HospitalTroponin I.cardiac [Mass/volume] in Serum or Plasma by High sensitivity methodOrdered By: Simon English on 09-05-2022 Troponin I.cardiac High sensitivity method [Mass/Vol]8 pg/mL0-20[facility] SouthUrea nitrogen [Mass/volume] in Serum or PlasmaOrdered By: Simon English on 29-96-3863Dbnl nitrogen [Mass/Vol]17 mg/dL9-23[facility] SouthUrine bacteria detection by automated methodOrdered By: Simon English on 15-36-5504Adcnaxws Auto Ql (U)None seenNone SeenPremier Health Miami [facility] Hospital SouthUrine clarity by refractometry automatedOrdered By: Simon English on 93-63-2998Owkobmk Refractometry automated (U)ClearClearFMercy Health Urbana HospitalUrine glucose measurement by automated test strip (mass/volume) Ordered By: Simon English on 40-99-8089Zlhnnwz Auto test strip (U) [Mass/Vol]Normal mg/dLNoParkview Health Bryan HospitalUrine hemoglobin detection by automated test stripOrdered By: Simon English on 02-76-3873Teybhcyrej Auto test strip Ql (U)NegativeNegativePremier Health Miami [facility] Hospital SouthUrine leukocyte esterase detection by automated test stripOrdered By: Simon English on 09-05-2022 Leukocyte esterase Auto test strip Ql (U)1+NegativePremier Health Miami [facility] Hospital SouthUrobilinogen Auto test strip (U) [Mass/Vol]Ordered By: Simon English on 75-99-4900Pezkimkmdfxk (U) [Mass/Vol]Normal mg/dLNoParkview Health Bryan HospitalWBC Auto (Bld) [#/Vol]Ordered By: Simon English on 62-78-4925HXO (Bld) [#/Vol]4.9 10*3/uL4.1-10.5FMercy Health Urbana HospitalpH Auto test strip (U)Ordered By: Simon English on 95-06-6903uD (U)7.0 [pH]5.0-9.0[facility] SouthFLUORO <1HRon 81-85-6911DSRDAU <1HRSTUDY: FLUORO <1HR; 03/26/2021 1:20 pm INDICATION: RT HIP INJURY. COMPARISON: None. ACCESSION NUMBER(S): [id number] ORDERING CLINICIAN: Arsalan Sun FINDINGS: Intraoperative fluoroscopy for surgical guidance. IMPRESSION: As aboveNormalSt. Parkview Community Hospital Medical CenterOPERATIVE REPORTon 03-26-2021 OPERATIVE REPORTNAME: ROSCOE HERNANDEZ MR#: [id number] SURGEON: Arsalan Sun MD DATE OF SURGERY: [...] was a possibility of femoral stem, an [place] style impaction grafting stem was loose. Evaluation [...] conservative treatment will proceed. ARSALAN SUN MD [facility] PT NAME: ROSCOE HERNANDEZ MR#: [id number] [address] [place], [place] [address] ACCT: [id number] : [birth year] OPERATIVE REPORT BNS/MODL/[id number] E/S: Arsalan Sun MD 04/03/21 0803 Electronically Signed [facility] PT NAME: ROSCOE HERNANDEZ MR#: [id number] [address] [place], [place] [address] ACCT: [id number] : [birth year] OPERATIVE REPORTNormalSt. Parkview Community Hospital Medical CenterHIP 2-3 VIEWS W PELVIS RTon 54-37-4443LKN 2-3 VIEWS W PELVIS RTSTUDY: HIP 2-3 VIEWS W PELVIS RT; 10/29/2020 12:55 pm INDICATION: PAIN. 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 No new pelvic fracture identified. Plate and screws engaging the right acetabular appear unchanged. 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 Cerclage wires engaging the proximal right femoral diaphysis unchanged. IMPRESSION: Unchanged postoperative appearance of the right hip.NormalSt. Parkview Community Hospital Medical CenterOutside Radiology Readon 06-18-2159Qgxhgzd Radiology ReadThis is a preliminary report only. This report will be final only after practitioner review and authentication has occurred. NAME: ROSCOE HERNANDEZ MR#: [id number] DATE OF STUDY: 05/06/2020 RADIOLOGY REASON FOR [...] revision arthroplasty, right hip. ARSALAN SUN MD Mary/[facility] – NORMANFox/[id number] --- [facility] PT NAME: ROSCOE HERNANDEZ MR#: [id number] [address] [place] [address] ACCT: [id number] : [birth year] DOWNTIME RADIOLGY REPORT ADM DATE:[facility] CenterXR C- SPINE MIN 4 VIEWSon 04-39-5379WO C-SPINE MIN 4 [id number] [place] [address] Patient: ROSCOE HERNANDEZ. Exam Date: 08/31/2018DOB: 1935 Gender:M : DR RICARDO CHAN M.D. Admission #: [id number] : DR EH LUND M.D. Order #: [id number] HERE TO VIEW EXAM RADIOLOGY REPORT PROCEDURE: [...] by: Roscoe Barone M.D. on 08/31/2018 at 08:40[facility] Vital Signs Date TimeVital SignValuePerforming NcqhnceilJyyezsim62-81-8159 12:50-0400Body hctaei481.3 cmJd Moreira MD Work Phone: 1(768)673-[address] [place], [place] 3830510-28-2025 12:50-0400 Body mass index (BMI) [Ratio]23.99 kg/a7GfqymwuJd Moreira MD Work Phone: 1(239)[address]10-28-2025 12:50-0400 Body eplfuz70.02 kgJd Moreira MD Work Phone: 1(383)764-[address] [place], [place] 3830510-28-2025 12:50-0400 Diastolic blood nulnedsx55 mm[Hg]Jd Moreira MD Work Phone: 1(812)[address] [place], [place] 38[address]10-28-2025 12:50-0400 Heart rate68 /minJd Moreira MD Work Phone: 9(597)585-[address] [place], [place] 38[address]10-28-2025 12:50-0400 Systolic blood yfngcmao428 mm[Hg]Jd Moreira MD Work Phone: [address] [place], [place] 9401009-08-2025 11:47-0400 Body iotpvf803.3 cmDago Brito DPM Work Phone: [facility] HospitalDujjfhdoli41-76-0631 11:47-0400Body mass index (BMI) [Ratio]24.69 kg/x9WauxekmpDago Brito DPM Work Phone: [facility] HospitalPetkfbuhxi76-82-0888 11:47-0400Body pdaaib48.29 kgNikkivonda Brown DPM Work Phone: [facility] HospitalQojxqvwskf46-26-9673 11:47-0400Respiratory rate16 /minNicholvonda Brown DPM Work Phone: [facility] HospitalNpthiilcad67-38-8312 11:21-0400Body siqsrv660.3 cmNicholvonda Brown DPM Work Phone: [facility] HospitalTdpzwqfemp98-32-3209 11:21-0400Body mass index (BMI) [Ratio]24.69 kg/k7Uxwhgxmx Brown DPM Work Phone: [facility] HospitalMmafdzibes49-24-8664 11:21-0400Body jiwuxd47.29 kgNicholvonda Brown DPM Work Phone: [facility] HospitalJbiijifwwt09-59-7799 11:21-0400Respiratory rate16 /minNiclana Brown DPM Work Phone: [facility] HospitalMmpihfimhm05-73-9885 09:20-0400Body zjzozn162.3 cmJd Moreira MD Work Phone: 1(688)[address]06-26-2025 09:20-0400 Body mass index (BMI) [Ratio]24.13 kg/w6XmxrhifJd Moreira MD Work Phone: 1([phone])[address]06-26-2025 09:20-0400 Body xwnsly32.47 kgJd Moreira MD Work Phone: 1([phone])[address]06-26-2025 09:20-0400 Diastolic blood pwnemvrf13 mm[Hg]Jd Moreira MD Work Phone: 1(545)[address]06-26-2025 09:20-0400 Heart rate60 /minJd Moreira MD Work Phone: [phone])[address]84 [address]06-26-2025 09:20-0400 Systolic blood hxdyyznk521 mm[Hg]Jd Moreira MD Work Phone: 1(248)488-[address] [place] [address]-05-2025 12:13-0400 Body ppiuff146.3 cmKareem Dolce DPM FACFAS Work Phone: [facility] HospitalXwuqpzlgam88-94-9397 12:13-0400Body mass index (BMI) [Ratio]24.69 kg/q9Epdtxo Dolce DPM FACFAS Work Phone: [facility] HospitalGkfgwaervp93-62-7432 12:13-0400Body pbwejb17.29 kgKareem Dolce DPM FACFAS Work Phone: [facility] HospitalEnodoqbftn23-84-9288 11:46-0400Body lmhhxi079.3 cmNicholvonda Brito DPM Work Phone: [facility] HospitalNibvxihprd52-76-0458 11:46-0400Body mass index (BMI) [Ratio]24.69 kg/f2Eqorkoxc Brown DPM Work Phone: [facility] HospitalSjpgpxpuuw11-46-5977 11:46-0400Body .29 kgNicholas Brown DPM Work Phone: [facility] HospitalCxoivxmgjs77-11-1541 11:46-0400Respiratory rate18 /minDago Brito DPM Work Phone: [facility] HospitalRffsvyfsvp98-85-0055 10:43-0400Diastolic blood ncnfneld93 mm[Hg]Eh Lund DO Work Phone: [facility]04-08-2025 10:43-0400 Heart rate76 /minSteven Kevon DO Work Phone: [facility]04-08-2025 10:43-0400 Respiratory rate16 /minSteven Kevon DO Work Phone: [facility]04-08-2025 10:43-0400 SaO2% (BldA) [Mass fraction]100 %Eh Lund DO Work Phone: [facility]04-08-2025 10:43-0400 Systolic blood iqhgkhog343 mm[Hg]Eh Lund DO Work Phone: [facility]04-08-2025 09:33-0400 Body qifpww398.34 cmSteven Kevon DO Work Phone: [facility]04-08-2025 09:33-0400 Body qzvbte57.01 kgSteven Kevon DO Work Phone: [facility]02-10-2025 11:59-0500 Body oamprz673.3 cmDago Brito DPM Work Phone: [facility] HospitalJasfvqmjwn37-24-8909 11:59-0500Body mass index (BMI) [Ratio]24.69 kg/s5EokvbwiiDago Brito DPM Work Phone: [facility] HospitalClrtaahekr86-71-4516 11:59-0500Body .29 kgDago Brito DPM Work Phone: [facility] HospitalLbumsohqnh95-24-9941 11:59-0500Diastolic blood wqdbmuax42 mm[Hg]Dago Brito DPM Work Phone: [facility] HospitalSxitdlbxhw87-19-8810 11:59-0500Heart rate80 /min Dago Brito DPM Work Phone: [facility] HospitalQmvrzstmvx06-98-5429 11:59-0500Systolic blood ignbesly601 mm[Hg]Dago Brito DPM Work Phone: [facility] HospitalZmslclmndj00-64-2941 11:54-0500Body hywveq156.3 cmDago Brito DPM Work Phone: [facility] HospitalNfrmptrzjs73-78-6349 11:54-0500Body mass index (BMI) [Ratio]24.69 kg/o4DgjnoiieDago Brito DPM Work Phone: [facility] HospitalEkeaxhkpnd17-28-1841 11:54-0500Body dutrip98.29 kgDago Brito DPM Work Phone: [facility] HospitalIzwchnkblh49-00-1996 11:54-0500Respiratory rate18 /minDago Brito DPM Work Phone: [facility] HospitalNfepyfmjwb96-64-5154 10:31-0400Diastolic blood mm[Hg]DO Eh Lund Work Phone: 1(227)965-[address] [place], [place] [address]10-22-2024 10:31-0400 Heart rate61 /Jules Lund Work Phone: 5(467)878-[address] [place], [place] [address]10-22-2024 10:31-0400 Respiratory rate16 /Jules Lund Work Phone: 1(838)819-[address] [place], [place] [address]10-22-2024 10:31-0400 SaO2% (BldA) [Mass fraction]100 %DO Eh Lund Work Phone: 1(906)[address]10-22-2024 10:31-0400 Systolic blood ifyadqur876 mm[Hg]DO Eh Lund Work Phone: 1(910)[address]10-22-2024 09:00-0400 Body .34 cmDO Eh Lund Work Phone: 1(783)[address]10-22-2024 09:00-0400 Body vzuklo59.11 kgDO Eh Lund Work Phone: 2(552)46830 [address]09-23-2024 11:15-0400 Body xghudh236.3 cmDago Brito DPM Work Phone: [facility] HospitalVefusirarz34-56-0968 11:15-0400Body mass index (BMI) [Ratio]24.69 kg/l5BmcmuedjDago Brito DPM Work Phone: [facility] HospitalMhqeotctvr75-24-8615 11:15-0400Body oridgd76.29 kgDago Brito DPM Work Phone: [facility] HospitalHjsajxiwmz88-49-8760 11:15-0400Diastolic blood cighzpgn85 mm[Hg]Dago Brito DPM Work Phone: [facility] HospitalXqoseuvigc83-52-1161 11:15-0400Heart rate74 /min Dago Brito DPM Work Phone: [facility] HospitalFnnowqqwqw69-58-8748 11:15-0400Respiratory rate18 /Oseimarysevonda Brito DPM Work Phone: [facility] HospitalRcdxwxmolb26-67-0712 11:15-0400Systolic blood mm[Hg]Dago Brito DPM Work Phone: [facility] HospitalSeiznhxzun32-64-4496 12:15-0400Diastolic blood mm[Hg]DO Eh Lund Work Phone: [facility]03-26-2024 12:15-0400 Heart rate74 /Jules Montgomeryen Kevon Work Phone: [phone]-[facility]03-26-2024 12:15-0400 Respiratory rate16 /Jules Lund Work Phone: [facility]03-26-2024 12:15-0400 SaO2% (BldA) [Mass fraction]98 %DO Eh Lund Work Phone: [phone])979-[facility]03-26-2024 12:15-0400 Systolic blood doyhbvmm054 mm[Hg]DO Eh Lund Work Phone: [facility]03-26-2024 11:27-0400 Body lzicugubpqx13 [degF]DO Eh Lund Work Phone: [facility]03-26-2024 11:02-0400 Inhaled oxygen flow rate8 L/SabrinaWhitney Eh Lund Work Phone: 1(878)010-[address] [place], [place] 5307603-26-2024 08:55-0400 Body miiibo849.34 cmDO Eh Lund Work Phone: [facility]03-26-2024 08:55-0400 Body mass index (BMI) [Ratio]25.4 kg/m2DO Eh Lund Work Phone: [facility]03-26-2024 08:55-0400 Body kgDO Eh Lund Work Phone: [facility] [facility] 11:10-0400 Diastolic blood zlylgrwo90 mm[Hg]Jd Moreira MD Work Phone: 1(071)828-[address] [place], [place] 3830503-15-2024 11:10-0400 Systolic blood reewlbgj918 mm[Hg]Jd Moreira MD Work Phone: 1(394)240-[address] [place], [place] 3830503-15-2024 11:09-0400 Body regzck883.3 cmJd Moreira MD Work Phone: 1(323)[address] [place], [place] 3830503-15-2024 11:09-0400 Body mass index (BMI) [Ratio]25.38 kg/a3ElcruldJd Moreira MD Work Phone: 1(620)[address]03-15-2024 11:09-0400 Body .56 kgJd Moreira MD Work Phone: 1(687)956-[address] [place], [place] 3830503-15-2024 11:09-0400 Heart rate78 /minJd Moreira MD Work Phone: 9(891)479-[address] [place], [place] 3830512-24-2023 09:15-0500 Heart rate69 /Jules Lund Work Phone: 1(355)440-[facility]12-24-2023 09:00-0500 Diastolic blood ctvwvleb31 mm[Hg]DO Eh Lund Work Phone: 1(496)718-[facility]12-24-2023 09:00-0500 Respiratory rate16 /Jules Lund Work Phone: 1(737)048-[facility]12-24-2023 09:00-0500 SaO2% (BldA) [Mass fraction]99 %DO Eh Lund Work Phone: 1(941)196-[facility]-24-2023 09:00-0500 Systolic blood mm[Hg]DO Eh Lund Work Phone: 1(874)816-[facility]12-24-2023 08:08-0500 Body xrwrte591.34 cmDO Eh Lund Work Phone: 1(042)253-[address] [place], [place] 5307612-24-2023 08:08-0500 Body mhppclunxur73.4 [degF]DO Eh Lund Work Phone: 1([phone])12430 [address]12-24-2023 08:08-0500 Body jnrjip64.9 kgDO Eh Lund Work Phone: 1(208)85730 [address]05-04-2023 14:55-0400 Diastolic blood jaftqsnk20 mm[Hg]DO Eh Lund Work Phone: 1(260)66930 [address]05-04-2023 14:55-0400 Heart rate65 /Jules Lund Work Phone: 1(469)60730 [address]05-04-2023 14:55-0400 Respiratory rate16 /Jules Lund Work Phone: 1(346)[address]05-04-2023 14:55-0400 SaO2% (BldA) [Mass fraction]97 %DO Eh Lund Work Phone: 1(845)95730 [address]05-04-2023 14:55-0400 Systolic blood aefkkprx366 mm[Hg]DO Eh Lund Work Phone: 1(961)71830 [address]05-04-2023 13:35-0400 Body wjlzyflqusi36.6 [degF]DO Eh Lund Work Phone: 1(007)892-[address] [place], [place] 5307605-04-2023 13:35-0400 Inhaled oxygen flow rate6 L/Jules Lund Work Phone: 1(139)72730 [address]05-04-2023 10:21-0400 Body mass index (BMI) [Ratio]24.5 kg/m2DO Eh Lund Work Phone: 1(759)59430 [address]05-04-2023 10:07-0400 Body .34 cmDO Eh Lund Work Phone: 1(698)54130 [address]05-04-2023 10:07-0400 Body aiklge64 kgDO Eh Lund Work Phone: 1(934)[address]230 [address]03-21-2023 13:47-0400 Diastolic blood mm[Hg]DO Eh Lund Work Phone: 1(737)01630 [address]03-21-2023 13:47-0400 Heart rate52 /Jules Lund Work Phone: 1(224)[address]03-21-2023 13:47-0400 Respiratory rate16 /Jules Lund Work Phone: 1(559)[address]03-21-2023 13:47-0400 SaO2% (BldA) [Mass fraction]99 %DO Eh Lund Work Phone: 1(247)[address]03-21-2023 13:47-0400 Systolic blood bwthgrdo742 mm[Hg]DO Eh Lund Work Phone: 1(006)[address]03-21-2023 13:09-0400 Body [degF]DO Eh Lund Work Phone: 1(086)[address]03-21-2023 12:44-0400 Inhaled oxygen flow rate8 L/Jules Lund Work Phone: 1(515)[address]03-21-2023 12:16-0400 Body hciqsj478.34 cmDO Eh Lund Work Phone: 1(732)[address]03-21-2023 12:16-0400 Body mass index (BMI) [Ratio]25.4 kg/m2DO Eh Lund Work Phone: 1(933)6-[address] [place], [place] 5307603-21-2023 12:16-0400 Body aqxunf28 kgDO Eh Lund Work Phone: 1(438)10830 [address]12-11-2022 14:51-0500 Diastolic blood ghfreuoe68 mm[Hg]DO Eh Lund Work Phone: 1(528)59730 [address]12-11-2022 14:51-0500 Heart rate58 /Jules Lund Work Phone: [facility]12-11-2022 14:51-0500 Respiratory rate18 /Jules Lund Work Phone: 1(026)630-[facility]12-11-2022 14:51-0500 SaO2% (BldA) [Mass fraction]99 %DO Eh Lund Work Phone: [facility]12-11-2022 14:51-0500 Systolic blood bdlutpkp038 mm[Hg]DO Eh Lund Work Phone: 1(161)149-[address] [place], [place] 5307612-11-2022 12:33-0500 Body .34 cmDO Eh Lund Work Phone: 1(956)276-[address] [place], [place] 5307612-11-2022 12:33-0500 Body oyoaloeuxnt35 [degF]DO Eh Lund Work Phone: 1(104)991-[facility]12-11-2022 12:33-0500 Body kgDO Eh Lund Work Phone: 1(762)376-[address] [place] [address] Encounters Encounter DateEncounter TypeCare ProviderFacilityStart: 07-23-2025 End: 63-19-7333Fryktw outpatient visit 15 minutesJd Moreira MD Work Phone: [facility]over[facility] medical centerComment on above:Chest pain, unspecified type (Primary Dx); Primary hypertension; RBBB; Mixed hyperlipidemia; Abnormal EKG; Easy bruisability; BMI 23.0-23.9, adult; Edema of right lower extremity; Nonrheumatic aortic (valve) stenosis; Former smokerStart: 07-23-2025 End: 11-99-0789ubkhkzxsfxSJMWVKS [facility] AmbulatoryStart: 06-20-2025 End: 68-52-5031mcugbijelaLREXLE E KREBSFacility:[facility] Centertart: 06-11-2025 End: 45-48-3996DhrkelRoel Negrete PA-C Work Phone: OrthopaedicsComment on above: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)Start: 06-03-2025 End: 46-32-6660Kkavew Susanne Brito DPM Work Phone: noms [facility] Marie PodiatryStart: 06-03-2025 End: 98-75-1775Dqajoh Susanne Brito DPM Work Phone: noms [facility] PodiatryStart: 06-03-2025 End: 60-46-5415qhytdjstauGVFSGDHW A BROWNNot AvailableStart: 06-03-2025 End: 88-95-2543Wcqopzn encounter procedureNiclana Brito DPM Work Phone: noms [facility] Marie PodiatryComment on above:Other polyneuropathy (Primary Dx); Pain due to onychomycosis of toenails of both feet; Right foot dropStart: 04-11-2025 End: 10-39-0795Axglmfsxxw hospital visit by Karyn Alba [address] [place], [place] [address]Comment on above:Chest pain, unspecified typeStart: 04-11-2025 End: 39-14-2905uxxabudcolCTKEHVFTrumbull Regional Medical Centertart: 56-02-9196eazaioyothFnvpqf P [place]Facility:[facility] MED CTRStart: 03-25-2025 End: 52-42-6936Nlgpmkmarshall Brito DPM Work Phone: noms PA PODStart: 03-25-2025 End: 61-26-6785Befiij flowsMei Brito DPM Work Phone: noms PA PODStart: 03-25-2025 End: 13-87-2414Pdguvje encounter procedureDago Brito DPM Work Phone: noms [place] PODComment on above:Other polyneuropathy (Primary Dx); Pain due to onychomycosis of toenails of both feet; Right foot dropStart: 03-25-2025 End: 06-12-7162ksmasezrszRDLHWSON A BROWNNot AvailableStart: 03-25-2025 End: 33-54-5458opahvbtdpeXipjjo [place] DO Work Phone: [facility] Work Phone: Start: 03-25-2025 End: 12-59-6318Vfcxbis encounter procedureJordin Fernandez MD-[facility] Work Phone: Start: 03-21-2025 End: 68-01-5079Ibilzb outpatient visit 40 minutesMojp Moreira MD Work Phone: [facility] on above:Chest pain, unspecified type (Primary Dx); RBBB; Mixed hyperlipidemia; Primary hypertension; Abnormal EKG; Personal history of TIA (transient ischemic attack); Chronic obstructive pulmonary disease, unspecified COPD type (Multi); BMI 24.0-24.9, adult; Edema of right lower extremity; Easy bruisabilityStart: 03-21-2025 End: 44-47-8095jlieqperrnQGPUOSCCanton-Potsdam Hospital AmbulatoryStart: 81-52-8182umrzdahcxfXyxxnh P [place]Facility: PEN MED CTRStart: 03-15-2025 End: 89-63-1522purrvlgdukKtesik Rebecca LundFacility:[facility] HospitalStart: 03-13-2025 End: 45-50-2166gxjsrhdjriOfrskx Rebecca LundFacility: PEN MED CTRStart: 51-24-9190Oxwthvqoa department patient visitHussein I KaserikakFacility:[facility] HospitalStart: 32-17-8924Ial-patient / Non-visitJordin Fernandez MD-[facility] Work Phone: Start: 03-04-2025 End: 76-34-6277xpjdmzkbajZteuaj [place] DO Work Phone: [facility] Work Phone: Start: 03-04-2025 End: 99-85-6767Hbticzc encounter procedureStekristian Lund DO Work Phone: [facility] Physician [facility] Work Phone: Start: 02-21-2025 End: 80-92-7740icbtinnsqzUalzlc Kevon DO Work Phone: [facility] Work Phone: Start: 02-21-2025 End: 26-84-7090Ekuhqia encounter procedureStekristian Lund DO Work Phone: [facility] Physician [facility] Work Phone: Start: 42-66-2513Ati-patient / Non-visitStekristian Lund DO Work Phone: [facility] Work Phone: Start: 02-13-2025 End: 40-03-9366itmhkdginvVvvfao Kevon DO Work Phone: [facility] Work Phone: Start: 02-13-2025 End: 62-67-5262Hzxtieo encounter procedureStekristian Lund DO Work Phone: [facility] Work Phone: Start: 01-31-2025 End: 19-78-7749xqcenjcyktIqkntf Kevon DO Work Phone: [facility] Work Phone: Start: 01-31-2025 End: 98-89-2984Gicisjm encounter procedureSteven Kevon DO Work Phone: [facility] Physician [facility] Work Phone: Start: 01-28-2025 End: 11-70-8709Djmpmi flowsheetDieudonnem Michael Trotter DPM FACFAS Work Phone: NO[facility] PCF PODStart: 01-28-2025 End: 21-60-0811Jratdk flowsheetKareem R Dolce DPM FACFAS Work Phone: noms PCF PODStart: 01-28-2025 End: 18-97-5029Cdrlxf outpatient visit 25 minutesKareem R Dolce DPM FACFAS Work Phone: noms PCF PODComment on above:Cellulitis of second toe of left foot (Primary Dx); Other polyneuropathyStart: 01-28-2025 End: 64-01-7013bjhwnbcxboYHYNEQ R DOLCENot AvailableStart: 24-35-7976Owv-patient / Non-visitSteGood [facility]aritan Medical [facility] Work Phone: [facility] Work Phone: Start: 01-23-2025 End: 17-22-6767fufmktalxbNckrcn Kevon HANDLEY Work Phone: [facility] Work Phone: Start: 01-23-2025 End: 96-70-4462Zdbqchg encounter procedureSteTroy Regional Medical Center Work Phone: [facility] Work Phone: Start: 01-14-2025 End: 12-57-2794Mwioii flowsheetNiclana Cha Brown DPM Work Phone: [facility]OM[facility] PA PODStart: 01-14-2025 End: 56-49-5532Uhyvhk flowsheetNicholas A Brown DPM Work Phone: noMS [place] PODStart: 01-14-2025 End: 59-02-6932lhnapttcorLBCFPQQP A BROWNNot AvailableStart: 01-14-2025 End: 31-00-7708Daneujc encounter procedureNicholvonda A Brown DPM Work Phone: [facility] PA PODComment on above:Other polyneuropathy (Primary Dx); Pain due to onychomycosis of toenails of both feet; Right foot dropStart: 01-10-2025 End: 94-90-9765sztijlrncrSfktfcw R WATERSFacility:EU SanduskyStart: 01-10-2025 End: 85-26-8621Lneplof encounter procedureSkristian Lund DO Work Phone: [facility] Work Phone: Start: 29-26-3855Mpy-patient / Non-visitStekristian Lund DO Work Phone: [facility] Work Phone: Start: 01-01-2025 End: 95-88-3183Pbbvttrxe to same day surgery [facility]teGood [facility] DO Work Phone: [facility] Work Phone: Start: 01-01-2025 End: 31-23-7906qjcvyiwpqcMxuvrc Kevon DO Work Phone: [facility] Work Phone: Start: 12-13-2024 End: 20-02-6480hucdoxgjafDfncsgu R WATERSFacility:FTMCStart: 12-13-2024 End: 97-96-0184ckrawezhoeHeirgzz R WATERSFacility:EU [place]kyStart: 12-12-2024 End: 45-30-6537thkmbpjansUbsrhgihfKindred Hospital Lima Work Phone: Start: 12-12-2024 End: 69-09-3989Ayophzh encounter procedureLompoc Valley Medical Center Work Phone: Start: 11-27-2024 End: 55-23-1160ehejbsobmjMtuforb R WATERSFacility:FTMCStart: 11-27-2024 End: 98-54-8995igvipdkokpLotixyp R WATERSFacility:EU [place]kyStart: 11-05-2024 End: 97-20-3798Lzwere flowsheetDago Brito DPM Work Phone: [facility] PA PODStart: 11-05-2024 End: 08-34-7134Qxnsfs flowsheetDago Brito DPM Work Phone: [facility] PA PODStart: 11-05-2024 End: 22-56-3013okimmnqnfwSAECMLBK A BROWNNot AvailableStart: 11-05-2024 End: 44-83-1229Sjukveg encounter procedureDago Brito DPM Work Phone: [facility] PA PODComment on above:Other polyneuropathy (Primary Dx); Pain due to onychomycosis of toenails of both feet; Right foot dropStart: 09-28-2024 End: 00-78-8825xmypzuwifcJpioii P [place]Facility:[facility] CTRStart: 58-69-8789Yuuhoxwkj department patient visitSteven P JacksonFacility:[facility] HospitalStart: 09-11-2024 End: 99-14-5051seriskqnugAfudxu P [place]Facility:[facility] HospitalStart: 09-06-2024 End: 24-75-9549iglhenpknmLjltual R WATERSFacility:EU [place]kyStart: 08-30-2024 End: 01-90-1014mpyfhobrlyRizfnq OlexaFacility:[facility] Start: 08-27-2024 End: 83-35-3655Nnyhos Susanne Brito DPM Work Phone: [facility] PA PODStart: 08-27-2024 End: 67-82-4704Efaklv Susanne Brito DPM Work Phone: [facility] PA PODStart: 08-27-2024 End: 91-12-9579pbujtaolpyROFAKLVP A BROWNNot AvailableStart: 08-27-2024 End: 74-16-5914Fiabvcr encounter procedureDago Brito DPM Work Phone: noMS PA PODComment on above:Other polyneuropathy (Primary Dx); Onychomycosis; Toe pain, right; Toe pain, left; Right foot dropStart: 08-22-2024 End: 70-53-3963bhphfhaglnVljhtncpv GonyaFacility:Ul[facility] Hospitaltart: 08-15-2024 End: 26-25-3933fiomexjwhbPsxwon Kevon DO Work Phone: [facility] Work Phone: Start: 08-15-2024 End: 66-88-8576Mptsgvi encounter procedureStekristian Lund DO Work Phone: [facility] Physician Group-[facility] Work Phone: Start: 08-09-2024 End: 16-93-4401ppclklpltwCggwzvw R WATERSFacility:[facility] [place]kyStart: 08-07-2024 End: 00-78-8574zvajroesouBntulta R WATERSFacility:FTMCStart: 08-07-2024 End: 58-46-0092viaesaoilyIlbzzqz R WATERSFacility:EU [place]kyStart: 08-01-2024 End: 91-36-3854jprptsecfuYF Eh Lund Work Phone: [facility] Work Phone: Start: 08-01-2024 End: 55-96-2860Irguxfa encounter procedureDO Eh Lund Work Phone: [facility] Work Phone: Start: 65-62-0253Bou-patient / Non-visitDO Eh Lund Work Phone: [facility] Work Phone: Start: 07-17-2024 End: 23-58-6551Swkatiesg to same day surgery centerDO Eh Lund Work Phone: [facility] Work Phone: Start: 07-17-2024 End: 64-37-8842heeqyfaqqmXR Eh Lund Work Phone: [facility] Work Phone: Start: 07-04-2024 End: 42-09-7906ytiuwrqrnrBozcgntlfSelect [facility] Work Phone: Start: 07-04-2024 End: 58-18-8500Akoqull encounter procedureNovant Health Rehabilitation [facility] [place] Work Phone: Start: 06-21-2024 End: 47-07-3274Rhlnwyb encounter procedureGaurang Shane MD Work Phone: OrthopaedicsComment on above: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); Right foot dropStart: 06-21-2024 End: 49-74-6785Owqveprmgf hospital visit by physicianYessenia Ortho [facility] Yesenia Work Phone: RadiologyComment on above:Pain [R52]Start: 06-18-2024 End: 19-88-0596Hqzhfq flowsheetNicholas A Brown DPM Work Phone: [facility] PA PODStart: 06-18-2024 End: 78-03-2151Wkmyxg flowsheetNicholas A Brown DPM Work Phone: [facility] PA PODStart: 06-18-2024 End: 11-68-8552Eakpxdt encounter procedureNicholas A Brown DPM Work Phone: [facility] [place] PODComment on above:Other polyneuropathy (Primary Dx); Onychomycosis; Toe pain, bilateral; Right foot dropStart: 06-18-2024 End: 51-46-9852wghljxtywqEMSTMEVY A BROWNNot AvailableStart: 05-01-2024 End: 60-08-7376bmcjduxwysWcdqume R WATERSFacility:FTMCStart: 05-01-2024 End: 58-35-4870xwdhlgriweIpvoure R WATERSFacility:EU [place]kyStart: 04-18-2024 Orders OnlyGaurang Shane MD Work Phone: OrthopaedicsComment on above:Pain (Primary Dx)Start: 13-05-3859Ynqdqimmn encounterIvan Valencia MD Work Phone: [facility] Rheum InstituteComment on above:Referral Request ([facility])Start: 03-12-2024 End: 39-63-1809qyjfplvpbtYhvlzqi R WATERSFacility:FTMCStart: 02-27-2024 End: 25-03-0428ekfsroqykiKBVFXUQJ E PERRYFacility:FTMCStart: 01-10-2024 End: 88-91-1561hrbyjggjycWL Steven [place] Work Phone: [facility] Work Phone: Start: 01-10-2024 End: 91-32-7654Ngpfemo encounter procedureDO Eh Lund Work Phone: [facility] [place] Work Phone: Start: 12-20-2023 End: 72-27-6649Jzgqjajlo to same day surgery centerDO Eh Lund Work Phone: [facility] CenterStart: 12-20-2023 End: 62-03-9003osjuqzvimtCW Steven [place] Work Phone: [facility] Work Phone: Start: 12-12-2023 End: 86-17-5575wvznfeyyzhDUMichael Lund Work Phone: [facility] Work Phone: Start: 12-12-2023 End: 03-06-7176Ikchrxq encounter procedureDO Eh Lund Work Phone: [facility] [place] Work Phone: Start: 12-09-2023 End: 88-18-2317Vqmied consultation new/estab patient 61 Aylin Moreira MD Work Phone: [facility] CenterComment on above:Abnormal EKG (Primary Dx); Pre-operative cardiovascular examination; RBBB; Primary hypertension; Mixed hyperlipidemia; Personal history of TIA (transient ischemic attack)Start: 12-09-2023 End: 64-95-9088Wualxnr encounter statusJd Moreira MD Work Phone: [facility] HealthcareStart: 12-06-2023 End: 43-85-6621Vbatdaw encounter procedureDO Eh Lund Work Phone: [facility]-Pre-Surgical Testing Work Phone: Start: 11-29-2023 End: 04-86-1645Ttlkkzb encounter procedureDO Eh Lund Work Phone: [facility]-MRI [address] [place] Work Phone: Start: 10-13-2023 End: 59-73-4467qfnmejogviZbpezb Felter Other Locationary Other Start: 42-53-6753Bdawkk outpatient visit 25 minutes Jordin Cedillo [facility] [place]Start: 09-21-2023 End: 79-15-6084Eyregxp encounter procedureDO Eh Lund Work Phone: [facility]-MRI [address] Work Phone: Start: 09-18-2023 End: 61-62-8631Zzsfbzets department patient visitDO Eh Lund Work Phone: [facility]-Emergency Room Work Phone: Start: 08-25-2023 End: 00-20-7733wqcvocakopEbnyrf Felter Other Locationary Other Start: 82-52-5972Atpsem outpatient visit 25 minutes Jordin Cedillo [facility] [place]Start: 46-66-3830Lmtptcfiq encounter Jordin BoerFPG Pain Management [place]Start: 01-27-2023 End: 91-58-6642Uiizsgmdp to same day surgery centerDO Eh Lund Work Phone: [facility] CenterStart: 01-27-2023 End: 90-58-8755kyyxehwhbxVEMichael Lund Work Phone: [facility] Work Phone: Start: 01-13-2023 End: 87-98-0225dgpaclooijJA Steven [place] Work Phone: [facility] Work Phone: Start: 01-13-2023 End: 89-16-3801Ohovyss encounter procedureDO Eh Lund Work Phone: [facility]-Pre-Surgical Testing Work Phone: Start: 12-14-2022 End: 79-90-5127Gacxgzzzp to same day surgery centerDO Eh Lund Work Phone: [facility] CenterStart: 12-14-2022 End: 02-50-4948drxrlbniiuDL Steven [place] Work Phone: [facility] Work Phone: Start: 12-13-2022(Procedure) ShortThomas FelterErie [facility] Surgery CenterStart: 12-13-2022 End: 40-11-5314wvcvkilqabZtcgea Felter Other Locationary Other Start: 12-07-2022 End: 64-35-0422gfnazmjtgiLuyjzj Felter Other Locationary Other Start: 01-60-4209Jlujzf outpatient visit 25 minutes Jordin Cedillo [facility] [place]Start: 95-66-0572Hkjjkaobt encounter Jordin CarsonFPG Pain Management [place]Start: 11-30-2022 End: 60-78-0488hxdglzrxmsVT Steven [place] Work Phone: [facility] Work Phone: Start: 11-30-2022 End: 50-60-8195Wixfazm encounter procedureDO Eh Lund Work Phone: [facility]-Pre-Surgical Testing Work Phone: Start: 09-05-2022 End: 88-00-8471Mwplziwxe department patient visitDO Eh Lund Work Phone: [facility]-Emer[facility] Work Phone: Start: 02-25-2022 End: 95-08-4339jpmvqqonuqYkfbrw Felter Other Locationary Other Start: 62-11-8713Ibhisx outpatient visit 15 minutes Jordin Cedillo [facility] [place]Start: 11-18-2021(Procedure) Short Jordin FelterErie Shores Surgery CenterStart: 11-18-2021 End: 75-06-4943dsdgttkmczXfqwux Felter Other Locationary Other Start: 10-13-2021(Procedure) ShortThomas FelterErie Shores Surgery CenterStart: 10-13-2021 End: 04-13-4463filbubiqvmTnydjg Felter Other Locationary Other Start: 82-66-7349Gtisdb outpatient visit 15 minutes Jordin Cedillo [facility] [place]Start: 08-31-2018 End: 18-52-9127Foekayn encounter procedureBO H YOOFacility:A9Alezw: 04-25-2018 Patient encounterFacility:9159 Procedures DateProcedureProcedure DetailPerforming ClinicianStart: 82-04-7384Tg strs tst xers&/or rx cont ecg trcg onlyJd Moreira MD Work Phone: Start: 67-77-6499Habikrva injection of lumbar spine using fluoroscopic guidanceEh Lund DO Work Phone: Start: 37-05-6353Ocial X-ray of right femurDO Eh Lund Work Phone: Start: 82-02-3252Bhmxn chest X-rayDO Eh Lund Work Phone: Start: 34-33-6919Zigus radiography of pelvisDO Eh Lund Work Phone: Start: 19-95-8475Vxunjjlf injection of lumbar spine using fluoroscopic guidanceDO Eh Lund Work Phone: Start: 03-85-5853Jhfod hip unilateral with pelvis 2-3 viewsGaurang Shane MD Work Phone: Start: 36-16-2858Fofwlitwzi and transurethral resection of bladder tumorDO Eh Kevon Work Phone: Start: 64-25-0989Gyq routine ecg w/least 12 lds w/i&r Jd Moreira MD Work Phone: Start: 31-64-6810UNM of cervical spine without contrastDO Eh Kevon Work Phone: Start: 92-12-9783HV pre/post mri xrayDO Eh Lund Work Phone: Start: 17-50-6056FJ scan of thyroidDO Eh Lund Work Phone: Start: 66-38-2096OT lumbar spine wo conDO Eh Kevon Work Phone: Start: 38-03-0195JT pre/post mri xrayDO Eh Lund Work Phone: Start: 56-94-6648CXBD-CoV-2, Influenza & RSV (PCR)DO Eh Lund Work Phone: Start: 87-34-9091Rzqal chest X-rayDO hE Lund Work Phone: Start: 05-92-4151Htgoui of left inguinal hernia using surgical meshDO Eh Lund Work Phone: Start: 29-81-4510Ntutjfntdg and transurethral resection of bladder tumorDO Eh Lund Work Phone: Start: 06-80-9673Zsnxu chest X-rayDO Eh Lund Work Phone: Start: 70-98-1480XJ of head without contrastDO Eh Lund Work Phone: Start: 08-68-5076Ubzzd chest X-rayDO Eh Lund Work Phone: Plan of Treatment DateCare ActivityDetailAuthorStart: 30-86-8516MMaP/Tdap/Td Vaccines (2 - Td or Tdap)DTaP/Tdap/Td Vaccines (2 - Td or Tdap)[facility] Start: 42-60-7899Fqfxw microalbumin profileDTaP,Tdap,Td Vaccine (2 - Td or Tdap) [facility] Campustart: 03-25-2026 End: 14-92-1492Tohfkqu encounter plndljyze09/30/2026 3:30 PM EDT Office Visit [address] [phone] Jd Moreira MD [address] [facility] 2, [address] [address] [facility] CenterStart: 91-37-7094PNGWH-19 Vaccine ( season)COVID-19 Vaccine ( season)[facility] Start: 07-23-2025 End: 39-82-2492Gaubvxq encounter xgzarvxbu24/28/2025 12:50 PM EDT Office Visit [address] [place] [address] Jd Moreira MD [address] [facility] 2, [address] [place] [address] [facility] CenterStart: 06-20-2025 End: 86-13-4668Iigogam encounter procedureOrthopaedicsComment on above:right hip hipStart: 40-30-1286Wisvqbxdh vaccinationInfluenza Vaccine (#1)[facility] HealthcareStart: 04-15-2025 End: 31-41-8853Ychfsmm encounter fwpqvgpei93/21/2025 2:15 PM EDT Appointment [place] [address] [facility] [address] [place] [address] [facility] CenterStart: 04-15-2025 End: 67-15-9081Uekgjhm encounter procedureUH [facility]: 03-25-2025 End: 53-76-5463Pwzvmtw encounter procedureNOMS [place] PODComment on above:Other polyneuropathy (Primary Dx); Pain due to onychomycosis of toenails of both feet; Right foot dropStart: 03-21-2025 End: 50-14-3604QA Heart Perfusion W stress and W radionuclide IVNuclear Stress Test Cardiac Nuclear Medicine Routine Chest pain, unspecified type Expected: 03/21/2025 (Approximate), Expires: 03/21/2027[facility] Service Area Work Phone: Comment on above:Expected: 03/21/2025 (Approximate), Expires: 03/21/2027Start: 01-28-2025 End: 70-51-1399Uadcqep encounter ixriehmoo58/05/2025 12:00 PM EDT Office Visit [facility]F POD [address] [facility] [place] [address] Duyen Trotter, DPM FACFAS [address] [place] [address] ArrivedNOMS PCF PODComment on above:ArrivedStart: 01-14-2025 End: 94-65-3993Zmntwqp encounter dcmljlaui35/21/2025 11:40 AM EDT Office Visit [facility] SC POD [address] [place] [address] Dago Brito, DPM [address] [facility] [address] [place] [address] [facility] PA PODStart: 01-72-5232HambafecsPremier Health [facility] Start: 51-95-7080IEGKJ-19 Vaccine ( season)COVID-19 Vaccine ( season)[facility] HealthcareStart: 11-05-2024 End: 92-69-9116Gpriair encounter cnbmkbykj54/10/2025 11:50 AM EST Office Visit [facility] POD [address] [place] [address] Dago Brito DPM [address] [address] [facility] PA PODStart: 47-54-7671Iptiplo Directive Discussion Advance Directive DiscussionTrinity Health System East Campustart: 08-27-2024 End: 50-63-8119Dqolphf encounter hdxkomfrl87/02/2024 11:40 AM EST Office Visit [facility] POD [address] [place] [address] Dago Brito DPM [address] [address] [facility] PA PODStart: 77-00-6790Jjtft X-ray of right femurXR femur RT 2V*[facility]: 83-86-6406GB Femur - right 2 [facility]art: 92-99-9861Jwdbv chest X-rayXR ribs RT min 3V w CXR1V*[facility] Hospital[facility]art: 24-41-5665Nuuwp radiography of pelvisXR pelvis 1-2VCleveland Clinic Avon Hospitaltart: 93-86-9307OD Pelvis 1 or 2 [facility]ertart: 20-07-3213JQ Ribs - right ViewsCleveland Clinic Avon Hospitaltart: 41-05-6030VfehowtmzCleveland Clinic Avon Hospitaltart: 06-21-2024 End: 28-24-2937Aoxxeer encounter procedureRadiologyComment on above:right hip right hip pain- bwcStart: 06-18-2024 End: 53-33-1833Hoyguac encounter ioqwbqrgq41/23/2024 11:30 AM EDT Office Visit [facility] POD [address] [place] [address] Dago Brito, DPM [address] [address] Other polyneuropathy (Primary Dx); Onychomycosis; Toe pain, bilateral; Right foot dropNOMS SC PODComment on above:Other polyneuropathy (Primary Dx); Onychomycosis; Toe pain, bilateral; Right foot dropStart: 58-80-4387Hrhaguvip vaccinationInfluenza Vaccine (#1) [facility]art: 63-72-1068qqllxsclfsTfoddpmgypJdjrrfoi:EU [facility] HealthyStart: 12-20-2023 End: 41-98-9158CitsfmozdCleveland Clinic Avon Hospitaltart: 13-27-8749Wfuhm-19 Vaccine ( season)Covid-19 Vaccine ( season)[facility]art: 46-78-6178Rmghbdu Directive DiscussionAdvance Directive Discussion [facility]art: 16-10-0526Yprqqtflbf Health ScreeningBehavioral Health ScreeningTrinity Health System East Campustart: 01-27-2023 End: 21-63-5453QmdxelqxsCleveland Clinic Avon Hospitaltart: 12-14-2022 End: 74-71-9680CyjynpratCleveland Clinic Avon Hospitaltart: 67-30-3186Armaojjdapoz Vaccine: 65+ (2 of 2 - PCV)Pneumococcal Vaccine: 65+ (2 of 2 - PCV)[facility]: 86-18-9389Rnqfxwytctow Vaccine: 65+ Years (2 - PCV)Pneumococcal Vaccine: 65+ Years (2 - PCV)[facility] HealthcareStart: 05-27-2001 Medicare Annual Wellness VisitMedicare Annual Wellness VisitGrant Hospital Start: 19-12-4723Mhhcwsqx Vaccine (1 of 2)Shingrix Vaccine (1 of 2)[facility]: 42-56-6082Cmzhvy Vaccines (1 of 2)Zoster Vaccines (1 of 2) [facility]: 67-64-1371Snvtjtoz ScreeningDiabetes ScreeningTrinity Health System East Campustart: 58-07-1231ZRaG/Tdap/Td Vaccines (1 - Tdap) DTaP/Tdap/Td Vaccines (1 - Tdap)[facility]: 04-35-6323Smksv microalbumin profileDTaP,Tdap,Td Vaccine (1 - Tdap)[facility]: 06-57-6724Cbuyglb ScreeningAnxiety ScreeningTrinity Health System East Campustart: 65-14-8530Wxxmbhvbvn ScreeningDepression ScreeningTrinity Health System East Campustart: 05-76-5937Nubhanaa mellitus screeningDiabetes ScreeningUnWilson Health: 91-63-3998Uyvox panelLipid PanelBlanchard Valley Health System [facility]: 1935Medicare Annual Wellness VisitMedicare Annual Wellness Visit (AWV)[facility]: 62-13-9640Zbayqfqsw for osteoporosisBone Density ScanBlanchard Valley Health System [facility]: 1935 Skin Cancer ScreeningSkin Cancer ScreeningUK Healthcare Patient EducationOhio State East Hospital Ctr Work Phone: Patient referralOhio State East Hospital Ctr Work Phone: End: 37-39-0891UC Pelvis and Hip - right AP and Lateral frogXR HIP GENERAL 3V PELV/AP/LAT RIGHT Radiology Routine Pain 1 Occurrences starting 04/18/2024 until 5C[facility] Work Phone: comment on above:1 Occurrences starting 04/18/2024 until 05/18/2025 End: 95-11-0044AK Pelvis and Hip - right AP and Lateral frogXR HIP GENERAL 3V PELV/AP/LAT RIGHT Radiology Routine History of revision of total replacement of right hip joint 1 Occurrences starting 06/11/2025 until 6C[facility] Work Phone: comment on above:1 Occurrences starting 06/11/2025 until 07/11/2026 Immunizations Immunization DateImmunizationNotesCare RnyqvjtqXmafhinn08-06-9597xprvoytbm, high dose seasonal, preservative-freeJd Moreira MD Work Phone: [facility] Work Phone: [phone]cf, high dose seasonal, preservative-freeJd Moreira MD Work Phone: [facility]09-13-2024influenza virus vaccine, unspecified formulationDago Brito DPM Work Phone: [facility] HospitalMvnkegtduj70-00-2915eirzccgx calmette-tj vaccineJd Moreira MD Work Phone: [facility] Work Phone: [phone]MSLUNZVM SYNCYTIAL VIRUS (RSV), ELIGIBLE PTS, 0.5 ML (ABRYSVO)Jd Moreira MD Work Phone: [facility] Work Phone: [phone] vaccine, quadrivalent, high-dose, preservative free, age 65y+ (FLUZONE)Jd Moreira MD Work Phone: [facility] Work Phone: [phone]) [phone]yktscpqjl virus vaccine, unspecified formulationGaurang Shane MD Work Phone: cOhioHealth Riverside Methodist HospitalYdager82-83-9493WDPUK-34 mRNA Bivalent Booster (Moderna)DO Eh Lund Work Phone: [facility]12-07-2022COVID-19 mRNA, bivalent, original/Omicron BA.1, Non-US Vaccine (Spikevax Bivalent), Joselito Moreira MD Work Phone: [facility] Work Phone: [phone] SARS-CoV-2 Booster Vaccination Dago Brito DPM Work Phone: [facility] HospitalBljnobpnmu05-34-5451Yje vaccine, quadrivalent, high-dose, preservative free, age 65y+ (FLUZONE)Jd Moreira MD Work Phone: [facility] Work Phone: [phone]-70 mRNA-1273 (Moderna)DO Eh Lund Work Phone: [facility]11-03-2021COVID-19 mRNA-1273 (Moderna)DO Eh Lund Work Phone: [facility]09-30-2021Flu vaccine, quadrivalent, high-dose, preservative free, age 65y+ (FLUZONE)Jd Moreira MD Work Phone: [facility] Work Phone: [phone]-35 mRNA-1273 (Moderna)DO Eh Lund Work Phone: [facility]01-25-2021COVID-19 mRNA-1273 (Moderna)DO Eh Lund Work Phone: [facility]09-17-2020Flu vaccine, quadrivalent, high-dose, preservative free, age 65y+ (FLUZONE)Jd Moreira MD Work Phone: [facility] Work Phone: [phone] virus vaccine, unspecified formulationDO Eh Lund Work Phone: [facility]09-17-2019influenza, high dose seasonal, preservative-freeThomas Felter Other Richardson [employer]EL[employer]Bra[employer] Other 10286214-73-8274crblbltvo, live, intranasal, quadrivalent Jd Moreira MD Work Phone: [facility] Work Phone: [phone], injectable, quadrivalent, preservative Kailey Moreira MD Work Phone: [facility] Work Phone: [phone], injectable, quadrivalent, preservative Kailey Moreira MD Work Phone: [facility] Work Phone: [phone]kk polysaccharide vaccine, 23 valentThomas Felter Other Richardson [employer] Other 12-891629-41-1625tzacvjlfhgcm polysaccharide vaccine, 23 valentMourprince Moreira MD Work Phone: [facility] Work Phone: Payers DatePayer CategoryPayerPolicy [id number] of Defense ( and others)[id number]-[id number] [id number] For Life (TFL) FOR LIFE [id number] [id number] 98-14-9625Czktkvrooz of Defense ( and others) [id number] (not Medicare or Medicaid) FOR LIFE Member Subscriber Plan / Payer (Effective 2001- Present) Name: Roscoe Hernandez Relation to Subscriber: Self Name: Roscoe Hernandez Payer ID: Not on file Group ID: Not on file Type: Indemnity Address: [address] [place], [place] [id number] () [id number]7722.31672-38-2092SdsfasyGGNQLUGN FOR LIFE [id number] 2001-Present [phone] [place] [address] Indemnity1.2.840.735626.1.13.159.2.7.3.501916.26861-22-3499Wwsdoxi [id number] 2001Medicare1.2.840.595267.1.13.647.2.7.3.566570. Department of Defense ( and others)[id number] [id number] 51-03-2122Tfymqmh3356552 2.840.1.042555.3.579.2.76863-58-3133Clzmgno59425547 2.16.840.1.008872.3.579.2.99938-97-6546Szgutfv20699360 2.16.840.1.442567.3.579.2.41149-69-3475Mcnjicc22613816 2.16840.1.940551.3.579.2.23364-98-1202Kurlbuy83622186 2.16840.1.140232.3.579.2.88949-90-9481Ujbgmgf60997429 2.16840.1.802885.3.579.2.91138-58-2185Qovqlml44238747 2.16840.1.222962.3.579.2.18328-06-2188Xbumirk46469714 2.840.1.494859.3.579.2.01696-78-7690Hsnnmnn48511269 2.16840.1.715737.3.579.2.45740-98-8844Tmwrfgr03590688 2.840.1.442337.3.579.2.57415-70-1638Tzolrep33375495 2.840.1.764191.3.579.2.26247-01-1111Ghyktqt57704904 2.16840.1.515312.3.579.2.58261-78-7911Kyoegip20190586 2.16840.1.283119.3.579.2.78482-73-7211Cymbemb41550532 2.16840.1.104435.3.579.2.28227-10-6279Xyqratb65506740 2.16840.1.259072.3.579.2.67775-47-1536Noihavd46295837 2.16.840.1.633225.3.579.2.07508-04-0653Jepkren18636372 2.16840.1.804159.3.579.2.098473-96-0995Wjlqpta34272993 2.16840.1.592190.3.579.2.456363-65-7342Hnwqrvh73068479 2.16840.1.244628.3.579.2.172850-05-9387Jwgodkq43867574 2.16840.1.807780.3.579.2.618585-15-1528Ghfhdkk03674105 2.840.1.626705.3.579.2.479739-78-3327Rsugupj40524651 2.840.1.157545.3.579.2.031445-92-7951Govogmc34283988 2.840.1.150238.3.579.2.849326-37-4393Mpgjehn2866090 2.840.1.659841.3.579.2.175125-68-7012Xqrcpwc1680817 2.840.1.151763.3.579.2.142650-36-2682Vxxpbxj7174985 2.840.1.852864.3.579.2.254049-77-1799Nbrlctx6118460 2.16840.1.123654.3.579.2.313622-53-5817Wdthzbk9954781 2.16840.1.387973.3.579.2.613583-32-3591Wtxtoqm67853743 2.16840.1.716566.3.579.2.29016-41-4721Yocowsd31359273 2.16840.1.194082.3.579.2.27567-71-8022Vqpzurw888134377 2.16840.1.064804.3.579.2.936020-16-1958Icwmqqv499027920 2.16840.1.305421.3.579.2.480586-60-7493Pdhxebh28640039 2.840.1.421826.3.579.2.17741-00-6383Tmozwex72913538 2.840.1.748722.3.579.2.80358-27-0851Vtduldq64931498 2..1.518256.3.579.2.33425-91-8011Emnguuf90030307 2.0.1.246797.3.579.2.41602-27-3335Wyuuxrh90025605 2.840.1.586079.3.579.2.30354-03-0338Slkllsl59949659 2.0.1.199838.3.579.2.18858-81-5384Ixskjpc95338711 2.840.1.667358.3.579.2.02125-59-9815Nyhtdlf31482180 2.840.1.763989.3.579.2.08758-95-9652Yormguo53851453 2.840.1.146290.3.579.2.947Ynfdmxh02376038 2.16840.1.524732.3.579.2.531 Hbweotb18500056 2.16840.1.512474.3.579.2.281Wkxcgrw61988823 2.840.1.161724.3.579.2.454Yneayxw62786930 2.840.1.677002.3.579.2.531 Social History DateTypeDetailFacilityStart: 12-09-2023 End: 87-55-8260Uim Assigned At [facility] TEL[employer]Bra[employer] Other Start: 11-30-2022 End: 22-35-4472Feckztp smoking status NHISEx-smoker (finding)[facility]: 50-90-7399Bho Assigned At [facility]: 91-49-8590Ergvpqr smoking status NHISNever smoked tobacco (finding)[facility] End: 54-07-5700Cxrkbzj of tobacco useCurrent smokerUnBlanchard Valley Health System [facility] Work Phone: End: 28-32-5734Hzshksw of tobacco usePipe SmokerUnBlanchard Valley Health System [facility] Work Phone: Start: 03-21-2023 End: 67-38-7661Qoyfbcq use and exposureSmokeless tobacco non-userUnBlanchard Valley Health System [facility] Work Phone: Start: 12-09-2023 End: 01-14-0967Xcidjbh intakeLifetime non-drinker (finding)[facility] Work Phone: Start: 12-09-2023 End: 25-44-1261Dffxnxw of Social functionUnBlanchard Valley Health System [facility] Work Phone: Start: 23-92-4744Aiy Assigned At BirthNot on file [facility] Work Phone: Start: 11-29-2023 End: 42-31-2182Wwkthbqi to SARS-CoV-2 (event)Not sureUnBlanchard Valley Health System [facility]ard Valley HospitalStart: 54-32-7947Oiprvve intakeCurrent non-drinker of alcohol (finding) [facility]: 66-86-4816Tbfbau identityIdentifies as male gender (finding)[facility]: 80-26-4360Xjtgvi orientationHeterosexual (finding)[facility]: 08-27-2012 End: 08-55-7193Ywzkymlh Score (1-100), lower number is lower hzjx11ZakszkhocoUK HealthcareStart: 08-21-2022 End: 77-50-3918FdoUqrm (finding)[facility] SouthHistory of tobacco useCigarette SmokerRay County Memorial HospitalStart: 09-99-7602Rceybcg Comment caffeine intake: 1-2 cups per dayRay County Memorial Hospital Medical Equipment Procedure CodeEquipment CodeEquipment Original TextEquipment IdentifierDates Repair, hernia, inguinal, with meshAbdominal hernia surgical mesh, synthetic polymer, non-bioabsorbable()[id number] FDAStart: 01-27-2023 Goals DatePatient GoalDesired Activity/State Functional Status XaepHxmmzamvfcBjzrwvAkackhbj03-26-0018Qswlwgieov odkqpx045/76[facility] Work Phone: 1(487) [phone]Xfmsa signs68 07/23/2025 12:50 PM KEERTHIT Tish Urena, [facility] Work Phone: [phone]) [phone]YdxqiehbbhUK Healthcare Work Phone: [phone] you deaf, or do you have serious difficulty hearingNo 12/31/2013 5:06 PM Maribell Antonio (Rn)(Hist) No [facility] HospitalPgpbal59-55-9385Kzx you blind, or do you have serious difficulty seeing, even when wearing glassesNo 12/31/2013 5:06 PM Maribell Antonio (Rn)(Hist) [facility]04-07-2014Do you have serious difficulty walking or climbing stairsNo 12/31/2013 5:06 PM Maribell Antonio (Rn)(Hist) No [facility] HospitalMueizo52-29-4307Uy you have difficulty dressing or bathingNo 12/31/2013 5:06 PM Maribell Antonio (Rn)(Hist) [facility] 13-97-0207Aofbxip of a physical, mental, or emotional condition, do you have difficulty doing errands alone such as visiting a physician's office or shopping No 12/31/2013 5:06 PM EDT Maribell Burton (Angelica)(Hist) [facility] Mental Status BrvcYoztfnudgmSlnlroPytnavgx91-54-0415Cedxjrf of a physical, mental, or emotional condition, do you have serious difficulty concentrating, remembering, or making decisionsNo 12/31/2013 5:06 PM EDT Maribell Burton)(Hist) No [facility] Clinical Notes 07-23-2021 to 07-23-2025 Note Date & QkvaPczkPdpqjbql77-40-1636 History of Present illness Narrative* Jd Moreira MD - 07/23/2025 12:50 PM EDT Chief Complaint Patient presents with Follow-up 4 month HTN (hypertension) Subjective Roscoe Hernandez is a 89 y.o. male HPI [...] the same time. lisinopril 20 mg, Daily jb-ff-si9-ifn-ogf-bhkx-lut-julia (Ocuvite Adult 50 Plus) 250 mg (90 [...] exam, discussion and plan. documented in this [facility] Work Phone: 1(774) 677-627810-28-2025 Instructions* Patient Instructions* Tish Urena LPN - [...] through Care Everywhere. * Heart Healthy Diet (Nicaraguan) documented in this [facility] Work Phone: 1(103) 595-946809-25-2025 NoteHNO ID: [id number] Author: LAWRENCE BRAUN RT(R) Service: Radiology Author [...] PATIENT PRESENTS WITH AN IMPLANTABLE OR ATTACHED VP OF GLOBAL MARKETING: No RADIOLOGY DEPARTMENT: General X-ray: Exam(s) Completed: Pelvis X-Ray: Pelvis with Hip Right PERIPHERAL IV DATA: Not applicable SIGNED BY: RT Deb(R) June 20, 2025 10:07 [facility]09-25-2025 NoteHNO ID: [id number] Author: LAKESHA NEGRETE PA-C Service: ? Author Type: Physician Sports Medicine Trainer Type: Progress Notes Filed: 06/20/2025 14:59 Note Text: Ortho Hip Follow Up Note Narrative Referring Provider: Gaurang Shane [address] [facility] [address] PCP: No primary care provider on file. IMPRESSION/PLAN: Impressions indicate: 89 year old here for right hip follow up. 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 STATUS POST: BMI: There is [...] Provider: Lakesha Negrete PA-C Completed by: LEON GodfreyMetroHealth [facility]09-16-2025 Note Patient Education Oncology Cancer Screening for [...] if anything looks unusual. Males with a ibsfsq-hoqg-qplbfy risk for skin cancer may want to see a hide and skin classer (dermatologi (more content not included)...[facility]09-08-2025 History of Present illness Narrative* Dago Brito, [...] 10 Dago Brito DPM documented in this encounterRay County Memorial HospitalHgdietcggc11-43-0887 History of Present illness Narrative* Dago Brito [...] 10 Dago Brito DPM documented in this encounterRay County Memorial HospitalWjksfwewer32-33-1935 History of Present illness Narrative* Jd Moreira [...] breath and fatigue. Patient was taken to [facility]. His blood pressure was elevated. He was [...] the same time. lisinopril 20 mg, Daily fd-ej-bl7-zrr-kze-supz-lut-julia (Ocuvite Adult 50 Plus) 250 mg (90 [...] exam, discussion and plan. documented in this [facility] Work Phone: 1(713) 186-823706-26-2025 Instructions* Patient Instructions* Osiris Hoffman LPN - [...] ulisses Graham Follow up documented in this [facility] Work Phone: 1(506) 272-524306-17-2025 NoteEducation Materials Gastroenterology Chest Pain (Angina): What [...] yourself to the hos (more content not included)...[facility] SystemXfalyjns68-88-4459 [facility] Clinical Discharge Summary PERSON INFORMATION Name ROSCOE HERNANDEZ Age 89 Years 1935 Sex MALE Language Nicaraguan PCP Eh Lund DO Marital Status Med Service Observation Acct# Arrival 03/11/2025 14:53:53 Visit Reason Weakness or fatigue; Chest pain; CHEST PAIN R07.9, WEAKNESS R53.1, FATIGUE R53.83 Acuity LOS 000 16:59 Address: [address] [place] [address] [place] [address] Comment: PROVIDER INFORMATION VITALS INFORMATION Vital Sign [...] Info: sulfamethoxazole-trimethoprim; ciprofloxacin Medication List: New Medications [facility], Critical access hospital[address] [place], [place] [address], [phone] NIFEdipine (NIFEdipine 60 mg oral tablet, extended [...] range between ( 1.3 and 2.9 ) Wake Abs#: 0.6 x103/mcL -- Normal range between ( 0.0 and 0.8 ) Auto Baso %: 0.5 % -- Normal range between ( 0.2 and 2.0 ) Auto Wake %: 11 % -- Normal range between [...] range between ( 3 (more content not included)...[facility] SystemUjezuaeh37-06-9077 History of Present illness Narrative* Duyen Trotter [...] Arthritis At risk for falls Bladder cancer ([facility]/HCC) Bleeding disorder (CMS/HCC) BMI 28.0-28.9,adult Cancer (CMS/HCC) Chicken pox CVA (cerebral vascular accident) (CMS/HCC) Drop foot gait, right Family history of cancer Family history of prostate problems Hyperlipidemia (CMS/HCC) Hypertension (CMS/HCC) Macular degeneration Measles Mumps OM (onychomycosis) Peripheral neuropathy Stroke ([facility]) TIA (transient ischemic attack) Toe [...] 1 week. ASH Keating documented in this encounterRay County Memorial HospitalBkwhfxtogi64-06-0261 History of Present illness Narrative* Dago Brito [...] 10 Dago Brito DPM documented in this encounterRay County Memorial HospitalRrwtlatkre21-42-2490 Evaluation note* Diagnosis Onset Date Resolution Status [...] myelopathy or radiculopathy, lumbosacral regionacuteJune 2024 9:47am [facility] Work Phone: 1(507) 760-940304-08-2025 [place] [address] Pain Management Procedure Note Signed Patient: Roscoe Hernandez MR#: [id number] : 1935 Acct:[id number] Age/Sex: 89 / M Adm Date: 5 Loc: Room: Type: [facility] Attending Dr: Jordin Carson MD Copies to: [...] MD 01/01/25 1017 Signed By: 01/01/25 1018 [facility]03-19-2025 Evaluation note* Diagnosis Onset Date Resolution Status Admit Date Other chronic pain acuteMarch 2024 10:28amOther low back painacuteMarch 2024 10:28am Other spondylosis with radiculopathy, lumbar regionacuteMarch 2024 10:28am Rib painacuteMarch 2024 10:28am [facility] Work Phone: 1(937) 116-663003-19-2025 Evaluation note* Diagnosis Onset Date Resolution Status Admit Date Other chronic pain acuteMarch 2024 10:28amOther low back painacuteMarch 2024 10:28am Other spondylosis with radiculopathy, lumbar regionacuteMarch 2024 10:28am Rib painacuteMarch 2024 10:28amOther chronic painacuteApril 2024 10:08amRib painacuteApril 2024 10:08amSpondylosis without myelopathy or radiculopathy, lumbosacral regionacuteApril 2024 10:08am [facility] Work Phone: 1(706) 471-995403-19-2025 Evaluation note* Diagnosis Onset Date Resolution Status Admit Date Other chronic pain acuteMarch 2024 10:28amOther low back painacuteMarch 2024 10:28am Other spondylosis with radiculopathy, lumbar regionacuteMarch 2024 10:28am Rib painacuteMarch 2024 10:28amOther chronic painacuteApril 2024 10:08amRib painacuteApril 2024 10:08amSpondylosis without myelopathy or radiculopathy, lumbosacral regionacuteApril 2024 10:08amOther chronic pain acuteMay 2024 10:46amRib painacuteMay 2024 10:46amSpondylosis without myelopathy or radiculopathy, lumbosacral regionacuteMay 2024 10:46am [facility] Work Phone: 1(586) 477-682203-19-2025 Evaluation note* Diagnosis Onset Date Resolution Status [...] myelopathy or radiculopathy, lumbosacral regionacuteMay 2024 9:31am [facility] Work Phone: [phone]) 893-603903-04-2025 NotePatient Education Oncology Cancer Screening for Males [...] if anything looks unusual. Males with a sxhqmw-vxyl-ehowsm risk for skin cancer may want to see a hide and skin classer (dermatologi (more content not included)...[facility]02-17-2025 Note From: Ghazala Carter RN ([facility] ([facility])) To: Eh Lund DO; Sent: 11/12/2024 07:16:42 EST Subject: FW: Medication Management Due Date/Time: 11/13/2024 02:18:00 EST Caller Name: ROSCOE HERNANDEZ; Caller Number: Erika , M From: [employer] [facility]ERY To: Eh Lund DO Sent: November 12, 2024 1:18:33 AM [facility] Subject: Medication Management Due: November 13, 2024 12:02:12 AM [facility] On Hold Pending Signature Drug: lisinopril (lisinopril 10 mg oral tablet), TAKE 1 TABLET DAILY Quantity: 90 tab(s) Days Supply: 0 Refills: 3 Substitutions Allowed Notes from Pharmacy: Dispensed Drug: lisinopril (lisinopril 10 mg oral tablet), TAKE 1 TABLET DAILY Quantity: 90 tab(s) Days Supply: 0 Refills: 3 Substitutions Allowed Notes from Pharmacy: From: Eh Lund DO To: [facility] Sent: 11/12/2024 07:30:59 EST Subject: FW: Medication Management Submitted: Complete:lisinopril (lisinopril 10 mg oral tablet) Signed by Eh Lund DO 11/12/2024 07:30:00 EST Approved with modifications: lisinopril (LISINOPRIL TABS 10MG) TAKE 1 TABLET DAILY Qty: 90 tab(s) Days Supply: 0 Refills: 3 Substitutions Allowed Route To Pharmacy - [facility]02-10-2025 History of Present illness Narrative* Dago Brito, [...] 10 Dago Brito DPM documented in this encounterRay County Memorial [id number] Note From: Ghazala Carter RN ([facility] ([facility])) To: Eh Lund DO; Sent: 10/17/2024 07:25:39 EST Subject: FW: Medication Management Due Date/Time: 10/18/2024 02:26:00 EST Caller Name: ROSCOE HERNANDEZ; Caller Number: Erika , Vickie From: [facility] To: Eh Lund DO Sent: October 17, 2024 1:26:39 AM [facility] Subject: Medication Management Due: October 18, 2024 12:01:40 AM [facility] On Hold Pending Signature Drug: clopidogrel (clopidogrel 75 mg oral tablet), TAKE 1 TABLET DAILY Quantity: 90 tab(s) Days Supply: 0 Refills: 3 Substitutions Allowed Notes from Pharmacy: Dispensed Drug: clopidogrel (clopidogrel 75 mg oral tablet), TAKE 1 TABLET DAILY Quantity: 90 tab(s) Days Supply: 0 Refills: 3 Substitutions Allowed Notes from Pharmacy: From: Eh Lund DO To: [facility] Sent: 10/17/2024 07:27:40 EST Subject: FW: Medication Management Submitted: Complete:clopidogrel (clopidogrel 75 mg oral tablet) Signed by Eh Lund DO 10/17/2024 07:27:00 EST Approved with modifications: clopidogrel (CLOPIDOGREL BISULFATE TABS 75MG) TAKE 1 TABLET DAILY Qty: 90 tab(s) Days Supply: 0 Refills: 3 Substitutions Allowed Route To [facility] - [facility] [id number] Note From: Ghazala Carter RN ([facility] ([facility])) To: Marija Russell CNP; Sent: 10/08/2024 07:30:09 EST Subject: FW: Medication Management Due Date/Time: 10/09/2024 02:29:00 EST Caller Name: ROSCOE HERNANDEZ; Caller Number: Erika , Vickie From: [facility] To: Kevon Eh Rebecca HANDLEY Sent: October 08, 2024 1:29:27 AM [facility] Subject: Medication Management Due: October 09, 2024 12:02:12 AM [facility] On Hold Pending Signature Drug: atorvastatin (atorvastatin 40 mg oral tablet), TAKE 1 TABLET DAILY Quantity: 90 tab(s) Days Supply: 0 Refills: 3 Substitutions Allowed Notes from Pharmacy: Dispensed Drug: atorvastatin (atorvastatin 40 mg oral tablet), TAKE 1 TABLET DAILY Quantity: 90 tab(s) Days Supply: 0 Refills: 3 Substitutions Allowed Notes from Pharmacy: From: Marija Russell APRN, CNP To: [facility] Sent: 10/08/2024 12:08:11 EST Subject: FW: Medication Management Submitted: Complete:atorvastatin (atorvastatin 40 mg oral tablet) Signed by Marija Russell APRN, CNP 10/08/2024 12:08:00 EST Approved with modifications: atorvastatin (ATORVASTATIN TABS 40MG) TAKE 1 TABLET DAILY Qty: 90 tab(s) Days Supply: 0 Refills: 3 Substitutions Allowed Route To Pharmacy - [facility] Signed by Marija Russell APRN, CNPMemorial Health SystemYtvjhkwk01-28-1541 NoteEducation Materials ENT Cough, Adult A cough [...] these instructions at home: Medicines ? Take lony-wva-sbhxxnw and prescription medicines only as told by [...] provider. Document Revised: 05/13/2023 Document Reviewed: 05/13/2023 [employer] Patient Education ? 2023 [facility] History of Present illness Narrative* Dago Starla [...] 10 Dago Brito DPM documented in this encounterRay County Memorial HospitalSqebzyefpp07-07-4395 NotePROCEDURE: XR Hip Complete Right, XR Sacroiliac [...] Eh Medina MD 08/22/24 12:03 p Technologist: [facility]11-27-2024 NotePROCEDURE: XR Shoulder Complete Right HISTORY: Pain [...] Eh Medina MD 08/22/24 12:04 p Technologist: [facility]11-27-2024 NotePROCEDURE: XR Hip Complete Right, XR Sacroiliac [...] Eh Medina MD 08/22/24 12:03 p Technologist: [facility]11-12-2024 NotePatient Education Oncology Cancer Screening for Males [...] if anything looks unusual. Males with a qvmgot-oemm-zlwpgf risk for skin cancer may want to see a hide and skin classer (dermatologi (more content not included)...[facility]10-22-2024 [facility] Evaluation note* Diagnosis Onset Date Resolution Status Admit Date Other chronic pain acuteOctober 2023 10:48amOther low back painacuteOctober 2023 10:48am Other spondylosis with radiculopathy, lumbar regionacuteOctober 2023 10:48amOther chronic painacuteNovember 2023 10:34amOther low back painacute November 2023 10:34amOther spondylosis with radiculopathy, lumbar region acuteNovember 2023 10:34amRib painacuteNov2023 10:34am [facility] Work Phone: 1(975) 208-473609-26-2024 History of Present illness Narrative* Gaurang Shane MD - 06/21/2024 1:41 PM EDT Images from the original note were not included. CONSULT ORTHOPAEDIC: HIP PRIMARY CARE PHYSICIAN: No primary care provider on file. REFERRING PROVIDER: NO PCP ASSESSMENT & PLAN Impression: Patient is here to establish care following multiply revised right total hip arthroplasty. 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 We have discussed the case and management of the patient's care, and I agree with the above documented information and plan. SIGNATURE: Gaurang Shane MD PATIENT NAME: Roscoe Hernandez DATE: June 21, 2024 TIME: 3:51 PM documented in this encounterGrant Hospital09-26-2024 History of Present illness Narrative* Lawrence Braun, [...] PATIENT PRESENTS WITH AN IMPLANTABLE OR ATTACHED VP OF GLOBAL MARKETING: No RADIOLOGY DEPARTMENT: General X-ray: Exam(s) Completed: Pelvis X-Ray: Pelvis with Hip Right PERIPHERAL IV DATA: Not applicable SIGNED BY: FRANCK ENGLISH(RT) AND RT Deb(R) June 21, 2024 12:55 PM documented in this encounterGrant Hospital08-06-2024 NotePatient Education Oncology Cancer Screening for Men [...] if anything looks unusual. Men with a zjpnfb-lmyi-wxvuch risk for skin cancer may want to see a hide and skin classer (mold dresser) for an annual body check. What are the benefits of screening? Cancer screening is done to look for cancer in the very early stages, before it spreads and becomesharder to treat and before you would start to notice symptoms. Finding cancer early improves the chances of success (more content not included)...[facility]06-25-2024 Telephone encounter Note* Telephone Encounter - Malinda Gorman - 03/20/2024 1:32 PM EDT Images from the original note were not included. Received request from [facility] to schedule patient with Dr. Valencia - Dr. Valencia reviewed case and referred patient to Adult Reconstruction, Dr. Amador Perkins. Provided patient with phone number to schedule with Dr. Perkins. [facility]06-25-[facility]24 Miscellaneous Notes* Telephone Encounter - Malinda Gorman - 03/20/2024 1:32 PM EDT Images from the original note were not included. Received request from [facility] to schedule patient with Dr. Valencia - Dr. Valencia reviewed case and referred patient to Adult Reconstruction, Dr. Amador Perkins. Provided patient with phone number to schedule with Dr. Perkins. documented in this encounterGrant Hospital03-15-2024 History of Present illness Narrative* Jd Moreira [...] by mouth once daily., Disp: , Rfl: yz-sc-yl3-gyi-vgq-afhk-lut-julia (Ocuvite Adult 50 Plus) 250 mg (90 [...] exam, discussion and plan. documented in this encounterUK Healthcare Work Phone: 1(117) 711-963503-15-2024 Instructions* Patient Instructions* Dai Blas LPN - [...] ordered as needed only documented in this encounterUK Healthcare Work Phone: 1(275) 213-950001-18-2024 Evaluation note* Encounter Date Diagnosis Assessment Notes [...] Sep,OtherAbove note written by Jennifer Lund LPN, Tufting Supervisor. Edited and approved by Dr. Jordin Carson MD. [facility] Other 11-30-2023 Evaluation note* Encounter Date Diagnosis [...] Jul,OtherAbove note written by Alejandro English MA, Tufting Supervisor. Edited and approved by Dr. Jordin Carson [...] proceeding with HOWARD injections in the office. [facility] Other 11-30-2023 Evaluation note* Encounter Date Diagnosis Assessment Notes Treatment Notes Treatment Clinical Notes Jul, Other spondylosis wi th radiculopathy, lumbar region (ICD-10 - M47.26) [facility] Other 03-14-2023 Evaluation note* Encounter Date Diagnosis Assessment Notes Treatment Notes Treatment Clinical Notes Nov, Other spondylosis wi th radiculopathy, lumbar region (ICD-10 - M47.26) [facility] Other 03-14-2023 Evaluation note* Encounter Date Diagnosis [...] Nov,OtherAbove note written by Alejandro English MA, Tufting Supervisor. Edited and approved by Dr. Jordin Carson MD. [facility] Other 06-02-2022 Evaluation note* Encounter Date Diagnosis [...] Feb,2OtherAbove note written by Alejandro English MA, Tufting Supervisor. Edited and approved by Dr. Jordin Carson MD. [facility] [employer] Other 10-28-2021 Evaluation note* Encounter Date Diagnosis [...] Jun,ow back pain, unspecified (ICD-10 - M54.50) [facility] [employer] Other Evaluation noteNo InformationNortHaven Behavioral Hospital of [facility] [employer] Other Evaluation noteNo assessment information available [facility] Work Phone: Evaluation note* Diagnosis Abnormal EKG- Primary Nonspecific abnormal electrocardiogram (ECG) (EKG) Pre-operative cardiovascular examination RBBB Primary hypertension Unspecified essential hypertension Mixed hyperlipidemia Personal history of TIA (transient ischemic attack) Transient ischemic attack (TIA), and cerebral infarction without residual deficits documented in this encounter [facility] Work Phone: Evaluation note* Diagnosis Onset Date Resolution Status Cervical muscle pain acuteCervical spine arthritisacuteOther chronic painacuteOther spondylosis with radiculopathy, lumbar regionacute [facility] Work Phone: Evaluation note* Diagnosis Onset Date Resolution Status Cervical muscle pain acuteCervical spine arthritisacuteOther chronic painacuteOther spondylosis with radiculopathy, lumbar regionacuteCervical muscle painacuteCervical spine arthritisacuteOther chronic painacute [facility] Work Phone: Evaluation note* Diagnosis Pain- Primary Generalized pain documented in this encounter [facility]* Diagnosis 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 Right foot drop Other acquired deformity of ankle and foot documented in this encounter [facility]Evaluation [facility]* Diagnosis Pain Generalized pain documented in this encounter [facility] HospitalEvaluwilmington [facility] note* Diagnosis Onset Date Resolution Status Other chronic pain acuteOther low back painacuteOther spondylosis with radiculopathy, lumbar region acute [facility] Work Phone: Evaluation note* Diagnosis Onset Date Resolution Status Other chronic pain acuteOther low back painacuteOther spondylosis with radiculopathy, lumbar region acuteOther chronic painacuteOther low back painacuteOther spondylosis with radiculopathy, lumbar regionacuteRib painacute [facility] Work Phone: Evaluation note* Diagnosis Other polyneuropathy- Primary Onychomycosis Dermatophytosis of nail Toe pain, right Pain in soft tissues of limb Toe pain, left Pain in soft tissues of limb Right foot drop Other acquired deformity of ankle and foot documented in this encounter [facility] HealthcareEvaluation note* Diagnosis Other polyneuropathy- Primary Onychomycosis Dermatophytosis of nail Toe pain, bilateral Right foot drop Other acquired deformity of ankle and foot documented in this encounter [facility] HealthcareEvaluation note* Diagnosis Other polyneuropathy- Primary Pain due to onychomycosis of toenails of both feet Right foot drop Other acquired deformity of ankle and foot documented in this encounter [facility] HealthcareEvaluation note* Diagnosis Onset Date Resolution Status Admit Date Other chronic pain acuteMarch 2024 10:28amOther low back painacuteMar 2024 10:28am Other spondylosis with radiculopathy, lumbar regionacuteMar 2024 10:28am Rib painacuteMar 2024 10:28am [facility] Work Phone: Evaluation note* Diagnosis Other polyneuropathy- Primary Pain due to onychomycosis of toenails of both feet Right foot drop Other acquired deformity of ankle and foot documented in this encounter [facility] HealthcareEvaluation note* Diagnosis Cellulitis of second toe of left foot- Primary Other polyneuropathy documented in this encounter [facility] HealthcareEvaluation note* Diagnosis Chest pain, [...] and integumentary tissues documented in this encounter [facility] Work Phone: Evaluation note* Diagnosis Other polyneuropathy- Primary Pain due to onychomycosis of toenails of both feet Right foot drop Other acquired deformity of ankle and foot documented in this encounter [facility]* Diagnosis Chest pain, unspecified type documented in this encounter [facility] Work Phone: Evaluation note* Diagnosis 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 documented in this encounter [facility]* Diagnosis Chest pain, unspecified type- Primary Primary hypertension Unspecified essential hypertension RBBB Mixed hyperlipidemia Abnormal EKG Nonspecific abnormal electrocardiogram (ECG) (EKG) Easy bruisability Other symptoms involving skin and integumentary tissues BMI 23.0-23.9, adult Edema of right lower extremity Nonrheumatic aortic (valve) stenosis Former smoker Personal history of tobacco use, presenting hazards to health documented in this encounter [facility] Work Phone: History general Narrative - Reported* [...] ShoulderSurgical Historybladder tumor exc Surgical Historycyst exc S5Yqekbrjhtantjvo Historysee surgical history Hospitalization HistoryRt leg xcaarnenv00/2018 [facility] Other History of Present illness Narrative* Dago [...] 10 Dago Brito DPM documented in this encounterUniversity of Missouri Health Carespital Discharge instructions Additional Instructions DISCHARGE INSTRUCTIONS FOR [...] your post-operative appointment and to remove the catheter.[facility] Work Phone: Hospital Discharge instructions Additional Instructions 1. No driving if taking narcotic pain medication. 2. No lifting more than 20 pounds for 3 weeks. 3. May shower.[facility] Work Phone: Hospital Discharge instructions Additional Instructions Follow-up with your primary care doctor Return to ED if develop worsening symptoms or concernsParkview Health [facility] Hospital Work Phone: Reason for referral (narrative)* Diagnostic Procedure Only (Routine) - AuthorizedSpecialtyDiagnoses / ProceduresReferred By Contact Referred To ContactXR IMAGING Diagnoses Pain Procedures XR HIP GENERAL 3V PELV/AP/LAT RIGHT RADEX HIP UNILATERAL WITH PELVIS 2-3 VIEWS Gaurang Shane MD [address] [place] [address] [facility] [place] [address] Referral IDStatusReasonStart DateExpiration DateVisits RequestedVisits [id number] Auto-Generated Referral [facility] for referral (narrative)* Diagnostic Procedure Only (Routine) - ClosedSpecialtyDiagnoses / ProceduresReferred By ContactReferred To ContactXR IMAGING Diagnoses Pain Procedures XR HIP GENERAL 3V PELV/AP/LAT RIGHT RADEX HIP UNILATERAL WITH PELVIS 2-3 VIEWS Gaurang Shane MD [address] [place] [address] [facility] [place] [address] Referral IDStatusReasonStart DateExpiration DateVisits RequestedVisits [id number] Auto-Generated Referral [facility] for visit Narrative* Diagnostic Procedure Only (Routine) - ClosedSpecialtyDiagnoses / ProceduresReferred By ContactReferred To Contact XR IMAGING Diagnoses Pain Procedures XR HIP GENERAL 3V PELV/AP/LAT RIGHT RADEX HIP UNILATERAL WITH PELVIS 2-3 VIEWS Gaurang Shane MD [address] [place] [address] [facility] [place] [address] Referral IDStatusReasonStart DateExpiration DateVisits RequestedVisits [id number] Auto-Generated Referral [facility] for visit Narrative* Cardiac Stress Testing (Routine) - AuthorizedSpecialtyDiagnoses / ProceduresReferred By ContactReferred To ContactRadiology Diagnoses Chest pain, unspecified type Procedures Nuclear Stress Test CHG MYOCARDIAL SPECT MULTIPLE STUDIES Jd Moreira MD [address] [facility], [place] [address] [place] [address] Phone: tel: fax: Referral IDStatusReasonStart DateExpiration DateVisits RequestedVisits [id number]/26/20256/26/202655 [facility] Work Phone: Reason for visit Narrative* Cardiac Stress Testing (Routine) - AuthorizedSpecialtyDiagnoses / ProceduresReferred By Contact Referred To ContactRadiology Diagnoses Chest pain, unspecified type Procedures Nuclear Stress Test CHG MYOCARDIAL SPECT MULTIPLE STUDIES Jd Moreira MD [address] [facility], [address] [address] Phone: tel: fax: Referral IDStatusReasonStart DateExpiration DateVisits RequestedVisits [id number]/26/20256/26/202655 [facility] Work Phone: Summary Purpose Family History No [...] 2024 10: 28am Other spondylosis [facility] December 12, 2024 10:28am Rib [...] 2024 10: 28am Other spondylosis with radiculopathy[facility] December 12, 2024 10:28am Rib [...] Procedures ECG 12 Lead Jd Moreira MD [address] [place] [address] Referral IDStatusReasonStart DateExpiration DateVisits RequestedVisits [id number]/15/20243/ Additional Source Comments (unrecognized sect ion and [...] section and content) DATE CREATED AUTHOR 05/29/2018 [facility] DATE CREATED AUTHOR AUTHOR'S ORGANIZ ATION 09/05/2018 [facility] DATE CREATED AUTHOR AUTHOR'S ORGANIZ ATION 04/04/2021 [facility] DATE CREATED AUTHOR AUTHOR'S ORGANIZ ATION 02/14/2024 [facility] DATE CREATED AUTHOR AUTHOR'S ORGANIZ ATION 02/28/2024 [facility] DATE CREATED AUTHOR AUTHOR'S ORGANIZ ATION 03/02/2024 [facility] DATE CREATED AUTHOR AUTHOR'S ORGANIZ ATION 03/13/2024 [facility] DATE CREATED AUTHOR AUTHOR'S ORGANIZ ATION 03/15/2024 [facility] DATE CREATED AUTHOR AUTHOR'S ORGANIZ ATION 05/10/2024 [facility] DATE CREATED AUTHOR AUTHOR'S ORGANIZ ATION 12/02/2024 [facility] DATE CREATED AUTHOR AUTHOR'S ORGANIZ ATION 12/15/2024 [facility] DATE CREATED AUTHOR AUTHOR'S ORGANIZ ATION 12/16/2024 [facility] DATE CREATED AUTHOR AUTHOR'S ORGANIZ ATION 01/12/2025 [facility] DATE CREATED AUTHOR AUTHOR'S ORGANIZ ATION 02/19/2025 [facility] DATE CREATED AUTHOR AUTHOR'S ORGANIZ ATION 04/08/2025 [facility] DATE CREATED AUTHOR AUTHOR'S ORGANIZ ATION 04/16/2025 [facility] DATE CREATED AUTHOR AUTHOR'S ORGANIZ ATION 06/04/2025 [facility] DATE CREATED AUTHOR AUTHOR'S ORGANIZ ATION 06/12/2025 [facility] DATE CREATED AUTHOR AUTHOR'S ORGANIZ ATION 06/19/2025 [facility] DATE CREATED AUTHOR AUTHOR'S ORGANIZ ATION 06/21/2025 [facility] DATE CREATED AUTHOR AUTHOR'S ORGANIZ ATION 07/24/2025 [facility] DATE CREATED AUTHOR AUTHOR'S ORGANIZ ATION 07/25/2025 [facility] REASON FOR VISIT (unrecogniz ed section and content) ReasonCommentsEstablish CarePre-op ClearanceBladder tumor- watersSpecialty Diagnoses / ProceduresReferred By ContactReferred To Contact Diagnoses Pre-operative cardiovascular examination Procedures ECG 12 Lead Jd Moreira MD [address] [place] [address], [address] [address] Referral IDStatusReasonStart DateExpiration DateVisits RequestedVisits [id number]/15/[id number] Request [facility]ReasonCommentsNewNeed to establishSpecialtyDiagnoses / Procedures Referred By ContactReferred To ContactOrthopedics / ORTHOPAEDIC SURGERY Diagnoses Right hip pain right hip pain- [facility] Initial DOI is 04/11/1976 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 *ok per Jyoti* Procedures OFFICE/OUTPATIENT NEW HIGH MDM 60 MINUTES [facility]ORTS Pcp, No, Gaurang Tripp MD [address] [place] [id number] Referral IDStatusReasonStart DateExpiration DateVisits RequestedVisits [id number]/[id number] Foot CareDm nail careReasonCommentsDM Foot CareDm nail careReasonCommentsToenail CareNon dm catrachito lcareReasonCommentsToenail LkjzdqoBsdmwrPcfiipjnJfumez-qxHu-wddqeeikubcl after 1 year for Chest painReasonCommentsToenail CareReasonCommentsDM Foot CareReason CommentsFollow-up4 month HTN (hypertension)SpecialtyDiagnoses / Procedures Referred By ContactReferred To ContactCardiology Diagnoses Primary hypertension Procedures Follow Up In Cardiology Jd Moreira MD [address] [place] [address], [address] [address] Phone: tel: fax: Jd Moreira MD [address] [place] [address], [address] [address] Phone: tel: fax: Referral IDStatusReasonStart DateExpiration DateVisits RequestedVisits [id number]/26/20256/26/202611 Care Teams (unrecognized sec tion and content) [...] DateEnd Date Eh Lund DO [address] [place] [address] [facility] Team Status: Inactive Member Role Status Darío [...] Active Start: December 20, 2023 End: December 19atricalbertina Gill DENEENttending ProviderActiveStart: December 20, 2023 End: [...] MemberRelationshipSpecialtyStart DateEnd Eh Morton MD [address] [place] [facility] [address] PCP - GeneralFamily Medicine02/28/23Team MemberRelationshipSpecialtyStart DateEnd Eh Lund MD [address] [place] [facility] [address] PCP - GeneralFamily Medicine02/28/23Team MemberRelationshipSpecialtyStart DateEnd Eh Lund MD [address] [place] [address] PCP - GeneralFamily Medicine02/28/23Team MemberRelationshipSpecialtyStart DateEnd Eh Lund MD [address] [place] [address] PCP - Generalmily Medicine02/28/23Team MemberRelationshipSpecialtyStart DateEnd Eh Lund MD [address] [place] [address] PCP - GeneralFamily Medicine02/28/23 Team Status: Inactive [...] MemberRelationshipSpecialtyStart DateEnd Date Eh Lund MD [address] [place] [address] [facility]02/28/23 Team Status: Inactive Member Role Status [...] MemberRelationshipSpecialtyStart DateEnd Date Eh Lund MD [address] [place] [address] [facility]02/28/23 Team Status: Active Member Role Status [...] 2025Team MemberRelationshipSpecialtyStart [place] [address] [place] [address] [facility] - [facility]/09/23 Team Status: Active Member Role Status [...] 2025Team MemberRelationshipSpecialtyStart DateEnd Date Eh Lund MD [address] [place] [id number] PCP - GeneralGreat [facility] Systemly Medicine02/28/23Team MemberRelationshipSpecialtyStart DateEnd Date Eh Lund DO [address] [place] [address] PCP - Generalmily Medicine12/09/23Team MemberRelationshipSpecialtyStart DateEnd Date Eh Lund DO [address] [place] [address] PCP - GeneralFamily Medicine12/09/23Team MemberRelationshipSpecialtyStart DateEnd Date Eh Lund DO [address] [place] [address] PCP - Generalmily Medicine12/09/23Team MemberRelationshipSpecialtyStart DateEnd Date Eh Lund MD [address] [place] [address] PCP - GeneralFamily Medicine02/28/23Team MemberRelationshipSpecialtyStart DateEnd Date Eh Lund DO [address] [place] [address] PCP - [facility] Medicine12/09/23 Goals (unrecognized section and content) Goals may be documented in a n alternate section Source Comments (unrecognize d section and content) In the event this informatio n is protected by the Federal Confidentiality of Alcohol and Drug Abuse Patient Records regulations: The Federal rules restrict any use of the information to criminally investigate or prosecute any alcohol or drug abuse patient.[facility] HospitalIn the event this information is protected by the Federal Confidentiality of Alcohol and Drug Abuse Patient Records regulations: The Federal rules restrict any use of the information to criminally investigate or prosecute any alcohol or drug abuse patient.[facility] HospitalIn the event this information is protected by the Federal Confidentiality of Alcohol and Drug Abuse Patient Records regulations: The Federal rules restrict any use of the information to criminally investigate or prosecute any alcohol or drug abuse patient.[facility] HospitalIn the event this information is protected by the Federal Confidentiality of Alcohol and Drug Abuse Patient Records regulations: The Federal rules restrict any use of the information to criminally investigate or prosecute any alcohol or drug abuse patient.[facility] HospitalIn the event this information is protected by the Federal Confidentiality of Alcohol and Drug Abuse Patient Records regulations: The Federal rules restrict any use of the information to criminally investigate or prosecute any alcohol or drug abuse patient.[facility] FOR RECORDS PERTAINING TO PATIENTS WHO ARE [...] BE BASED ON THE PRIMARY CLINICAL RECORDS. [facility]. provides no warranty or guarantee of the accuracy or completeness of information in this document.
--- OUTSIDE RECORDS SUMMARY | 2025-08-29 07:12 | XMS_ITS | Encounter Summary ---
Author Organization [facility] Address [address] [place] [address] Care Team Providers Care Pit And Auxiliaries Supervisor Name Role Phone Rik Lund MD Primary Care Provider [phone] Encounter Details DateTypeDepartmentCare Team (Latest Contact Info)Ejahrkepcsi20/01/2025amboo flowsheet [facility] [address] [place] [address] Dago Staton DPM [address] [address] Social History Tobacco UseTypesPacks/DayYears UsedDateSmoking Tobacco: FormerCigarettes Smokeless Tobacco: NeverAlcohol UseStandard Drinks/WeekCommentsNever0 (1 standard drink = 0.6 oz pure alcohol)caffeine intake: 1-2 cups per daySex and Gender InformationValueDate RecordedSex Assigned at BirthNot on fileLegal Sex Male12/08/2022 8:13 PM EDTGender IdentityNot on fileSexual OrientationNot on filedocumented as of this encounter Plan of Treatment DateTypeDepartmentCare Team (Latest Contact Info)Shmkkdxbkss71/09/2026 11:40 AM ESTOffice Visit [facility] [address] [place] [address] Dago Staton DPM [address] [address] documented as of this encounter Visit Diagnoses Not on filedocumented in this encounter Care Teams Team MemberRelationshipSpecialtyStart DateEnd Date Rik Lund MD [address] [place] [address] PCP - GeneralFamily Medicine02/28/23documented as of this encounter
--- OUTSIDE RECORDS SUMMARY | 2025-08-29 07:12 | XMS_ITS | Encounter Summary ---
Author Organization [facility] Address [address] [place] [address] Phone Care Team Providers Care Payment Poster Name Role Phone Kevon Rik Jace HANDLEY Primary Care Provider + Encounter Details DateTypeDepartmentCare Team (Latest Contact Info)Ujizrrprmwh86/21/2025Telephone [facility] [address] [address] Eva Coburn LPN Social History Tobacco UseTypesPacks/DayYears UsedDateSmoking Tobacco: FormerPipeSmokeless Tobacco: NeverAlcohol UseStandard Drinks/WeekCommentsNever0 (1 standard drink = 0.6 oz pure alcohol)Sex and Gender InformationValueDate RecordedSex Assigned at BirthNot on fileLegal BlxRvwr82/26/2022 4:39 PM ESTGender IdentityNot on file Sexual [...] ASA. Patient will be undergoing general anesthesia. (N) [phone] (P) [phone] documented in this encounter Plan of Treatment DateTypeDepartmentCare Team (Latest Contact Info)Cjsznecxstv03/30/2026 3:30 PM EDTOffice Visit [facility] [address] [place] [address] [address] [place] [phone] Bolivar Christensen MD [address] [place] [address] [address] [place] [address] documented as of this encounter Visit Diagnoses Not on filedocumented in this encounter Additional Health Concerns AssessmentNoted TimeA fall risk assessment has been completed for the patient 07/23/2025 12:49 PM EDTdocumented as of this encounter Care Teams Team MemberRelationshipSpecialtyStart DateEnd Date Rik Lund DO [address] [place] [address] PCP - GeneralFamily Medicine12/09/23documented as of this encounter
--- OUTSIDE RECORDS SUMMARY | 2025-08-29 07:12 | XMS_ITS | Clinical Summary ---
Author Organization [facility] Address [address] [place] [address] Phone Care Team Providers Care Driver Sales Name Role Phone KevonRik Jace HANDLEY Primary Care Provider + Allergies Active AllergyReactionsCriticalityNoted DateCommentsCiprofloxacinGI intolerance, Other06/20/2007 Other Reaction(s): rapid heartbeat Sulfa (Sulfonamide Antibiotics)Hives,DeznSaz6109/13/2011 Sulfamethoxazole-OshmxxgzpgqeTrchGxx37/21/2018 Medications MedicationSigDispense QuantityRefillsLast FilledStart DateEnd DateStatus tamsulosin [...] (325 mg) by mouth every 4 hours.Active ni-dy-ba2-bji-yms-isii-lut-melissa (Ocuvite Adult 50 Plus) 250 mg (90 mg-160 mg) capsule Take by mouth.Active lisinopril 20 mg tablet Take 1 tablet (20 mg) by mouth once daily.Active Active Problems ProblemNoted DateDiagnosed DateNonrheumatic aortic (valve) oklpsgcc34/28/2025 Former pqukmd9207/23/2025hest pain, eryiegolbet40/26/2025Edema of right lower hbmuwbiay55/26/2025Easy gwqusteqnqbb41/26/2025Personal history of TIA (transient ischemic attack)12/09/2023ladder tumor12/09/20239354Zzmvmoebcughrs57/15/2024 Abnormal EKG012/09/20230769MXGY97/15/2024MI 24.0-24.9, adult12/09/2023OPD (chronic obstructive pulmonary disease)02/28/2023HTN (hypertension)02/28/2023 Resolved Problems ProblemNoted DateDiagnosed DateResolved DatePre-operative cardiovascular acsmqemcwyk31/15/202406/0836Llybnsrxl42Heart disease Near degxaql28 Encounters DateTypeDepartmentCare GzrmMzugqcdneav98/21/2025Telephone [address] [place] [address] Eva Coburn LPN 07/23/2025 12:50 PM EDTOffice Visit [address] [place] [address] Bolivar Christensen MD Chest pain, unspecified type (Primary Dx); Primary hypertension; RBBB; Mixed hyperlipidemia; Abnormal EKG; Easy bruisability; BMI 23.0-23.9, adult; Edema of right lower extremity; Nonrheumatic aortic (valve) stenosis; Former dejskk7607/23/2025Travelfrom Last 3 Months Immunizations ImmunizationAdministration DatesNext IdsNOM68/20/2024COVID-19 mRNA, bivalent, original/Omicron BA.1, Non-US Vaccine (Spikevax Bivalent), Nzuavtx65/07/2022Flu vaccine (IIV4), preservative free *Check age/dose*06/27/2018,06/20/2017Flu vaccine, quadrivalent, high-dose, preservative free, age 65y+ (FLUZONE) 07/18/2023,07/07/2022,06/25/2021,06/12/2020Flu vaccine, trivalent, preservative free, HIGH-DOSE, age 65y+ (Fluzone)07/12/2025,06/08/2024,06/12/2019Influenza, live, intranasal, ouryglvkljwi54/26/2018Pneumococcal polysaccharide vaccine, 23- valent, age 2 years and older (PNEUMOVAX 23)03/01/2016,09/12/2015RESPIRATORY SYNCYTIAL VIRUS (RSV), ELIGIBLE PTS, 0.5 ML (ABRYSVO)09/02/2023 Family History Medical HistoryRelationNameCommentsCancerFatherHeart attackMotherRelationName StatusCommentsFatherDeceasedMotherDeceased Social History Tobacco UseTypesPacks/DayYears UsedDateSmoking Tobacco: FormerPipeSmokeless Tobacco: Never Tobacco Cessation:Counseling Given: Not Answered Alcohol UseStandard Drinks/WeekCommentsNever0 (1 standard drink = 0.6 oz pure alcohol)Sex and Gender InformationValueDate RecordedSex Assigned at BirthNot on fileLegal MpuWcjp19/26/2022 4:39 PM ESTGender IdentityNot on fileSexual OrientationNot on file Last Filed Vital Signs Vital SignReadingTime TakenCommentsBlood Roauuypn252/7607/23/2025 12:50 PM EDT Dnlkh402007/23/2025 12:50 PM EDTTemperature--Respiratory Rate--Oxygen Saturation-- Inhaled Oxygen Concentration--Gpljja06 kg (172 lb)07/23/2025 12:50 PM EDTHeight 180.3 cm (5' 11 )07/23/2025 12:50 PM EDTBody Mass Index23.9907/23/2025 12:50 PM EDT Plan of Treatment DateTypeDepartmentCare Team (Latest Contact Info)Wsdszewntms83/30/2026 3:30 PM EDTOffice Visit [facility] [address] [address] Bolivar Christensen MD 703 [facility] [address], [address] [place] [address] Health MaintenanceDue DateLast DoneCommentsLipid Panel1936Medicare Annual Wellness Visit (AWV)1936Diabetes Czpzhvibi99/27/1954OVID-19 Vaccine ( season)61, 06/08/2024, 07/26/2023, Additional history existsDTaP/Tdap/Td Vaccines (2 - Td or Tdap)Zoster Vaccines Iqwzbovwh49/01/2019, 12/08/2018RSV High Risk: (Elderly (60+) or Population)Zegwlxjzc89/08/2023Influenza IjngwdaIfdobjwxw06/17/2025, 06/08/2024, 07/18/2023, Additional history existsPneumococcal WsiewjqAlfdguhpi68/17/2025, 01/20/2022, 11/27/2020, Additional history existsHIB VaccinesAged OutNo [...] HernandezAccount TypeRelation to PatientDate of BirthPhone Billing AddressPersonal/GqzdedGrht[address] [facility] [place] [address] Care Teams Team MemberRelationshipSpecialtyStart DateEnd Date Rik Lund DO [address] [place] [address] PCP - GeneralFamily Medicine12/09/23
--- OUTSIDE RECORDS SUMMARY | 2025-08-29 07:13 | XMS_ITS | Clinical Summary ---
Author Organization [facility] Address [address] [place] [address] Care Team Providers Care Rein[employer] Name Role Phone Rik Lund MD Primary Care Provider Allergies Active AllergyReactionsCriticalityNoted DateCommentsCiprofloxacinGI intolerance 06/20/2007 Other Reaction(s): rapid heartbeat Sulfa AntibioticsRash,DogfsVao03/19/2011Sulfamethoxazole-TrimethoprimRashLow 08/16/2018 Medications MedicationSigDispense QuantityRefillsLast FilledStart DateEnd DateStatus [...] MG capsule 06/23/2023ctive Active Problems ProblemNoted DateDiagnosed KlkjNfxcxwq75/22/2023hronic ulcer of right foot with fat layer qavtjil2602/28/2023Onychomycosis due to ocoetmggqtus98/05/2023rthritis of right knee02/28/2023Internal derangement of right knee02/28/2023 Osteoarthritis of right knee02/28/2023Unilateral primary osteoarthritis, left knee02/28/2023ain in limb02/28/2023ain in right knee02/28/2023eripheral qyrkrpsflk10/05/2023rimary shfcpbuxjduxzt40/05/2023Right knee pain, unspecified ryxxhwvovu81/05/2467Ughextdp00/05/2023Shortness of ujvnxg4202/28/2023ervical nadlwpsruohsf58/05/2023Lumbar uazmjhlaaidlj51/05/2023Spinal stenosis, lumbar 02/28/2023Thyroid mass02/28/2023TIA (transient ischemic attack)02/28/2023Weight loss02/28/2023Neck pain02/28/2023Idiopathic tcvvowmgzjiz38/05/2023Osteoarthritis 02/28/2023RUQ abdominal pain02/28/2023eripheral arterial occlusive disease 02/28/2023Orthostatic nolvsprngtq54/05/2023Night ytdivw2102/28/2023Near syncope 02/28/2023HTN (hypertension)02/28/2023Heart jptknnv6302/28/2023Malfunction of anal xhogzqvxt74/05/2023Lung mass02/28/2023reast mass in male02/28/2023 Jxducjitalvkdf53/05/2023Hip pain02/28/2023ERD (gastroesophageal reflux disease) 02/28/20230414Upcfvsqix26/05/3138Ctzlechuib77/05/2023OVID-19002/28/2023OPD (chronic obstructive pulmonary disease)02/28/2023hronic serous otitis media02/28/2023 Chronic cough02/28/2023AD (coronary artery disease)02/28/2023ladder cancer 02/28/2023cute pancreatitis ([facility])02/28/2023Unilateral inguinal hernia without obstruction or jrkdkbaq52/05/2023Foot drop, right03/19/2014Leg length nueqbsbkizx33/24/2014Disorder of joint of pelvic region and thigh12/25/2013 Actinic heveavozl84/20/2007 Encounters DateTypeDepartmentCare MxomJwcwsrwmteg34/01/2025 11:40 AM ESTOffice Visit [facility] [address] [place] [address] Dago Staton DPM Other polyneuropathy (Primary Dx); Pain due to onychomycosis of toenails of both feet; Right foot drop5Bamboo flowsheet [facility] [address] [place] [address] Dago Staton DPM 06/03/2025 11:30 AM EDTOffice Visit [facility] [address] [place] [address] Dago Staton DPM Other polyneuropathy (Primary Dx); Pain due to onychomycosis of toenails of both feet; Right foot drop5Bamboo flowsheet [facility] [address] [place] [address] Dago Staton DPM from Last 3 Months Immunizations ImmunizationAdministration DatesNext DueInfluenza, High Dose Seasonal, Preservative Free06/12/2019Influenza, High-dose Seasonal, Quadrivalent, Preservative Free07/07/2022,06/25/2021,06/12/2020Influenza, injectable, quadrivalent, preservative free06/27/2018,06/20/2017Influenza, live, intranasal, ijqyebyoyuam08/26/2018Moderna Bivalent Booster Uxngohqmkft14/07/2022Moderna SARS-CoV-2 Booster Lgtqzbozuso56/07/2022neumococcal Polysaccharide PPSV23 03/01/2016,09/12/2015 Family History Medical HistoryRelationNameCommentsCancerFatherHeart diseaseMotherRelationName StatusCommentsFatherDeceasedMotherDeceased Social History Tobacco UseTypesPacks/DayYears UsedDateSmoking Tobacco: FormerCigarettes Smokeless Tobacco: Never Tobacco Cessation:Counseling Given: Yes Alcohol UseStandard Drinks/WeekCommentsNever0 (1 standard drink = 0.6 oz pure alcohol)caffeine intake: 1-2 cups per daySex and Gender InformationValueDate RecordedSex Assigned at BirthNot on fileLegal DdfAccq1012/08/2022 8:13 PM EDT Gender IdentityNot on fileSexual OrientationNot on file Last Filed Vital Signs Vital SignReadingTime TakenCommentsBlood Vzqomtcd332/78011/05/2024 11:59 AM EST Dxkyf8694/10/2025 11:59 AM ESTTemperature--Respiratory Tltm887310/27/2024 11:49 AM ESTOxygen Saturation--Inhaled Oxygen Concentration--Rqmrho76.3 kg (177 lb) 08/26/2025 11:49 AM ZNGJykfra119.3 cm (5' 11 )08/26/2025 11:49 AM ESTBody Mass Index24.6908/26/2025 11:49 AM EST Plan of Treatment DateTypeDepartmentCare Team (Latest Contact Info)Grvbqzcnnkg81/09/2026 11:40 AM ESTOffice Visit [facility] [address] [place] [address] Dago Staton DPM [address] [address] Health MaintenanceDue DateLast DoneCommentsCOVID-19 Vaccine (2024- season) 5111/02/2021, 09/01/2022, 03/08/2022, Additional history existsInfluenza AqufafpEhgwqnnwc44/17/2025, 06/08/2024, 07/18/2023, Additional history exists Pneumococcal Vaccine: 65+ OoxxbPxaktiqaz72/17/2025, 01/20/2022, 11/27/2020, Additional history exists Insurance Care Teams Team MemberRelationshipSpecialtyStart DateEnd Rik Lund MD [address] [place] [address] PCP - GeneralFamily Medicine02/28/23
[2025-08-29] MEDS: CEFAZOLIN SODIUM 2 GM/50 ML D5W PREMIX IV (08:03)
--- NOTE | 2025-08-29 09:43 | P.URON_ITS ---
Urology Surgery Operative Note Operative Note Procedure Date: 08/29/25 Time Out Performed: yes Pre-op Diagnosis: Right renal calculus; status post stent placement Post-op Diagnosis: same as pre-op Procedures performed: 1. Cystoscopy. 2. Urethral dilation of bulbar stricture with Encarnacion sounds to 30 Kuwaiti. 3. Right ureteroscopy. 4. Right pyeloscopy. 5. Thulium laser lithotripsy of a large right renal calculus. 6. Right stent change to 6 Kuwaiti variable length. Anesthesia: TODDA Primary Surgeon: Juan Rowe Complications: None Estimated blood loss (mL): 5 Findings: 1. Bulbar urethral stricture. 2. Large hard right renal pelvis stone. Specimens: None Drains: 6 Kuwaiti variable length right ureteral stent Indications for Procedures: This gentleman had an obstructing 11 mm right UPJ calculus for which he was stented by another urologist a few weeks ago. He now presents for definitive ureteroscopic laser lithotripsy and possible stent change versus removal. He has signed an informed consent after risks were explained. Detailed description of Procedure: The patient was brought to the operating room and placed on the operating room table in the supine position. SCDs were placed on the lower extremities and turned on and functioning during the entire case. Timeout was done by all parties in the room. We all agreed upon the patient's identification and the planned procedures for this patient. Genn. anesthesia was then administered. The patient was then repositioned into the modified dorsal lithotomy position. All pressure points were satisfactorily padded. Genitalia were sterilely prepped and draped in usual fashion. I started by passing a 22 Kuwaiti Olympus cystoscope per urethra but encountered a bulbar stricture. I passed a Glidewire through the scope and then through the stricture into the bladder. The scope was removed and I then used Encanracion sounds and dilated this up to 30 Kuwaiti. The wire was removed and I then repassed the scope and now the strictured area was wide open. I then passed the scope into the bladder. I then used a flexible grasping forceps and grasped the end of the stent. The stent and was brought out the urethral meatus. I then slid a Glidewire through the stent up to the kidney and remove the old stent. A 10/12 Kuwaiti ureteral access sheath was then slid over the wire up to the L5 level. The stylette and wire were then removed. I then passed a flexible ureteroscope through the access sheath and then into the ureter. I ascended up the ureter and then went into the kidney. I encountered the stone in a midpole calyx. I then used a 270 Angstrom laser fiber and passed it through the scope and made contact with the stone. I began using the thulium laser at 10 W on the dusting mode. I had increased to 15 then ultimately 20 W due to the hard nature of the stone. This stone did require quite a bit of lasering to get totally dusted. Upon completion, fluoroscopically no stone was visible anymore. Endoscopically, I could only see sand and submillimeter flecks of stone. I then slid a Glidewire through the s cope into the kidney and removed the scope and access sheath. Cystoscope was backloaded over the wire and passed into the bladder. I then slid a new 6 Kuwaiti variable length stent over the wire up to the kidney. The wire was removed and there were good curls in the kidney and in the bladder. The bladder was drained of its contents and the scope was then removed. The anesthetic was then reversed. He [facility] then [facility] and wheeled to PACU in stable condition.
[2025-08-29] MEDS: SOLIFENACIN SUCCINATE 10 MG TABLET PO (10:08)
--- NOTE | 2025-08-29 11:50 | PC.NURSE ---
1130: pt has complaint of pressure and is unable to urinate. Pt was bladder scanned for >934mls,pt was able to uriate 150mls but still has pressure. order received from to place garcia and have to pt return to the office tomorrow for removal.
--- NOTE | 2025-08-29 12:08 | PC.NURSE ---
16 spanish garcia catheter inserted by An Barbour RN. Secured to right thigh.
== END 2025-08-29 13:00 | disposition home or self-care (01) ==
PROVIDERS: Visit Provider Urology
PROC: (CPT 52356; principal; 2025-08-29 08:00)
DX: N20.0 Calculus of kidney (principal); N35.912 Unspecified bulbous urethral stricture, male; I10 Essential (primary) hypertension; Z85.51 Personal history of malignant neoplasm of bladder; Z86.73 Personal history of transient ischemic attack (TIA), and cerebral infarction without residual deficits; N40.1 Benign prostatic hyperplasia with lower urinary tract symptoms; E78.5 Hyperlipidemia, unspecified; H35.30 Unspecified macular degeneration; Z79.82 Long term (current) use of aspirin; Z79.02 Long term (current) use of antithrombotics/antiplatelets; Z87.891 Personal history of nicotine dependence; I25.10 Atherosclerotic heart disease of native coronary artery without angina pectoris; Z96.641 Presence of right artificial hip joint; Z96.611 Presence of right artificial shoulder joint; R06.00 Dyspnea, unspecified; I73.9 Peripheral vascular disease, unspecified; I35.0 Nonrheumatic aortic (valve) stenosis; K21.9 Gastro-esophageal reflux disease without esophagitis; Z86.718 Personal history of other venous thrombosis and embolism
CPT/HCPCS: 52356; 36415; 51702; 51798; 76000; J0690; J1100; J1171; J1805; J2250; J2371; J2405; J2704; J3010